=== PATIENT | female | born 1995 | race Caucasian/White ===

== ENCOUNTER 2017-04-01 18:27 | Emergency (ER) | payer MEDICAID, OTHER ==
[~2017-04-01] VITALS: Ht 157.5 cm; Wt 79.4 kg
[~2017-04-01 18:27] MED LIST: ACHYD1T PO; AMOX500C2 PO; AMOX500T2 PO; BIRTH CONTROL PILL PO; CEPH500C PO; CIPR500T4 PO; CPR500T PO; CYCL10TA9 PO; CYCL5TAB11 PO; DCS100C PO; Docusate Sodium PO; ESCT10T PO; FAMO-119 PO; FAMO20TA5 PO; FEXO180T84 PO; FRS325T PO; HYDR-707 PO; IRON PO; IRON45TA2 PO; Ibuprofen PO; METR500T PO; MPR22T TP; MTR500T PO; NITR100C3 PO; OCP PO; OMEP20CA12 PO; OMEP20TA2 PO; OMEP20TA7 PO; ONDA4TAB11 PO; ONDA8TAB9 PO; PNV1CAPS45 PO; POLY119P PO; PREN1TAB71 PO; RANI25TA PO; SMTR50T PO; SULF-222 PO; SUMA25TA3 PO; [UNRECOGNIZED DRUG - REMARK]; omeprazole
[2017-04-01 18:45] LABS: KETONES,URINE NEGATIVE (NEGATIVE); LEUKOCYTE ESTERASE ,URINE 1+ (NEGATIVE); NITRITE,URINE NEGATIVE (NEGATIVE); PH,URINE 6 (5-9); PROTEIN,URINE 1+ (NEGATIVE); UROBILINOGEN,URINE 1 MG/DL (NORMAL)
[2017-04-01 18:59] LABS: BILIRUBIN,URINE 1+ (NEGATIVE); SQUAMOUS EPITHELIAL CELL,UR TNTC /HPF; WBC,URINE RARE /HPF
[2017-04-01] MEDS ORDERED: RX-ONDANSETRON 4 MG ODT (ZOFRAN) PPK #4 SL STA (20:01)
--- NOTE | 2017-04-01 20:01 | ED General ---
General Chief Complaint: -Female Stated Complaint: NAUSEA/CRAMPS/LATE PERIOD Nursing Triage Note: AMB TO ED WITH MALE LMP WAS FEBRUARY 24 THINKS SHE MAY BE PREG HAVING PREG SYMPTOMS. Nursing Sepsis Screen: No Definite Risk Source of Information: Patient Exam Limitations: No Limitations History of Present Illness Time Seen by Provider: 18:29 Initial Comments This 22-year-old young lady presents to the emergency room with complaints of late menstrual cycle, breast tenderness, pelvic cramping, and fatigue. Symptoms have been present for about 2 weeks. She has had some constipation. She denies any vomiting associated with her nausea. No diarrhea. She has had some white discharge without odor 2 days which is now gone. She is 8 days late on her cycle. She has not taken a test. Allergies and Home Medications Allergies Coded Allergies: propranolol (Unverified Allergy, Unknown, 07/26/14) Home Medications Ciprofloxacin HCl 500 Mg Tablet, 500 MG PO BID, #6 Prescribed by: NOE ROSALES on 04/23/16 0145 Fexofenadine HCl 180 Mg Tablet, 180 MG PO DAILY, (Reported) Omeprazole 20 Mg Tablet., Unknown Dose PO DAILY PRN for heartburn, (Reported) [omeprazole] , (Reported) Constitutional: see HPI EENTM: no symptoms reported Respiratory: no symptoms reported Cardiovascular: no symptoms reported Gastrointestinal: see HPI Genitourinary: no symptoms reported : No LMP: Feb 24, 2017 Musculoskeletal: no symptoms reported Skin: no symptoms reported Psychiatric/Neurological: No Symptoms Reported Hematologic/Lymphatic: No Symptoms Reported Past Amymrht-Ewirsl-Nodozi Hx Patient Social History Alcohol Use: Denies Use Recreational Drug Use: No Smoking Status: Never a Smoker Former Smoker/When Quit: Nov 02, 2013 Recent Foreign Travel: No Contact w/Someone Who Travel: No Recent Infectious Disease Expo: No Recent Hopitalizations: No Immunizations Up To Date Tetanus Booster (TDap): Less than 5yrs Date of Influenza Vaccine: Jun 27, 2013 Seasonal Allergies Seasonal Allergies: Yes Surgeries HX Surgeries: Yes (URETHRAL DILATION, X 2) Surgeries: Appendectomy, Section, Gallbladder Respiratory Hx Respiratory Disorders: No Cardiovascular Hx Cardiac Disorders: No Neurological Hx Neurological Disorders: Yes ("hereditary migraines") Neurological Disorders: Headaches /Migraines Reproductive System Hx Reproductive Disorders: No Sexually Transmitted Disease: No Female Reproductive Disorders: Pelvic Inflammatory Dis Genitourinary Hx Genitourinary Disorders: Yes Genitourinary Disorders: UTI-Chronic Gastrointestinal Hx Gastrointestinal Disorders: Yes Gastrointestinal Disorders: Gastroesophageal Reflux, Irritable Bowel Musculoskeletal Hx Musculoskeletal Disorders: Yes Musculoskeletal Disorders: Scoliosis Endocrine Hx Endocrine Disorders: No HEENT HX ENT Disorders: No Cancer Hx Cancer: No Psychosocial Hx Psychiatric Problems: Yes Behavioral Health Disorders: Anxiety, Depression Integumentary HX Skin/Integumentary Disorder: No Blood Transfusions Hx Blood Disorders: No Family Medical History Significant Family History: No Pertinent Family Hx Family Medial History: Alcoholism 19 FATHER 19 MOTHER (PGF) Arthritis 19 MOTHER Cardiovascular disease 19 FATHER (PGM) 19 MOTHER (MGF) Completed stroke G8 BROTHER Dementia G8 BROTHER Diabetes mellitus 19 FATHER (PGM) G8 BROTHER Fibrocystic disease of breast 19 MOTHER (MGM) Headache disorder 19 FATHER Hypercholesterolemia 19 FATHER G8 BROTHER G8 BROTHER Hypertension 19 MOTHER (MGF) G8 BROTHER Kidney disease 19 MOTHER Myocardial infarction G8 BROTHER Osteoporosis 19 MOTHER Psychosocial problem No Family History of: AIDS Abdominal aortic aneurysm Yobani's disease Alzheimer's disease Aphasia Asthma Cancer of mouth Cataracts Colon cancer Congenital disease Congenital heart disease Coronary thrombosis Cystic fibrosis Deafness or hearing loss Drug abuse Dysphasia Gastroenteritis Glaucoma Infertility Neoplasm Not obtainable due to adoption Parkinson's disease Prostate cancer Respiratory disorder Seizure disorder Severe allergy Thyroid disease Tuberculosis Visual disorder Physical Exam Vital Signs Vital Sign - Last 12Hours 04/01/17 18:36 Temp 99.6 Pulse 85 Resp 18 B/P (MAP) 130/99 Pulse Ox 99 O2 Delivery Room Air Capillary Refill : Less Than 3 Seconds General Appearance: No Apparent Distress, WD/WN HEENT: Normal ENT Inspection Respiratory: Lungs Clear, Normal Breath Sounds, No Accessory Muscle Use, No Respiratory Distress Cardiovascular: Regular Rate, Rhythm, No Edema, No Murmur Gastrointestinal: Normal Bowel Sounds, Non Tender, Soft Extremity: Normal Inspection, No Pedal Edema Neurologic/Psychiatric: Alert, Oriented x3, No Motor/Sensory Deficits, Normal Mood/Affect, electro optical engineer II-XII Norm as Tested Skin: Normal Color, Warm/Dry Progress/Results/Core Measures Results/Orders Lab Results Laboratory Tests Test 04/01/17 18:29 04/01/17 19:10 Range/Units Urine Color YELLOW Urine Clarity CLEAR Urine pH 6 5-9 Urine Specific [place] 1.020 1.016-1.022 Urine Protein 1+ H NEGATIVE Urine Glucose (UA) NEGATIVE NEGATIVE Urine Ketones NEGATIVE NEGATIVE Urine Nitrite NEGATIVE NEGATIVE Urine Bilirubin 1+ H NEGATIVE Urine Urobilinogen 1 NORMAL MG/DL Urine Leukocyte Esterase 1+ H NEGATIVE Urine RBC (Auto) NEGATIVE NEGATIVE Urine RBC RARE /HPF Urine WBC RARE /HPF Urine Squamous Epithelial Cells TNTC H /HPF Urine Crystals NONE /LPF Urine Bacteria LARGE H /HPF Urine Casts NONE /LPF Urine Mucus NEGATIVE /LPF Urine Culture Indicated NO Serum Test, Qualitative NEGATIVE NEGATIVE My Orders Orders - ANNE ORTEGA MD Ua Culture If Indicated (04/01/17 18:29) Urine Bedside (04/01/17 18:29) Hcg,Qualitative Serum (04/01/17 18:54) Rx-Ondansetron Po (Rx-Zofran Po) (04/01/17 20:01) Vital Signs/I&O Vital Sign - Last 12Hours 04/01/17 04/01/17 18:36 20:07 Temp 99.6 99.6 Pulse 85 85 Resp 18 18 B/P (MAP) 130/99 Pulse Ox 99 99 O2 Delivery Room Air Room Air Blood Pressure Mean: 109 Point of Care Testing Urine -Bedside: Negative Progress Note : Progress Note Serum test was negative. The remainder of her workup was deferred to primary care and she does not appear to have an emergent condition requiring immediate workup and continuity for following these issues should be managed by the primary care provider. Departure Impression Impression: Primary Impression: Irregular menstrual cycle Additional Impressions: Pelvic cramping Fatigue Qualified Codes: R53.83 - Other fatigue Nausea Disposition: HOME, SELF-CARE Condition: Stable Departure-Patient Inst. Decision time for Depature: 20:01 Referrals: [facility][1] (PCP/Family) Primary Care Physician Patient Instructions: Absent or Irregular Periods Add. Discharge Instructions: Follow-up with your primary care provider regarding your fatigue, menstrual issues, and nausea. You may use the Zofran (ondansetron) dissolved under the tongue every 4 hours as needed for nausea. Return to care if symptoms worsen. All discharge instructions reviewed with patient and/or family. Voiced understanding. ANNE ORTEGA MD Apr 01, 2017 20:01
[2017-04-01 20:07] VITALS: BP 130/99
== END 2017-04-01 20:06 | disposition home or self-care (01) ==
LOC: EDUNIT# 18:27 → ER 18:28
DX: N92.6 Irregular menstruation, unspecified (principal); R53.83 Other fatigue; R11.0 Nausea; F41.9 Anxiety disorder, unspecified; F32.9 Major depressive disorder, single episode, unspecified; K21.9 Gastro-esophageal reflux disease without esophagitis; G43.909 Migraine, unspecified, not intractable, without status migrainosus; Z87.891 Personal history of nicotine dependence; Z32.02 Encounter for pregnancy test, result negative; Z87.440 Personal history of urinary (tract) infections; Z87.59 Personal history of other complications of pregnancy, childbirth and the puerperium; Z87.39 Personal history of other diseases of the musculoskeletal system and connective tissue
CPT/HCPCS: 36415; 81000; 84703; 99283

== ENCOUNTER 2017-06-07 11:19 | Emergency (ER) | payer MEDICAID ==
[~2017-06-07] VITALS: Ht 157.5 cm; Wt 86.2 kg
[2017-06-07] MEDS ORDERED: LEVO1TAB72 (11:58)
[2017-06-07] MEDS ORDERED: RANI150T11 (11:58)
[2017-06-07] MEDS ORDERED: LORA10CA PO (11:58)
[2017-06-07] MEDS ORDERED: DICY10CA12 (11:58)
[2017-06-07] MEDS ORDERED: IBUPROFEN TABLET 200 MG TAB PO STA (12:02)
--- NOTE | 2017-06-07 12:33 | ED Cough/URI ---
General Chief Complaint: Cough/Cold/Flu Symptoms Stated Complaint: FLU SYMPTOMS Nursing Triage Note: patient reports low grade fever, with generalized aches, fatigue, sore throat. patient reports this started yesterday and took tylenol yesterday but nothing today History of Present Illness Time seen by provider: 12:20 Initial Comments Patient reports temperature to 100.8 yesterday, resolved after taking Tylenol. Body aches and facial pain. Denies a cough or nasal discharge. Mild nausea and no vomiting, diarrhea 1 today. Denies dysuria or urinary frequency. Timing/Duration: yesterday Severity/Quality: no cough Prior Episodes/Possible Cause: no prior episodes Modifying Factors: Improves With Rest Associated Symptoms: facial pain (frontal sinuses), fever/chills, headache, muscle aches, sore throat Allergies and Home Medications Allergies Coded Allergies: propranolol (Unverified Allergy, Unknown, 07/26/14) Home Medications Dicyclomine HCl 10 Mg Capsule, (Reported) Levonorgestrel-Ethin Estradiol 1 Each Tablet, (Reported) Loratadine 10 Mg Capsule, 10 MG PO, (Reported) Ranitidine HCl 150 Mg Tablet, (Reported) [omeprazole] , (Reported) Constitutional: no symptoms reported, see HPI EENTM: see HPI, ear pain (mild congestion and pain), throat pain, No hoarseness , No mouth swelling, No nose congestion Respiratory: no symptoms reported, see HPI, No cough Cardiovascular: no symptoms reported, see HPI Gastrointestinal: see HPI, No abdominal pain, diarrhea, loss of appetite : No (takes oral contraceptives daily as prescribed) Musculoskeletal: see HPI, muscle pain (generalized) All Other Systems Reviewed Negative Unless Noted: Yes Past Abrerra-Nicasp-Kmffgb Hx Patient Social History Alcohol Use: Denies Use Recreational Drug Use: No Smoking Status: Never a Smoker Recent Foreign Travel: No Contact w/Someone Who Travel: No Recent Infectious Disease Expo: No Recent Hopitalizations: No Immunizations Up To Date Tetanus Booster (TDap): Less than 5yrs Date of Influenza Vaccine: Jun 27, 2013 Seasonal Allergies Seasonal Allergies: Yes Surgeries History of Surgeries: Yes (URETHRAL DILATION, X 2) Surgeries: Appendectomy, Section, Gallbladder Respiratory History of Respiratory Disorde: No Cardiovascular History of Cardiac Disorders: No Neurological History of Neurological Disord: Yes ("hereditary migraines") Neurological Disorders: Headaches /Migraines Reproductive System Hx Reproductive Disorders: No Sexually Transmitted Disease: No Female Reproductive Disorders: Pelvic Inflammatory Dis Genitourinary Genitourinary Disorders: UTI-Chronic Gastrointestinal History of Gastrointestinal Di: Yes Gastrointestinal Disorders: Gastroesophageal Reflux, Irritable Bowel Musculoskeletal History of Musculoskeletal Dis: Yes Musculoskeletal Disorders: Scoliosis Endocrine History of Endocrine Disorders: No Cancer History of Cancer: No Psychosocial History of Psychiatric Problem: Yes Behavioral Health Disorders: Anxiety, Depression Integumentary History of Skin or Integumenta: No Blood Transfusions History of Blood Disorders: No Reviewed Nursing Assessment Reviewed/Agree w Nursing PMH: Yes Family Medical History Significant Family History: No Pertinent Family Hx Family Medial History: Alcoholism 19 FATHER 19 MOTHER (PGF) Arthritis 19 MOTHER Cardiovascular disease 19 FATHER (PGM) 19 MOTHER (MGF) Completed stroke G8 BROTHER Dementia G8 BROTHER Diabetes mellitus 19 FATHER (PGM) G8 BROTHER Fibrocystic disease of breast 19 MOTHER (MGM) Headache disorder 19 FATHER Hypercholesterolemia 19 FATHER G8 BROTHER G8 BROTHER Hypertension 19 MOTHER (MGF) G8 BROTHER Kidney disease 19 MOTHER Myocardial infarction G8 BROTHER Osteoporosis 19 MOTHER Psychosocial problem No Family History of: AIDS Abdominal aortic aneurysm [place]'s disease Alzheimer's disease Aphasia Asthma Cancer of mouth Cataracts Colon cancer Congenital disease Congenital heart disease Coronary thrombosis Cystic fibrosis Deafness or hearing loss Drug abuse Dysphasia Gastroenteritis Glaucoma Infertility Neoplasm Not obtainable due to adoption Parkinson's disease Prostate cancer Respiratory disorder Seizure disorder Severe allergy Thyroid disease Tuberculosis Visual disorder Physical Exam Vital Signs Vital Sign - Last 12Hours 06/07/17 11:55 Temp 97.9 Pulse 107 Resp 18 B/P (MAP) 137/74 Pulse Ox 98 O2 Delivery Room Air Capillary Refill : Less Than 3 Seconds General Appearance: WD/WN, no apparent distress Eyes: Bilateral Eye Normal Inspection, Bilateral Eye PERRL, Bilateral Eye EOMI HEENT: PERRL/EOMI, normal ENT inspection, TMs normal, pharynx normal (with clear postnasal drainage) Neck: non-tender, full range of motion, supple, normal inspection, No lymphadenopathy (R), No lymphadenopathy (L) Respiratory: chest non-tender, lungs clear Cardiovascular: normal peripheral pulses, regular rate, rhythm, no murmur Gastrointestinal: normal bowel sounds, non tender, soft Neurologic/Psychiatric: no motor/sensory deficits, alert, normal mood/affect, oriented x 3 Skin: normal color, warm/dry Progress/Results/Core Measures Results/Orders Micro Results Microbiology 06/07/17 Influenza Types A,B Antigen (LATOYA) - Final, Complete My Orders Orders - ROBIN CHRISTENSEN Ibuprofen Tablet (Motrin Tablet) (06/07/17 12:02) Vital Signs/I&O Vital Sign - Last 12Hours 06/07/17 06/07/17 06/07/17 11:55 11:55 12:53 Temp 97.9 97.9 Pulse 107 107 Resp 18 18 B/P (MAP) 137/74 Pulse Ox 98 98 O2 Delivery Room Air Room Air Blood Pressure Mean: 95 Progress Note : Time: 12:20 Progress Note Influenza A and B screen negative. Initial evaluation completed, recommended ibuprofen 600 mg by mouth for generalized discomfort. Departure Impression Impression: Primary Impression: Viral upper respiratory infection Disposition: 01 HOME, SELF-CARE Condition: Stable Departure-Patient Inst. Decision time for Depature: 12:35 Referrals: [facility] (PCP/Family) Primary Care Physician Patient Instructions: Viral Upper Respiratory Infection, Adult (DC) Add. Discharge Instructions: Rest, increase fluid intake, alternate between Tylenol 650 mg and ibuprofen 600 mg every 4 hours. Follow-up with primary care provider if symptoms are not improving in 3-4 days. Return to emergency department if fever greater than 101 that persist after taking Tylenol and ibuprofen, difficulty breathing, Inability to take food or fluids, or new problems. All discharge instructions reviewed with patient and/or family. Voiced understanding. Work/School Note: Family Work Note Patient Received Medical Care In the Emergency Department On: Jun 07, 2017 Patient Will Be Able to Return to Work/School On: Jun 08, 2017 Patient Restrictions: No restrictions ROBIN CHRISTENSEN Jun 07, 2017 12:33
[2017-06-07 12:53] VITALS: BP 137/74
== END 2017-06-07 12:49 | disposition home or self-care (01) ==
LOC: EDUNIT# 11:19 → ER 11:21
DX: J06.0 Acute laryngopharyngitis (principal); F41.9 Anxiety disorder, unspecified; F32.9 Major depressive disorder, single episode, unspecified; K21.9 Gastro-esophageal reflux disease without esophagitis; K58.9 Irritable bowel syndrome, unspecified; G43.909 Migraine, unspecified, not intractable, without status migrainosus; Z87.59 Personal history of other complications of pregnancy, childbirth and the puerperium; Z90.49 Acquired absence of other specified parts of digestive tract; Z82.49 Family history of ischemic heart disease and other diseases of the circulatory system
CPT/HCPCS: 87804; 99283

== ENCOUNTER 2017-06-23 21:39 | Emergency (ER) | payer MEDICAID ==
[~2017-06-23] VITALS: Ht 157.5 cm; Wt 88.9 kg
[~2017-06-23 21:39] MED LIST changes: +DICY10CA12; +LEVO1TAB72; +LORA10CA PO; +RANI150T11
--- OUTSIDE RECORDS SUMMARY | 2017-06-23 21:44 | XMS REPORT | Continuity of Care Document ---
Author Author [employer] Organization [facility] Address Unknown Phone Unavailable Care Team Providers Care Paint Technician Name Role Phone [employer] Unavailable Unavailable Problems Medications Allergies, Adverse Reactions, Alerts Immunizations Results Vital Signs Encounters Location Location Details Encounter Type Encounter Number Reason For Visit Attending Provider ADM Date DC Date Status Source O Active [facility] Procedures Plan of Care Social History Assessment and Plan Family History Value Date Source Advance Directives Order Name Results Value Date Source
--- OUTSIDE RECORDS SUMMARY | 2017-06-23 21:45 | XMS REPORT ---
Author Author CHILO MCBRIDE [facility] [employer] Address Unknown Phone Unavailable Care Team Providers Care Business Information Manager Name Role Phone CHILO MCBRIDE CP Unavailable Allergies, Adverse Reactions, Alerts Substance Reaction Event Type Propranolol HCl vomiting Drug Allergy Problems Problem Type Condition Code Onset Dates Condition Status Problem Urinary tract infection, site not specified 599.0 Active Problem Mastodynia 611.71 Active Problem Previous delivery, unspecified as to episode of care or not applicable 654.20 Active Problem Unspecified high-risk V23.9 Active Problem Unspecified urticaria 708.9 Active Problem Abdominal pain, right lower quadrant 789.03 Active Problem Concussion with loss of consciousness of unspecified duration 850.5 Active Problem Acute sinusitis, unspecified 461.9 Active Problem Unspecified disorder of menstruation and other abnormal bleeding from female genital tract 626.9 Active Problem Screening examination for venereal disease V74.5 Active Problem General counseling for prescription of oral contraceptives V25.01 Active Problem Epistaxis 784.7 Active Problem Infectious mononucleosis 075 Active Problem Unspecified symptom associated with female genital organs 625.9 Active Problem Twin , unspecified as to episode of care 651.00 Active Problem Diarrhea 787.91 Active Problem Abdominal pain, other specified site 789.09 Active Problem Vomiting alone 787.03 Active Problem Hypersomnia, unspecified 780.54 Active Problem Other malaise and fatigue 780.79 Active Problem Nausea with vomiting 787.01 Active Problem Abdominal pain, epigastric 789.06 Active Problem Encounter for long-term (current) use of other medications V58.69 Active Problem Acute pharyngitis 462 Active Problem Abdominal pain, left lower quadrant 789.04 Active Problem Dysuria 788.1 Active Problem Rash and other nonspecific skin eruption 782.1 Active Assessment Hives of unknown origin L50.9 Active Problem Unspecified pruritic disorder 698.9 Active Problem Acute upper respiratory infections of unspecified site 465.9 Active Problem Absence of menstruation 626.0 Active Problem Abdominal pain, right upper quadrant 789.01 Active Problem Spasm of muscle 728.85 Active Problem Headache 784.0 Active Problem [place] 625.2 Active Problem Flatulence, eructation, and gas pain 787.3 Active Problem examination or test, negative result V72.41 Active Problem Screening for diabetes mellitus V77.1 Active Problem Abdominal pain, periumbilic 789.05 Active Problem Eosinophilic esophagitis 530.13 Active Problem Other general symptoms 780.99 Active Problem Other specified disease of hair and hair follicles 704.8 Active Problem Abdominal pain, generalized 789.07 Active Problem Dyspepsia and other specified disorders of function of stomach 536.8 Active Problem Scoliosis (and kyphoscoliosis), idiopathic 737.30 Active Problem Irregular menstrual cycle 626.4 Active Problem Intestinal infection due to other organism, NEC 008.8 Active Problem Irritable bowel syndrome 564.1 Active Problem Nausea alone 787.02 Active Problem Unspecified constipation 564.00 Active Medications Medication Code System Code Instructions Start Date End Date Status Dosage Imitrex [facility] [address]-26 100 mg 1 TAB orally once January 26, 2012 1 tablet by Oral route [address] [facility] [address]-38 150 MG Orally twice a day May 25, [address] [facility] [address]-23 10 mg Orally twice a day 1in AM and 1 in PM May 25, 2016 Jul 24, [address] [facility] [address]-70 100 mg February 14, 2013 1 capsule by Oral route 2 times per day PRN Omeprazole [facility] [id number] 20 mg December 01, 2013 take 1 capsule ( 20 mg) by oral route once daily before a meal Procedures Procedure Coding System Code Date Office Visit, Est Pt., Level 3 CPT-4 51957 May 25, 2016 Vital Signs Date/Time: May 25, 2016 Cardiac Monitoring Heart Rate 90 bpm Weight 202 lbs Height 61 in BMI 38.16 Index Blood Pressure Diastolic 70 mmHg Blood Pressure Systolic 100 mmHg Results No Known Results Summary Purpose [employer] Submission
--- OUTSIDE RECORDS SUMMARY | 2017-06-23 21:45 | XMS REPORT | Clinical Summary ---
Author Author [facility] Organization [facility] Address Unknown Phone Unavailable Care Team Providers Care Business Area Director Name Role Phone PCP Unavailable Source Comments Some departments are not documenting in the electronic medical record. If you do not see the information that you expected, contact Release of Information in the Health Information Management department at [phone] for further assistance in locating additional records.[facility] Allergies Active Allergy Reactions Severity Noted Date Comments Amitriptyline NAUSEA AND VOMITING 06/24/2013 Propranolol NAUSEA AND VOMITING 06/24/2013 Current Medications Prescription Sig. Disp. Refills Start End Date Status Date vitamins, w/iron Take 1 Tab by mouth Active & folate 65/1 mg tab daily. docusate (COLACE) 100 mg Take 100 mg by mouth Active capsule twice daily. simethicone (MYLICON) 80 Take 1 Tab by mouth every 30 Tab 0 08/30/19 Active mg chew tablet 6 hours as needed. 14 lanolin (YPS-W-GFQRNA) apply to sore nipples as 1 Tube 0 08/30/19 Active topical cream needed 14 docusate (COLACE) 100 mg Take 1 Cap by mouth twice 180 Cap 0 08/30/19 Active capsule daily as needed for 14 Constipation. milk of magnesia (CONC) Take 10 mL by mouth every 100 mL 0 08/30/19 Active 2,400 mg/10 mL oral 6 hours as needed. 14 suspension acetaminophen-codeine Take 1-2 Tabs by mouth 30 Tab 0 20 Active (TYLENOL #3) 300-30 mg every 4 hours as needed. 14 tablet oxyCODone-acetaminophen Take 1-2 Tabs by mouth 60 Tab 0 20 Active (PERCOCET; ENDOCET; every 4 hours as needed 14 ROXICET) 5-325 mg for Pain Max 12 tabs/day tabletIndications: pain Active Problems Problem Noted Date labor 08/24/2013 Threatened labor 06/24/2013 Immunizations Name Dates Previously Given Next Due Flu Vaccine Trivalent=>3 07/12/2013 Yo (Preservative Free) MMR Vaccine 08/30/2013 Family History Medical History Relation Name Comments Diabetes Brother Hypertension Brother Seizures Brother Stroke Brother Hypertension Father Migraines Father Cancer Maternal Grandmother Cancer Maternal Uncle Depression Mother Hypertension Mother Stroke Mother Diabetes Paternal Aunt Diabetes Paternal Grandmother Diabetes Sister Relation Name Status Comments Brother Father Maternal Grandmother Maternal Uncle Mother Paternal Aunt Paternal Grandmother Sister Social History Tobacco Use Types Packs/Day Years Used Date Never Smoker Smokeless Tobacco: Never Used Alcohol Use Drinks/Week oz/Week Comments No Sex Assigned at Date Recorded Not on file Last Filed Vital Signs Vital Sign Reading Time Taken Blood Pressure 122/71 08/30/2013 7:59 AM INTERNAL MEDICINE PHYSICIAN Pulse 94 08/30/2013 7:59 AM INTERNAL MEDICINE PHYSICIAN Temperature 36.8 C (98.2 F) 08/30/2013 7:59 AM INTERNAL MEDICINE PHYSICIAN Respiratory Rate - - Oxygen Saturation 95% 08/30/2013 7:59 AM INTERNAL MEDICINE PHYSICIAN Inhaled Oxygen - - Concentration Weight 77.1 kg (170 lb) 08/27/2013 4:00 PM INTERNAL MEDICINE PHYSICIAN Height 157.5 cm (5' 2") 07/12/2013 10:00 PM INTERNAL MEDICINE PHYSICIAN Body Mass Index 31.09 08/27/2013 4:00 PM INTERNAL MEDICINE PHYSICIAN Plan of Treatment Health Maintenance Due Date Last Done Comments PHYSICAL (COMPREHENSIVE) 2002 EXAM HPV VACCINES (1 of 3 - 2006 Female 3 Dose Series) PERTUSSIS VACCINE 2006 TETANUS VACCINE 2012 CERVICAL CANCER SCREENING 2016 INFLUENZA VACCINE 03/27/2017 07/12/2013 Results Not on filefrom Last 3 Months
--- NOTE | 2017-06-23 21:53 | ED Abdominal Pain ---
General Chief Complaint: Abdominal/GI Problems Stated Complaint: ABD PAIN, NO APPETITE,NAUSEA Source of Information: Patient Exam Limitations: No Limitations History of Present Illness Time Seen By Provider: 21:51 Initial Comments To ER with epigastric abdominal pain for the past 3 days. She has associated nausea but no vomiting. She does have alternating constipation and diarrhea but she states that she has irritable bowel syndrome and this is not unusual for her. She was started on dicyclomine one month ago for the irritable bowel syndrome but denies any significant improvement. She reports remote history of appendectomy and cholecystectomy. Timing/Duration: 1-2 Days Severity/Quality: Cramping Activities at Onset: None Associated Symptoms: Nausea/Vomiting Allergies and Home Medications Allergies Coded Allergies: propranolol (Unverified Allergy, Unknown, 07/26/14) Home Medications Dicyclomine HCl 10 Mg Capsule, (Reported) Levonorgestrel-Ethin Estradiol 1 Each Tablet, (Reported) Loratadine 10 Mg Capsule, 10 MG PO, (Reported) Ranitidine HCl 150 Mg Tablet, (Reported) Sulfamethoxazole/Trimethoprim 1 Each Tablet, 1 EACH PO BID, #5 Prescribed by: JESSIE DOWELL on 06/23/177 [omeprazole] , (Reported) Review of Systems Constitutional: see HPI EENTM: No Symptoms Reported Respiratory: No Symptoms Reported Cardiovascular: No Symptoms Reported Gastrointestinal: See HPI, Abdominal Pain, Diarrhea Genitourinary: No Symptoms Reported Musculoskeletal: no symptoms reported Skin: no symptoms reported Psychiatric/Neurological: No Symptoms Reported Endocrine: No Symptoms Reported Past Fobbgzy-Sznrxy-Bpmslo Hx Patient Social History Recent Foreign Travel: No Contact w/Someone Who Travel: No Recent Hopitalizations: No Immunizations Up To Date Tetanus Booster (TDap): Less than 5yrs Date of Influenza Vaccine: Jun 27, 2013 Seasonal Allergies Seasonal Allergies: Yes Surgeries History of Surgeries: Yes (URETHRAL DILATION, X 2) Surgeries: Appendectomy, Section, Gallbladder Respiratory History of Respiratory Disorde: No Cardiovascular History of Cardiac Disorders: No Neurological History of Neurological Disord: Yes ("hereditary migraines") Neurological Disorders: Headaches /Migraines Reproductive System Hx Reproductive Disorders: No Sexually Transmitted Disease: No Female Reproductive Disorders: Pelvic Inflammatory Dis Genitourinary Genitourinary Disorders: UTI-Chronic Gastrointestinal History of Gastrointestinal Di: Yes Gastrointestinal Disorders: Gastroesophageal Reflux, Irritable Bowel Musculoskeletal History of Musculoskeletal Dis: Yes Musculoskeletal Disorders: Scoliosis Endocrine History of Endocrine Disorders: No Cancer History of Cancer: No Psychosocial History of Psychiatric Problem: Yes Behavioral Health Disorders: Anxiety, Depression Integumentary History of Skin or Integumenta: No Blood Transfusions History of Blood Disorders: No Family Medical History Significant Family History: No Pertinent Family Hx Family Medial History: Alcoholism 19 FATHER 19 MOTHER (PGF) Arthritis 19 MOTHER Cardiovascular disease 19 FATHER (PGM) 19 MOTHER (MGF) Completed stroke G8 BROTHER Dementia G8 BROTHER Diabetes mellitus 19 FATHER (PGM) G8 BROTHER Fibrocystic disease of breast 19 MOTHER (MGM) Headache disorder 19 FATHER Hypercholesterolemia 19 FATHER G8 BROTHER G8 BROTHER Hypertension 19 MOTHER (MGF) G8 BROTHER Kidney disease 19 MOTHER Myocardial infarction G8 BROTHER Osteoporosis 19 MOTHER Psychosocial problem No Family History of: AIDS Abdominal aortic aneurysm Yobani's disease Alzheimer's disease Aphasia Asthma Cancer of mouth Cataracts Colon cancer Congenital disease Congenital heart disease Coronary thrombosis Cystic fibrosis Deafness or hearing loss Drug abuse Dysphasia Gastroenteritis Glaucoma Infertility Neoplasm Not obtainable due to adoption Parkinson's disease Prostate cancer Respiratory disorder Seizure disorder Severe allergy Thyroid disease Tuberculosis Visual disorder Physical Exam Vital Signs VS - Last 72 Hours, by Label 06/23/17 21:46 Temp 98.6 Resp 20 B/P (MAP) Capillary Refill : General Appearance: WD/WN, no apparent distress HEENT: PERRL/EOMI, normal ENT inspection Neck: non-tender, full range of motion Respiratory: no respiratory distress, no accessory muscle use Gastrointestinal: normal bowel sounds, non tender, soft Extremities: normal range of motion, non-tender Neurologic/Psychiatric: alert, normal mood/affect, oriented x 3 Skin: normal color, warm/dry Progress/Results/Core Measures Results/Orders Lab Results Laboratory Tests Test 06/23/17 21:44 06/23/17 21:48 Range/Units Urine Color YELLOW Urine Clarity SLIGHTLY CLOUDY Urine pH 6 5-9 Urine Specific [place] 1.020 1.016-1.022 Urine Protein 1+ H NEGATIVE Urine Glucose (UA) NEGATIVE NEGATIVE Urine Ketones NEGATIVE NEGATIVE Urine Nitrite NEGATIVE NEGATIVE Urine Bilirubin 1+ H NEGATIVE Urine Urobilinogen 1 NORMAL MG/DL Urine Leukocyte Esterase 1+ H NEGATIVE Urine RBC (Auto) NEGATIVE NEGATIVE Urine RBC NONE /HPF Urine WBC 5-10 H /HPF Urine Squamous Epithelial Cells 25-50 H /HPF Urine Crystals NONE /LPF Urine Bacteria LARGE H /HPF Urine Casts NONE /LPF Urine Mucus NEGATIVE /LPF Urine Culture Indicated YES White Blood Count 12.7 H 4.3-11.0 10^3/uL Red Blood Count 4.84 4.35-5.85 10^6/uL Hemoglobin 13.2 11.5-16.0 G/DL Hematocrit 40 35-52 % Mean Corpuscular Volume 83 80-99 FL Mean Corpuscular Hemoglobin 27 25-34 PG Mean Corpuscular Hemoglobin Concent 33 32-36 G/DL Red Cell Distribution Width 14.4 10.0-14.5 % Platelet Count 356 130-400 10^3/uL Mean Platelet Volume 11.1 H 7.4-10.4 FL Neutrophils (%) (Auto) 46 42-75 % Lymphocytes (%) (Auto) 43 12-44 % Monocytes (%) (Auto) 8 0-12 % Eosinophils (%) (Auto) 3 0-10 % Basophils (%) (Auto) 1 0-10 % Neutrophils # (Auto) 5.8 1.8-7.8 X 10^3 Lymphocytes # (Auto) 5.4 H 1.0-4.0 X 10^3 Monocytes # (Auto) 1.0 0.0-1.0 X 10^3 Eosinophils # (Auto) 0.4 H 0.0-0.3 10^3/uL Basophils # (Auto) 0.1 0.0-0.1 10^3/uL Sodium Level 136 135-145 MMOL/L Potassium Level 4.0 3.6-5.0 MMOL/L Chloride Level 102 98-107 MMOL/L Carbon Dioxide Level 22 21-32 MMOL/L Anion Gap 12 5-14 MMOL/L Blood Urea Nitrogen 11 7-18 MG/DL Creatinine 0.74 0.60-1.30 MG/DL Estimat Glomerular Filtration Rate > 60 BUN/Creatinine Ratio 15 Glucose Level 87 70-105 MG/DL Calcium Level 9.4 8.5-10.1 MG/DL Total Bilirubin 0.3 0.1-1.0 MG/DL Aspartate Amino Transf (AST/SGOT) 39 H 5-34 U/L Alanine Aminotransferase (ALT/SGPT) 43 0-55 U/L Alkaline Phosphatase 139 H 40-136 U/L Total Protein 8.2 6.4-8.2 GM/DL Albumin 4.1 3.2-4.5 GM/DL Lipase 30 8-78 U/L My Orders Orders - JESSIE DOWELL APRN Antacid Suspension (Mylanta Suspension (06/23/17 22:00) Lidocaine 2% Viscous 15 Ml (Xylocaine Vi (06/23/17 22:00) Ondansetron Injection (Zofran Injectio (06/23/17 22:00) Cbc With Automated Diff (06/23/17 21:50) Comprehensive Metabolic Panel (06/23/17 21:50) Lipase (06/23/17 21:50) Ua Culture If Indicated (06/23/17 21:50) Urine Bedside (06/23/17 21:50) Urine Culture (06/23/17 21:44) Sulfamethoxazole/Trimet Ds Tab (Bactrim (06/23/17 22:30) Medications Given in ED Current Medications Medications Dose Ordered Sig/Fidel Route Start Time Stop Time Status Last Admin Dose Admin Al Hydrox/Mg Hydrox/Simethicone 30 ml ONCE ONCE PO 06/23/17 22:00 06/23/17 22:02 DC 06/23/17 21:59 30 ML Lidocaine HCl 15 ml ONCE ONCE PO 06/23/17 22:00 06/23/17 22:02 DC 06/23/17 21:58 15 ML Ondansetron HCl 4 mg ONCE ONCE IVP 06/23/17 22:00 06/23/17 22:02 DC 06/23/17 21:59 4 MG Vital Signs/I&O Vital Sign - Last 12Hours 06/23/17 21:46 Temp 98.6 Resp 20 B/P (MAP) Departure Impression Impression: Primary Impression: Epigastric abdominal pain Additional Impressions: Nausea alone Urinary tract infection Disposition: 01 HOME, SELF-CARE Condition: Stable Departure-Patient Inst. Decision time for Depature: 22:26 Referrals: [facility] (PCP/Family) Primary Care Physician Patient Instructions: Urinary Tract Infection, Adult (DC) Add. Discharge Instructions: 1. Antibiotics as directed 2. Return to ER for any concerns 3. See your doctor next week for recheck or for any persistent symptoms. Return to the emergency room for any worsening symptoms such as fevers, worsening pain 4. Go home and take an extra dicyclomine tonight All discharge instructions reviewed with patient and/or family. Voiced understanding. Scripts Sulfamethoxazole/Trimethoprim (Bactrim Ds Tablet) 1 Each Tablet 1 EACH PO BID, #5 TAB Prov: JESSIE DOWELL APRN 06/23/17 JESSIE DOWELL APRN Jun 23, 2017 21:52
[2017-06-23 21:56] LABS: BASOPHILS # (AUTO) 0.1 10^3/uL (0.0-0.1); BASOPHILS % (AUTO) 1 % (0-10); EOSINOPHILS # (AUTO) 0.4 10^3/uL (0.0-0.3); EOSINOPHILS % (AUTO) 3 % (0-10); LYMPHOCYTES # (AUTO) 5.4 X 10^3 (1.0-4.0); LYMPHOCYTES % (AUTO) 43 % (12-44); MEAN CORPUSCULAR HEMOGLOBIN 27 PG (25-34); MEAN CORPUSCULAR HGB CONC 33 G/DL (32-36); MEAN CORPUSCULAR VOLUME 83 FL (80-99); MEAN PLATELET VOLUME 11.1 FL (7.4-10.4); MONOCYTES % (AUTO) 8 % (0-12); NEUTROPHILS # (AUTO) 5.8 X 10^3 (1.8-7.8); NEUTROPHILS % (AUTO) 46 % (42-75); PLATELET COUNT 356 10^3/uL (130-400); RED BLOOD COUNT 4.84 10^6/uL (4.35-5.85); RED CELL DISTRIBUTION WIDTH 14.4 % (10.0-14.5); WHITE BLOOD COUNT 12.7 10^3/uL (4.3-11.0)
[2017-06-23] MEDS ORDERED: ANTACID SUSP 30 ML UDC (MYLANTA) PO ONE (22:00)
[2017-06-23] MEDS ORDERED: LIDOCAINE 2% VISCOUS 15 ML UDC PO ONE (22:00)
[2017-06-23] MEDS ORDERED: ONDANSETRON 4 MG/2 ML (SDV) Z0FRAN IVP ONE (22:00)
[2017-06-23 22:16] LABS: KETONES,URINE NEGATIVE (NEGATIVE); LEUKOCYTE ESTERASE ,URINE 1+ (NEGATIVE); NITRITE,URINE NEGATIVE (NEGATIVE); PH,URINE 6 (5-9); PROTEIN,URINE 1+ (NEGATIVE); UROBILINOGEN,URINE 1 MG/DL (NORMAL)
[2017-06-23 22:23] LABS: ALANINE AMINOTRANSFERASE 43 U/L (0-55); ALBUMIN 4.1 GM/DL (3.2-4.5); ANION GAP 12 MMOL/L (5-14); ASPARTATE AMINO TRANSFERASE 39 U/L (5-34); BILIRUBIN,TOTAL 0.3 MG/DL (0.1-1.0); BLOOD UREA NITROGEN 11 MG/DL (7-18); BUN/CREATININE RATIO 15; CALCIUM 9.4 MG/DL (8.5-10.1); CARBON DIOXIDE 22 MMOL/L (21-32); CHLORIDE 102 MMOL/L (98-107); CREATININE SERUM 0.74 MG/DL (0.60-1.30); GFR ESTIMATED > 60; GLUCOSE 87 MG/DL (70-105); LIPASE 30 U/L (8-78); SODIUM 136 MMOL/L (135-145); TOTAL PROTEIN 8.2 GM/DL (6.4-8.2)
[2017-06-23 22:24] LABS: BILIRUBIN,URINE 1+ (NEGATIVE)
[2017-06-23 22:25] LABS: SQUAMOUS EPITHELIAL CELL,UR 25-50 /HPF
[2017-06-23] MEDS ORDERED: SULF1TAB35 PO (22:27)
[2017-06-23] MEDS ORDERED: TRIM/SULFAMETH 160/800 (SEPTRA DS) TAB PO ONE (22:30)
[2017-06-23 22:38] VITALS: BP 136/94
== END 2017-06-23 22:38 | disposition home or self-care (01) ==
LOC: EDUNIT# 21:39 → ER 21:40
DX: N39.0 Urinary tract infection, site not specified (principal); K21.9 Gastro-esophageal reflux disease without esophagitis; G43.909 Migraine, unspecified, not intractable, without status migrainosus; F32.9 Major depressive disorder, single episode, unspecified; F41.9 Anxiety disorder, unspecified; Z90.49 Acquired absence of other specified parts of digestive tract; Z87.59 Personal history of other complications of pregnancy, childbirth and the puerperium; Z87.39 Personal history of other diseases of the musculoskeletal system and connective tissue; Z82.49 Family history of ischemic heart disease and other diseases of the circulatory system
CPT/HCPCS: 36415; 80053; 81000; 83690; 84703; 85025; 87088

== ENCOUNTER → 2017-09-14 | Outpatient (CLI) | payer MEDICAID ==
[~2017-09-14] MED LIST changes: +ONDA4TAB8 SL; +SULF1TAB35 PO
--- NOTE | 2017-09-14 11:00 | Diagnostic Imaging Report ---
EXAMINATION: Bilateral breast ultrasound. INDICATION: Bilateral breast lumps. COMPARISON: There are no previous studies available for comparison. HISTORY: Reportedly, the patient has a palpable abnormality in the upper-outer aspects of each breast in each axilla. FINDINGS: On this exam, there is no discrete solid or cystic mass identified. There is no abnormal adenopathy identified either. It may be that the palpable abnormalities in question are related to fibroglandular tissue alone; however, if clinical concern regarding an underlying abnormality persists, then biopsy should still be considered. It is my understanding that the patient has family members they are positive for the breast cancer gene. Although there is no evidence for malignancy on this exam, it may prove worthwhile for the patient to be tested for the breast cancer gene. IMPRESSION: 1. There is no evidence for malignancy. 2. These results were discussed with Yu Alexander APRN. ACR BI-RADS Category 1: Negative. Dictated by: Dictated on workstation # [id number]
== END ==
LOC: RAD 09:14
PROVIDERS: ATTEND Nurse Practitioner Family
DX: N63.31 Unspecified lump in axillary tail of the right breast (principal)

== ENCOUNTER → 2017-09-14 | Outpatient (CLI) | payer MEDICAID | LOC: RAD 09:19 | PROVIDERS: ATTEND Nurse Practitioner Family | DX: Z53.8 Procedure and treatment not carried out for other reasons (principal); N63.31 Unspecified lump in axillary tail of the right breast ==

== ENCOUNTER 2018-01-22 13:36 | Emergency (ER) | payer SELFPAY ==
[~2018-01-22] VITALS: Ht 157.5 cm; Wt 90.7 kg
--- OUTSIDE RECORDS SUMMARY | 2018-01-22 13:41 | XMS REPORT | Clinical Summary ---
Author Author [facility] Organization [facility] Address Unknown Phone Unavailable Care Team Providers Care Order Administrator Name Role Phone Pat Pompa RN Unavailable Unavailable Dereck Kwon PCP Holly Pastrana RN Unavailable Unavailable Annette Fernandez RN Unavailable Unavailable Kelsey Soto RN Unavailable Unavailable Brooke Jackson RN Unavailable Unavailable Source Comments Some departments are not documenting in the electronic medical record. If you do not see the information that you expected, contact Release of Information in the Health Information Management department at [phone] for further assistance in locating additional records.[facility] Allergies Active Allergy Reactions Severity Noted Date [...] Tab by mouth every 30 Tab 0 20 Active mg chew tablet 6 hours as needed. 14 lanolin ([id number]) apply to sore nipples as 1 Tube [...] 1-2 Tabs by mouth 30 Tab 0 08/30/19 Active (TYLENOL #3) 300-30 mg every 4 hours as needed. 14 tablet oxyCODone-acetaminophen Take 1-2 Tabs by mouth 60 Tab 0 09/03/19 Active (PERCOCET; ENDOCET; every 4 hours as [...] Taken Blood Pressure 122/71 08/30/2013 7:59 AM [employer] Pulse 94 08/30/2013 7:59 AM [employer] Temperature 36.8 C (98.2 F) 08/30/2013 7:59 AM [employer] Respiratory Rate - - Oxygen Saturation 95% 08/30/2013 7:59 AM [employer] Inhaled Oxygen - - Concentration Weight 77.1 kg (170 lb) 08/27/2013 4:00 PM [employer] Height 157.5 cm (5' 2") 07/12/2013 10:00 PM [employer] Body Mass Index 31.09 08/27/2013 4:00 PM [employer] Plan of Treatment Health Maintenance Due Date Last Done Comments PHYSICAL (COMPREHENSIVE) 2002 EXAM HPV VACCINES (1 of 3 - 2006 Female 3 Dose Series) PERTUSSIS VACCINE 2006 TETANUS VACCINE 2012 CERVICAL CANCER SCREENING 2016 INFLUENZA VACCINE 05/27/2018 07/12/2013 HIV SCREENING Completed 08/24/2013 Results Not on filefrom Last 3 Months
--- OUTSIDE RECORDS SUMMARY | 2018-01-22 13:42 | XMS REPORT ---
Author Author INGRAMBRANDI GayELE Organization [facility] Address [address] [place] [address] Care Team Providers Care Natural Resource Manager Name Role Phone JOAQUÍN INGRAM Unavailable PROBLEMS Type Condition ICD9-CM Code UCG13-PC Code Onset Dates Condition Status SNOMED Code Problem Obesity (BMI 30-39.9) E66.9 Active 487097985 Problem Elevated serum alkaline phosphatase level R74.8 Active 406100510 Problem Hypertriglyceridemia E78.1 Active 525654277 ALLERGIES Substance Reaction Event Type Date Status Propranolol HCl vomiting Drug Allergy Apr, Active ENCOUNTERS Encounter Location Date Diagnosis [place] [address] [address] Jan, [place] [id number] [place] [id number] [place] [address]- 4514 Aug, [place] [address] [address] Aug, Unspecified lump in axillary tail of the right breast N63.31 and Unspecified lump in axillary tail of the left breast N63.32 [place] [address] [place] [id number] [place] [address] 29206- 6270 Jul, Epigastric abdominal pain R10.13 [place] [address] [place] [id number] [place] [address] 19739- 6509 Jun, Epigastric abdominal pain R10.13 [place] [address] [address]- [address] May, Encounter to establish care Z76.89 ; Epigastric abdominal pain R10.13 ; Dizziness R42 and Obesity (BMI 30-39.9) E66.9 [place] [address] [address]- 1267 16 May, 2017 Elevated serum alkaline phosphatase level R74.8 [facility] [id number] [place] [address] 11350- 7912 12 May, 2017 Elevated serum alkaline phosphatase level R74.8 [facility] [id number] [place] [address] 27124- 4082 10 May, 2017 [facility] [address] [place] [id number] [place] [address] 22100- 8812 May, Irritable bowel syndrome with both constipation and diarrhea K58.2 and Dizziness, nonspecific R42 [facility] [address] [place] [id number] [place] [address] 78842- 2852 25 Apr, 2017 Irritable bowel syndrome with both constipation and diarrhea K58.2 and Dizziness, nonspecific R42 [facility] [id number] [place] [address] 03035- 9732 29 Apr, 2016 Hives of unknown origin L50.9 [facility] [address] [place] [id number] [address] 404[address] Nov, [facility] [address] [place] [id number] [place] [address] 94506- 4003 Nov, [facility] [id number] [place] [address] 51989- 6756 Aug, [facility] [id number] [place] [address] 82947- 8878 Aug, [facility] [id number] [address] 9610 December, [facility] [address] [place] [id number] [place] [address] 53828- 6481 December, [facility] [address] [place] [id number] [place] [address] 71843- 5178 Nov, [facility] [id number] [address] 3965 Nov, [facility] [place] [facility] [address] [id number] [place] [address]- 4196 Nov, [facility] [place] [facility] [address] [id number] [place] [address]- 7232 Nov, [facility] [place] [facility] [address] [id number] [place] [address]- 4720 Nov, [facility] [place] [facility] [address] [id number] [place] [address]- 0196 Nov, [facility] [place] [facility] [address] [id number] [place] [address]- 6612 Oct, [facility] [place] [facility] [address] [id number] [place] [address]- 4197 Oct, [facility] [place] [facility] [address] [id number] [place] [address]- 8165 Sep, [facility] [place] [facility] [address] [id number] [place] [address]- 9691 Sep, [facility] [place] [facility] [address] [id number] [place] [address]- 2687 May, [facility] [place] [facility] [address] [id number] [place] [address]- 6703 May, [facility] [place] [facility] [address] [id number] [place] [address]- 3837 Apr, [facility] [place] [facility] [address] [id number] [place] [address]- 8097 Mar, [facility] [place] [facility] [address] [id number] [place] [address]- 0522 Mar, [facility] [place] [facility] [address] [id number] [place] [address]- 6386 Mar, [facility] [place] [facility] [address] [id number] [place] [address]- 3618 Feb, [facility] [place] [facility] [address] [id number] [place] [address]- 0731 Feb, [facility] [address] [id number] [place] [address]- 6423 Feb, [facility] [place] [facility] [address] [id number] [place] [address]- 2582 Jan, [facility] [place] [facility] [address] [id number] [place] [address]- 7674 Jan, [facility] [place] [facility] [address] [id number] [place] [address]- 0864 December, [facility] [address] [id number] [place] [address]- 8793 December, [facility] [place] [facility] [address] [id number] [place] [address]- 6436 December, [facility] [place] [facility] [address] [id number] [place] [address]- 1503 Nov, [facility] [place] [facility] [address] [id number] [place] [address]- 0961 Nov, [facility] [place] [facility] [address] [id number] [place] [address]- 8709 Nov, [facility] [place] [facility] [address] [id number] [place] [address]- 5451 Oct, [facility] [place] [facility] [address] [id number] [place] [address]- 9996 Oct, [facility] [place] [facility] [address] [id number] [place] [address] 2541 Oct, [facility] [place] [facility] [address] [id number] [place] [address]- 3263 Oct, [facility] [place] [facility] [address] [id number] [place] [address]- 9456 Oct, [facility] [place] [facility] [address] [id number] [place] [address]- 8136 Sep, [facility] [place] [facility] [address] [id number] [place] [address]- 0342 22 Sep, 2012 [facility] [address] [id number] [place] [address]- 3756 18 Sep, 2012 [facility] [address] [id number] [place] [address]- 2186 14 Sep, 2012 [facility] [address] [id number] [place] [address]- 9186 13 Sep, 2012 [facility] [address] [id number] [place] [address]- 6566 28 Aug, 2012 [facility] [address] [id number] [place] [address]- 1946 17 Aug, 2012 [facility] [address] [id number] [place] [address]- 8014 16 Aug, 2012 [facility] [address] [id number] [place] [address]- 2210 15 Aug, 2012 [facility] [address] [id number] [place] [address]- 2925 14 Aug, 2012 [facility] [address] [id number] [place] [address]- 7752 Aug, [facility] [address] [id number] [place] [address]- 8449 Aug, [facility] [address] [id number] [place] [address]- 7885 Aug, [facility] [address] [id number] [place] [address]- 2753 Aug, [facility] [place] [facility] [address] [id number] [place] [address]- 0026 Aug, [facility] [address] [id number] [place] [address]- 4826 Aug, [facility] [address] [id number] [place] [address]- 7100 28 Jul, 2012 [facility] [place] [facility] [address] [id number] [place] [address]- 6099 28 Jul, 2012 [facility] [place] [facility] [address] [id number] [place] [address]- 4887 27 Jul, 2012 [facility] [place] [facility] [address] [id number] [place] [address]- 0073 22 Jul, 2012 [facility] [place] [facility] [address] [id number] [place] [address]- 8871 18 Jul, 2012 [facility] [place] [facility] [address] [id number] [place] [address]- 6278 18 Jul, 2012 [facility] [place] [facility] [address] [id number] [place] [address]- 4384 14 Jul, 2012 [facility] [place] [facility] [address] [id number] [place] [address]- 6854 14 Jul, 2012 [facility] [place] [facility] [address] [id number] [place] [address]- 6298 17 Jun, 2012 [facility] [place] [facility] [address] [id number] [place] [address]- 2332 17 Jun, 2012 [facility] [place] [facility] [address] [id number] [place] [address]- 2085 16 Jun, 2012 [facility] [place] [facility] [address] [id number] [place] [address]- 9438 16 Jun, 2012 [facility] [place] [facility] [address] [id number] [address]- 3740 08 Jun, 2012 [facility] [place] [facility] [address] [id number] [place] [address]- 2531 08 Jun, 2012 [facility] [place] [facility] [address] [id number] [place] [address]- 1641 07 Jun, 2012 [facility] [place] [facility] [address] [id number] [place] [address]- 3951 07 Jun, 2012 [facility] [place] [facility] [address] [id number] [place] [address]- 7639 Jun, [facility] [place] [facility] [address] [id number] [place] [address]- 5931 Jun, [facility] [place] [facility] [address] [id number] [place] [address]- 3353 Mar, [facility] [place] [facility] [address] [id number] [place] [address]- 2876 Feb, [facility] [place] [facility] [address] [id number] [place] [address]- 6929 Feb, [facility] [place] [facility] [address] [id number] [place] [address]- 0612 Feb, [facility] [place] [facility] [address] [id number] [place] [address]- 3563 Feb, [facility] [place] [facility] [address] [id number] [place] [address]- 1721 Feb, [facility] [place] [facility] [address] [id number] [place] [address]- 1993 Feb, [facility] [place] [facility] [address] [id number] [place] [address]- 7237 Feb, [facility] [place] [facility] [address] [id number] [place] [address]- 9785 Jan, [facility] [place] [facility] [address] [id number] [place] [address]- 7156 Jan, [facility] [place] [facility] [address] [id number] [place] [address]- 4287 Jan, [facility] [place] [facility] [address] [id number] [place] [address]- 9438 December, [facility] [place] [facility] [address] [id number] [place] [address]- 1026 December, [facility] [place] [facility] [address] [id number] [place] [address]- 0668 December, [facility] [place] [facility] [address] [id number] [place] [address]- 1190 December, [facility] [place] [facility] [address] [id number] [place] [address]- 0887 December, [facility] [place] [facility] [address] [id number] [place] [address]- 5771 December, [facility] [place] [facility] [address] [id number] [place] [address]- 6633 December, [facility] [address] [id number] [place] [address]- 7724 Nov, [facility] [place] [facility] [address] [id number] [place] [address]- 8215 18 Nov, 2011 [facility] [place] [facility] [address] [id number] [place] [address]- 3568 16 Nov, 2011 [facility] [place] [facility] [address] [id number] [place] [address]- 6004 04 Nov, 2011 [facility] [place] [facility] [address] [id number] [place] [address]- 9370 29 Oct, 2011 [facility] [place] [facility] [address] [id number] [place] [address]- 2735 29 Oct, 2011 [facility] [place] [facility] [address] [id number] [place] [address]- 4931 28 Oct, 2011 [facility] [place] [facility] [address] [id number] [place] [address]- 1349 28 Oct, 2011 [facility] [place] [facility] [address] [id number] [place] [address]- 6821 27 Oct, 2011 [facility] [place] [facility] [address] [id number] [place] [address]- 4210 27 Oct, 2011 [facility] [place] [facility] [address] [id number] [place] [address]- 2866 26 Oct, 2011 [facility] [place] [facility] [address] [id number] [place] [address]- 8666 14 Oct, 2011 [facility] [address] [id number] [place] [address]- 7899 05 Oct, 2011 [facility] [place] [facility] [address] [id number] [place] [address]- 3836 16 Sep, 2011 [facility] [address] [id number] [place] [address]- 4546 14 Sep, 2011 [facility] [place] [facility] [address] [id number] [place] [address] 2546 13 Sep, 2011 [facility] [address] [id number] [place] [address]- 4596 07 Sep, 2011 [facility] [address] [facility] [id number] [place] [address] 2546 06 Sep, 2011 [facility] [address] [facility] [id number] [place] [address]- 5716 Sep, [facility] [address] [facility] [id number] [place] [address]- 1884 Aug, [facility] [address] [facility] [id number] [place] [address]- 7866 Aug, [facility] [address] [facility] [id number] [place] [address]- 5076 Jul, [facility] [address] [facility] [id number] [place] [address]- 2611 Jul, [facility] [place] [facility] [address] [id number] [place] [address]- 2546 Jul, [facility] [place] [facility] [address] [facility] [id number] [place] [address]- 5480 Jul, [facility] [place] [facility] [address] [facility] [id number] [place] [address]- 9341 Jun, [facility] [place] [facility] [address] [facility] [id number] [place] [address]- 0416 Jun, [facility] [place] [facility] [address] [id number] [place] [address]- 8247 28 Jun, 2011 [facility] [place] [facility] [address] [id number] [place] [address]- 0446 19 Jun, 2011 [facility] [place] [facility] [address] [id number] [place] [address]- 2546 18 Jun, 2011 [facility] [place] [facility] [address] [id number] [place] [address]- 2549 16 Jun, 2011 [facility] [place] [facility] [address] [id number] [place] [address]- 1627 Jun, [facility] [place] [facility] [address] [id number] [place] [address]- 6032 May, [facility] [place] [facility] [address] [id number] [place] [address]- 7049 May, [facility] [place] [facility] [address] [id number] [place] [address]- 9370 May, [facility] [place] [facility] [address] [id number] [place] [address]- 8767 May, [facility] [place] [facility] [address] [id number] [place] [address]- 6112 May, [facility] [place] [facility] [address] [id number] [place] [address]- 4419 Aug, [facility] [place] [facility] [address] [id number] [place] [address]- 3024 12 Aug, 2009 [facility] [place] [facility] [address] [id number] [place] [address]- 2353 14 Jul, 2009 [facility] [place] [facility] [address] [id number] [place] [address] 2546 14 Jul, 2009 [facility] [place] [facility] [address] [id number] [place] [address]- 2541 10 Jul, 2009 [facility] [place] [facility] [address] [id number] [place] [address]- 2541 Jul, [facility] [id number] [address]- 8746 Jul, [facility] [id number] [address] 2546 Jul, [facility] [id number] [address]- 5930 Jun, [facility] [id number] [address]- 6806 Jun, [facility] [id number] [address]- 8652 Jun, [facility] [id number] [address]- 1176 May, [facility] [id number] [address]- 5015 May, [facility] [id number] [address]- 4436 May, IMMUNIZATIONS No Known Immunizations SOCIAL HISTORY Never Assessed REASON FOR VISIT Diarrhea/dizziness---DBennettRN, intermittent dizziness x several months, can happen when pt is sitting, standing, or sitting , diarrhea x 3 days, reports 3 loose stools today PLAN OF CARE Activity Details Follow Up 4 Weeks Reason:est care w/ ingram VITAL SIGNS Height 61 in 2017-05-21 Weight 205 lbs 2017-05-21 Temperature 98.5 degrees Fahrenheit 2017-05-21 Heart Rate 100 bpm 2017-05-21 Respiratory Rate 20 2017-05-21 BMI 38.73 kg/m2 2017-05-21 Blood pressure systolic 138 mmHg 2017-05-21 Blood pressure diastolic 82 mmHg 2017-05-21 MEDICATIONS Medication Instructions Dosage Frequency Start Date End Date Duration Status Bentyl 10 mg Orally Four times a day prn 1 capsules Apr, May, 14 days Active Loratadine 10 MG Orally Once a day 1 tablet 24h Active Ranitidine HCl 150 MG Orally twice a day 1 capsule 12h Apr, 30 day(s) Active Levonorgestrel-Ethinyl Estrad 0.1-20 MG-MCG Active RESULTS No Results PROCEDURES No Known procedures INSTRUCTIONS MEDICATIONS ADMINISTERED No Known Medications MEDICAL (GENERAL) HISTORY Type Description Date Medical History migraines Surgical History C section 2013 Surgical History appendectomy 2012 Surgical History cholecystectomy 2014
--- OUTSIDE RECORDS SUMMARY | 2018-01-22 13:42 | XMS REPORT ---
Author Author SANCHEZBRANDI GayELE [facility] Address [address] [place] [address] Care Team Providers Care Medical Referral Coordinator Name Role Phone SANCHEZJOAQUÍN Gay Unavailable PROBLEMS Type Condition ICD9-CM Code OVX94-VD Code Onset Dates Condition Status SNOMED Code Problem Obesity (BMI 30-39.9) E66.9 Active 644172897 Problem Elevated serum alkaline phosphatase level R74.8 Active 918400346 Problem Hypertriglyceridemia E78.1 Active 354821217 ALLERGIES No Information ENCOUNTERS Encounter Location Date Diagnosis [place] [address] [address] Jan, [place] [address] [address]- [address] Aug, [facility] [address] [address] Aug, Unspecified lump in axillary tail of the right breast N63.31 and Unspecified lump in axillary tail of the left breast N63.32 [place] [address] [address] [place] [id number] [place] [address]57- 1549 Jul, Epigastric abdominal pain R10.13 [facility] [address] [place] [id number] [place] [address]56- 2820 Jun, Epigastric abdominal pain R10.13 [place] [address] [address]- [address]33 May, Encounter to establish care Z76.89 ; Epigastric abdominal pain R10.13 ; Dizziness R42 and Obesity (BMI 30-39.9) E66.9 [place] [address] [address]- 2010 16 May, 2017 Elevated serum alkaline phosphatase level R74.8 [facility] [address] [address] 30[address] 12 May, 2017 Elevated serum alkaline phosphatase level R74.8 [facility] [id number] [place] [address]93- 6050 10 May, 2017 [facility] [address] [place] [id number] [place] [address] 12456- 1661 03 May, 2017 Irritable bowel syndrome with both constipation and diarrhea K58.2 and Dizziness, nonspecific R42 [facility] [address] [place] [id number] [place] [address] 11004- 9869 25 Apr, 2017 Irritable bowel syndrome with both constipation and diarrhea K58.2 and Dizziness, nonspecific R42 [facility] [id number] [place] [address] 44336- 4467 29 Apr, 2016 Hives of unknown origin L50.9 [facility] [address] [place] [id number] [place] [address]11- 8504 14 Nov, 2014 [facility] [address] [address] 3756 Nov, [facility] [id number] [place] [address] 55836- 3965 Aug, [facility] [address] [address] 4724 Aug, [facility] [id number] [place] [address] 30405- 2348 December, [facility] [address] [address] 5842 December, [facility] [address] [place] [id number] [place] [address] 24260- 8815 Nov, [facility] [address] [address] 8032 Nov, [facility] [address] [place] [id number] [place] [address] 57065- 5399 Nov, [facility] [place] [facility] [address] [id number] [place] [address]- 6869 Nov, [facility] [place] [facility] [address] [id number] [place] [address]- 1045 Nov, [facility] [place] [facility] [address] [id number] [place] [address]- 0081 Nov, [facility] [place] [facility] [address] [id number] [place] [address]- 1353 Oct, [facility] [place] [facility] [address] [id number] [place] [address]- 2309 Oct, [facility] [place] [facility] [address] [id number] [place] [address]- 3657 Sep, [facility] [place] [facility] [address] [id number] [place] [address]- 3321 Sep, [facility] [place] [facility] [address] [id number] [place] [address]- 4146 May, [facility] [place] [facility] [address] [id number] [place] [address]- 4498 May, [facility] [place] [facility] [address] [id number] [place] [address]- 7944 Apr, [facility] [place] [facility] [address] [id number] [place] [address]- 2572 Mar, [facility] [place] [facility] [address] [id number] [place] [address]- 2397 Mar, [facility] [place] [facility] [address] [id number] [place] [address]- 3671 Mar, [facility] [place] [facility] [address] [id number] [place] [address]16 Feb, [facility] [place] [facility] [address] [id number] [place] [address]- 2840 Feb, [facility] [place] [facility] [address] [id number] [place] [address]- 2544 Feb, [facility] [address] [id number] [place] [address]- 6515 Jan, [facility] [place] [facility] [address] [id number] [place] [address]- 2546 Jan, [facility] [address] [id number] [place] [address]- 7826 December, [facility] [place] [facility] [address] [id number] [place] [address]- 0446 December, [facility] [place] [facility] [address] [id number] [place] [address]- 7906 December, [facility] [address] [id number] [place] [address]- 0343 Nov, [facility] [place] [facility] [address] [id number] [place] [address]- 8547 Nov, [facility] [address] [id number] [place] [address]- 0665 Nov, [facility] [address] [id number] [place] [address]- 6624 Oct, [facility] [place] [facility] [address] [id number] [place] [address]- 4061 Oct, [facility] [place] [facility] [address] [id number] [place] [address]- 9446 Oct, [facility] [place] [facility] [address] [id number] [place] [address]- 2549 Oct, [facility] [place] [facility] [address] [id number] [place] [address]- 2546 Oct, [facility] [place] [facility] [address] [id number] [place] [address]- 2546 Sep, [facility] [place] [facility] [address] [id number] [place] [address]- 8498 Sep, 2012 [facility] [address] [id number] [place] [address]- 8833 18 Sep, 2012 [facility] [address] [id number] [place] [address]- 7205 14 Sep, 2012 [facility] [address] [id number] [place] [address]- 2456 Sep, [facility] [place] [facility] [address] [id number] [place] [address]- 2770 28 Aug, 2012 [facility] [address] [id number] [place] [address]- 4691 17 Aug, 2012 [facility] [address] [id number] [place] [address]- 8283 16 Aug, 2012 [facility] [address] [id number] [place] [address]- 0901 15 Aug, 2012 [facility] [address] [id number] [place] [address]- 8582 14 Aug, 2012 [facility] [address] [id number] [address]- 8271 Aug, [facility] [address] [id number] [place] [address]- 6992 Aug, [facility] [address] [id number] [address]- 9833 Aug, [facility] [place] [facility] [address] [id number], [place] [address]- 4295 Aug, [facility] [place] [facility] [address] [id number], [place] [address]- 2684 Aug, [facility] [place] [facility] [address] [id number] [address]- 0614 Aug, [facility] [place] [facility] [address] [id number] [place] [address]- 9391 Jul, [facility] [place] [facility] [address] [id number] [place] [address]- 8978 28 Jul, 2012 [facility] [place] [facility] [address] [id number] [place] [address]- 0460 27 Jul, 2012 [facility] [place] [facility] [address] [id number] [place] [address]- 9566 22 Jul, 2012 [facility] [place] [facility] [address] [id number] [place] [address]- 8746 18 Jul, 2012 [facility] [place] [facility] [address] [id number] [place] [address]- 0906 18 Jul, 2012 [facility] [place] [facility] [address] [id number] [place] [address]- 9329 14 Jul, 2012 [facility] [place] [facility] [address] [id number] [place] [address]- 9611 14 Jul, 2012 [facility] [place] [facility] [address] [id number] [place] [address]- 3408 17 Jun, 2012 [facility] [address] [id number] [place] [address]- 4884 17 Jun, 2012 [facility] [place] [facility] [address] [id number] [place] [address]- 7612 16 Jun, 2012 [facility] [place] [facility] [address] [id number] [place] [address]- 3234 16 Jun, 2012 [facility] [place] [facility] [address] [id number] [place] [address]- 0625 08 Jun, 2012 [facility] [place] [facility] [address] [id number] [place] [address]- 4180 08 Jun, 2012 [facility] [place] [facility] [address] [id number] [place] [address]- 7508 07 Jun, 2012 [facility] [place] [facility] [address] [id number] [place] [address]- 4282 07 Jun, 2012 [facility] [place] [facility] [address] [id number] [place] [address]- 5593 Jun, [facility] [place] [facility] [address] [id number] [place] [address]- 0403 Jun, [facility] [place] [facility] [address] [id number] [place] [address]- 0916 Mar, [facility] [place] [facility] [address] [id number] [place] [address]- 8574 Feb, [facility] [place] [facility] [address] [id number] [place] [address]- 5412 Feb, [facility] [place] [facility] [address] [id number] [place] [address]- 2833 Feb, [facility] [place] [facility] [address] [id number] [place] [address]- 4363 Feb, [facility] [place] [facility] [address] [id number] [place] [address]- 3837 Feb, [facility] [place] [facility] [address] [id number] [place] [address]- 5342 Feb, [facility] [place] [facility] [address] [id number] [place] [address]- 9786 Feb, [facility] [place] [facility] [address] [id number] [place] [address]- 2036 Jan, [facility] [place] [facility] [address] [id number] [place] [address]- 4138 Jan, [facility] [place] [facility] [address] [id number] [place] [address]- 6265 Jan, [facility] [place] [facility] [address] [id number] [place] [address]- 6195 December, [facility] [place] [facility] [address] [id number] [place] [address]- 4006 December, [facility] [place] [facility] [address] [id number] [place] [address]- 2035 December, [facility] [place] [facility] [address] [id number] [place] [address]- 7179 14 Dec, 2011 [facility] [address] [id number] [place] [address]- 3876 December, [facility] [place] [facility] [address] [id number] [place] [address]- 9357 December, [facility] [address] [id number] [place] [address]- 3598 December, [facility] [place] [facility] [address] [id number] [place] [address]- 5136 Nov, [facility] [place] [facility] [address] [id number] [place] [address]- 7245 18 Nov, 2011 [facility] [place] [facility] [address] [id number] [place] [address]- 7908 16 Nov, 2011 [facility] [address] [id number] [place] [address]- 2369 04 Nov, 2011 [facility] [place] [facility] [address] [id number] [place] [address]- 2754 29 Oct, 2011 [facility] [place] [facility] [address] [id number] [place] [address]- 9360 29 Oct, 2011 [facility] [place] [facility] [address] [id number] [place] [address]- 6867 28 Oct, 2011 [facility] [place] [facility] [address] [id number] [place] [address]- 5090 28 Oct, 2011 [facility] [place] [facility] [address] [id number] [place] [address]- 8501 27 Oct, 2011 [facility] [place] [facility] [address] [id number] [place] [address]- 6016 27 Oct, 2011 [facility] [place] [facility] [address] [id number] [place] [address]- 8716 26 Oct, 2011 [facility] [place] [facility] [address] [id number] [place] [address]- 6458 14 Oct, 2011 [facility] [place] [facility] [address] [id number] [place] [address]- 3003 Oct, [facility] [place] [facility] [address] [id number] [place] [address]- 3696 16 Sep, 2011 [facility] [place] [facility] [address] [id number] [place] [address]- 3986 14 Sep, 2011 [facility] [place] [facility] [address] [id number] [place] [address]- 2156 13 Sep, 2011 [facility] [place] [facility] [address] [id number] [place] [address]- 4777 07 Sep, 2011 [facility] [place] [facility] [address] [id number] [place] [address]- 6566 06 Sep, 2011 [facility] [place] [facility] [address] [facility] [id number] [place] [address]- 1479 Sep, [facility] [place] [facility] [address] [id number] [place] [address]- 5644 Aug, [facility] [place] [facility] [address] [id number] [place] [address]- 9396 Aug, [facility] [place] [facility] [address] [facility] [id number] [place] [address]- 1750 Jul, [facility] [place] [facility] [address] [facility] [id number] [place] [address]- 6573 Jul, [facility] [place] [facility] [address] [id number], [place] [address]- 8276 Jul, [facility] [place] [facility] [address] [id number] [place] [address]- 4493 Jul, [facility] [place] [facility] [address] [id number] [place] [address]- 2836 Jun, [facility] [place] [facility] [address] [id number] [place] [address]- 0344 Jun, [facility] [place] [facility] [address] [id number], [place] [address]- 9172 28 Jun, 2011 [facility] [place] [facility] [address] [id number] [place] [address]- 1851 Jun, [facility] [place] [facility] [address] [id number] [place] [address]- 5078 18 Jun, 2011 [facility] [place] [facility] [address] [id number] [place] [address]- 8066 16 Jun, 2011 [facility] [place] [facility] [address] [id number] [place] [address]- 0949 Jun, [facility] [place] [facility] [address] [id number] [place] [address]- 1181 May, [facility] [place] [facility] [address] [id number] [place] [address]- 0930 May, [facility] [place] [facility] [address] [id number] [place] [address]- 1258 May, [facility] [place] [facility] [address] [id number] [place] [address]- 6601 May, [facility] [place] [facility] [address] [facility] [id number] [place] [address]- 0069 May, [facility] [place] [facility] [address] [facility] [id number] [place] [address]- 5910 Aug, [facility] [place] [facility] [address] [id number] [place] [address]- 1209 Aug, [facility] [place] [facility] [address] [id number] [place] [address]- 5581 14 Jul, 2009 [facility] [place] [facility] [address] [id number] [place] [address]- 8138 14 Jul, 2009 [facility] [place] [facility] [address] [facility] [id number] [place] [address]- 8712 10 Jul, 2009 [facility] [place] [facility] [address] [facility] [id number] [place] [address]- 6640 10 Jul, 2009 [facility] [place] [facility] [address] [id number] [address]- 2546 Jul, [facility] [address] [address]- 1846 Jul, [facility] [address] [address]- 2546 Jun, [facility] [address] [address]- 2546 Jun, [facility] [address] [address]- 2546 Jun, [facility] [address] [address]- 3616 May, [facility] [address] [address]- 2940 May, [facility] [address] [place] [address] 2546 May, IMMUNIZATIONS No Known Immunizations SOCIAL HISTORY Never Assessed REASON FOR VISIT Lab (walk-in) PLAN OF CARE VITAL SIGNS MEDICATIONS Unknown Medications RESULTS Name Result Date Reference Range GGT 2017-06-11 GGT 52 [id number] PROCEDURES Procedure Date Ordered Result Body Site LAB NOT BILLED BY [facility] Jun 11, 2017 VENSALLY, ROUTINE* Jun 11, 2017 INSTRUCTIONS MEDICATIONS ADMINISTERED No Known Medications MEDICAL (GENERAL) HISTORY Type Description Date Medical History migraines Surgical History C section 2014 Surgical History appendectomy 2012 Surgical History cholecystectomy 2014
--- OUTSIDE RECORDS SUMMARY | 2018-01-22 13:43 | XMS REPORT ---
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 Name Role Phone SANCHEZJOAQUÍN Gay Unavailable PROBLEMS Type Condition ICD9-CM Code YUY15-WH Code Onset Dates Condition Status SNOMED Code Problem Obesity (BMI 30-39.9) E66.9 Active 085880338 Problem Elevated serum alkaline phosphatase level R74.8 Active 379768904 Problem Hypertriglyceridemia E78.1 Active 577629439 ALLERGIES No Information ENCOUNTERS Encounter Location Date Diagnosis [place] [address] [address] Jan, [place] [address] [address] Aug, [facility] [address] [address] Aug, Unspecified lump in axillary tail of the right breast N63.31 and Unspecified lump in axillary tail of the left breast N63.32 [place] [address] [place] [id number] [place] [address]- [address] Jul, Epigastric abdominal pain R10.13 [facility] [address] [address] Jun, Epigastric abdominal pain R10.13 [place] [address] [address] May, Encounter to establish care Z76.89 ; Epigastric abdominal pain R10.13 ; Dizziness R42 and Obesity (BMI 30-39.9) E66.9 [place] [address] [address] 16 May, 2017 Elevated serum alkaline phosphatase level R74.8 [facility] [address] [address] 12 May, 2017 Elevated serum alkaline phosphatase level R74.8 [facility] [id number] [place] [address]268- 1610 10 May, 2017 [facility] [address] [place] [id number] [place] [address]- 6921 03 May, 2017 Irritable bowel syndrome with both constipation and diarrhea K58.2 and Dizziness, nonspecific R42 [facility] [address] [place] [id number] [place] [address]- 9238 25 Apr, 2017 Irritable bowel syndrome with both constipation and diarrhea K58.2 and Dizziness, nonspecific R42 [facility] [id number] [place] [address]36- 5412 29 Apr, 2016 Hives of unknown origin L50.9 [facility] [address] [place] [id number] [place] [address]35- 3635 14 Nov, 2014 [facility] [address] [address] Nov, [facility] [id number] [place] [address]- 5032 Aug, [facility] [address] [address] 84[address] Aug, [facility] [id number] [place] [address]347- 7826 December, [facility] [address] [address] 0[address] December, [facility] [address] [place] [id number] [place] [address] 51079- 9824 Nov, [facility] [address] [address] Nov, [facility] [address] [place] [id number] [place] [address] 64895- 2507 Nov, [facility] [place] [facility] [address] [id number] [place] [address]- 9257 Nov, [facility] [place] [facility] [address] [id number] [place] [address]- 8150 Nov, [facility] [place] [facility] [address] [id number] [place] [address]- 9484 Nov, [facility] [place] [facility] [address] [id number] [place] [address]- 5267 Oct, [facility] [place] [facility] [address] [id number] [place] [address]- 7551 Oct, [facility] [place] [facility] [address] [id number] [place] [address]- 3197 Sep, [facility] [place] [facility] [address] [id number] [place] [address]- 8419 Sep, [facility] [place] [facility] [address] [id number] [place] [address]- 5394 May, [facility] [place] [facility] [address] [id number] [place] [address]- 6226 May, [facility] [place] [facility] [address] [id number] [place] [address]- 7388 Apr, [facility] [place] [facility] [address] [id number] [place] [address]- 0092 Mar, [facility] [place] [facility] [address] [id number] [place] [address]- 2240 Mar, [facility] [place] [facility] [address] [id number] [place] [address]- 6110 Mar, [facility] [place] [facility] [address] [id number] [place] [address] Feb, [facility] [place] [facility] [address] [id number] [place] [address]- 5130 Feb, [facility] [place] [facility] [address] [id number] [place] [address]- 2541 Feb, [facility] [address] [id number] [place] [address]- 7764 Jan, [facility] [place] [facility] [address] [id number] [place] [address]- 2546 Jan, [facility] [address] [id number] [place] [address]- 0746 December, [facility] [place] [facility] [address] [id number] [place] [address]- 7826 December, [facility] [place] [facility] [address] [id number] [place] [address]- 8316 December, [facility] [address] [id number] [place] [address]- 3089 Nov, [facility] [place] [facility] [address] [id number] [place] [address]- 7394 Nov, [facility] [address] [id number] [place] [address]- 4458 Nov, [facility] [address] [id number] [place] [address]- 5072 Oct, [facility] [place] [facility] [address] [id number] [place] [address]- 3452 Oct, [facility] [place] [facility] [address] [id number] [place] [address]- 3486 Oct, [facility] [place] [facility] [address] [id number] [place] [address]- 2545 Oct, [facility] [place] [facility] [address] [id number] [place] [address]- 2546 Oct, [facility] [place] [facility] [address] [id number] [place] [address]- 2546 Sep, [facility] [place] [facility] [address] [id number] [place] [address]- 8987 Sep, 2012 [facility] [address] [id number] [place] [address]- 0611 18 Sep, 2012 [facility] [address] [id number] [place] [address]- 1706 14 Sep, 2012 [facility] [address] [id number] [place] [address]- 9616 Sep, [facility] [place] [facility] [address] [id number] [place] [address]- 6037 28 Aug, 2012 [facility] [address] [id number] [place] [address]- 8091 17 Aug, 2012 [facility] [address] [id number] [place] [address]- 5756 16 Aug, 2012 [facility] [address] [id number] [place] [address]- 1790 15 Aug, 2012 [facility] [address] [id number] [place] [address]- 3324 14 Aug, 2012 [facility] [address] [id number] [address]- 1669 Aug, [facility] [address] [id number] [place] [address]- 4372 Aug, [facility] [address] [id number] [address]- 8174 Aug, [facility] [place] [facility] [address] [id number] [address]- 9067 Aug, [facility] [place] [facility] [address] [id number] [address]- 2567 Aug, [facility] [place] [facility] [address] [id number] [address]- 8559 Aug, [facility] [place] [facility] [address] [id number] [place] [address]- 9788 Jul, [facility] [place] [facility] [address] [id number] [place] [address]- 1953 28 Jul, 2012 [facility] [place] [facility] [address] [id number] [place] [address]- 7939 27 Jul, 2012 [facility] [place] [facility] [address] [id number] [place] [address]- 3136 22 Jul, 2012 [facility] [place] [facility] [address] [id number] [place] [address]- 1776 18 Jul, 2012 [facility] [place] [facility] [address] [id number] [place] [address]- 1298 18 Jul, 2012 [facility] [place] [facility] [address] [id number] [place] [address]- 2236 14 Jul, 2012 [facility] [place] [facility] [address] [id number] [place] [address]- 6136 14 Jul, 2012 [facility] [place] [facility] [address] [id number] [place] [address]- 9755 17 Jun, 2012 [facility] [address] [id number] [place] [address]- 4211 17 Jun, 2012 [facility] [place] [facility] [address] [id number] [place] [address]- 1981 16 Jun, 2012 [facility] [place] [facility] [address] [id number] [place] [address]- 3458 16 Jun, 2012 [facility] [place] [facility] [address] [id number] [place] [address]- 1655 08 Jun, 2012 [facility] [place] [facility] [address] [id number] [place] [address]- 3631 08 Jun, 2012 [facility] [place] [facility] [address] [id number] [place] [address]- 2684 07 Jun, 2012 [facility] [place] [facility] [address] [id number] [place] [address]- 4212 07 Jun, 2012 [facility] [place] [facility] [address] [id number] [place] [address]- 9076 Jun, [facility] [place] [facility] [address] [id number] [place] [address]- 4204 Jun, [facility] [place] [facility] [address] [id number] [place] [address]- 0836 Mar, [facility] [place] [facility] [address] [id number] [place] [address]- 9834 Feb, [facility] [place] [facility] [address] [id number] [place] [address]- 2901 Feb, [facility] [place] [facility] [address] [id number] [place] [address]- 4482 Feb, [facility] [place] [facility] [address] [id number] [place] [address]- 7346 Feb, [facility] [place] [facility] [address] [id number] [place] [address]- 8179 Feb, [facility] [place] [facility] [address] [id number] [place] [address]- 0303 Feb, [facility] [place] [facility] [address] [id number] [place] [address]- 6928 Feb, [facility] [place] [facility] [address] [id number] [place] [address]- 3859 Jan, [facility] [place] [facility] [address] [id number] [place] [address]- 8262 Jan, [facility] [place] [facility] [address] [id number] [place] [address]- 5871 Jan, [facility] [place] [facility] [address] [id number] [place] [address]- 4703 December, [facility] [place] [facility] [address] [id number] [place] [address]- 5346 December, [facility] [place] [facility] [address] [id number] [place] [address]- 6472 December, [facility] [place] [facility] [address] [id number] [place] [address]- 6255 14 Dec, 2011 [facility] [address] [id number] [place] [address]- 4105 December, [facility] [place] [facility] [address] [id number] [place] [address]- 1787 December, [facility] [address] [id number] [place] [address]- 3967 December, [facility] [place] [facility] [address] [id number] [place] [address]- 0509 Nov, [facility] [place] [facility] [address] [id number] [place] [address]- 1649 18 Nov, 2011 [facility] [place] [facility] [address] [id number] [place] [address]- 2632 16 Nov, 2011 [facility] [address] [id number] [place] [address]- 2757 04 Nov, 2011 [facility] [place] [facility] [address] [id number] [place] [address]- 3209 29 Oct, 2011 [facility] [place] [facility] [address] [id number] [place] [address]- 1995 29 Oct, 2011 [facility] [place] [facility] [address] [id number] [place] [address]- 1989 28 Oct, 2011 [facility] [place] [facility] [address] [id number] [place] [address]- 7259 28 Oct, 2011 [facility] [place] [facility] [address] [id number] [place] [address]- 5960 27 Oct, 2011 [facility] [place] [facility] [address] [id number] [place] [address]- 7169 27 Oct, 2011 [facility] [place] [facility] [address] [id number] [place] [address]- 8923 26 Oct, 2011 [facility] [place] [facility] [address] [id number] [place] [address]- 0251 14 Oct, 2011 [facility] [place] [facility] [address] [id number] [place] [address]- 9490 Oct, [facility] [place] [facility] [address] [id number] [place] [address]- 4776 16 Sep, 2011 [facility] [place] [facility] [address] [id number] [place] [address]- 8486 14 Sep, 2011 [facility] [place] [facility] [address] [id number] [place] [address]- 2046 13 Sep, 2011 [facility] [place] [facility] [address] [id number] [place] [address]- 8063 07 Sep, 2011 [facility] [place] [facility] [address] [id number] [place] [address]- 0446 06 Sep, 2011 [facility] [place] [facility] [address] [facility] [id number] [place] [address]- 4850 Sep, [facility] [place] [facility] [address] [id number] [place] [address]- 3556 Aug, [facility] [place] [facility] [address] [id number] [place] [address]- 8467 Aug, [facility] [place] [facility] [address] [facility] [id number] [place] [address]- 8014 Jul, [facility] [place] [facility] [address] [facility] [id number] [place] [address]- 1577 Jul, [facility] [place] [facility] [address] [id number], [place] [address]- 2252 Jul, [facility] [place] [facility] [address] [id number] [place] [address]- 5256 Jul, [facility] [place] [facility] [address] [id number] [place] [address]- 8976 Jun, [facility] [place] [facility] [address] [id number] [place] [address]- 1052 Jun, [facility] [place] [facility] [address] [id number], [place] [address]- 3867 28 Jun, 2011 [facility] [place] [facility] [address] [id number] [place] [address]- 3475 Jun, [facility] [place] [facility] [address] [id number] [place] [address]- 5081 18 Jun, 2011 [facility] [place] [facility] [address] [id number] [place] [address]- 1796 16 Jun, 2011 [facility] [place] [facility] [address] [id number] [place] [address]- 6011 Jun, [facility] [place] [facility] [address] [id number] [place] [address]- 3145 May, [facility] [place] [facility] [address] [id number] [place] [address]- 6093 May, [facility] [place] [facility] [address] [id number] [place] [address]- 2135 May, [facility] [place] [facility] [address] [id number] [place] [address]- 5273 May, [facility] [place] [facility] [address] [facility] [id number] [place] [address]- 9112 May, [facility] [place] [facility] [address] [facility] [id number] [place] [address]- 5595 Aug, [facility] [place] [facility] [address] [id number] [place] [address]- 8199 Aug, [facility] [place] [facility] [address] [id number] [place] [address]- 4186 14 Jul, 2009 [facility] [place] [facility] [address] [id number] [place] [address]- 2978 14 Jul, 2009 [facility] [place] [facility] [address] [facility] [id number] [place] [address]- 0268 10 Jul, 2009 [facility] [place] [facility] [address] [facility] [id number] [place] [address]- 7302 10 Jul, 2009 [facility] [place] [facility] [address] [facility] [id number], [place] [address]- 3226 Jul, [facility] [address] [place] [id number] [address]- 3075 Jul, [facility] [address] [id number] [address]- 2651 Jun, [facility] [address] [address]- 4035 Jun, [facility] [address] [place] [id number] [address]- 5602 Jun, [facility] [address] [address]- 7050 May, [facility] [id number] [address]- 6684 May, [facility] [id number] [address]- 0867 May, IMMUNIZATIONS No Known Immunizations SOCIAL HISTORY Never Assessed REASON FOR VISIT Lab (walk-in) PLAN OF CARE VITAL SIGNS MEDICATIONS Unknown Medications RESULTS Name Result Date Reference Range THYROID ANALYZER 2017-05-29 TSH 1.560 0.450-4.500 A1C 2017-05-29 Hemoglobin A1c 5.4 4.8-5.6 CBC 2017-05-29 WBC 9.8 3.4-10.8 RBC 4.70 3.77-5.28 Hemoglobin 13.0 11.1-15.9 Hematocrit 39.1 34.0-46.6 MCV 83 79-97 MCH 27.7 26.6-33.0 MCHC 33.2 31.5-35.7 RDW 16.0 12.3-15.4 Platelets 360 150-379 Neutrophils 52 Not Estab. Lymphs 37 Not Estab. Monocytes 6 Not Estab. Eos 5 Not Estab. Basos 0 Not Estab. Neutrophils (Absolute) 5.1 1.4-7.0 Lymphs (Absolute) 3.6 0.7-3.1 Monocytes(Absolute) 0.6 0.1-0.9 Eos (Absolute) 0.5 0.0-0.4 Baso (Absolute) 0.0 0.0-0.2 Immature Granulocytes 0 Not Estab. Immature Grans (Abs) 0.0 0.0-0.1 LIPID PANEL 2017-05-29 Cholesterol, Total 172 100-199 Triglycerides 186 0-149 HDL Cholesterol 46 >39 VLDL Cholesterol Lucius 37 5-40 LDL Cholesterol Calc 89 0-99 CMP 2017-05-29 Glucose, Serum 98 65-99 BUN 13 6-20 Creatinine, Serum 0.70 0.57-1.00 eGFR If NonAfricn Am 123 >59 eGFR If Africn Am 142 >59 BUN/Creatinine Ratio 19 9-23 Sodium, Serum 139 134-144 Potassium, Serum 5.2 3.5-5.2 Chloride, Serum 99 96-106 Carbon Dioxide, Total 22 18-29 Calcium, Serum 9.5 8.7-10.2 Protein, Total, Serum 7.5 6.0-8.5 Albumin, Serum 4.1 3.5-5.5 Globulin, Total 3.4 1.5-4.5 A/G Ratio 1.2 1.2-2.2 Bilirubin, Total 0.2 0.0-1.2 Alkaline Phosphatase, S 133 39-117 AST (SGOT) 19 0-40 ALT (SGPT) 13 0-32 PROCEDURES Procedure Date Ordered Result Body Site LAB NOT BILLED BY [employer] May 29, 2017 Hemoglobin Test Send Out 0 dollar May 29, 2017 VENIPUNCT, ROUTINE* May 29, 2017 INSTRUCTIONS MEDICATIONS ADMINISTERED No Known Medications MEDICAL (GENERAL) HISTORY Type Description Date Medical History migraines Surgical History C section 2013 Surgical History appendectomy 2012 Surgical History cholecystectomy 2013
--- OUTSIDE RECORDS SUMMARY | 2018-01-22 13:44 | XMS REPORT ---
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 Name Role Phone SANCHEZJOAQUÍN Gay Unavailable PROBLEMS Type Condition ICD9-CM Code [id number] Code Onset Dates Condition Status SNOMED Code Problem Obesity (BMI 30-39.9) E66.9 Active 802243190 Problem Elevated serum alkaline phosphatase level R74.8 Active 291621090 Problem Hypertriglyceridemia E78.1 Active 369164010 ALLERGIES No Information ENCOUNTERS Encounter Location Date Diagnosis [place] [address] [address] Jan, [place] [id number] [address] Aug, [facility] [address] [address] Aug, Unspecified lump in axillary tail of the right breast N63.31 and Unspecified lump in axillary tail of the left breast N63.32 [place] [address] [place] [id number] [place] [address] Jul, Epigastric abdominal pain R10.13 [facility] [address] [address]- [address] Jun, Epigastric abdominal pain R10.13 [place] [address] [address] May, Encounter to establish care Z76.89 ; Epigastric abdominal pain R10.13 ; Dizziness R42 and Obesity (BMI 30-39.9) E66.9 [place] [id number] [address]- [address] 16 May, 2017 Elevated serum alkaline phosphatase level R74.8 [facility] [address], [place] [address] 12 May, 2017 Elevated serum alkaline phosphatase level R74.8 [facility] [id number] [place] [address]- 2595 10 May, 2017 [facility] [address] [place] [id number] [place] [address]28- 5469 03 May, 2017 Irritable bowel syndrome with both constipation and diarrhea K58.2 and Dizziness, nonspecific R42 [facility] [address] [place] [id number] [place] [address]- 8909 25 Apr, 2017 Irritable bowel syndrome with both constipation and diarrhea K58.2 and Dizziness, nonspecific R42 [facility] [id number] [place] [address]71- 0024 29 Apr, 2016 Hives of unknown origin L50.9 [facility] [address] [place] [id number] [place] [address]- 4762 14 Nov, 2014 [facility] [address] [address] Nov, [facility] [id number] [place] [address]32- 0992 Aug, [facility] [address] [address] 74[address] Aug, [facility] [id number] [place] [address] 04698- 2434 December, [facility] [address] [address] December, [facility] [address] [place] [id number] [place] [address]21- 2167 Nov, [facility] [address], [place] [address] 79[address] Nov, [facility] [address] [place] [id number] [place] [address]3546- 3823 Nov, [facility] [place] [facility] [address] [id number] [place] [address]- 3821 Nov, [facility] [place] [facility] [address] [id number] [place] [address]- 1051 Nov, [facility] [place] [facility] [address] [id number] [place] [address]- 3161 Nov, [facility] [place] [facility] [address] [id number] [place] [address]- 1049 Oct, [facility] [place] [facility] [address] [id number] [place] [address]- 5601 Oct, [facility] [place] [facility] [address] [id number] [place] [address]- 7782 Sep, [facility] [place] [facility] [address] [id number] [place] [address]- 0984 Sep, [facility] [place] [facility] [address] [id number] [place] [address]- 5223 May, [facility] [place] [facility] [address] [id number] [place] [address]- 4580 May, [facility] [place] [facility] [address] [id number] [place] [address]- 2698 Apr, [facility] [place] [facility] [address] [id number] [place] [address]- 2943 Mar, [facility] [place] [facility] [address] [id number] [place] [address]- 5802 Mar, [facility] [place] [facility] [address] [id number] [place] [address]- 1013 Mar, [facility] [place] [facility] [address] [id number] [place] [address] Feb, [facility] [place] [facility] [address] [id number] [place] [address]- 8197 Feb, [facility] [place] [facility] [address] [id number] [place] [address]- 254 Feb, [facility] [address] [id number] [place] [address]- 5857 Jan, [facility] [place] [facility] [address] [id number] [place] [address]- 2546 Jan, [facility] [address] [id number] [place] [address]- 2296 December, [facility] [place] [facility] [address] [id number] [place] [address]- 4966 December, [facility] [place] [facility] [address] [id number] [place] [address]- 7966 December, [facility] [address] [id number] [place] [address]- 0789 Nov, [facility] [place] [facility] [address] [id number] [place] [address]- 0304 Nov, [facility] [address] [id number] [place] [address]- 8793 Nov, [facility] [address] [id number] [place] [address]- 9471 Oct, [facility] [place] [facility] [address] [id number] [place] [address]- 7625 Oct, [facility] [place] [facility] [address] [id number] [place] [address]- 0266 Oct, [facility] [place] [facility] [address] [id number] [place] [address]- 2540 Oct, [facility] [place] [facility] [address] [id number] [place] [address]- 2546 Oct, [facility] [place] [facility] [address] [id number] [place] [address]- 2546 Sep, [facility] [place] [facility] [address] [id number] [place] [address]- 0583 Sep, 2012 [facility] [address] [id number] [place] [address]- 9068 18 Sep, 2012 [facility] [address] [id number] [place] [address]- 9473 14 Sep, 2012 [facility] [address] [id number] [place] [address]- 3156 Sep, [facility] [place] [facility] [address] [id number] [place] [address]- 1050 28 Aug, 2012 [facility] [address] [id number] [place] [address]- 1766 17 Aug, 2012 [facility] [address] [id number] [place] [address]- 3375 16 Aug, 2012 [facility] [address] [id number] [place] [address]- 2344 15 Aug, 2012 [facility] [address] [id number] [place] [address]- 4212 14 Aug, 2012 [facility] [address] [id number] [address]- 1729 Aug, [facility] [address] [id number] [place] [address]- 2218 Aug, [facility] [address] [id number], [place] [address]- 8779 Aug, [facility] [place] [facility] [address] [id number], [place] [address]- 3263 Aug, [facility] [place] [facility] [address] [id number], [place] [address]- 1429 Aug, [facility] [place] [facility] [address] [id number], [place] [address]- 7771 Aug, [facility] [place] [facility] [address] [id number] [place] [address]- 7693 Jul, [facility] [place] [facility] [address] [id number] [place] [address]- 3623 28 Jul, 2012 [facility] [place] [facility] [address] [id number] [place] [address]- 7950 27 Jul, 2012 [facility] [place] [facility] [address] [id number] [place] [address]- 8216 22 Jul, 2012 [facility] [place] [facility] [address] [id number] [place] [address]- 6526 18 Jul, 2012 [facility] [place] [facility] [address] [id number] [place] [address]- 6631 18 Jul, 2012 [facility] [place] [facility] [address] [id number] [place] [address]- 6169 14 Jul, 2012 [facility] [place] [facility] [address] [id number] [place] [address]- 6071 14 Jul, 2012 [facility] [place] [facility] [address] [id number] [place] [address]- 2352 17 Jun, 2012 [facility] [address] [id number] [place] [address]- 4459 17 Jun, 2012 [facility] [place] [facility] [address] [id number] [place] [address]- 9983 16 Jun, 2012 [facility] [place] [facility] [address] [id number] [place] [address]- 5938 16 Jun, 2012 [facility] [place] [facility] [address] [id number] [place] [address]- 2765 08 Jun, 2012 [facility] [place] [facility] [address] [id number] [place] [address]- 1396 08 Jun, 2012 [facility] [place] [facility] [address] [id number] [place] [address]- 9262 07 Jun, 2012 [facility] [place] [facility] [address] [id number] [place] [address]- 1723 07 Jun, 2012 [facility] [place] [facility] [address] [id number] [place] [address]- 5006 Jun, [facility] [place] [facility] [address] [id number] [place] [address]- 0025 Jun, [facility] [place] [facility] [address] [id number] [place] [address]- 2136 Mar, [facility] [place] [facility] [address] [id number] [place] [address]- 1577 Feb, [facility] [place] [facility] [address] [id number] [place] [address]- 8915 Feb, [facility] [place] [facility] [address] [id number] [place] [address]- 8566 Feb, [facility] [place] [facility] [address] [id number] [place] [address]- 2673 Feb, [facility] [place] [facility] [address] [id number] [place] [address]- 0220 Feb, [facility] [place] [facility] [address] [id number] [place] [address]- 2615 Feb, [facility] [place] [facility] [address] [id number] [place] [address]- 6970 Feb, [facility] [place] [facility] [address] [id number] [place] [address]- 4446 Jan, [facility] [place] [facility] [address] [id number] [place] [address]- 0024 Jan, [facility] [place] [facility] [address] [id number] [place] [address]- 1599 Jan, [facility] [place] [facility] [address] [id number] [place] [address]- 0729 December, [facility] [place] [facility] [address] [id number] [place] [address]- 6936 December, [facility] [place] [facility] [address] [id number] [place] [address]- 3446 December, [facility] [place] [facility] [address] [id number] [place] [address]- 6947 14 Dec, 2011 [facility] [address] [id number] [place] [address]- 3741 December, [facility] [place] [facility] [address] [id number] [place] [address]- 1585 December, [facility] [address] [id number] [place] [address]- 2780 December, [facility] [place] [facility] [address] [id number] [place] [address]- 2187 Nov, [facility] [place] [facility] [address] [id number] [place] [address]- 9807 18 Nov, 2011 [facility] [place] [facility] [address] [id number] [place] [address]- 2829 16 Nov, 2011 [facility] [address] [id number] [place] [address]- 2546 04 Nov, 2011 [facility] [place] [facility] [address] [id number] [place] [address]- 6517 29 Oct, 2011 [facility] [place] [facility] [address] [id number] [place] [address]- 3499 29 Oct, 2011 [facility] [place] [facility] [address] [id number] [place] [address]- 3154 28 Oct, 2011 [facility] [place] [facility] [address] [id number] [place] [address]- 3048 28 Oct, 2011 [facility] [place] [facility] [address] [id number] [place] [address]- 4176 27 Oct, 2011 [facility] [place] [facility] [address] [id number] [place] [address]- 8751 27 Oct, 2011 [facility] [place] [facility] [address] [id number] [place] [address]- 7170 26 Oct, 2011 [facility] [place] [facility] [address] [id number] [place] [address]- 9677 14 Oct, 2011 [facility] [place] [facility] [address] [id number] [place] [address]- 4961 Oct, [facility] [place] [facility] [address] [id number] [place] [address]- 5086 16 Sep, 2011 [facility] [place] [facility] [address] [id number] [place] [address]- 9246 14 Sep, 2011 [facility] [place] [facility] [address] [id number] [place] [address]- 3916 13 Sep, 2011 [facility] [place] [facility] [address] [id number] [place] [address]- 6928 07 Sep, 2011 [facility] [place] [facility] [address] [id number] [place] [address]- 0786 06 Sep, 2011 [facility] [place] [facility] [address] [facility] [id number] [place] [address]- 0147 Sep, [facility] [place] [facility] [address] [id number] [place] [address]- 8865 Aug, [facility] [place] [facility] [address] [id number] [place] [address]- 4272 Aug, [facility] [place] [facility] [address] [facility] [id number] [place] [address]- 9137 Jul, [facility] [place] [facility] [address] [facility] [id number] [place] [address]- 8336 Jul, [facility] [place] [facility] [address] [id number], [place] [address]- 5584 Jul, [facility] [place] [facility] [address] [id number] [place] [address]- 4269 Jul, [facility] [place] [facility] [address] [id number] [place] [address]- 5926 Jun, [facility] [place] [facility] [address] [id number] [place] [address]- 1717 Jun, [facility] [place] [facility] [address] [id number], [place] [address]- 1695 28 Jun, 2011 [facility] [place] [facility] [address] [id number] [place] [address]- 9983 Jun, [facility] [place] [facility] [address] [id number] [place] [address]- 4749 18 Jun, 2011 [facility] [place] [facility] [address] [id number] [place] [address]- 4056 16 Jun, 2011 [facility] [place] [facility] [address] [id number] [place] [address]- 5633 Jun, [facility] [place] [facility] [address] [id number] [place] [address]- 0890 May, [facility] [place] [facility] [address] [id number] [place] [address]- 0958 May, [facility] [place] [facility] [address] [id number] [place] [address]- 4297 May, [facility] [place] [facility] [address] [id number] [place] [address]- 5157 May, [facility] [place] [facility] [address] [facility] [id number] [place] [address]- 9802 May, [facility] [place] [facility] [address] [facility] [id number] [place] [address]- 1800 Aug, [facility] [place] [facility] [address] [id number] [place] [address]- 3667 Aug, [facility] [place] [facility] [address] [id number] [place] [address]- 0124 14 Jul, 2009 [facility] [place] [facility] [address] [id number] [place] [address]- 7298 14 Jul, 2009 [facility] [place] [facility] [address] [facility] [id number] [place] [address]- 6921 10 Jul, 2009 [facility] [place] [facility] [address] [facility] [id number] [place] [address]- 2895 10 Jul, 2009 [facility] [place] [facility] [address] [address] 2546 Jul, [facility] [address], [place] [address]- 1205 Jul, [facility] [address], [place] [address]- 3831 Jun, [facility] [address] [address]- 8943 Jun, [facility] [address], [place] [address]- 8159 Jun, [facility] [address] [address]- 0721 May, [facility] [address] [address] May, [facility] [address] [address] May, IMMUNIZATIONS No Known Immunizations SOCIAL HISTORY Never Assessed REASON FOR VISIT Lab Order PLAN OF CARE VITAL SIGNS MEDICATIONS Unknown Medications RESULTS No Results PROCEDURES No Known procedures INSTRUCTIONS MEDICATIONS ADMINISTERED No Known Medications MEDICAL (GENERAL) HISTORY Type Description Date Medical History migraines Surgical History C section 2014 Surgical History appendectomy 2012 Surgical History cholecystectomy 2014
[2018-01-22 15:32] VITALS: BP 149/94
--- NOTE | 2018-01-22 17:07 | ED General ---
General Chief Complaint: Dizziness/Syncope Stated Complaint: LIGHTHEADED X 3 DAYS Nursing Triage Note: ARRIVED VIA AMB TO ROOM 03 WITH COMPLAINTS OF BEING LIGHT HEADED X3 DAYS WITH A SHARP PAIN ON THE LEFT SIDE OF HER HEAD YESTERDAY AND THINKS HER LEFT SIDE IS MORE WEAK THEN THE OTHER. Nursing Sepsis Screen: No Definite Risk Source of Information: Patient Exam Limitations: No Limitations History of Present Illness Date Seen by Provider: January 22, 2018 Time Seen by Provider: 17:04 Initial Comments To ER with reports of being lightheaded for 3 days. She initially had a sharp pain on the top left side of her head. She feels like her left arm and leg is more weak than the right. She is concerned because her father was recently diagnosed with "cadasil" which she states is a hereditary disorder that causes strokes and this is concerning to her. She denies any headache currently. Timing/Duration: 1-2 Days Severity: Moderate Associated Systoms: Headaches; No Nausea/Vomiting Allergies and Home Medications Allergies Coded Allergies: propranolol (Unverified Allergy, Unknown, 07/26/14) Home Medications Sulfamethoxazole/Trimethoprim 1 Each Tablet, 1 EACH PO BID Prescribed by: JESSIE DOWELL on 01/22/18 4259 Patient Home Medication List Home Medication List Reviewed: Yes Review of Systems Constitutional: see HPI EENTM: see HPI Respiratory: no symptoms reported Cardiovascular: no symptoms reported Genitourinary: no symptoms reported Musculoskeletal: no symptoms reported Skin: no symptoms reported Psychiatric/Neurological: No Symptoms Reported Hematologic/Lymphatic: No Symptoms Reported Past Rgkmjyz-Jvabjd-Fwpfhd Hx Patient Social History Recent Foreign Travel: No Contact w/Someone Who Travel: No Recent Infectious Disease Expo: No Recent Hopitalizations: No Immunizations Up To Date Tetanus Booster (TDap): Less than 5yrs PED Vaccines UTD: Yes Date of Influenza Vaccine: Jun 27, 2013 Seasonal Allergies Seasonal Allergies: Yes Past Medical History Surgeries: Yes (URETHRAL DILATION, X 2) Appendectomy, Section, Gallbladder Respiratory: No Cardiac: No Neurological: Yes ("hereditary migraines") Headaches /Migraines : No Last Menstrual Period: December 31, 2017 Reproductive Disorders: No Female Reproductive Disorders: Pelvic Inflammatory Dis Sexually Transmitted Disease: No Genitourinary: No UTI-Chronic Gastrointestinal: Yes Gastroesophageal Reflux, Ulcer, Irritable Bowel Musculoskeletal: Yes Scoliosis Endocrine: No HEENT: No Cancer: No Psychosocial: Yes Anxiety, Depression Integumentary: No Blood Disorders: No Family Medical History Alcoholism 19 FATHER 19 MOTHER (PGF) Arthritis 19 MOTHER Cardiovascular disease 19 FATHER (PGM) 19 MOTHER (MGF) Completed stroke G8 BROTHER Dementia G8 BROTHER Diabetes mellitus 19 FATHER (PGM) G8 BROTHER Fibrocystic disease of breast 19 MOTHER (MGM) Headache disorder 19 FATHER Hypercholesterolemia 19 FATHER G8 BROTHER G8 BROTHER Hypertension 19 MOTHER (MGF) G8 BROTHER Kidney disease 19 MOTHER Myocardial infarction G8 BROTHER Osteoporosis 19 MOTHER Psychosocial problem No Family History of: AIDS Abdominal aortic aneurysm Bland's disease Alzheimer's disease Aphasia Asthma Cancer of mouth Cataracts Colon cancer Congenital disease Congenital heart disease Coronary thrombosis Cystic fibrosis Deafness or hearing loss Drug abuse Dysphasia Gastroenteritis Glaucoma Infertility Neoplasm Not obtainable due to adoption Parkinson's disease Prostate cancer Respiratory disorder Seizure disorder Severe allergy Thyroid disease Tuberculosis Visual disorder No Pertinent Family Hx, Heart Disease, Migraines Physical Exam Vital Signs Vital Signs - First Documented 01/22/18 15:32 Temp 98.9 Pulse 88 Resp 16 B/P (MAP) 149/94 (112) Pulse Ox 100 Capillary Refill : Less Than 3 Seconds General Appearance: No Apparent Distress, WD/WN Eyes: Bilateral Eye Normal Inspection, Bilateral Eye PERRL, Bilateral Eye EOMI HEENT: PERRL/EOMI, TMs Normal Neck: Full Range of Motion, Normal Inspection Respiratory: Normal Breath Sounds, No Accessory Muscle Use, No Respiratory Distress Cardiovascular: Regular Rate, Rhythm, Normal Peripheral Pulses Gastrointestinal: Normal Bowel Sounds, Non Tender, Soft Extremity: Normal Capillary Refill, Normal Inspection, Other (I do not appreciate any measurable left or right muscle weakness) Neurologic/Psychiatric: Alert, Oriented x3 Skin: Normal Color, Warm/Dry Progress/Results/Core Measures Suspected Sepsis Recent Fever Within 48 Hours: No Infection Criteria Present: None New/Unexplained Altered Menta: No Sepsis Screen: No Definite Risk SIRS Temperature:98.9 Pulse: 88 Respiratory Rate: 16 Laboratory Tests 01/22/18 17:20: White Blood Count 10.5 Blood Pressure 149 /94 Mean: 112 Laboratory Tests 01/22/18 17:20: Creatinine 0.69, Platelet Count 345, Total Bilirubin 0.4 Results/Orders Lab Results Laboratory Tests Test 01/22/18 17:20 01/22/18 17:22 Range/Units White Blood Count 10.5 4.3-11.0 10^3/uL Red Blood Count 4.86 4.35-5.85 10^6/uL Hemoglobin 13.3 11.5-16.0 G/DL Hematocrit 40 35-52 % Mean Corpuscular Volume 82 80-99 FL Mean Corpuscular Hemoglobin 27 25-34 PG Mean Corpuscular Hemoglobin Concent 34 32-36 G/DL Red Cell Distribution Width 14.9 H 10.0-14.5 % Platelet Count 345 130-400 10^3/uL Mean Platelet Volume 10.7 H 7.4-10.4 FL Neutrophils (%) (Auto) 55 42-75 % Lymphocytes (%) (Auto) 35 12-44 % Monocytes (%) (Auto) 7 0-12 % Eosinophils (%) (Auto) 3 0-10 % Basophils (%) (Auto) 0 0-10 % Neutrophils # (Auto) 5.8 1.8-7.8 X 10^3 Lymphocytes # (Auto) 3.7 1.0-4.0 X 10^3 Monocytes # (Auto) 0.8 0.0-1.0 X 10^3 Eosinophils # (Auto) 0.3 0.0-0.3 10^3/uL Basophils # (Auto) 0.0 0.0-0.1 10^3/uL Sodium Level 138 135-145 MMOL/L Potassium Level 4.3 3.6-5.0 MMOL/L Chloride Level 107 98-107 MMOL/L Carbon Dioxide Level 21 21-32 MMOL/L Anion Gap 10 5-14 MMOL/L Blood Urea Nitrogen 9 7-18 MG/DL Creatinine 0.69 0.60-1.30 MG/DL Estimat Glomerular Filtration Rate > 60 BUN/Creatinine Ratio 13 Glucose Level 78 70-105 MG/DL Calcium Level 9.5 8.5-10.1 MG/DL Total Bilirubin 0.4 0.1-1.0 MG/DL Aspartate Amino Transf (AST/SGOT) 38 H 5-34 U/L Alanine Aminotransferase (ALT/SGPT) 42 0-55 U/L Alkaline Phosphatase 131 40-136 U/L Total Protein 8.7 H 6.4-8.2 GM/DL Albumin 4.5 3.2-4.5 GM/DL Urine Color YELLOW Urine Clarity SLIGHTLY CLOUDY Urine pH 7 5-9 Urine Specific [place] 1.005 L 1.016-1.022 Urine Protein NEGATIVE NEGATIVE Urine Glucose (UA) NEGATIVE NEGATIVE Urine Ketones NEGATIVE NEGATIVE Urine Nitrite NEGATIVE NEGATIVE Urine Bilirubin NEGATIVE NEGATIVE Urine Urobilinogen NORMAL NORMAL MG/DL Urine Leukocyte Esterase 3+ H NEGATIVE Urine RBC (Auto) NEGATIVE NEGATIVE Urine RBC NONE /HPF Urine WBC 10-25 H /HPF Urine Squamous Epithelial Cells 10-25 H /HPF Urine Crystals NONE /LPF Urine Bacteria MODERATE H /HPF Urine Casts NONE /LPF Urine Mucus NEGATIVE /LPF Urine Culture Indicated YES My Orders Orders - JESSIE DOWELL APRN Cbc With Automated Diff (01/22/18 16:58) Comprehensive Metabolic Panel (01/22/18 16:58) Ua Culture If Indicated (01/22/18 16:58) Urine Bedside (01/22/18 16:58) Ct Head Wo (01/22/18 16:58) Iv [place]-Insert (Order) (01/22/18 17:13) Urine Culture (01/22/18 17:22) Vital Signs/I&O 01/22/18 01/22/18 15:32 15:35 Temp 98.9 98.9 Pulse 88 88 Resp 16 16 B/P (MAP) 149/94 (112) 149/94 (112) Pulse Ox 100 100 Capillary Refill : Less Than 3 Seconds Blood Pressure Mean: 112 Departure Impression Primary Impression: Lightheadedness Additional Impression: Urinary tract infection Disposition: 01 HOME, SELF-CARE Condition: Stable Departure-Patient Inst. Decision time for Depature: 17:07 Referrals: JOAQUÍN SANCHEZ APRN (PCP/Family) Primary Care Physician Patient Instructions: NO INSTRUCTIONS GIVEN Add. Discharge Instructions: Follow-up with your doctor Later this week. Antibiotic as directed All discharge instructions reviewed with patient and/or family. Voiced understanding. Scripts Sulfamethoxazole/Trimethoprim (Bactrim Ds Tablet) 1 Each Tablet 1 EACH PO BID, #10 TAB Prov: JESSIE DOWELL APRN 01/22/18 JESSIE DOWELL APRN January 22, 2018 17:07
[2018-01-22 17:28] LABS: BASOPHILS % (AUTO) 0 % (0-10); EOSINOPHILS # (AUTO) 0.3 10^3/uL (0.0-0.3); EOSINOPHILS % (AUTO) 3 % (0-10); HEMATOCRIT 40 % (35-52); HEMOGLOBIN 13.3 G/DL (11.5-16.0); LYMPHOCYTES # (AUTO) 3.7 X 10^3 (1.0-4.0); LYMPHOCYTES % (AUTO) 35 % (12-44); MEAN CORPUSCULAR HEMOGLOBIN 27 PG (25-34); MEAN CORPUSCULAR HGB CONC 34 G/DL (32-36); MEAN CORPUSCULAR VOLUME 82 FL (80-99); MEAN PLATELET VOLUME 10.7 FL (7.4-10.4); MONOCYTES # (AUTO) 0.8 X 10^3 (0.0-1.0); MONOCYTES % (AUTO) 7 % (0-12); NEUTROPHILS # (AUTO) 5.8 X 10^3 (1.8-7.8); NEUTROPHILS % (AUTO) 55 % (42-75); PLATELET COUNT 345 10^3/uL (130-400); RED BLOOD COUNT 4.86 10^6/uL (4.35-5.85); RED CELL DISTRIBUTION WIDTH 14.9 % (10.0-14.5); WHITE BLOOD COUNT 10.5 10^3/uL (4.3-11.0)
[2018-01-22 17:29] LABS: BILIRUBIN,URINE NEGATIVE (NEGATIVE); CLARITY,URINE SLIGHTLY CLOUDY; COLOR,URINE YELLOW; GLUCOSE, URINE (UA) NEGATIVE (NEGATIVE); KETONES,URINE NEGATIVE (NEGATIVE); LEUKOCYTE ESTERASE ,URINE 3+ (NEGATIVE); NITRITE,URINE NEGATIVE (NEGATIVE); PH,URINE 7 (5-9); PROTEIN,URINE NEGATIVE (NEGATIVE); UROBILINOGEN,URINE NORMAL (NORMAL)
[2018-01-22 17:38] LABS: BACTERIA,URINE MODERATE /HPF
--- NOTE | 2018-01-22 17:48 | Diagnostic Imaging Report ---
PROCEDURE: CT head without contrast. TECHNIQUE: Multiple contiguous axial images were obtained through the brain without the use of intravenous contrast. INDICATION: Lightheaded for three days. No known injury. FINDINGS: The ventricles are normal in size, shape, and position. There is no acute parenchymal hemorrhage, edema, or mass. There is no extra-axial mass or hemorrhage. There is no acute bony abnormality. There is mild paranasal sinus disease with mild mucous membrane thickening of the ethmoid and maxillary sinuses. IMPRESSION: Mild paranasal sinus disease. No other abnormality is seen. Dictated by: Dictated on workstation # [id number]
[2018-01-22 17:54] LABS: ALANINE AMINOTRANSFERASE 42 U/L (0-55); ALBUMIN 4.5 GM/DL (3.2-4.5); ALKALINE PHOSPHATASE 131 U/L (40-136); BILIRUBIN,TOTAL 0.4 MG/DL (0.1-1.0); BUN/CREATININE RATIO 13; CALCIUM 9.5 MG/DL (8.5-10.1); CARBON DIOXIDE 21 MMOL/L (21-32); CHLORIDE 107 MMOL/L (98-107); CREATININE SERUM 0.69 MG/DL (0.60-1.30); GFR ESTIMATED > 60; GLUCOSE 78 MG/DL (70-105); POTASSIUM 4.3 MMOL/L (3.6-5.0); SODIUM 138 MMOL/L (135-145); TOTAL PROTEIN 8.7 GM/DL (6.4-8.2)
[2018-01-22] MEDS ORDERED: SULF1TAB35 PO (17:59)
[2018-01-22 18:05] VITALS: BP 149/94
== END 2018-01-22 18:05 | disposition home or self-care (01) ==
LOC: EDUNIT# 13:36 → ER 13:37
DX: R42 Dizziness and giddiness (principal); N39.0 Urinary tract infection, site not specified; G43.909 Migraine, unspecified, not intractable, without status migrainosus; K21.9 Gastro-esophageal reflux disease without esophagitis; F41.9 Anxiety disorder, unspecified; F32.9 Major depressive disorder, single episode, unspecified; Z87.19 Personal history of other diseases of the digestive system; Z90.49 Acquired absence of other specified parts of digestive tract; Z87.59 Personal history of other complications of pregnancy, childbirth and the puerperium
CPT/HCPCS: 36415; 70450; 80053; 81000; 84703; 85025; 87088

== ENCOUNTER 2018-11-03 00:08 | Emergency (ER) | payer MEDICAID ==
[~2018-11-03] VITALS: Ht 157.5 cm; Wt 95.3 kg
--- OUTSIDE RECORDS SUMMARY | 2018-11-03 00:13 | XMS REPORT ---
Author Author STEPHANIE ZAPATA [facility] Address [address] [place] [address] Care Team Providers Care Tool Crib Lead Name Role Phone STEPHANIE ZAPATA Unavailable PROBLEMS Type Condition ICD9-CM Code HDM35-YY Code Onset Dates Condition Status SNOMED Code Problem Hypertriglyceridemia E78.1 Active 332115494 Problem Elevated serum alkaline phosphatase level R74.8 Active 358760586 Problem Non-seasonal allergic rhinitis, unspecified trigger J30.89 Active 88268880 Problem Slow transit constipation K59.01 Active 65845220 Problem Migraine without aura and without status migrainosus, not intractable G43.009 Active 259825163 Problem Obesity (BMI 30-39.9) E66.9 Active 045371186 Problem Other obesity due to excess calories E66.09 Active 780997839 Problem Body mass index (BMI) of 39.0-39.9 in adult Z68.39 Active 383110696 ALLERGIES Substance Reaction Event Type Date Status Propranolol HCl vomiting Drug Allergy Jul, Active ENCOUNTERS Encounter Location Date Diagnosis [facility] [id number] [address] Jul, Nausea R11.0 ; Non-seasonal allergic rhinitis, unspecified trigger J30.89 and BMI 40.0-44.9, adult Z68.41 [facility] [id number] [address] May, 2018 BMI 40.0-44.9, adult Z68.41 ; Frequent urination R35.0 and Slow transit constipation K59.01 [facility] [id number] [address] Feb, [facility] [id number] [address] Jan, Migraine without aura and without status migrainosus, not intractable G43.009 ; Pelvic pain R10.2 ; Urinary frequency R35.0 ; Other obesity due to excess calories E66.09 ; Body mass index (BMI) of 39.0-39.9 in adult Z68.39 and Hypertriglyceridemia E78.1 [address] [place] [address] Aug, [place] [address] [address] Aug, Unspecified lump in axillary tail of the right breast N63.31 and Unspecified lump in axillary tail of the left breast N63.32 [place] [address] [address] Jul, Epigastric abdominal pain R10.[address] [address] Jun, Epigastric abdominal pain R10.13 [place] [address] [address] 31 May, 2017 Encounter to establish care Z76.89 ; Epigastric abdominal pain R10.13 ; Dizziness R42 and Obesity (BMI 30-39.9) E66.9 [place] [address] [address] May, Elevated serum alkaline phosphatase level R74.8 [place] [address] [address] May, Elevated serum alkaline phosphatase level R74.8 [place] [address] [address] May, [place] [address] [address] May, Irritable bowel syndrome with both constipation and diarrhea K58.2 and Dizziness, nonspecific R42 [address] [address] 25 Apr, 2017 Irritable bowel syndrome with both constipation and diarrhea K58.2 and Dizziness, nonspecific R42 [facility] [id number] [place] [address] 29 Apr, 2016 Hives of unknown origin L50.9 [facility] [address] [address] 14 Nov, 2014 [facility] [address] [facility] [id number] [place] [address] Nov, [facility] [address] [facility] [id number] [place] [address] Aug, [facility] [id number] [place] [address] Aug, [facility] [id number] [place] [address] December, [facility] [id number] [place] [address] December, [facility] [address] [address] Nov, [facility] [id number] [place] [address] Nov, [facility] [address] [address] Nov, [facility] [address] [address] Nov, [facility] [address] [facility] [id number] [address] Nov, [facility] [id number] [place] [address] Nov, [facility] [id number] [address] Oct, [facility] [id number] [place] [address], [place] [address] Oct, [facility] [place] [facility] [address] [id number] [place] [address] Sep, [facility] [place] [facility] [address] [id number] [place] [address] 8[address] Sep, [facility] [place] [facility] [address] [id number] [place] [address] 5[address] May, [facility] [place] [facility] [address] [id number] [place] [address]- 0[address] May, [facility] [place] [facility] [address] [id number] [place] [address]- 4[address] Apr, [facility] [place] [facility] [address] [id number] [place] [address] 14[address] Mar, [facility] [place] [facility] [address] [id number] [place] [address] 38[address] Mar, [facility] [place] [facility] [address] [id number] [place] [address]- [address] Mar, [facility] [place] [facility] [address] [id number] [place] [address]- 44[address] Feb, [facility] [place] [facility] [address] [id number] [place] [address]- 305[address] Feb, [facility] [place] [facility] [address] [id number] [place] [address]- 3747 Feb, [facility] [place] [facility] [address] [id number] [place] [address]- 6[address] Jan, [facility] [place] [facility] [address] [id number] [place] [address]- 7469 Jan, [facility] [place] [facility] [address] [id number] [place] [address]- 9483 December, [facility] [place] [facility] [address] [id number] [place] [address]- 8827 December, [facility] [place] [facility] [address] [id number] [place] [address]- 9815 December, [facility] [address] [id number] [place] [address]- 2664 Nov, [facility] [address] [id number] [place] [address]- 9583 Nov, [facility] [address] [id number] [place] [address]- 6626 Nov, [facility] [address] [id number] [place] [address]- 9928 Oct, [facility] [place] [facility] [address] [id number] [place] [address]- 4269 Oct, [facility] [address] [id number] [place] [address]- 2443 Oct, [facility] [address] [id number] [place] [address]- 9221 Oct, [facility] [address] [id number] [place] [address]- 2594 Oct, [facility] [address] [id number] [place] [address]- 6[address] Sep, [facility] [address] [id number] [place] [address]- 1067 Sep, [facility] [address] [id number] [place] [address]- 6989 18 Sep, 2012 [facility] [place] [facility] [address] [id number] [place] [address]- 8[address] 14 Sep, 2012 [facility] [place] [facility] [address] [id number] [place] [address]- 5[address] Sep, [facility] [place] [facility] [address] [id number] [place] [address] 6[address] Aug, [facility] [place] [facility] [address] [id number] [place] [address]- 1499 17 Aug, 2012 [facility] [address] [id number] [place] [address]- 9305 16 Aug, 2012 [facility] [address] [id number] [place] [address]- 0352 15 Aug, 2012 [facility] [address] [id number] [place] [address]- 1591 14 Aug, 2012 [facility] [address] [id number] [place] [address]- 9335 07 Aug, 2012 [facility] [address] [id number] [place] [address]- 9901 07 Aug, 2012 [facility] [address] [id number] [place] [address]- 1526 07 Aug, 2012 [facility] [address] [id number] [place] [address]- 0219 07 Aug, 2012 [facility] [address] [id number] [place] [address]- 3665 02 Aug, 2012 [facility] [address] [id number] [place] [address]- 7185 02 Aug, 2012 [facility] [address] [id number] [place] [address]- 6578 28 Jul, 2012 [facility] [address] [id number] [place] [address]- 5099 28 Jul, 2012 [facility] [address] [id number] [place] [address]- 0994 27 Jul, 2012 [facility] [address] [id number] [place] [address]- 6081 22 Jul, 2012 [facility] [address] [id number] [place] [address]- 5694 18 Jul, 2012 [facility] [address] [id number] [place] [address]- 5754 18 Jul, 2012 [facility] [place] [facility] [address] [id number] [place] [address]- 1719 14 Jul, 2012 [facility] [place] [facility] [address] [id number] [place] [address]- 1416 14 Jul, 2012 [facility] [place] [facility] [address] [id number] [place] [address]- 2946 17 Jun, 2012 [facility] [place] [facility] [address] [id number] [place] [address]- 5536 17 Jun, 2012 [facility] [place] [facility] [address] [id number] [place] [address]- 6246 16 Jun, 2012 [facility] [place] [facility] [address] [id number] [place] [address]- 9896 16 Jun, 2012 [facility] [place] [facility] [address] [id number] [place] [address]- 2977 08 Jun, 2012 [facility] [place] [facility] [address] [id number] [place] [address]- 5612 08 Jun, 2012 [facility] [place] [facility] [address] [id number] [place] [address]- 9684 Jun, [facility] [place] [facility] [address] [id number] [place] [address]- 6697 Jun, [facility] [place] [facility] [address] [id number] [place] [address]- 7140 Jun, [facility] [place] [facility] [address] [id number] [place] [address]- 0812 Jun, [facility] [place] [facility] [address] [id number] [place] [address]- 4883 Mar, [facility] [place] [facility] [address] [id number] [place] [address]- 1816 Feb, [facility] [place] [facility] [address] [id number] [place] [address]- 1018 Feb, [facility] [place] [facility] [address] [id number] [place] [address]- 6923 Feb, [facility] [address] [id number] [place] [address]- 2983 Feb, [facility] [place] [facility] [address] [id number] [place] [address]- 5898 Feb, [facility] [place] [facility] [address] [id number] [place] [address]- 4278 Feb, [facility] [place] [facility] [address] [id number] [place] [address]- 2674 Feb, [facility] [place] [facility] [address] [id number] [place] [address]- 3335 Jan, [facility] [place] [facility] [address] [id number] [place] [address]- 1240 Jan, [facility] [place] [facility] [address] [id number] [place] [address]- 9454 Jan, [facility] [place] [facility] [address] [id number] [place] [address]- 3603 December, [facility] [place] [facility] [address] [id number] [place] [address]- 0655 December, [facility] [place] [facility] [address] [id number] [place] [address]- 2146 December, [facility] [place] [facility] [address] [id number] [place] [address]- 3331 December, [facility] [place] [facility] [address] [id number] [address]- 6989 December, [facility] [place] [facility] [address] [id number] [place] [address]- 6039 December, [facility] [place] [facility] [address] [id number] [place] [address]- 4604 December, [facility] [place] [facility] [address] [id number] [place] [address]- 1611 Nov, [facility] [place] [facility] [address] [id number] [place] [address]- 1579 18 Nov, 2011 [facility] [place] [facility] [address] [id number] [place] [address]- 9306 16 Nov, 2011 [facility] [place] [facility] [address] [id number] [place] [address]- 3466 04 Nov, 2011 [facility] [place] [facility] [address] [id number] [place] [address]- 5996 29 Oct, 2011 [facility] [place] [facility] [address] [id number] [place] [address] 2546 29 Oct, 2011 [facility] [place] [facility] [address] [id number] [place] [address]- 1962 28 Oct, 2011 [facility] [place] [facility] [address] [id number] [place] [address]- 3206 28 Oct, 2011 [facility] [place] [facility] [address] [id number] [place] [address]- 4243 27 Oct, 2011 [facility] [place] [facility] [address] [id number] [place] [address]- 7291 27 Oct, 2011 [facility] [place] [facility] [address] [id number] [place] [address]- 7918 26 Oct, 2011 [facility] [place] [facility] [address] [facility] [id number] [place] [address]- 7133 14 Oct, 2011 [facility] [place] [facility] [address] [id number] [place] [address]- 3456 05 Oct, 2011 [facility] [place] [facility] [address] [id number] [place] [address]- 0134 16 Sep, 2011 [facility] [place] [facility] [address] [id number] [place] [address]- 3148 14 Sep, 2011 [facility] [place] [facility] [address] [id number] [place] [address]- 9416 13 Sep, 2011 [facility] [place] [facility] [address] [facility] [id number] [place] [address]- 0127 07 Sep, 2011 [facility] [place] [facility] [address] [id number] [place] [address]- 3974 Sep, [facility] [place] [facility] [address] [id number] [place] [address]- 7818 Sep, [facility] [place] [facility] [address] [id number] [place] [address]- 2673 Aug, [facility] [place] [facility] [address] [id number] [place] [address]- 2482 Aug, [facility] [place] [facility] [address] [id number] [place] [address]- 3999 Jul, [facility] [place] [facility] [address] [id number] [place] [address]- 6349 Jul, [facility] [place] [facility] [address] [facility] [id number] [place] [address]- 1947 Jul, [facility] [place] [facility] [address] [id number] [place] [address]- 9113 Jul, [facility] [place] [facility] [address] [id number] [place] [address]- 9350 30 Jun, 2011 [facility] [place] [facility] [address] [id number] [place] [address]- 9463 30 Jun, 2011 [facility] [place] [facility] [address] [id number], [place] [address]- 8459 28 Jun, 2011 [facility] [place] [facility] [address] [id number], [place] [address]- 1867 Jun, [facility] [place] [facility] [address] [id number] [place] [address]- 4787 18 Jun, 2011 [facility] [place] [facility] [address] [id number] [place] [address]- 9959 16 Jun, 2011 [facility] [place] [facility] [address] [facility] [id number] [place] [address]- 6179 11 Jun, 2011 [facility] [place] [facility] [address] [id number] [place] [address]- 5591 28 May, 2011 [facility] [address] [id number] [place] [address]- 2096 27 May, 2011 [facility] [place] [facility] [address] [id number] [place] [address]- 9466 25 May, 2011 [facility] [place] [facility] [address] [id number] [place] [address]- 0576 11 May, 2011 [facility] [place] [facility] [address] [id number] [place] [address]- 2291 May, [facility] [place] [facility] [address] [id number] [place] [address]- 9040 Aug, [facility] [place] [facility] [address] [id number] [place] [address]- 2554 Aug, [facility] [place] [facility] [address] [id number] [place] [address]- 3447 14 Jul, 2009 [facility] [place] [facility] [address] [id number] [place] [address] 2545 14 Jul, 2009 [facility] [place] [facility] [address] [id number] [place] [address]- 9323 Jul, [facility] [place] [facility] [address] [facility] [id number] [place] [address]- 3366 Jul, [facility] [place] [facility] [address] [id number] [place] [address]- 5226 02 Jul, 2009 [facility] [place] [facility] [address] [id number] [place] [address] 2542 Jul, [facility] [place] [facility] [address] [id number] [place] [address]- 3667 Jun, [facility] [place] [facility] [address] [id number] [place] [address]- 3728 Jun, [facility] [place] [facility] [address] [id number] Jun, [facility] [address] [facility] [id number] [address] May, [facility] [address] [facility] [id number] [address] May, [facility] [address] [facility] [id number], [place] [address]- [address] May, IMMUNIZATIONS No Known Immunizations SOCIAL HISTORY Never Assessed REASON FOR VISIT nausea for the past week. headache for the past 3 days. also has left earache that started this am. [email or web address] PLAN OF CARE Activity Details Follow Up prn Reason: VITAL SIGNS Height 61 in 2018-08-13 Weight 218.0 lbs 2018-08-13 Temperature 98.6 degrees Fahrenheit 2018-08-13 Heart Rate 88 bpm 2018-08-13 Respiratory Rate 20 2018-08-13 BMI 41.19 kg/m2 2018-08-13 Blood pressure systolic 124 mmHg 2018-08-13 Blood pressure diastolic 68 mmHg 2018-08-13 MEDICATIONS Medication Instructions Dosage Frequency Start Date End Date Duration Status Cranberry 300 MG as directed Active Fish Oil 1000 MG Orally Once a day 1 capsule 24h 30 day(s) Active Ranitidine HCl 150 MG Orally twice a day 1 capsule 12h Apr, 30 day(s) Active Omeprazole 20 mg Orally Once a day 1 capsule 24h 31 May, 2017 90 days Active Flonase 50 mcg/act Nasally Once a day 2 spray in each nostril 24h Jul, 30 day(s) Active Loratadine 10 MG Orally Once a day 1 tablet 24h Active RESULTS Name Result Date Reference Range TEST, URINE (IN HOUSE) 2018-08-13 RESULTS negative Lot # [id number] Control + Exp date 02/24/2020 PROCEDURES Procedure Date Ordered Result Body Site URINE TEST Aug 13, 2018 INSTRUCTIONS MEDICATIONS ADMINISTERED No Known Medications MEDICAL (GENERAL) HISTORY Type Description Date Medical History migraines Surgical History C section 2014 Surgical History appendectomy 2012 Surgical History cholecystectomy 2013
--- OUTSIDE RECORDS SUMMARY | 2018-11-03 00:13 | XMS REPORT | Clinical Summary ---
Author Author [facility] Organization [facility] Address Unknown Phone Unavailable Care Team Providers Care Senior Interaction Designer Name Role Phone Pat Pompa RN Unavailable [...] in the Health Information Management department at [phone] for further assistance in locating additional records.[facility] Allergies Comments Active Allergy Reactions Severity Noted Date Amitriptyline NAUSEA AND 06/24/2013 VOMITING Propranolol NAUSEA AND 06/24/2013 VOMITING Medications End Date Status Medication Sig Dispensed Refills Start Date Active vitamins, w/iron Take 1 Tab by 0 & folate 65/1 mg tab mouth daily. Active docusate (COLACE) 100 mg Take 100 mg 0 capsule by mouth twice daily. Active simethicone (MYLICON) 80 Take 1 Tab by 30 Tab 0 mg chew tablet mouth every 6 4 hours as needed. Active lanolin ([id number]) apply to sore 1 Tube 0 topical cream nipples as 4 needed Active docusate (COLACE) 100 mg Take 1 Cap by 180 Cap 0 capsule mouth twice 4 daily as needed for Constipation. Active milk of magnesia (CONC) Take 10 mL by 100 mL 0 2,400 mg/10 mL oral mouth every 6 4 suspension hours as needed. Active acetaminophen-codeine Take 1-2 Tabs 30 Tab 0 (TYLENOL #3) 300-30 mg by mouth 4 tablet every 4 hours as needed. Active oxyCODone-acetaminophen Take 1-2 Tabs 60 Tab 0 (PERCOCET; ENDOCET; by mouth 4 ROXICET) 5-325 mg every 4 hours tabletIndications: as needed for pain Pain Max 12 tabs/day Active Problems Problem Noted Date labor 08/24/2013 [...] Paternal Aunt Paternal Grandmother Sister Social History Date Tobacco Use Types Packs/Day Years Used Never Smoker Smokeless Tobacco: Never Used Alcohol Use Drinks/Week oz/Week Comments No Sex Assigned at Date Recorded Not on file Industry Job Start Date Occupation Not on file Not on file Not on file Travel End Travel History Travel Start No recent travel history available. 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 Blood Pressure 122/71 08/30/2013 7:59 AM ATM TECHNICIAN Pulse 94 08/30/2013 7:59 AM ATM TECHNICIAN Temperature 36.8 C (98.2 F) - Respiratory Rate - 08/30/2013 7:59 AM ATM TECHNICIAN Oxygen Saturation 95% - Inhaled Oxygen - Concentration 08/27/2013 4:00 PM ATM TECHNICIAN Weight 77.1 kg (170 lb) 07/12/2013 10:00 PM ATM TECHNICIAN Height 157.5 cm (5' 2") 08/27/2013 4:00 PM ATM TECHNICIAN Body Mass Index 31.09 Plan of Treatment Health Maintenance Due Date Last Done Comments PHYSICAL (COMPREHENSIVE) 2002 EXAM HPV VACCINES (1 - Female 2006 3-dose series) DTAP/TDAP VACCINES (1 - 2013 Tdap) CERVICAL CANCER SCREENING 2016 INFLUENZA VACCINE 03/27/2018 07/12/2013 HIV SCREENING Completed 08/24/2013 Results Not on filefrom Last 3 Months Advance Directives Patient has advance care planning documents, and code status on file. For more information, please contact: [facility] [address] [place] [address] Date Inactivated Comments Code Status Date Activated 08/30/2013 7:17 PM Full Code 08/24/2013 3:43 PM Provider has discussed Code Status No, discussion not w/Patient or Family? necessary based on Dx 06/26/2013 7:38 PM Full Code 06/24/2013 2:31 PM Provider has discussed Code Status Yes w/Patient or Family?
--- OUTSIDE RECORDS SUMMARY | 2018-11-03 00:14 | XMS REPORT ---
Author Author JOAQUÍN SANCHEZ Organization [facility] Address [address] [place] [address] Care Team Providers Care Film Process Operator Name Role Phone JAOQUÍN SANCHEZ Unavailable PROBLEMS Type Condition ICD9-CM Code LDG49-GW Code Onset Dates Condition Status SNOMED Code Problem Other obesity due to excess calories E66.09 Active 682977594 Problem Migraine without aura and without status migrainosus, not intractable G43.009 Active 226226524 Problem Elevated serum alkaline phosphatase level R74.8 Active 277006023 Problem Hypertriglyceridemia E78.1 Active 603851759 Problem Body mass index (BMI) of 39.0-39.9 in adult Z68.39 Active 449894332 Problem Obesity (BMI 30-39.9) E66.9 Active 122931589 ALLERGIES No Information ENCOUNTERS Encounter Location Date Diagnosis [place] [id number] [address] Feb, [place] [id number] [place] [address]- 6209 Jan, Migraine without aura and without status migrainosus, not intractable G43.009 ; Pelvic pain R10.2 ; Urinary frequency R35.0 ; Other obesity due to excess calories E66.09 ; Body mass index (BMI) of 39.0-39.9 in adult Z68.39 and Hypertriglyceridemia E78.1 [place] [address] [id number] [address] Aug, [place] [address] [place] [id number] [place] [address] 31398- 7141 Aug, Unspecified lump in axillary tail of the right breast N63.31 and Unspecified lump in axillary tail of the left breast N63.32 [place] [address] [place] [id number] [place] [address] 19589- 4568 Jul, Epigastric abdominal pain R10.13 [place] [address] [place] [id number] [place] [address] 02927- 6909 Jun, Epigastric abdominal pain R10.13 [facility] [address] [place] [address] [id number] [place] [address] 50319- 4996 May, Encounter to establish care Z76.89 ; Epigastric abdominal pain R10.13 ; Dizziness R42 and Obesity (BMI 30-39.9) E66.9 [place] [address] [place] [id number] [place] [address] 72783- 9966 16 May, 2017 Elevated serum alkaline phosphatase level R74.8 [place] [address] [place] [id number] [place] [address] 18786- 1530 12 May, 2017 Elevated serum alkaline phosphatase level R74.8 [place] [address] [place] [id number] [place] [address] 86409- 0238 10 May, 2017 [place] [address] [place] [id number] [place] [address] 25507- 1752 May, Irritable bowel syndrome with both constipation and diarrhea K58.2 and Dizziness, nonspecific R42 [place] [address] [place] [id number] [place] [address] 17454- 0752 25 Apr, 2017 Irritable bowel syndrome with both constipation and diarrhea K58.2 and Dizziness, nonspecific R42 [place] [address] [place] [id number] [place] [address] 72473- 0811 29 Apr, 2016 Hives of unknown origin L50.9 [place] [address] [place] [id number] [place] [address] 44662- 1350 Nov, [place] [address] [place] [id number] [place] [address] 72824- 2481 Nov, [place] [address] [place] [id number] [place] [address] 75854- 7371 Aug, [place] [address] [place] [address]- 7520 Aug, [facility] [address] [id number] [place] [address]- 7352 December, [facility] [place] [facility] [address] [id number] [place] [address]- 5986 December, [facility] [place] [facility] [address] [id number] [place] [address]- 5609 Nov, [facility] [place] [facility] [address] [id number] [place] [address]- 8331 Nov, [facility] [place] [facility] [address] [id number] [place] [address]- 1895 Nov, [facility] [place] [facility] [address] [id number] [place] [address]- 9341 Nov, [facility] [place] [facility] [address] [id number] [place] [address]- 2168 Nov, [facility] [place] [facility] [address] [id number] [place] [address]- 0935 Nov, [facility] [place] [facility] [address] [id number] [place] [address]- 6841 Oct, [facility] [place] [facility] [address] [id number] [place] [address]- 7548 Oct, [facility] [place] [facility] [address] [id number] [place] [address]- 9025 Sep, [facility] [place] [facility] [address] [id number] [place] [address]- 2917 Sep, [facility] [place] [facility] [address] [id number] [place] [address]- 3299 May, [facility] [place] [facility] [address] [id number] [place] [address]- 2276 May, [facility] [place] [facility] [address] [id number] [place] [address]- 0265 Apr, [facility] [place] [facility] [address] [id number] [place] [address]- 5317 Mar, [facility] [address] [id number] [place] [address]- 0287 Mar, [facility] [address] [id number] [place] [address]- 9883 Mar, [facility] [place] [facility] [address] [id number] [place] [address]- 4025 Feb, [facility] [address] [id number] [place] [address]- 0856 Feb, [facility] [address] [id number] [place] [address]- 8722 Feb, [facility] [address] [id number] [place] [address]- 4603 Jan, [facility] [address] [id number] [place] [address]- 1989 Jan, [facility] [address] [id number] [place] [address]- 9779 December, [facility] [address] [id number] [place] [address]- 0523 December, [facility] [place] [facility] [address] [id number] [place] [address]- 0492 December, [facility] [place] [facility] [address] [id number] [place] [address]- 0622 Nov, [facility] [place] [facility] [address] [id number] [place] [address]- 6152 Nov, [facility] [place] [facility] [address] [id number] [place] [address]- 2100 Nov, [facility] [place] [facility] [address] [id number] [place] [address]- 3059 Oct, [facility] [place] [facility] [address] [id number] [place] [address]- 0653 18 Oct, 2012 [facility] [address] [id number] [place] [address]- 6250 Oct, [facility] [place] [facility] [address] [id number] [place] [address]- 2424 04 Oct, 2012 [facility] [address] [id number] [place] [address]- 7638 Oct, [facility] [place] [facility] [address] [id number] [place] [address]- 8950 27 Sep, 2012 [facility] [address] [id number] [place] [address]- 9576 22 Sep, 2012 [facility] [address] [id number] [place] [address]- 4423 18 Sep, 2012 [facility] [address] [id number] [place] [address]- 7364 14 Sep, 2012 [facility] [address] [id number] [place] [address]- 9041 13 Sep, 2012 [facility] [address] [id number] [place] [address]- 7908 28 Aug, 2012 [facility] [address] [id number] [place] [address]- 5931 17 Aug, 2012 [facility] [address] [id number] [place] [address]- 6461 16 Aug, 2012 [facility] [place] [facility] [address] [id number] [place] [address]- 3278 15 Aug, 2012 [facility] [place] [facility] [address] [id number] [place] [address]- 5849 14 Aug, 2012 [facility] [place] [facility] [address] [id number] [place] [address]- 0862 07 Aug, 2012 [facility] [place] [facility] [address] [id number] [address]- 4714 07 Aug, 2012 [facility] [place] [facility] [address] [id number] [place] [address]- 2931 07 Aug, 2012 [facility] [address] [id number] [place] [address]- 2036 Aug, [facility] [place] [facility] [address] [id number] [place] [address]- 4556 Aug, [facility] [address] [id number] [place] [address]- 0282 Aug, [facility] [address] [id number] [place] [address]- 4947 Jul, [facility] [place] [facility] [address] [id number] [place] [address]- 0465 28 Jul, 2012 [facility] [address] [id number] [place] [address]- 6787 Jul, [facility] [address] [id number] [place] [address]- 7864 Jul, [facility] [address] [id number] [place] [address]- 6616 18 Jul, 2012 [facility] [place] [facility] [address] [id number] [place] [address]- 8172 18 Jul, 2012 [facility] [place] [facility] [address] [id number] [place] [address]- 8679 14 Jul, 2012 [facility] [place] [facility] [address] [id number] [place] [address]- 3870 14 Jul, 2012 [facility] [place] [facility] [address] [id number] [place] [address]- 3073 17 Jun, 2012 [facility] [place] [facility] [address] [id number] [place] [address]- 0953 17 Jun, 2012 [facility] [place] [facility] [address] [id number] [place] [address]- 2771 16 Jun, 2012 [facility] [place] [facility] [address] [id number] [place] [address]- 6296 16 Jun, 2012 [facility] [place] [facility] [address] [id number] [place] [address]- 9019 Jun, [facility] [place] [facility] [address] [id number] [place] [address]- 7269 08 Jun, 2012 [facility] [place] [facility] [address] [id number] [place] [address]- 5653 Jun, [facility] [place] [facility] [address] [id number] [place] [address]- 1424 Jun, [facility] [place] [facility] [address] [id number] [place] [address]- 5244 Jun, [facility] [place] [facility] [address] [id number] [place] [address]- 8324 Jun, [facility] [place] [facility] [address] [id number] [place] [address]- 4403 Mar, [facility] [place] [facility] [address] [id number] [place] [address]- 7324 Feb, [facility] [place] [facility] [address] [id number] [place] [address]- 8442 Feb, [facility] [place] [facility] [address] [id number] [place] [address]- 3266 Feb, [facility] [place] [facility] [address] [id number] [place] [address]- 4892 Feb, [facility] [place] [facility] [address] [id number] [place] [address]- 5327 Feb, [facility] [place] [facility] [address] [id number] [place] [address]- 0191 Feb, [facility] [place] [facility] [address] [id number] [place] [address]- 5180 Feb, [facility] [place] [facility] [address] [id number] [place] [address]- 7654 Jan, [facility] [place] [facility] [address] [id number] [place] [address]- 5504 Jan, [facility] [address] [id number] [place] [address]- 1243 Jan, [facility] [address] [id number] [place] [address]- 0386 December, [facility] [address] [id number] [place] [address]- 1180 December, [facility] [address] [id number] [place] [address]- 7370 December, [facility] [address] [id number] [place] [address]- 7121 December, [facility] [address] [id number] [place] [address]- 2286 December, [facility] [address] [id number] [place] [address]- 0396 December, [facility] [address] [id number] [place] [address]- 5683 December, [facility] [address] [id number] [place] [address]- 7256 Nov, [facility] [address] [id number] [place] [address]- 5479 Nov, [facility] [address] [id number] [place] [address]- 3536 Nov, [facility] [address] [id number] [place] [address]- 1298 Nov, [facility] [address] [id number] [place] [address]- 8510 Oct, [facility] [address] [id number] [place] [address]- 0246 Oct, [facility] [address] [id number] [place] [address]- 7263 Oct, [facility] [place] [facility] [address] [id number] [place] [address]- 5669 28 Oct, 2011 [facility] [place] [facility] [address] [id number] [place] [address]- 7606 27 Oct, 2011 [facility] [place] [facility] [address] [id number] [place] [address]- 9604 27 Oct, 2011 [facility] [place] [facility] [address] [id number] [place] [address]- 3166 26 Oct, 2011 [facility] [place] [facility] [address] [id number] [place] [address]- 8800 14 Oct, 2011 [facility] [place] [facility] [address] [id number] [place] [address]- 9696 05 Oct, 2011 [facility] [place] [facility] [address] [id number] [place] [address]- 2749 16 Sep, 2011 [facility] [place] [facility] [address] [id number] [place] [address]- 7513 14 Sep, 2011 [facility] [place] [facility] [address] [id number] [place] [address]- 9796 13 Sep, 2011 [facility] [place] [facility] [address] [id number] [place] [address]- 8566 07 Sep, 2011 [facility] [place] [facility] [address] [id number] [place] [address]- 5986 06 Sep, 2011 [facility] [place] [facility] [address] [id number] [place] [address]- 2006 Sep, [facility] [place] [facility] [address] [id number] [place] [address]- 4356 Aug, [facility] [place] [facility] [address] [id number] [place] [address]- 4206 16 Aug, 2011 [facility] [place] [facility] [address] [id number] [place] [address]- 9556 Jul, [facility] [place] [facility] [address] [id number] [place] [address]- 8454 07 Jul, 2011 [facility] [place] [facility] [address] [id number] [place] [address]- 7439 06 Jul, 2011 [facility] [place] [facility] [address] [id number] [place] [address]- 4282 05 Jul, 2011 [facility] [place] [facility] [address] [id number] [place] [address]- 8452 30 Jun, 2011 [facility] [place] [facility] [address] [id number] [place] [address]- 3353 30 Jun, 2011 [facility] [place] [facility] [address] [id number] [place] [address]- 8029 Jun, [facility] [place] [facility] [address] [id number] [place] [address]- 7678 Jun, [facility] [place] [facility] [address] [id number] [place] [address]- 0870 Jun, [facility] [place] [facility] [address] [id number] [place] [address]- 2392 16 Jun, 2011 [facility] [place] [facility] [address] [id number] [place] [address]- 9966 Jun, [facility] [place] [facility] [address] [id number] [place] [address]- 6304 May, [facility] [place] [facility] [address] [id number] [place] [address]- 0316 May, [facility] [place] [facility] [address] [id number] [place] [address]- 5096 May, [facility] [place] [facility] [address] [id number] [place] [address]- 2682 May, [facility] [place] [facility] [address] [id number] [place] [address]- 3753 May, [facility] [place] [facility] [address] [id number] [place] [address]- 5448 Aug, [facility] [address] [facility] [id number] [address]- 5944 Aug, [facility] [address] [facility] [id number], [place] [address]- 5586 Jul, [facility] [address] [facility] [id number], [place] [address]- 5231 Jul, [facility] [address] [facility] [id number], [place] [address]- 4103 Jul, [facility] [address] [facility] [id number], [place] [address]- 6878 Jul, [facility] [address] [facility] [id number], [place] [address]- 5045 Jul, [facility] [id number] [address]- 1599 Jul, [facility] [id number] [address]- 2053 Jun, [facility] [id number] [address]- 5944 Jun, [facility] [id number] [address]- 9496 Jun, [facility] [address] [id number] [address]- 7520 May, [facility] [id number] [address]- 3036 May, [facility] [address] [id number], [place] [address]- 3523 May, IMMUNIZATIONS No Known Immunizations SOCIAL HISTORY Never Assessed REASON FOR VISIT Requests return call PLAN OF CARE VITAL SIGNS MEDICATIONS Unknown Medications RESULTS No Results PROCEDURES No Known procedures INSTRUCTIONS MEDICATIONS ADMINISTERED No Known Medications MEDICAL (GENERAL) HISTORY Type Description Date Medical History migraines Surgical History C section 2013 Surgical History appendectomy 2012 Surgical History cholecystectomy 2013
--- OUTSIDE RECORDS SUMMARY | 2018-11-03 00:14 | XMS REPORT ---
Author Author SULY GERARD Organization [facility] Address [address] [place] [address] Care Team Providers Care Coding Auditor Name Role Phone RAJANI SULY Unavailable PROBLEMS Type Condition ICD9-CM Code NJO67-NZ Code Onset Dates Condition Status SNOMED Code Problem Elevated serum alkaline phosphatase level R74.8 Active 764241475 Problem Slow transit constipation K59.01 Active 88438766 Problem Other obesity due to excess calories E66.09 Active 161989786 Problem Obesity (BMI 30-39.9) E66.9 Active 931746622 Problem Hypertriglyceridemia E78.1 Active 070708655 Problem Migraine without aura and without status migrainosus, not intractable G43.009 Active 028476410 Problem Body mass index (BMI) of 39.0-39.9 in adult Z68.39 Active 735349017 ALLERGIES Substance Reaction Event Type Date Status Propranolol HCl vomiting Drug Allergy May, Active ENCOUNTERS Encounter Location Date Diagnosis [facility] [id number] [place] [address] 28219- 2941 May, BMI 40.0-44.9, adult Z68.41 ; Frequent urination R35.0 and Slow transit constipation K59.01 [facility] [id number] [place] [address] 91937- 0265 Feb, [facility] [id number] [place] [address] 47486- 7170 Jan, Migraine without aura and without status migrainosus, not intractable G43.009 ; Pelvic pain R10.2 ; Urinary frequency R35.0 ; Other obesity due to excess calories E66.09 ; Body mass index (BMI) of 39.0-39.9 in adult Z68.39 and Hypertriglyceridemia E78.1 [facility] [id number] [place] [address] 66288- 4030 Aug, [facility] [id number] [place] [address] 49599- 1205 Aug, Unspecified lump in axillary tail of the right breast N63.31 and Unspecified lump in axillary tail of the left breast N63.32 [facility] [id number] [place] [address] 21992- 1457 Jul, Epigastric abdominal pain R10.13 [facility] [id number] [place] [address] 06882- 4415 Jun, Epigastric abdominal pain R10.13 [facility] [id number] [place] [address] 86374- 8776 May, Encounter to establish care Z76.89 ; Epigastric abdominal pain R10.13 ; Dizziness R42 and Obesity (BMI 30-39.9) E66.9 [facility] [id number] [place] [address] 11049- 5382 May, Elevated serum alkaline phosphatase level R74.8 [facility] [id number] [place] [address] 77814- 0402 May, Elevated serum alkaline phosphatase level R74.8 [facility] [id number] [place] [address] 99387- 2936 10 May, 2017 [facility] [id number] [place] [address] 76886- 4111 May, Irritable bowel syndrome with both constipation and diarrhea K58.2 and Dizziness, nonspecific R42 [facility] [id number] [place] [address] 10132- 7622 Apr, Irritable bowel syndrome with both constipation and diarrhea K58.2 and Dizziness, nonspecific R42 [facility] [id number] [place] [address] 27689- 4644 29 Apr, 2016 Hives of unknown origin L50.9 [facility] [id number] [place] [address] 41679- 1530 Nov, [facility] [place] [facility] [address] [id number] [place] [address]- 4642 Nov, [facility] [place] [facility] [address] [id number] [place] [address]- 5060 Aug, [facility] [place] [facility] [address] [id number] [place] [address]- 9231 Aug, [facility] [place] [facility] [address] [id number] [place] [address]- 5172 December, [facility] [place] [facility] [address] [id number] [place] [address]- 9823 December, [facility] [place] [facility] [address] [id number] [place] [address]- 9305 Nov, [facility] [place] [facility] [address] [id number] [place] [address]- 6521 Nov, [facility] [place] [facility] [address] [id number] [place] [address]- 0019 Nov, [facility] [place] [facility] [address] [id number] [place] [address]- 7511 Nov, [facility] [place] [facility] [address] [id number] [place] [address]- 0786 Nov, [facility] [place] [facility] [address] [id number] [place] [address]- 6867 Nov, [facility] [place] [facility] [address] [id number] [place] [address]- 9794 Oct, [facility] [place] [facility] [address] [id number] [place] [address]- 7702 Oct, [facility] [place] [facility] [address] [id number] [place] [address]- 9790 Sep, [facility] [place] [facility] [address] [id number] [place] [address]- 8756 Sep, [facility] [place] [facility] [address] [id number] [place] [address]- 2429 May, [facility] [address] [id number] [place] [address]- 0141 May, [facility] [address] [id number] [place] [address] 2546 Apr, [facility] [address] [id number] [place] [address]- 6838 Mar, [facility] [address] [id number] [place] [address]- 8939 Mar, [facility] [address] [id number] [place] [address]- 9933 Mar, [facility] [address] [id number] [place] [address]- 6101 Feb, [facility] [address] [id number] [place] [address]- 1825 Feb, [facility] [address] [id number] [place] [address]- 2364 Feb, [facility] [address] [id number] [place] [address]- 5903 Jan, [facility] [address] [id number] [place] [address]- 9527 Jan, [facility] [address] [id number] [place] [address]- 5917 December, [facility] [address] [id number] [place] [address]- 3594 December, [facility] [place] [facility] [address] [id number] [place] [address]- 8426 December, [facility] [address] [id number] [place] [address]- 2546 Nov, [facility] [address] [id number] [place] [address]- 2215 Nov, [facility] [address] [id number] [place] [address]- 9033 05 Nov, 2012 [facility] [place] [facility] [address] [id number] [place] [address]- 8726 27 Oct, 2012 [facility] [place] [facility] [address] [id number] [place] [address]- 2823 Oct, [facility] [place] [facility] [address] [id number] [place] [address]- 9841 Oct, [facility] [place] [facility] [address] [id number] [place] [address]- 1301 04 Oct, 2012 [facility] [place] [facility] [address] [id number] [place] [address]- 7556 Oct, [facility] [place] [facility] [address] [id number] [place] [address]- 1019 Sep, [facility] [place] [facility] [address] [id number] [place] [address]- 6564 Sep, [facility] [place] [facility] [address] [id number] [place] [address]- 5523 18 Sep, 2012 [facility] [place] [facility] [address] [id number] [place] [address]- 7381 14 Sep, 2012 [facility] [place] [facility] [address] [id number] [place] [address]- 9237 13 Sep, 2012 [facility] [place] [facility] [address] [id number] [address]- 4317 28 Aug, 2012 [facility] [place] [facility] [address] [id number] [place] [address]- 1258 17 Aug, 2012 [facility] [place] [facility] [address] [id number] [place] [address]- 9205 16 Aug, 2012 [facility] [place] [facility] [address] [id number] [place] [address]- 6485 15 Aug, 2012 [facility] [place] [facility] [address] [id number] [place] [address]- 2135 14 Aug, 2012 [facility] [address] [id number] [place] [address]- 6360 07 Aug, 2012 [facility] [address] [id number] [place] [address]- 1145 07 Aug, 2012 [facility] [address] [id number] [place] [address]- 5320 07 Aug, 2012 [facility] [address] [id number] [place] [address]- 1884 07 Aug, 2012 [facility] [address] [id number] [place] [address]- 7544 Aug, [facility] [address] [id number] [place] [address]- 2732 Aug, [facility] [address] [id number] [place] [address]- 8821 28 Jul, 2012 [facility] [address] [id number] [place] [address]- 4000 28 Jul, 2012 [facility] [address] [id number] [place] [address]- 3290 27 Jul, 2012 [facility] [address] [id number] [place] [address]- 6596 22 Jul, 2012 [facility] [address] [id number] [place] [address]- 8776 18 Jul, 2012 [facility] [address] [id number] [place] [address]- 9786 18 Jul, 2012 [facility] [address] [id number] [place] [address]- 8704 14 Jul, 2012 [facility] [address] [id number] [place] [address]- 9298 14 Jul, 2012 [facility] [address] [id number] [place] [address]- 3549 Jun, [facility] [place] [facility] [address] [id number] [place] [address]- 7059 17 Jun, 2012 [facility] [place] [facility] [address] [id number] [place] [address]- 4370 Jun, [facility] [place] [facility] [address] [id number] [place] [address]- 9050 16 Jun, 2012 [facility] [place] [facility] [address] [id number] [place] [address]- 2475 Jun, [facility] [place] [facility] [address] [id number] [place] [address]- 9956 Jun, [facility] [place] [facility] [address] [id number] [place] [address]- 8303 Jun, [facility] [place] [facility] [address] [id number] [place] [address]- 5861 Jun, [facility] [place] [facility] [address] [id number] [place] [address]- 1639 Jun, [facility] [place] [facility] [address] [id number] [place] [address]- 4535 Jun, [facility] [place] [facility] [address] [id number] [place] [address]- 4632 Mar, [facility] [place] [facility] [address] [id number] [place] [address]- 7634 Feb, [facility] [place] [facility] [address] [id number], [place] [address]- 9005 Feb, [facility] [place] [facility] [address] [id number] [place] [address]- 8751 Feb, [facility] [place] [facility] [address] [id number] [place] [address]- 7555 Feb, [facility] [place] [facility] [address] [id number] [place] [address]- 5482 Feb, [facility] [place] [facility] [address] [id number] [place] [address]- 1177 Feb, [facility] [address] [id number] [place] [address]- 5580 Feb, [facility] [place] [facility] [address] [id number] [place] [address]- 3582 Jan, [facility] [place] [facility] [address] [id number] [place] [address]- 3827 Jan, [facility] [place] [facility] [address] [id number] [place] [address]- 5433 Jan, [facility] [place] [facility] [address] [id number] [place] [address]- 6218 December, [facility] [place] [facility] [address] [id number] [place] [address]- 5686 December, [facility] [address] [id number] [place] [address]- 3822 December, [facility] [place] [facility] [address] [id number] [place] [address]- 2753 December, [facility] [place] [facility] [address] [id number] [place] [address]- 7391 December, [facility] [place] [facility] [address] [id number] [place] [address]- 6487 December, [facility] [place] [facility] [address] [id number] [place] [address]- 4745 December, [facility] [place] [facility] [address] [id number] [place] [address]- 1148 Nov, [facility] [place] [facility] [address] [id number] [place] [address]- 6270 18 Nov, 2011 [facility] [place] [facility] [address] [id number] [place] [address]- 6096 Nov, [facility] [place] [facility] [address] [id number] [place] [address]- 1837 Nov, [facility] [place] [facility] [address] [id number] [place] [address]- 6659 29 Oct, 2011 [facility] [place] [facility] [address] [id number] [place] [address]- 8186 29 Oct, 2011 [facility] [place] [facility] [address] [id number] [place] [address]- 4864 28 Oct, 2011 [facility] [place] [facility] [address] [id number] [place] [address]- 4054 28 Oct, 2011 [facility] [place] [facility] [address] [id number] [place] [address]- 3690 27 Oct, 2011 [facility] [place] [facility] [address] [id number] [place] [address]- 0612 27 Oct, 2011 [facility] [place] [facility] [address] [facility] [id number] [place] [address]- 7958 26 Oct, 2011 [facility] [place] [facility] [address] [id number] [place] [address]- 7704 14 Oct, 2011 [facility] [place] [facility] [address] [id number] [place] [address]- 7087 05 Oct, 2011 [facility] [place] [facility] [address] [facility] [id number] [place] [address]- 5757 16 Sep, [address] [facility] [place] [facility] [address] [facility] [id number] [place] [address]- 5268 14 Sep, 2011 [facility] [place] [facility] [address] [facility] [id number] [place] [address]- 4873 13 Sep, 2011 [facility] [place] [facility] [address] [id number] [place] [address]- 8021 07 Sep, 2011 [facility] [place] [facility] [address] [id number] [place] [address]- 8958 06 Sep, 2011 [facility] [place] [facility] [address] [id number] [place] [address]- 0257 01 Sep, 2011 [facility] [place] [facility] [address] [facility] [id number] [place] [address]- 0750 31 Aug, 2011 [facility] [place] [facility] [address] [id number] [place] [address]- 4378 16 Aug, 2011 [facility] [place] [facility] [address] [id number] [place] [address]- 5158 08 Jul, 2011 [facility] [place] [facility] [address] [id number] [place] [address]- 2059 Jul, [facility] [place] [facility] [address] [id number] [place] [address]- 0790 Jul, [facility] [place] [facility] [address] [id number] [place] [address]- 3635 Jul, [facility] [place] [facility] [address] [id number] [place] [address]- 3250 Jun, [facility] [place] [facility] [address] [id number] [place] [address]- 0898 Jun, [facility] [place] [facility] [address] [id number] [place] [address]- 6134 Jun, [facility] [place] [facility] [address] [id number] [place] [address]- 4292 Jun, [facility] [place] [facility] [address] [id number] [place] [address]- 1219 Jun, [facility] [place] [facility] [address] [id number], [place] [address]- 8320 16 Jun, 2011 [facility] [place] [facility] [address] [id number], [place] [address]- 8725 Jun, [facility] [place] [facility] [address] [id number] [place] [address]- 3525 May, [facility] [place] [facility] [address] [id number] [place] [address]- 3434 May, [facility] [place] [facility] [address] [id number] [place] [address]- 6049 May, [facility] [place] [facility] [address] [id number] [place] [address]- 2266 11 May, 2011 [facility] [address] [id number] [place] [address]- 5299 11 May, 2011 [facility] [address] [id number] [place] [address]- 9016 19 Aug, 2009 [facility] [address] [id number] [place] [address]- 1635 Aug, [facility] [address] [id number] [place] [address]- 9798 14 Jul, 2009 [facility] [address] [id number] [place] [address], [place]- 8395 14 Jul, 2009 [facility] [address] [facility] [id number] [place] [address]- 8521 Jul, [facility] [address] [facility] [id number] [place] [address]- 4654 Jul, [facility] [address] [facility] [id number] [place] [address]- 2370 Jul, [facility] [address] [facility] [id number] [place] [address]- 7175 Jul, [facility] [address] [facility] [id number] [place] [address]- 5988 Jun, [facility] [address] [facility] [id number] [place] [address]- 2547 Jun, [facility] [address] [id number], [place] [address]- 2548 Jun, [facility] [address] [facility] [id number] [place] [address]- 3714 27 May, 2009 [facility] [address] [facility] [id number] [place] [address]- 2543 13 May, 2009 [facility] [address] [facility] [id number] [place] [address]- 5018 May, IMMUNIZATIONS No Known Immunizations SOCIAL HISTORY Never Assessed REASON FOR VISIT abdominal pain, lower back pain, frequent urination - ELOISE Canas PLAN OF CARE Activity Details Follow Up prn Reason: VITAL SIGNS Height 61 in 2018-06-18 Weight 213.1 lbs 2018-06-18 Temperature 98.8 degrees Fahrenheit 2018-06-18 Heart Rate 96 bpm 2018-06-18 Respiratory Rate 18 2018-06-18 BMI 40.26 kg/m2 2018-06-18 Blood pressure systolic 120 mmHg 2018-06-18 Blood pressure diastolic 74 mmHg 2018-06-18 MEDICATIONS Medication Instructions Dosage Frequency Start Date End Date Duration Status Loratadine 10 MG Orally Once a day 1 tablet 24h Active Ranitidine HCl 150 MG Orally twice a day 1 capsule 12h Apr, 30 day(s) Active Omeprazole 20 mg Orally Once a day 1 capsule 24h 31 May, 2017 90 days Active RESULTS Name Result Date Reference Range UA LONG DIP (IN HOUSE) 2018-06-18 Lot # [id number] Exp date 11/2018 Clarity yellow Color clear Odor slight GLU neg ZAIRE 1+ KET neg SG 1.030 BLO neg pH 6.0 Protein 1+ URO 1.0 NIT neg BAYRON neg Lot # Exp date PROCEDURES Procedure Date Ordered Result Body Site URINALYSIS, AUTO, W/O SCOPE Jun 18, 2018 INSTRUCTIONS MEDICATIONS ADMINISTERED No Known Medications MEDICAL (GENERAL) HISTORY Type Description Date Medical History migraines Surgical History C section 2014 Surgical History appendectomy 2012 Surgical History cholecystectomy 2013
--- OUTSIDE RECORDS SUMMARY | 2018-11-03 00:15 | XMS REPORT ---
Author Author JOAQUÍN SANCHEZ Organization [facility] Address [address] [place] [address] Care Team Providers Care Lap Welder Name Role Phone JOAQUÍN SANCHEZ Unavailable PROBLEMS Type Condition ICD9-CM Code SER39-TY Code Onset Dates Condition Status SNOMED Code Problem Other obesity due to excess calories E66.09 Active 565243007 Problem Migraine without aura and without status migrainosus, not intractable G43.009 Active 088628421 Problem Elevated serum alkaline phosphatase level R74.8 Active 344427329 Problem Hypertriglyceridemia E78.1 Active 387625470 Problem Body mass index (BMI) of 39.0-39.9 in adult Z68.39 Active 282852990 Problem Obesity (BMI 30-39.9) E66.9 Active 637283185 ALLERGIES Substance Reaction Event Type Date Status Propranolol HCl vomiting Drug Allergy Jan, Active ENCOUNTERS Encounter Location Date Diagnosis [facility] [id number] [place] [address] 51477- 7974 Feb, [facility] [id number] [place] [address] 02146- 0859 Jan, Migraine without aura and without status migrainosus, not intractable G43.009 ; Pelvic pain R10.2 ; Urinary frequency R35.0 ; Other obesity due to excess calories E66.09 ; Body mass index (BMI) of 39.0-39.9 in adult Z68.39 and Hypertriglyceridemia E78.1 [facility] [id number] [place] [address] 69196- 9209 Aug, [facility] [address] 14114- 6871 Aug, Unspecified lump in axillary tail of the right breast N63.31 and Unspecified lump in axillary tail of the left breast N63.32 [facility] [id number] [place] [address] 33827- 9127 Jul, Epigastric abdominal pain R10.13 [facility] [id number] [place] [address] 14222- 8718 Jun, Epigastric abdominal pain R10.13 [place] [address] 64065- 6964 May, Encounter to establish care Z76.89 ; Epigastric abdominal pain R10.13 ; Dizziness R42 and Obesity (BMI 30-39.9) E66.9 [place] [address] 73599- 0269 16 May, 2017 Elevated serum alkaline phosphatase level R74.8 [place] [address] 70648- 8571 12 May, 2017 Elevated serum alkaline phosphatase level R74.8 [facility] [id number] [place] [address] 09290- 7984 10 May, 2017 [place] [address] 81914- 0066 03 May, 2017 Irritable bowel syndrome with both constipation and diarrhea K58.2 and Dizziness, nonspecific R42 [facility] [id number] [place] [address] 34672- 9043 25 Apr, 2017 Irritable bowel syndrome with both constipation and diarrhea K58.2 and Dizziness, nonspecific R42 [place] [id number] [place] [address] 03914- 2194 29 Apr, 2016 Hives of unknown origin L50.9 [place] [address] 57393- 6125 14 Nov, 2014 [facility] [id number] [place] [address] 68982- 8544 Nov, [place] [address] 91937- 1330 Aug, [facility] [address] [id number] [place] [address] 0778 Aug, [facility] [place] [facility] [address] [id number] [place] [address]- 1069 December, [facility] [place] [facility] [address] [id number] [place] [address]- 4566 December, [facility] [place] [facility] [address] [id number] [place] [address]- 9193 Nov, [facility] [place] [facility] [address] [id number] [place] [address]- 5609 Nov, [facility] [place] [facility] [address] [id number] [place] [address]- 8384 Nov, [facility] [place] [facility] [address] [id number] [place] [address]- 2767 Nov, [facility] [place] [facility] [address] [id number] [place] [address]- 6209 Nov, [facility] [place] [facility] [address] [id number] [place] [address]- 0281 Nov, [facility] [place] [facility] [address] [id number] [place] [address]- 3647 Oct, [facility] [place] [facility] [address] [id number] [place] [address]- 6091 Oct, [facility] [place] [facility] [address] [id number], [place] [address]- 2444 Sep, [facility] [place] [facility] [address] [id number] [place] [address]- 4439 Sep, [facility] [place] [facility] [address] [id number] [place] [address]- 1001 May, [facility] [place] [facility] [address] [id number] [place] [address]- 2166 May, [facility] [place] [facility] [address] [id number], [place] [address]- 4485 Apr, [facility] [address] [id number] [place] [address]- 2151 Mar, [facility] [address] [id number] [place] [address]- 6387 Mar, [facility] [address] [id number] [place] [address]- 9251 Mar, [facility] [address] [id number] [place] [address]- 4996 Feb, [facility] [address] [id number] [place] [address]- 0699 Feb, [facility] [address] [id number] [place] [address]- 3499 Feb, [facility] [address] [id number] [place] [address]- 5970 Jan, [facility] [address] [id number] [place] [address]- 0749 Jan, [facility] [address] [id number] [place] [address]- 1063 December, [facility] [address] [id number] [place] [address]- 3987 December, [facility] [address] [id number] [place] [address]- 4147 December, [facility] [address] [id number] [place] [address]- 2098 Nov, [facility] [place] [facility] [address] [id number] [place] [address]- 1621 Nov, [facility] [place] [facility] [address] [id number] [place] [address]- 5823 Nov, [facility] [address] [id number] [place] [address]- 9444 Oct, [facility] [place] [facility] [address] [id number] [place] [address]- 2010 18 Oct, 2012 [facility] [place] [facility] [address] [id number] [place] [address]- 5062 07 Oct, 2012 [facility] [place] [facility] [address] [id number] [place] [address]- 1489 04 Oct, 2012 [facility] [place] [facility] [address] [id number] [place] [address]- 2191 Oct, [facility] [place] [facility] [address] [id number] [place] [address]- 2972 27 Sep, 2012 [facility] [place] [facility] [address] [id number] [place] [address]- 3011 22 Sep, 2012 [facility] [place] [facility] [address] [id number] [place] [address]- 2779 18 Sep, 2012 [facility] [place] [facility] [address] [id number] [place] [address]- 7077 14 Sep, 2012 [facility] [place] [facility] [address] [id number] [place] [address]- 4622 Sep, [facility] [place] [facility] [address] [id number] [place] [address]- 9901 28 Aug, 2012 [facility] [place] [facility] [address] [id number] [place] [address]- 6763 17 Aug, 2012 [facility] [place] [facility] [address] [id number] [place] [address]- 2417 16 Aug, 2012 [facility] [place] [facility] [address] [id number] [place] [address]- 6293 15 Aug, 2012 [facility] [place] [facility] [address] [id number] [place] [address]- 8635 14 Aug, 2012 [facility] [place] [facility] [address] [id number] [place] [address]- 8269 07 Aug, 2012 [facility] [place] [facility] [address] [id number] [place] [address]- 2894 07 Aug, 2012 [facility] [address] [id number] [place] [address]- 8367 Aug, [facility] [place] [facility] [address] [id number] [place] [address]- 0644 Aug, [facility] [place] [facility] [address] [id number] [place] [address]- 1116 Aug, [facility] [place] [facility] [address] [id number] [place] [address]- 8175 Aug, [facility] [place] [facility] [address] [id number] [place] [address]- 9782 Jul, [facility] [place] [facility] [address] [id number] [place] [address]- 9052 28 Jul, 2012 [facility] [place] [facility] [address] [id number] [place] [address]- 4197 27 Jul, 2012 [facility] [place] [facility] [address] [id number] [place] [address]- 1163 22 Jul, 2012 [facility] [place] [facility] [address] [id number] [place] [address]- 0313 18 Jul, 2012 [facility] [place] [facility] [address] [id number] [place] [address]- 0770 18 Jul, 2012 [facility] [place] [facility] [address] [id number] [place] [address]- 8868 14 Jul, 2012 [facility] [place] [facility] [address] [id number] [place] [address]- 5962 14 Jul, 2012 [facility] [place] [facility] [address] [id number] [place] [address]- 5531 17 Jun, 2012 [facility] [place] [facility] [address] [id number] [place] [address]- 4736 17 Jun, 2012 [facility] [place] [facility] [address] [id number] [place] [address]- 5328 16 Jun, 2012 [facility] [place] [facility] [address] [id number] [place] [address]- 3345 16 Jun, 2012 [facility] [place] [facility] [address] [id number] [place] [address]- 3124 Jun, [facility] [place] [facility] [address] [id number] [place] [address]- 1006 08 Jun, 2012 [facility] [place] [facility] [address] [id number] [place] [address]- 6807 Jun, [facility] [place] [facility] [address] [id number] [place] [address]- 1427 Jun, [facility] [place] [facility] [address] [id number] [place] [address]- 4243 Jun, [facility] [place] [facility] [address] [id number] [place] [address]- 7719 Jun, [facility] [place] [facility] [address] [id number] [place] [address]- 7743 Mar, [facility] [place] [facility] [address] [id number] [place] [address]- 4436 Feb, [facility] [place] [facility] [address] [id number] [place] [address]- 4632 Feb, [facility] [place] [facility] [address] [id number] [place] [address]- 2773 Feb, [facility] [place] [facility] [address] [id number] [place] [address]- 2089 Feb, [facility] [place] [facility] [address] [id number] [place] [address]- 3531 Feb, [facility] [place] [facility] [address] [id number] [place] [address]- 0293 Feb, [facility] [place] [facility] [address] [id number] [place] [address]- 8486 Feb, [facility] [place] [facility] [address] [id number] [place] [address]- 2699 Jan, [facility] [place] [facility] [address] [id number] [place] [address]- 1144 Jan, [facility] [place] [facility] [address] [id number] [place] [address]- 2612 Jan, [facility] [place] [facility] [address] [id number] [place] [address]- 9725 December, [facility] [place] [facility] [address] [id number] [place] [address]- 0183 December, [facility] [place] [facility] [address] [id number] [place] [address]- 8356 December, [facility] [place] [facility] [address] [id number] [place] [address]- 9747 December, [facility] [place] [facility] [address] [id number] [place] [address]- 1434 December, [facility] [place] [facility] [address] [id number] [place] [address]- 1192 December, [facility] [place] [facility] [address] [id number] [place] [address]- 1519 December, [facility] [place] [facility] [address] [id number] [place] [address]- 8854 Nov, [facility] [place] [facility] [address] [id number] [place] [address]- 8814 Nov, [facility] [place] [facility] [address] [id number] [place] [address]- 4785 Nov, [facility] [place] [facility] [address] [id number] [place] [address]- 3620 Nov, [facility] [place] [facility] [address] [id number] [place] [address]- 0746 Oct, [facility] [place] [facility] [address] [id number] [place] [address]- 7454 Oct, [facility] [place] [facility] [address] [id number] [place] [address]- 9569 28 Oct, 2011 [facility] [place] [facility] [address] [id number] [place] [address]- 9932 28 Oct, 2011 [facility] [place] [facility] [address] [id number] [place] [address]- 1566 27 Oct, 2011 [facility] [place] [facility] [address] [id number] [place] [address]- 0656 27 Oct, 2011 [facility] [place] [facility] [address] [id number] [place] [address]- 5917 26 Oct, 2011 [facility] [place] [facility] [address] [id number] [place] [address]- 0131 14 Oct, 2011 [facility] [place] [facility] [address] [id number] [place] [address]- 0436 05 Oct, 2011 [facility] [place] [facility] [address] [id number] [place] [address]- 5738 16 Sep, 2011 [facility] [place] [facility] [address] [id number] [place] [address]- 2412 14 Sep, 2011 [facility] [place] [facility] [address] [id number] [place] [address]- 7252 13 Sep, 2011 [facility] [place] [facility] [address] [facility] [id number] [place] [address]- 4167 07 Sep, 2011 [facility] [place] [facility] [id number] [place] [address] 2546 06 Sep, 2011 [facility] [place] [facility] [address] [id number] [place] [address]- 2546 Sep, [facility] [place] [facility] [address] [id number] [place] [address]- 2986 Aug, [facility] [place] [facility] [address] [id number] [place] [address]- 2546 16 Aug, 2011 [facility] [place] [facility] [address] [id number] [place] [address]- 3849 Jul, [facility] [place] [facility] [address] [id number] [place] [address]- 1689 Jul, [facility] [place] [facility] [address] [id number] [place] [address]- 8286 Jul, [facility] [place] [facility] [address] [id number] [place] [address]- 4127 Jul, [facility] [place] [facility] [address] [id number] [place] [address]- 8544 Jun, [facility] [place] [facility] [address] [id number] [place] [address]- 2588 30 Jun, 2011 [facility] [place] [facility] [address] [id number] [place] [address]- 2395 Jun, [facility] [place] [facility] [address] [id number] [place] [address]- 0505 Jun, [facility] [place] [facility] [address] [id number], [place] [address]- 6249 Jun, [facility] [place] [facility] [address] [id number] [place] [address]- 7825 Jun, [facility] [place] [facility] [address] [id number], [place] [address]- 9807 Jun, [facility] [place] [facility] [address] [id number], [place] [address]- 8658 May, [facility] [place] [facility] [address] [id number], [place] [address]- 8171 May, [facility] [place] [facility] [address] [id number], [place] [address]- 3948 May, [facility] [place] [facility] [address] [id number], [place] [address]- 4416 May, [facility] [place] [facility] [address] [id number], [place] [address]- 0800 May, [facility] [place] [facility] [address] [id number], [place] [address]- 6562 Aug, [facility] [address] [address]- 9686 Aug, [facility] [address] [address]- 4056 Jul, [facility] [address] [address]- 8296 Jul, [facility] [address] [address]- 2293 Jul, [facility] [address] [address]- 6576 Jul, [facility] [address] [address]- 5766 Jul, [facility] [address] [address]- 7350 Jul, [facility] [address], [place] [address]- 6503 Jun, [facility] [address] [address]- 5981 Jun, [facility] [address] 8576 Jun, [facility] [id number] [address]- 9696 May, [facility] [id number] [address]- 5680 May, [facility] [id number] [address]257 May, IMMUNIZATIONS No Known Immunizations SOCIAL HISTORY Never Assessed REASON FOR VISIT cholesterol-pt wants to be checked for cadasil and she has been having stomach problems-ELOISE Andres, pt went to hospital about 2-3 weeks ago and they told her she had a bladder infection. She is thinking that might be what is causing the stomach pain this time as well PLAN OF CARE Activity Details Follow Up 3 Months, prn Reason:CHM VITAL SIGNS Height 61 in 2018-02-07 Weight 210.5 lbs 2018-02-07 Temperature 98.2 degrees Fahrenheit 2018-02-07 Heart Rate 80 bpm 2018-02-07 Respiratory Rate 18 2018-02-07 BMI 39.77 kg/m2 2018-02-07 Blood pressure systolic 118 mmHg 2018-02-07 Blood pressure diastolic 68 mmHg 2018-02-07 MEDICATIONS Medication Instructions Dosage Frequency Start Date End Date Duration Status Loratadine 10 MG Orally Once a day 1 tablet 24h Active Ranitidine HCl 150 MG Orally twice a day 1 capsule 12h Apr, 30 day(s) Active Omeprazole 20 mg Orally Once a day 1 capsule 24h May, 90 days Active RESULTS Name Result Date Reference Range TEST, URINE (IN HOUSE) 2018-02-07 RESULTS neg Lot # [id number] Control + Exp date 08/14 UA LONG DIP (IN HOUSE) 2018-02-07 Lot # [id number] Exp date 12/13 Clarity yellow Color clear Odor no GLU neg ZAIRE neg KET neg SG 1.020 BLO neg pH 8.5 Protein neg URO 0.2 NIT neg BAYRON neg Lot # Exp date MRI : Brain w/o Contrast 2018-02-18 Ultrasound : Pelvic, COMPLETE (REFLEX [id number]) 2018-02-18 PROCEDURES Procedure Date Ordered Result Body Site URINALYSIS, AUTO, W/O SCOPE February 07, 2018 URINE TEST February 07, 2018 INSTRUCTIONS MEDICATIONS ADMINISTERED No Known Medications MEDICAL (GENERAL) HISTORY Type Description Date Medical History migraines Surgical History C section 2013 Surgical History appendectomy 2012 Surgical History cholecystectomy 2013
--- OUTSIDE RECORDS SUMMARY | 2018-11-03 00:15 | XMS REPORT ---
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 Name Role Phone JOAQUÍN SANCHEZ Unavailable PROBLEMS Type Condition ICD9-CM Code [id number] Code Onset Dates Condition Status SNOMED Code Problem Other obesity due to excess calories E66.09 Active 236674108 Problem Migraine without aura and without status migrainosus, not intractable G43.009 Active 486847461 Problem Elevated serum alkaline phosphatase level R74.8 Active 318715753 Problem Hypertriglyceridemia E78.1 Active 583204883 Problem Body mass index (BMI) of 39.0-39.9 in adult Z68.39 Active 683194522 Problem Obesity (BMI 30-39.9) E66.9 Active 933816532 ALLERGIES Substance Reaction Event Type Date Status Propranolol HCl vomiting Drug Allergy Aug, Active ENCOUNTERS Encounter Location Date Diagnosis [facility] [id number] [place] [address]- [address] Jan, Migraine without aura and without status migrainosus, not intractable G43.009 ; Pelvic pain R10.2 ; Urinary frequency R35.0 ; Other obesity due to excess calories E66.09 ; Body mass index (BMI) of 39.0-39.9 in adult Z68.39 and Hypertriglyceridemia E78.1 [facility] [id number] [address] Aug, [facility] [id number] [place] [address] 78330- 9121 Aug, Unspecified lump in axillary tail of the right breast N63.31 and Unspecified lump in axillary tail of the left breast N63.32 [facility] [id number] [place] [address]- 7691 Jul, Epigastric abdominal pain R10.13 [facility] [id number] [place] [address]43- 4490 Jun, Epigastric abdominal pain R10.13 [place] [id number] [place] [address] 29072- 9467 May, Encounter to establish care Z76.89 ; Epigastric abdominal pain R10.13 ; Dizziness R42 and Obesity (BMI 30-39.9) E66.9 [place] [id number] [place] [address] 11316- 9101 May, Elevated serum alkaline phosphatase level R74.8 [place] [address] [address]- 0836 May, Elevated serum alkaline phosphatase level R74.8 [place] [address] 93038- 5678 May, [place] [id number] [place] [address] 76151- 4373 May, Irritable bowel syndrome with both constipation and diarrhea K58.2 and Dizziness, nonspecific R42 [place] [id number] [place] [address] 14590- 5252 Apr, Irritable bowel syndrome with both constipation and diarrhea K58.2 and Dizziness, nonspecific R42 [place] [id number] [place] [address] 14665- 5642 29 Apr, 2016 Hives of unknown origin L50.9 [place] [id number] [place] [address] 82649- 0164 Nov, [place] [address] 9[address]- 2809 Nov, [place] [id number] [place] [address] 84943- 7991 Aug, [place] [address] [address]- 0319 Aug, [facility] [address] [id number] [place] [address]- 7499 December, [facility] [place] [facility] [address] [id number] [place] [address]- 4165 December, [facility] [place] [facility] [address] [id number] [place] [address]- 2396 Nov, [facility] [place] [facility] [address] [id number] [place] [address]- 3676 Nov, [facility] [place] [facility] [address] [id number] [place] [address]- 6804 Nov, [facility] [place] [facility] [address] [id number] [place] [address]- 0908 Nov, [facility] [place] [facility] [address] [id number] [place] [address]- 2604 Nov, [facility] [place] [facility] [address] [id number] [place] [address]- 1711 Nov, [facility] [place] [facility] [address] [id number] [place] [address]- 1506 Oct, [facility] [place] [facility] [address] [id number] [place] [address]- 0114 Oct, [facility] [place] [facility] [address] [id number] [place] [address]- 3380 Sep, [facility] [place] [facility] [address] [id number], [place] [address]- 7151 Sep, [facility] [place] [facility] [address] [id number] [place] [address]- 4985 May, [facility] [place] [facility] [address] [id number] [place] [address]- 0186 May, [facility] [place] [facility] [address] [id number] [place] [address]- 254 Apr, [facility] [place] [facility] [address] [id number], [place] [address] 8907 Mar, [facility] [address] [id number] [place] [address]- 6218 Mar, [facility] [address] [id number] [place] [address]- 5707 Mar, [facility] [address] [id number] [place] [address]- 7356 Feb, [facility] [address] [id number] [place] [address]- 9477 Feb, [facility] [address] [id number] [place] [address]- 2067 Feb, [facility] [address] [id number] [place] [address]- 7351 Jan, [facility] [address] [id number] [place] [address]- 3903 Jan, [facility] [address] [id number] [place] [address]- 5317 December, [facility] [address] [id number] [place] [address]- 6806 December, [facility] [address] [id number] [place] [address]- 4354 December, [facility] [address] [id number] [place] [address]- 2315 Nov, [facility] [place] [facility] [address] [id number] [place] [address]- 2209 Nov, [facility] [place] [facility] [address] [id number] [place] [address]- 1216 Nov, [facility] [place] [facility] [address] [id number] [place] [address]- 6671 Oct, [facility] [place] [facility] [address] [id number] [place] [address]- 1522 Oct, [facility] [place] [facility] [address] [id number] [place] [address]- 4838 07 Oct, 2012 [facility] [place] [facility] [address] [id number] [place] [address]- 2354 04 Oct, 2012 [facility] [place] [facility] [address] [id number] [place] [address]- 5760 Oct, [facility] [place] [facility] [address] [id number] [place] [address]- 0631 27 Sep, 2012 [facility] [place] [facility] [address] [id number] [place] [address]- 2833 22 Sep, 2012 [facility] [place] [facility] [address] [id number] [place] [address]- 4401 18 Sep, 2012 [facility] [address] [id number] [place] [address]- 1301 14 Sep, 2012 [facility] [place] [facility] [address] [id number] [place] [address]- 8423 13 Sep, 2012 [facility] [place] [facility] [address] [id number] [place] [address]- 4015 28 Aug, 2012 [facility] [place] [facility] [address] [id number] [place] [address]- 5501 17 Aug, 2012 [facility] [place] [facility] [address] [id number] [place] [address]- 2189 16 Aug, 2012 [facility] [place] [facility] [address] [id number] [place] [address]- 3210 15 Aug, 2012 [facility] [place] [facility] [address] [id number] [place] [address]- 2557 14 Aug, 2012 [facility] [place] [facility] [address] [id number] [place] [address]- 8435 07 Aug, 2012 [facility] [place] [facility] [address] [id number] [place] [address]- 9294 07 Aug, 2012 [facility] [place] [facility] [address] [id number] [place] [address]- 6199 07 Aug, 2012 [facility] [place] [facility] [address] [id number] [place] [address]- 1445 Aug, [facility] [place] [facility] [address] [id number] [place] [address]- 4629 Aug, [facility] [place] [facility] [address] [id number] [place] [address]- 3892 Aug, [facility] [place] [facility] [address] [id number] [place] [address]- 3946 28 Jul, 2012 [facility] [place] [facility] [address] [id number] [place] [address]- 2231 28 Jul, 2012 [facility] [place] [facility] [address] [id number] [place] [address]- 0585 27 Jul, 2012 [facility] [place] [facility] [address] [id number] [place] [address]- 6230 22 Jul, 2012 [facility] [place] [facility] [address] [id number] [place] [address]- 7711 18 Jul, 2012 [facility] [place] [facility] [address] [id number] [place] [address]- 7717 18 Jul, 2012 [facility] [place] [facility] [address] [id number] [place] [address]- 9956 14 Jul, 2012 [facility] [place] [facility] [address] [id number] [place] [address]- 2927 14 Jul, 2012 [facility] [place] [facility] [address] [id number] [place] [address]- 5263 17 Jun, 2012 [facility] [place] [facility] [address] [id number] [place] [address]- 9198 17 Jun, 2012 [facility] [place] [facility] [address] [id number] [place] [address]- 5139 16 Jun, 2012 [facility] [place] [facility] [address] [id number] [place] [address]- 1279 16 Jun, 2012 [facility] [place] [facility] [address] [id number] [place] [address]- 2348 08 Jun, 2012 [facility] [place] [facility] [address] [id number] [place] [address]- 8677 08 Jun, 2012 [facility] [place] [facility] [address] [id number] [place] [address]- 9336 Jun, [facility] [place] [facility] [address] [id number] [place] [address]- 9918 Jun, [facility] [place] [facility] [address] [id number] [place] [address]- 0689 Jun, [facility] [place] [facility] [address] [id number] [place] [address]- 7224 Jun, [facility] [place] [facility] [address] [id number] [place] [address]- 7163 Mar, [facility] [place] [facility] [address] [id number] [place] [address]- 3100 Feb, [facility] [place] [facility] [address] [id number] [place] [address]- 5908 Feb, [facility] [place] [facility] [address] [id number] [place] [address]- 0415 Feb, [facility] [place] [facility] [address] [id number] [place] [address]- 5441 Feb, [facility] [place] [facility] [address] [id number] [place] [address]- 9873 Feb, [facility] [place] [facility] [address] [id number] [place] [address]- 0977 17 Feb, 2012 [facility] [place] [facility] [address] [id number] [place] [address]- 6966 Feb, [facility] [place] [facility] [address] [id number] [place] [address]- 7796 14 Jan, 2012 [facility] [place] [facility] [address] [id number] [place] [address]- 9771 Jan, [facility] [address] [id number] [place] [address]- 7450 Jan, [facility] [place] [facility] [address] [id number] [place] [address]- 2861 December, [facility] [place] [facility] [address] [id number] [place] [address]- 9279 December, [facility] [place] [facility] [address] [id number] [place] [address]- 7723 December, [facility] [place] [facility] [address] [id number] [place] [address]- 4111 December, [facility] [place] [facility] [address] [id number] [place] [address]- 3218 December, [facility] [place] [facility] [address] [id number] [place] [address]- 2671 December, [facility] [place] [facility] [address] [id number] [place] [address]- 6512 December, [facility] [place] [facility] [address] [id number] [place] [address]- 0138 Nov, [facility] [place] [facility] [address] [id number] [place] [address]- 9044 Nov, [facility] [place] [facility] [address] [id number] [place] [address]- 3644 Nov, [facility] [place] [facility] [address] [id number] [place] [address]- 5338 Nov, [facility] [place] [facility] [address] [id number] [place] [address]- 0461 Oct, [facility] [place] [facility] [address] [id number] [place] [address]- 9508 Oct, [facility] [place] [facility] [address] [id number] [place] [address]- 7196 Oct, [facility] [place] [facility] [address] [id number] [place] [address]- 1470 28 Oct, 2011 [facility] [place] [facility] [address] [id number] [place] [address]- 5364 27 Oct, 2011 [facility] [place] [facility] [address] [id number] [place] [address]- 4336 27 Oct, 2011 [facility] [place] [facility] [address] [id number] [place] [address]- 1786 26 Oct, 2011 [facility] [place] [facility] [address] [id number] [place] [address]- 6949 14 Oct, 2011 [facility] [place] [facility] [address] [id number] [place] [address]- 6024 05 Oct, 2011 [facility] [place] [facility] [address] [id number] [place] [address]- 2666 16 Sep, 2011 [facility] [place] [facility] [address] [id number] [place] [address]- 7700 14 Sep, 2011 [facility] [place] [facility] [address] [id number] [place] [address]- 4236 13 Sep, 2011 [facility] [place] [facility] [address] [id number] [place] [address]- 4121 07 Sep, 2011 [facility] [place] [facility] [address] [facility] [id number] [place] [address]- 5507 06 Sep, 2011 [facility] [place] [facility] [address] [id number] [place] [address]- 7616 Sep, [facility] [place] [facility] [address] [id number] [place] [address]- 3196 Aug, [facility] [place] [facility] [address] [id number] [place] [address]- 1736 16 Aug, 2011 [facility] [place] [facility] [address] [id number] [place] [address]- 2546 Jul, [facility] [place] [facility] [address] [id number] [place] [address]- 4780 Jul, [facility] [place] [facility] [address] [id number] [place] [address]- 5669 Jul, [facility] [place] [facility] [address] [id number] [place] [address]- 7586 Jul, [facility] [place] [facility] [address] [id number] [place] [address]- 7734 Jun, [facility] [place] [facility] [address] [id number] [place] [address]- 4603 Jun, [facility] [place] [facility] [address] [id number] [place] [address]- 1305 Jun, [facility] [place] [facility] [address] [id number] [place] [address]- 6260 Jun, [facility] [place] [facility] [address] [id number] [place] [address]- 8499 Jun, [facility] [place] [facility] [address] [id number], [place] [address]- 5215 Jun, [facility] [place] [facility] [address] [id number] [place] [address]- 4916 Jun, [facility] [place] [facility] [address] [id number], [place] [address]- 7618 May, [facility] [place] [facility] [address] [id number], [place] [address]- 2202 May, [facility] [place] [facility] [address] [id number], [place] [address]- 1510 May, [facility] [place] [facility] [address] [id number], [place] [address]- 2230 May, [facility] [place] [facility] [address] [id number], [place] [address]- 7018 May, [facility] [place] [facility] [address] [id number], [place] [address]- 1126 Aug, [facility] [place] [facility] [address] [id number], [place] [address]- 3184 Aug, [facility] [address] [address]- 9831 Jul, [facility] [address] [address]- 1422 Jul, [facility] [address], [place] [address]- 3056 Jul, [facility] [address] [address]- 1761 Jul, [facility] [id number] [place] [address] 49810- 7816 Jul, [facility] [address], [place] [address]- 8046 Jul, [facility] [address], [place] [address]- 9725 Jun, [facility] [address], [place] [address]- 0825 Jun, [facility] [address], [place] [address]- 4522 Jun, [facility] [address], [place] [address]- 6948 May, [facility] [address], [place] [address]- 4280 May, [facility] [address], [place] [address]- 0549 May, IMMUNIZATIONS No Known Immunizations SOCIAL HISTORY Never Assessed REASON FOR VISIT breast pain/ lumps under arms on bilateral sides, states they will increase and reduce in size, uncles with brca2 gene and has mets breast cancer-Lana, LMP 08/17/2017 PLAN OF CARE Activity Details Follow Up prn Reason: VITAL SIGNS Height 61 in 2017-09-06 Weight 207.2 lbs 2017-09-06 Temperature 99.4 degrees Fahrenheit 2017-09-06 Heart Rate 84 bpm 2017-09-06 Respiratory Rate 18 2017-09-06 BMI 39.15 kg/m2 2017-09-06 Blood pressure systolic 118 mmHg 2017-09-06 Blood pressure diastolic 72 mmHg 2017-09-06 MEDICATIONS Medication Instructions Dosage Frequency Start Date End Date Duration Status Ranitidine HCl 150 MG Orally twice a day 1 capsule 12h Apr, 30 day(s) Active Omeprazole 20 mg Orally Once a day 1 capsule 24h May, 90 days Active Loratadine 10 MG Orally Once a day 1 tablet 24h Active Meclizine HCl 25 MG Orally twice a day 1 tablets as needed 12h May, 30 day(s) Active Carafate 1 GM Orally Twice a day 1 tablet at bedtime on an empty stomach before meals 12h Jul, 14 days Active Levonorgestrel-Ethinyl Estrad 0.1-20 MG-MCG Active RESULTS Name Result Date Reference Range Ultrasound : Axilla, Right 2017-09-14 Ultrasound : Axilla, Left 2017-09-14 PROCEDURES No Known procedures INSTRUCTIONS MEDICATIONS ADMINISTERED No Known Medications MEDICAL (GENERAL) HISTORY Type Description Date Medical History migraines Surgical History C section 2013 Surgical History appendectomy 2012 Surgical History cholecystectomy 2013
--- OUTSIDE RECORDS SUMMARY | 2018-11-03 00:16 | XMS REPORT ---
Author Author SANCHEZBRANDI GayELE Organization [facility] Address [address] [place] [address] Care Team Providers Care Trimmer Buffing Wheel Name Role Phone JOAQUÍN SANCHEZ Unavailable PROBLEMS Type Condition ICD9-CM Code OAN54-YH Code Onset Dates Condition Status SNOMED Code Problem Obesity (BMI 30-39.9) E66.9 Active 313061369 Problem Elevated serum alkaline phosphatase level R74.8 Active 752978080 Problem Hypertriglyceridemia E78.1 Active 345767532 ALLERGIES Substance Reaction Event Type Date Status Propranolol HCl vomiting Drug Allergy May, Active ENCOUNTERS Encounter Location Date Diagnosis [place] [address] [address] Jan, [place] [address] [place] [id number] [place] [address]273- 6542 Aug, [place] [address] [address]- [address] Aug, Unspecified lump in axillary tail of the right breast N63.31 and Unspecified lump in axillary tail of the left breast N63.32 [place] [address] [place] [id number] [place] [address] 31444- 0662 Jul, Epigastric abdominal pain R10.13 [place] [address] [place] [id number] [place] [address] 55867- 5556 Jun, Epigastric abdominal pain R10.13 [place] [address] [address]- [address] May, Encounter to establish care Z76.89 ; Epigastric abdominal pain R10.13 ; Dizziness R42 and Obesity (BMI 30-39.9) E66.9 [place] [address] [address]- [address] 16 May, 2017 Elevated serum alkaline phosphatase level R74.8 [facility] [id number] [place] [address] 81062- 5190 12 May, 2017 Elevated serum alkaline phosphatase level R74.8 [facility] [id number] [place] [address] 86356- 1451 10 May, 2017 [facility] [address] [place] [id number] [place] [address] 34790- 0291 May, Irritable bowel syndrome with both constipation and diarrhea K58.2 and Dizziness, nonspecific R42 [facility] [address] [place] [id number] [place] [address] 71555- 5700 25 Apr, 2017 Irritable bowel syndrome with both constipation and diarrhea K58.2 and Dizziness, nonspecific R42 [facility] [id number] [place] [address] 92844- 3693 29 Apr, 2016 Hives of unknown origin L50.9 [facility] [address] [place] [id number] [address] 58[address] Nov, [facility] [address] [place] [id number] [place] [address] 82165- 1600 Nov, [facility] [id number] [place] [address] 90449- 2485 Aug, [facility] [id number] [place] [address] 83318- 4990 Aug, [facility] [id number] [address] 7061 December, [facility] [address] [place] [id number] [place] [address] 27521- 9951 December, [facility] [address] [place] [id number] [place] [address] 76332- 9222 Nov, [facility] [address] [address] 2645 Nov, [facility] [place] [facility] [address] [id number] [place] [address]- 0215 Nov, [facility] [place] [facility] [address] [id number] [place] [address]- 8175 Nov, [facility] [place] [facility] [address] [id number] [place] [address]- 7142 Nov, [facility] [place] [facility] [address] [id number] [place] [address]- 0212 Nov, [facility] [place] [facility] [address] [id number] [place] [address]- 4231 Oct, [facility] [place] [facility] [address] [id number] [place] [address]- 9710 Oct, [facility] [place] [facility] [address] [id number] [place] [address]- 9080 Sep, [facility] [place] [facility] [address] [id number] [place] [address]- 2420 Sep, [facility] [place] [facility] [address] [id number] [place] [address]- 2171 May, [facility] [place] [facility] [address] [id number] [place] [address]- 6940 May, [facility] [place] [facility] [address] [id number] [place] [address]- 4285 Apr, [facility] [place] [facility] [address] [id number] [place] [address]- 4796 Mar, [facility] [place] [facility] [address] [id number] [place] [address]- 3003 Mar, [facility] [place] [facility] [address] [id number] [place] [address]- 1669 Mar, [facility] [place] [facility] [address] [id number] [place] [address]- 9104 Feb, [facility] [place] [facility] [address] [id number] [place] [address]- 3726 Feb, [facility] [address] [id number] [place] [address]- 3321 Feb, [facility] [place] [facility] [address] [id number] [place] [address]- 2177 Jan, [facility] [place] [facility] [address] [id number] [place] [address]- 1422 Jan, [facility] [place] [facility] [address] [id number] [place] [address]- 1479 December, [facility] [address] [id number] [place] [address]- 3838 December, [facility] [place] [facility] [address] [id number] [place] [address]- 5826 December, [facility] [place] [facility] [address] [id number] [place] [address]- 2170 Nov, [facility] [place] [facility] [address] [id number] [place] [address]- 1723 Nov, [facility] [place] [facility] [address] [id number] [place] [address]- 3522 Nov, [facility] [place] [facility] [address] [id number] [place] [address]- 8090 Oct, [facility] [place] [facility] [address] [id number] [place] [address]- 7493 Oct, [facility] [place] [facility] [address] [id number] [place] [address] 2544 Oct, [facility] [place] [facility] [address] [id number] [place] [address]- 2555 Oct, [facility] [place] [facility] [address] [id number] [place] [address]- 3876 Oct, [facility] [place] [facility] [address] [id number] [place] [address]- 0766 Sep, [facility] [place] [facility] [address] [id number] [place] [address]- 9532 22 Sep, 2012 [facility] [address] [id number] [place] [address]- 6526 18 Sep, 2012 [facility] [address] [id number] [place] [address]- 6786 14 Sep, 2012 [facility] [address] [id number] [place] [address]- 9186 13 Sep, 2012 [facility] [address] [id number] [place] [address]- 4818 28 Aug, 2012 [facility] [address] [id number] [place] [address]- 9966 17 Aug, 2012 [facility] [address] [id number] [place] [address]- 4283 16 Aug, 2012 [facility] [address] [id number] [place] [address]- 1254 15 Aug, 2012 [facility] [address] [id number] [place] [address]- 7069 14 Aug, 2012 [facility] [address] [id number] [place] [address]- 4209 Aug, [facility] [address] [id number] [place] [address]- 2778 Aug, [facility] [address] [id number] [place] [address]- 6936 Aug, [facility] [address] [id number] [place] [address]- 6220 Aug, [facility] [place] [facility] [address] [id number] [place] [address]- 4606 Aug, [facility] [address] [id number] [place] [address]- 6696 Aug, [facility] [address] [id number] [place] [address]- 3431 28 Jul, 2012 [facility] [place] [facility] [address] [id number] [place] [address]- 1565 28 Jul, 2012 [facility] [place] [facility] [address] [id number] [place] [address]- 5902 27 Jul, 2012 [facility] [place] [facility] [address] [id number] [place] [address]- 6585 22 Jul, 2012 [facility] [place] [facility] [address] [id number] [place] [address]- 5883 18 Jul, 2012 [facility] [place] [facility] [address] [id number] [place] [address]- 9708 18 Jul, 2012 [facility] [place] [facility] [address] [id number] [place] [address]- 9722 14 Jul, 2012 [facility] [place] [facility] [address] [id number] [place] [address]- 7857 14 Jul, 2012 [facility] [place] [facility] [address] [id number] [place] [address]- 3993 17 Jun, 2012 [facility] [place] [facility] [address] [id number] [place] [address]- 6087 17 Jun, 2012 [facility] [place] [facility] [address] [id number] [place] [address]- 1906 16 Jun, 2012 [facility] [place] [facility] [address] [id number] [place] [address]- 1387 16 Jun, 2012 [facility] [place] [facility] [address] [id number] [address]- 7654 08 Jun, 2012 [facility] [place] [facility] [address] [id number] [place] [address]- 5030 08 Jun, 2012 [facility] [place] [facility] [address] [id number] [place] [address]- 6256 07 Jun, 2012 [facility] [place] [facility] [address] [id number] [place] [address]- 0128 07 Jun, 2012 [facility] [place] [facility] [address] [id number] [place] [address]- 6875 Jun, [facility] [place] [facility] [address] [id number] [place] [address]- 2925 Jun, [facility] [place] [facility] [address] [id number] [place] [address]- 8822 Mar, [facility] [place] [facility] [address] [id number] [place] [address]- 3246 Feb, [facility] [place] [facility] [address] [id number] [place] [address]- 7734 Feb, [facility] [place] [facility] [address] [id number] [place] [address]- 5747 Feb, [facility] [place] [facility] [address] [id number] [place] [address]- 8206 Feb, [facility] [place] [facility] [address] [id number] [place] [address]- 7800 Feb, [facility] [place] [facility] [address] [id number] [place] [address]- 4565 Feb, [facility] [place] [facility] [address] [id number] [place] [address]- 9197 Feb, [facility] [place] [facility] [address] [id number] [place] [address]- 4129 Jan, [facility] [place] [facility] [address] [id number] [place] [address]- 4753 Jan, [facility] [place] [facility] [address] [id number] [place] [address]- 6159 Jan, [facility] [place] [facility] [address] [id number] [place] [address]- 9028 December, [facility] [place] [facility] [address] [id number] [place] [address]- 2746 December, [facility] [place] [facility] [address] [id number] [place] [address]- 6059 December, [facility] [place] [facility] [address] [id number] [place] [address]- 8768 December, [facility] [place] [facility] [address] [id number] [place] [address]- 2846 December, [facility] [place] [facility] [address] [id number] [place] [address]- 7997 December, [facility] [place] [facility] [address] [id number] [place] [address]- 8144 December, [facility] [address] [id number] [place] [address]- 7989 Nov, [facility] [place] [facility] [address] [id number] [place] [address]- 7232 18 Nov, 2011 [facility] [place] [facility] [address] [id number] [place] [address]- 7576 16 Nov, 2011 [facility] [place] [facility] [address] [id number] [place] [address]- 2889 04 Nov, 2011 [facility] [place] [facility] [address] [id number] [place] [address]- 4613 29 Oct, 2011 [facility] [place] [facility] [address] [id number] [place] [address]- 2925 29 Oct, 2011 [facility] [place] [facility] [address] [id number] [place] [address]- 2165 28 Oct, 2011 [facility] [place] [facility] [address] [id number] [place] [address]- 6320 28 Oct, 2011 [facility] [place] [facility] [address] [id number] [place] [address]- 5308 27 Oct, 2011 [facility] [place] [facility] [address] [id number] [place] [address]- 5513 27 Oct, 2011 [facility] [place] [facility] [address] [id number] [place] [address]- 8599 26 Oct, 2011 [facility] [place] [facility] [address] [id number] [place] [address]- 3126 14 Oct, 2011 [facility] [address] [id number] [place] [address]- 1570 05 Oct, 2011 [facility] [place] [facility] [address] [id number] [place] [address]- 6856 16 Sep, 2011 [facility] [address] [id number] [place] [address]- 5696 14 Sep, 2011 [facility] [place] [facility] [address] [id number] [place] [address] 2546 13 Sep, 2011 [facility] [address] [id number] [place] [address]- 1186 07 Sep, 2011 [facility] [address] [facility] [id number] [place] [address] 2546 06 Sep, 2011 [facility] [address] [facility] [id number] [place] [address]- 0906 Sep, [facility] [address] [facility] [id number] [place] [address]- 4208 Aug, [facility] [address] [facility] [id number] [place] [address]- 0221 Aug, [facility] [address] [facility] [id number] [place] [address]- 5026 Jul, [facility] [address] [facility] [id number] [place] [address]- 6415 Jul, [facility] [place] [facility] [address] [id number] [place] [address]- 2546 Jul, [facility] [place] [facility] [address] [facility] [id number] [place] [address]- 9354 Jul, [facility] [place] [facility] [address] [facility] [id number] [place] [address]- 1087 Jun, [facility] [place] [facility] [address] [facility] [id number] [place] [address]- 9886 Jun, [facility] [place] [facility] [address] [id number] [place] [address]- 0819 28 Jun, 2011 [facility] [place] [facility] [address] [id number] [place] [address]- 1196 19 Jun, 2011 [facility] [place] [facility] [address] [id number] [place] [address]- 2546 18 Jun, 2011 [facility] [place] [facility] [address] [id number] [place] [address]- 8640 16 Jun, 2011 [facility] [place] [facility] [address] [id number] [place] [address]- 1371 Jun, [facility] [place] [facility] [address] [id number] [place] [address]- 8120 May, [facility] [place] [facility] [address] [id number] [place] [address]- 7033 May, [facility] [place] [facility] [address] [id number] [place] [address]- 9691 May, [facility] [place] [facility] [address] [id number] [place] [address]- 1689 May, [facility] [place] [facility] [address] [id number] [place] [address]- 2290 May, [facility] [place] [facility] [address] [id number] [place] [address]- 6523 Aug, [facility] [place] [facility] [address] [id number] [place] [address]- 2335 12 Aug, 2009 [facility] [place] [facility] [address] [id number] [place] [address]- 9334 14 Jul, 2009 [facility] [place] [facility] [address] [id number] [place] [address] 2546 14 Jul, 2009 [facility] [place] [facility] [address] [id number] [place] [address]- 2540 10 Jul, 2009 [facility] [place] [facility] [address] [id number] [place] [address]- 2540 Jul, [facility] [address] [facility] [id number] [address]- 2546 Jul, [facility] [address] [address]- 2546 Jul, [facility] [address] [address]- 2546 Jun, [facility] [address] [address]- 2546 Jun, [facility] [address] [address]- 2546 Jun, [facility] [address] [address]- 2546 May, [facility] [address] [address] 2546 May, [facility] [id number] [address]- 2546 May, IMMUNIZATIONS No Known Immunizations SOCIAL HISTORY Never Assessed REASON FOR VISIT Establish Care-LAYA Eng, Fu on dizziness and nausea. Epigastric pain. PLAN OF CARE Activity Details Follow Up 4 Weeks Reason:abd. f/u VITAL SIGNS Height 61 in 2017-06-26 Weight 204 lbs 2017-06-26 Temperature 98.4 degrees Fahrenheit 2017-06-26 Heart Rate 90 bpm 2017-06-26 Respiratory Rate 18 2017-06-26 BMI 38.54 kg/m2 2017-06-26 Blood pressure systolic 112 mmHg 2017-06-26 Blood pressure diastolic 70 mmHg 2017-06-26 MEDICATIONS Medication Instructions Dosage Frequency Start Date End Date Duration Status Ranitidine HCl 150 MG Orally twice a day 1 capsule 12h Apr, 30 day(s) Active Omeprazole 20 mg Orally Once a day 1 capsule 24h 31 May, 2017 90 days Active Sucralfate 1 GM/10ML Orally Twice a day 10 mls twice daily 12h 31 May, 2017 Jun, 14 days Active Bactrim DS 800-160 MG Orally Twice a day 1 tablet 12h Active Loratadine 10 MG Orally Once a day 1 tablet 24h Active Meclizine HCl 25 MG Orally twice a day 1 tablets as needed 12h 31 May, 2017 30 day(s) Active RESULTS Name Result Date Reference Range H PYLORI (IN HOUSE) 2017-06-26 H. PYLORI negative Control + Lot # [id number] Exp date 02/06/18 PROCEDURES Procedure Date Ordered Result Body Site IMMUNOASSAY,INFECTIOUS AGENT Jun 26, 2017 INSTRUCTIONS MEDICATIONS ADMINISTERED No Known Medications MEDICAL (GENERAL) HISTORY Type Description Date Medical History migraines Surgical History C section 2013 Surgical History appendectomy 2012 Surgical History cholecystectomy 2013
--- OUTSIDE RECORDS SUMMARY | 2018-11-03 00:16 | XMS REPORT ---
Author Author DANIEL JOA[facility] Address [address] [place] [address] Care Team Providers Care Brushing Operator Name Role Phone SANCHEZJOAQUÍN Gay Unavailable PROBLEMS Type Condition ICD9-CM Code SCF57-AT Code Onset Dates Condition Status SNOMED Code Problem Obesity (BMI 30-39.9) E66.9 Active 504722872 Problem Elevated serum alkaline phosphatase level R74.8 Active 098048144 Problem Hypertriglyceridemia E78.1 Active 331780596 ALLERGIES No Information ENCOUNTERS Encounter Location Date Diagnosis [place] [address] [address] Jan, [place] [address] [address] Aug, [facility] [place] [address] [address] Aug, Unspecified lump in axillary tail of the right breast N63.31 and Unspecified lump in axillary tail of the left breast N63.32 [place] [address] [address] [place] [id number] [place] [address]- [address] Jul, Epigastric abdominal pain R10.13 [facility] [place] [address] [place] [id number] [place] [address]- 9617 Jun, Epigastric abdominal pain R10.13 [place] [address] [address]- [address] May, Encounter to establish care Z76.89 ; Epigastric abdominal pain R10.13 ; Dizziness R42 and Obesity (BMI 30-39.9) E66.9 [place] [address] [address] 16 May, 2017 Elevated serum alkaline phosphatase level R74.8 [facility] [place] [address] [address] 12 May, 2017 Elevated serum alkaline phosphatase level R74.8 [facility] [place] [id number] [place] [address]- 5158 10 May, 2017 [facility] [place] [address] [place] [id number] [place] [address]- [address] 03 May, 2017 Irritable bowel syndrome with both constipation and diarrhea K58.2 and Dizziness, nonspecific R42 [facility] [place] [address] [place] [id number] [place] [address]93- 0058 25 Apr, 2017 Irritable bowel syndrome with both constipation and diarrhea K58.2 and Dizziness, nonspecific R42 [facility] [place] [id number] [place] [address] 6[address]67- 3[address] 29 Apr, 2016 Hives of unknown origin L50.9 [facility] [place] [address] [place] [id number] [place] [address] 84043- 4884 14 Nov, 2014 [facility] [place] [address] [address] Nov, [facility] [place] [id number] [place] [address] 69031- 8144 Aug, [facility] [place] [address] [address] 93[address] Aug, [facility] [place] [id number] [place] [address] 16116- 5532 December, [facility] [place] [address] [address] December, [facility] [place] [address] [place] [id number] [place] [address] 83690- 9878 Nov, [facility] [place] [address] [address]- 75[address] Nov, [facility] [place] [address] [place] [id number] [place] [address]240- 8096 Nov, [facility] [place] [facility] [address] [id number] [place] [address]- 0591 Nov, [facility] [place] [facility] [address] [id number] [place] [address]- 3256 Nov, [facility] [place] [facility] [address] [id number] [place] [address]- 7172 Nov, [facility] [place] [facility] [address] [id number] [place] [address]- 0678 Oct, [facility] [place] [facility] [address] [id number] [place] [address]- 1221 Oct, [facility] [place] [facility] [address] [id number] [place] [address]- 5071 Sep, [facility] [place] [facility] [address] [id number] [place] [address]- 8410 Sep, [facility] [place] [facility] [address] [id number] [place] [address]- 7264 May, [facility] [place] [facility] [address] [id number] [place] [address]- 1677 May, [facility] [place] [facility] [address] [id number] [place] [address]- 2228 Apr, [facility] [place] [facility] [address] [id number] [place] [address]- 7080 Mar, [facility] [place] [facility] [address] [id number] [place] [address]- 5597 Mar, [facility] [place] [facility] [address] [id number] [place] [address]- 1717 Mar, [facility] [place] [facility] [address] [id number] [place] [address] Feb, [facility] [place] [facility] [address] [id number] [place] [address]- 4198 Feb, [facility] [place] [facility] [address] [id number] [place] [address]- 2543 Feb, [facility] [address] [id number] [place] [address]- 5679 Jan, [facility] [place] [facility] [address] [id number] [place] [address]- 2546 Jan, [facility] [address] [id number] [place] [address]- 3566 December, [facility] [place] [facility] [address] [id number] [place] [address]- 8026 December, [facility] [place] [facility] [address] [id number] [place] [address]- 7706 December, [facility] [place] [facility] [address] [id number] [place] [address]- 0780 Nov, [facility] [place] [facility] [address] [id number] [place] [address]- 5079 Nov, [facility] [address] [id number] [place] [address]- 9823 Nov, [facility] [address] [id number] [place] [address]- 3008 Oct, [facility] [place] [facility] [address] [id number] [place] [address]- 3078 Oct, [facility] [place] [facility] [address] [id number] [place] [address]- 5816 Oct, [facility] [place] [facility] [address] [id number] [place] [address]- 2540 Oct, [facility] [place] [facility] [address] [id number] [place] [address]- 2546 Oct, [facility] [place] [facility] [address] [id number] [place] [address]- 2546 Sep, [facility] [place] [facility] [address] [id number] [place] [address]- 1251 Sep, 2012 [facility] [address] [id number] [place] [address]- 1654 18 Sep, 2012 [facility] [address] [id number] [place] [address]- 6592 14 Sep, 2012 [facility] [address] [id number] [place] [address]- 6836 Sep, [facility] [place] [facility] [address] [id number] [place] [address]- 8700 28 Aug, 2012 [facility] [address] [id number] [place] [address]- 6344 17 Aug, 2012 [facility] [address] [id number] [place] [address]- 8147 16 Aug, 2012 [facility] [address] [id number] [place] [address]- 0011 15 Aug, 2012 [facility] [address] [id number] [place] [address]- 0997 14 Aug, 2012 [facility] [address] [id number] [address]- 5209 Aug, [facility] [address] [id number] [place] [address]- 7316 Aug, [facility] [address] [id number] [address]- 2909 Aug, [facility] [place] [facility] [address] [id number] [address]- 3967 Aug, [facility] [place] [facility] [address] [id number] [address]- 8320 Aug, [facility] [place] [facility] [address] [id number] [address]- 7779 Aug, [facility] [place] [facility] [address] [id number] [place] [address]- 4688 Jul, [facility] [place] [facility] [address] [id number] [place] [address]- 7365 28 Jul, 2012 [facility] [place] [facility] [address] [id number] [place] [address]- 7131 27 Jul, 2012 [facility] [place] [facility] [address] [id number] [place] [address]- 3016 22 Jul, 2012 [facility] [place] [facility] [address] [id number] [place] [address]- 7776 18 Jul, 2012 [facility] [place] [facility] [address] [id number] [place] [address]- 9198 18 Jul, 2012 [facility] [place] [facility] [address] [id number] [place] [address]- 6548 14 Jul, 2012 [facility] [place] [facility] [address] [id number] [place] [address]- 7125 14 Jul, 2012 [facility] [place] [facility] [address] [id number] [place] [address]- 8934 17 Jun, 2012 [facility] [address] [id number] [place] [address]- 6876 17 Jun, 2012 [facility] [place] [facility] [address] [id number] [place] [address]- 7458 16 Jun, 2012 [facility] [place] [facility] [address] [id number] [place] [address]- 5048 16 Jun, 2012 [facility] [place] [facility] [address] [id number] [place] [address]- 5125 08 Jun, 2012 [facility] [place] [facility] [address] [id number] [place] [address]- 2181 08 Jun, 2012 [facility] [place] [facility] [address] [id number] [place] [address]- 0527 07 Jun, 2012 [facility] [place] [facility] [address] [id number] [place] [address]- 0075 07 Jun, 2012 [facility] [place] [facility] [address] [id number] [place] [address]- 7135 Jun, [facility] [place] [facility] [address] [id number] [place] [address]- 9096 Jun, [facility] [place] [facility] [address] [id number] [place] [address]- 9756 Mar, [facility] [place] [facility] [address] [id number] [place] [address]- 8526 Feb, [facility] [place] [facility] [address] [id number] [place] [address]- 9258 Feb, [facility] [place] [facility] [address] [id number] [place] [address]- 6921 Feb, [facility] [place] [facility] [address] [id number] [place] [address]- 0896 Feb, [facility] [place] [facility] [address] [id number] [place] [address]- 8117 Feb, [facility] [place] [facility] [address] [id number] [place] [address]- 9789 Feb, [facility] [place] [facility] [address] [id number] [place] [address]- 7471 Feb, [facility] [place] [facility] [address] [id number] [place] [address]- 3086 Jan, [facility] [place] [facility] [address] [id number] [place] [address]- 2824 Jan, [facility] [place] [facility] [address] [id number] [place] [address]- 2333 Jan, [facility] [place] [facility] [address] [id number] [place] [address]- 1523 December, [facility] [place] [facility] [address] [id number] [place] [address]- 3016 December, [facility] [place] [facility] [address] [id number] [place] [address]- 5936 December, [facility] [place] [facility] [address] [id number] [place] [address]- 3835 14 Dec, 2011 [facility] [address] [id number] [place] [address]- 5277 December, [facility] [place] [facility] [address] [id number] [place] [address]- 3151 December, [facility] [address] [id number] [place] [address]- 3368 December, [facility] [place] [facility] [address] [id number] [place] [address]- 8594 Nov, [facility] [place] [facility] [address] [id number] [place] [address]- 8969 18 Nov, 2011 [facility] [place] [facility] [address] [id number] [place] [address]- 5594 16 Nov, 2011 [facility] [address] [id number] [place] [address]- 6589 04 Nov, 2011 [facility] [place] [facility] [address] [id number] [place] [address]- 9687 29 Oct, 2011 [facility] [place] [facility] [address] [id number] [place] [address]- 1177 29 Oct, 2011 [facility] [place] [facility] [address] [id number] [place] [address]- 4836 28 Oct, 2011 [facility] [place] [facility] [address] [id number] [place] [address]- 0056 28 Oct, 2011 [facility] [place] [facility] [address] [id number] [place] [address]- 2167 27 Oct, 2011 [facility] [place] [facility] [address] [id number] [place] [address]- 2119 27 Oct, 2011 [facility] [place] [facility] [address] [id number] [place] [address]- 5798 26 Oct, 2011 [facility] [place] [facility] [address] [id number] [place] [address]- 6253 14 Oct, 2011 [facility] [place] [facility] [address] [id number] [place] [address]- 2836 Oct, [facility] [place] [facility] [address] [id number] [place] [address]- 3666 16 Sep, 2011 [facility] [place] [facility] [address] [id number] [place] [address]- 4346 14 Sep, 2011 [facility] [place] [facility] [address] [id number] [place] [address]- 7186 13 Sep, 2011 [facility] [place] [facility] [address] [id number] [place] [address]- 0724 07 Sep, 2011 [facility] [place] [facility] [address] [id number] [place] [address]- 8806 06 Sep, 2011 [facility] [place] [facility] [address] [facility] [id number] [place] [address]- 2208 Sep, [facility] [place] [facility] [address] [id number] [place] [address]- 9417 Aug, [facility] [place] [facility] [address] [id number] [place] [address]- 6091 Aug, [facility] [place] [facility] [address] [facility] [id number] [place] [address]- 7166 Jul, [facility] [place] [facility] [address] [facility] [id number] [place] [address]- 9509 Jul, [facility] [place] [facility] [address] [id number] [address]- 8190 Jul, [facility] [place] [facility] [address] [id number] [place] [address]- 5524 Jul, [facility] [place] [facility] [address] [id number] [place] [address]- 3746 Jun, [facility] [place] [facility] [address] [id number] [place] [address]- 3124 Jun, [facility] [place] [facility] [address] [id number], [place] [address]- 2800 28 Jun, 2011 [facility] [place] [facility] [address] [id number] [place] [address]- 3530 Jun, [facility] [place] [facility] [address] [id number] [place] [address]- 3269 18 Jun, 2011 [facility] [place] [facility] [address] [id number] [place] [address]- 8226 16 Jun, 2011 [facility] [place] [facility] [address] [id number] [place] [address]- 6996 Jun, [facility] [place] [facility] [address] [id number] [place] [address]- 3487 May, [facility] [place] [facility] [address] [id number] [place] [address]- 6635 May, [facility] [place] [facility] [address] [id number] [place] [address]- 4610 May, [facility] [place] [facility] [address] [id number] [place] [address]- 9135 May, [facility] [place] [facility] [address] [facility] [id number] [place] [address]- 1517 May, [facility] [place] [facility] [address] [facility] [id number] [place] [address]- 6419 Aug, [facility] [place] [facility] [address] [id number] [place] [address]- 4348 Aug, [facility] [place] [facility] [address] [id number] [place] [address]- 3136 14 Jul, 2009 [facility] [place] [facility] [address] [id number] [place] [address]- 1604 14 Jul, 2009 [facility] [place] [facility] [address] [facility] [id number] [place] [address]- 2218 10 Jul, 2009 [facility] [place] [facility] [address] [facility] [id number] [place] [address]- 6032 10 Jul, 2009 [facility] [place] [facility] [address] [place] [id number] [address]- 2546 Jul, [facility] [place] [address] [address]- 3776 Jul, [facility] [place] [address] [address]- 2546 Jun, [facility] [place] [address] [address]- 7586 Jun, [facility] [place] [address] [address]- 9544 Jun, [facility] [place] [address] [address]- 2942 May, [facility] [place] [address], [place] [address]- 0115 May, [facility] [place] [address] [address]- 8684 May, IMMUNIZATIONS No Known Immunizations SOCIAL HISTORY Never Assessed REASON FOR VISIT Refill request PLAN OF CARE VITAL SIGNS MEDICATIONS Medication Instructions Dosage Frequency Start Date End Date Duration Status Sucralfate 1 GM/10ML Orally Twice a day 10 mls twice daily 12h May, 14 days Active RESULTS No Results PROCEDURES No Known procedures INSTRUCTIONS MEDICATIONS ADMINISTERED No Known Medications MEDICAL (GENERAL) HISTORY Type Description Date Medical History migraines Surgical History C section 2013 Surgical History appendectomy 2012 Surgical History cholecystectomy 2013
--- OUTSIDE RECORDS SUMMARY | 2018-11-03 00:17 | XMS REPORT ---
Author Author DANIEL JOAQUÍN [facility] Address [address] [place] [address] Care Team Providers Care Service Desk Team Lead Name Role Phone SANCHEZJOAQUÍN Gay Unavailable PROBLEMS Type Condition ICD9-CM Code [id number] Code Onset Dates Condition Status SNOMED Code Problem Obesity (BMI 30-39.9) E66.9 Active 614219811 Problem Elevated serum alkaline phosphatase level R74.8 Active 637330180 Problem Hypertriglyceridemia E78.1 Active 011416714 ALLERGIES No Information ENCOUNTERS Encounter Location Date Diagnosis [place] [address] [address] Jan, [place] [address] [address] Aug, [facility] [address] [address] Aug, Unspecified lump in axillary tail of the right breast N63.31 and Unspecified lump in axillary tail of the left breast N63.32 [place] [address] [place] [id number] [place] [address]226 Jul, Epigastric abdominal pain R10.13 [facility] [address] [place] [id number] [place] [address]2110- 6892 Jun, Epigastric abdominal pain R10.13 [place] [address] [address] May, Encounter to establish care Z76.89 ; Epigastric abdominal pain R10.13 ; Dizziness R42 and Obesity (BMI 30-39.9) E66.9 [place] [address] [address]- [address] 16 May, 2017 Elevated serum alkaline phosphatase level R74.8 [facility] [address] [address] 12 May, 2017 Elevated serum alkaline phosphatase level R74.8 [facility] [id number] [place] [address]- 3250 10 May, 2017 [facility] [address] [place] [id number] [place] [address]2376- 4639 03 May, 2017 Irritable bowel syndrome with both constipation and diarrhea K58.2 and Dizziness, nonspecific R42 [facility] [address] [place] [id number] [place] [address]- 2866 25 Apr, 2017 Irritable bowel syndrome with both constipation and diarrhea K58.2 and Dizziness, nonspecific R42 [facility] [id number] [place] [address] 82853- 8189 29 Apr, 2016 Hives of unknown origin L50.9 [facility] [address] [place] [id number] [place] [address]2000- 4652 14 Nov, 2014 [facility] [address] [address] Nov, [facility] [id number] [place] [address] 60[address]- 5499 Aug, [facility] [address] [address] 47[address] Aug, [facility] [id number] [place] [address] 68957- 5908 December, [facility] [address] [address] 47[address] December, [facility] [address] [place] [id number] [place] [address] 53305- 4336 Nov, [facility] [address] [address] 3110 Nov, [facility] [address] [place] [id number] [place] [address] 73417- 9279 Nov, [facility] [place] [facility] [address] [id number] [place] [address]- 0385 Nov, [facility] [place] [facility] [address] [id number] [place] [address]- 4501 Nov, [facility] [place] [facility] [address] [id number] [place] [address]- 1123 Nov, [facility] [place] [facility] [address] [id number] [place] [address]- 6528 Oct, [facility] [place] [facility] [address] [id number] [place] [address]- 2859 Oct, [facility] [place] [facility] [address] [id number] [place] [address]- 8253 Sep, [facility] [place] [facility] [address] [id number] [place] [address]- 3568 Sep, [facility] [place] [facility] [address] [id number] [place] [address]- 5038 May, [facility] [place] [facility] [address] [id number] [place] [address]- 5955 May, [facility] [place] [facility] [address] [id number] [place] [address]- 4043 Apr, [facility] [place] [facility] [address] [id number] [place] [address]- 0363 Mar, [facility] [place] [facility] [address] [id number] [place] [address]- 7224 Mar, [facility] [place] [facility] [address] [id number] [place] [address] 1953 Mar, [facility] [place] [facility] [address] [id number] [place] [address] Feb, [facility] [place] [facility] [address] [id number] [place] [address]- 0718 Feb, [facility] [place] [facility] [address] [id number] [place] [address]- 254 Feb, [facility] [address] [id number] [place] [address]- 9476 Jan, [facility] [place] [facility] [address] [id number] [place] [address]- 2546 Jan, [facility] [address] [id number] [place] [address]- 7656 December, [facility] [place] [facility] [address] [id number] [place] [address]- 7456 December, [facility] [place] [facility] [address] [id number] [place] [address]- 7626 December, [facility] [address] [id number] [place] [address]- 7202 Nov, [facility] [place] [facility] [address] [id number] [place] [address]- 1104 Nov, [facility] [address] [id number] [place] [address]- 4629 Nov, [facility] [address] [id number] [place] [address]- 1613 Oct, [facility] [place] [facility] [address] [id number] [place] [address]- 9972 Oct, [facility] [place] [facility] [address] [id number] [place] [address]- 1816 Oct, [facility] [place] [facility] [address] [id number] [place] [address]- 2547 Oct, [facility] [place] [facility] [address] [id number] [place] [address]- 2546 Oct, [facility] [place] [facility] [address] [id number] [place] [address]- 2546 Sep, [facility] [place] [facility] [address] [id number] [place] [address]- 9104 Sep, 2012 [facility] [address] [id number] [place] [address]- 0065 18 Sep, 2012 [facility] [address] [id number] [place] [address]- 3698 14 Sep, 2012 [facility] [address] [id number] [place] [address]- 4156 Sep, [facility] [place] [facility] [address] [id number] [place] [address]- 0328 28 Aug, 2012 [facility] [address] [id number] [place] [address]- 7083 17 Aug, 2012 [facility] [address] [id number] [place] [address]- 3878 16 Aug, 2012 [facility] [address] [id number] [place] [address]- 3460 15 Aug, 2012 [facility] [address] [id number] [place] [address]- 7174 14 Aug, 2012 [facility] [address] [id number] [address]- 7613 Aug, [facility] [address] [id number] [place] [address]- 0742 Aug, [facility] [address] [id number] [address]- 7971 Aug, [facility] [place] [facility] [address] [id number] [address]- 0156 Aug, [facility] [place] [facility] [address] [id number] [address]- 1732 Aug, [facility] [place] [facility] [address] [id number] [address]- 6633 Aug, [facility] [place] [facility] [address] [id number] [place] [address]- 3194 Jul, [facility] [place] [facility] [address] [id number] [place] [address]- 5335 28 Jul, 2012 [facility] [place] [facility] [address] [id number] [place] [address]- 4146 27 Jul, 2012 [facility] [place] [facility] [address] [id number] [place] [address]- 4326 22 Jul, 2012 [facility] [place] [facility] [address] [id number] [place] [address]- 9896 18 Jul, 2012 [facility] [place] [facility] [address] [id number] [place] [address]- 2003 18 Jul, 2012 [facility] [place] [facility] [address] [id number] [place] [address]- 3967 14 Jul, 2012 [facility] [place] [facility] [address] [id number] [place] [address]- 4966 14 Jul, 2012 [facility] [place] [facility] [address] [id number] [place] [address]- 1699 17 Jun, 2012 [facility] [address] [id number] [place] [address]- 5940 17 Jun, 2012 [facility] [place] [facility] [address] [id number] [place] [address]- 1790 16 Jun, 2012 [facility] [place] [facility] [address] [id number] [place] [address]- 3554 16 Jun, 2012 [facility] [place] [facility] [address] [id number] [place] [address]- 8538 08 Jun, 2012 [facility] [place] [facility] [address] [id number] [place] [address]- 0038 08 Jun, 2012 [facility] [place] [facility] [address] [id number] [place] [address]- 7746 07 Jun, 2012 [facility] [place] [facility] [address] [id number] [place] [address]- 1476 07 Jun, 2012 [facility] [place] [facility] [address] [id number] [place] [address]- 4190 Jun, [facility] [place] [facility] [address] [id number] [place] [address]- 3685 Jun, [facility] [place] [facility] [address] [id number] [place] [address]- 8346 Mar, [facility] [place] [facility] [address] [id number] [place] [address]- 6002 Feb, [facility] [place] [facility] [address] [id number] [place] [address]- 6427 Feb, [facility] [place] [facility] [address] [id number] [place] [address]- 5082 Feb, [facility] [place] [facility] [address] [id number] [place] [address]- 8349 Feb, [facility] [place] [facility] [address] [id number] [place] [address]- 0116 Feb, [facility] [place] [facility] [address] [id number] [place] [address]- 7842 Feb, [facility] [place] [facility] [address] [id number] [place] [address]- 8795 Feb, [facility] [place] [facility] [address] [id number] [place] [address]- 2920 Jan, [facility] [place] [facility] [address] [id number] [place] [address]- 7063 Jan, [facility] [place] [facility] [address] [id number] [place] [address]- 7624 Jan, [facility] [place] [facility] [address] [id number] [place] [address]- 7551 December, [facility] [place] [facility] [address] [id number] [place] [address]- 9956 December, [facility] [place] [facility] [address] [id number] [place] [address]- 0908 December, [facility] [place] [facility] [address] [id number] [place] [address]- 4311 14 Dec, 2011 [facility] [address] [id number] [place] [address]- 4446 December, [facility] [place] [facility] [address] [id number] [place] [address]- 8298 December, [facility] [address] [id number] [place] [address]- 8525 December, [facility] [place] [facility] [address] [id number] [place] [address]- 3059 Nov, [facility] [place] [facility] [address] [id number] [place] [address]- 5155 18 Nov, 2011 [facility] [place] [facility] [address] [id number] [place] [address]- 8890 16 Nov, 2011 [facility] [address] [id number] [place] [address]- 0578 04 Nov, 2011 [facility] [place] [facility] [address] [id number] [place] [address]- 4905 29 Oct, 2011 [facility] [place] [facility] [address] [id number] [place] [address]- 6422 29 Oct, 2011 [facility] [place] [facility] [address] [id number] [place] [address]- 0119 28 Oct, 2011 [facility] [place] [facility] [address] [id number] [place] [address]- 0851 28 Oct, 2011 [facility] [place] [facility] [address] [id number] [place] [address]- 5336 27 Oct, 2011 [facility] [place] [facility] [address] [id number] [place] [address]- 1885 27 Oct, 2011 [facility] [place] [facility] [address] [id number] [place] [address]- 4479 26 Oct, 2011 [facility] [place] [facility] [address] [id number] [place] [address]- 7336 14 Oct, 2011 [facility] [place] [facility] [address] [id number] [place] [address]- 6788 Oct, [facility] [place] [facility] [address] [id number] [place] [address]- 3246 16 Sep, 2011 [facility] [place] [facility] [address] [id number] [place] [address]- 8176 14 Sep, 2011 [facility] [place] [facility] [address] [id number] [place] [address]- 5396 13 Sep, 2011 [facility] [place] [facility] [address] [id number] [place] [address]- 1898 07 Sep, 2011 [facility] [place] [facility] [address] [id number] [place] [address]- 4736 06 Sep, 2011 [facility] [place] [facility] [address] [facility] [id number] [place] [address]- 1731 Sep, [facility] [place] [facility] [address] [id number] [place] [address]- 5723 Aug, [facility] [place] [facility] [address] [id number] [place] [address]- 8441 Aug, [facility] [place] [facility] [address] [facility] [id number] [place] [address]- 3040 Jul, [facility] [place] [facility] [address] [facility] [id number] [place] [address]- 1802 Jul, [facility] [place] [facility] [address] [id number] [address]- 0623 Jul, [facility] [place] [facility] [address] [id number] [place] [address]- 8592 Jul, [facility] [place] [facility] [address] [id number] [place] [address]- 5596 Jun, [facility] [place] [facility] [address] [id number] [place] [address]- 6951 Jun, [facility] [place] [facility] [address] [id number], [place] [address]- 6184 28 Jun, 2011 [facility] [place] [facility] [address] [id number] [place] [address]- 2006 Jun, [facility] [place] [facility] [address] [id number] [place] [address]- 0819 18 Jun, 2011 [facility] [place] [facility] [address] [id number] [place] [address]- 1486 16 Jun, 2011 [facility] [place] [facility] [address] [id number] [place] [address]- 9795 Jun, [facility] [place] [facility] [address] [id number] [place] [address]- 0525 May, [facility] [place] [facility] [address] [id number] [place] [address]- 1443 May, [facility] [place] [facility] [address] [id number] [place] [address]- 2692 May, [facility] [place] [facility] [address] [id number] [place] [address]- 3328 May, [facility] [place] [facility] [address] [facility] [id number] [place] [address]- 3475 May, [facility] [place] [facility] [address] [facility] [id number] [place] [address]- 0989 Aug, [facility] [place] [facility] [address] [id number] [place] [address]- 1521 Aug, [facility] [place] [facility] [address] [id number] [place] [address]- 3062 14 Jul, 2009 [facility] [place] [facility] [address] [id number] [place] [address]- 3063 14 Jul, 2009 [facility] [place] [facility] [address] [facility] [id number] [place] [address]- 3671 10 Jul, 2009 [facility] [place] [facility] [address] [facility] [id number] [place] [address]- 9061 10 Jul, 2009 [facility] [place] [facility] [address] [place] [id number] [address]- 2546 Jul, [facility] [address] [address] 2546 Jul, [facility] [address] [address]- 2546 Jun, [facility] [address] [address]- 2546 Jun, [facility] [address] [address]- 2546 Jun, [facility] [address] [address]- 5416 May, [facility] [address] [address]- 2327 May, [facility] [address] [address]- 6386 May, IMMUNIZATIONS No Known Immunizations SOCIAL HISTORY Never Assessed REASON FOR VISIT med clarification PLAN OF CARE VITAL SIGNS MEDICATIONS Medication Instructions Dosage Frequency Start Date End Date Duration Status Carafate 1 GM Orally Twice a day 1 tablet at bedtime on an empty stomach before meals 12h Jul, 14 days Active RESULTS No Results PROCEDURES No Known procedures INSTRUCTIONS MEDICATIONS ADMINISTERED No Known Medications MEDICAL (GENERAL) HISTORY Type Description Date Medical History migraines Surgical History C section 2013 Surgical History appendectomy 2012 Surgical History cholecystectomy 2013
--- OUTSIDE RECORDS SUMMARY | 2018-11-03 00:17 | XMS REPORT ---
Author Author SANCHEZJOAQUÍN Gay [facility] Address [address] [place] [address] Care Team Providers Care [employer] Professional Name Role Phone JOAQUÍN SANCHEZ Unavailable PROBLEMS Type Condition ICD9-CM Code VJZ07-IG Code Onset Dates Condition Status SNOMED Code Problem Other obesity due to excess calories E66.09 Active 691909865 Problem Migraine without aura and without status migrainosus, not intractable G43.009 Active 578918906 Problem Elevated serum alkaline phosphatase level R74.8 Active 071781839 Problem Hypertriglyceridemia E78.1 Active 486009306 Problem Body mass index (BMI) of 39.0-39.9 in adult Z68.39 Active 300856405 Problem Obesity (BMI 30-39.9) E66.9 Active 952890526 ALLERGIES No Information ENCOUNTERS Encounter Location Date Diagnosis [facility] [id number] [place] [address]36- 8656 14 Jan, 2018 Migraine without aura and without status migrainosus, not intractable G43.009 ; Pelvic pain R10.2 ; Urinary frequency R35.0 ; Other obesity due to excess calories E66.09 ; Body mass index (BMI) of 39.0-39.9 in adult Z68.39 and Hypertriglyceridemia E78.1 [facility] [id number] [place] [address] 61513- 1368 Aug, [facility] [id number] [place] [address] 13705- 8742 Aug, Unspecified lump in axillary tail of the right breast N63.31 and Unspecified lump in axillary tail of the left breast N63.32 [facility] [id number] [place] [address] 97636- 5158 04 Jul, 2017 Epigastric abdominal pain R10.13 [facility] [id number] [place] [address] 08104- 4031 Jun, Epigastric abdominal pain R10.13 [facility] [id number] [place] [address] 05880- 3654 31 May, 2017 Encounter to establish care Z76.89 ; Epigastric abdominal pain R10.13 ; Dizziness R42 and Obesity (BMI 30-39.9) E66.9 [facility] [address] 33464- 5580 16 May, 2017 Elevated serum alkaline phosphatase level R74.8 [facility] [id number] [place] [address] 37752- 9442 May, Elevated serum alkaline phosphatase level R74.8 [facility] [id number] [place] [address] 37391- 8092 May, [facility] [id number] [place] [address] 58424- 1748 May, Irritable bowel syndrome with both constipation and diarrhea K58.2 and Dizziness, nonspecific R42 [facility] [id number] [place] [address] 42756- 3301 25 Apr, 2017 Irritable bowel syndrome with both constipation and diarrhea K58.2 and Dizziness, nonspecific R42 [facility] [id number] [place] [address] 67269- 7193 29 Apr, 2016 Hives of unknown origin L50.9 [facility] [id number] [place] [address] 39589- 5244 Nov, [facility] [id number] [place] [address] 63177- 6957 Nov, [facility] [id number] [place] [address] 76983- 7235 Aug, [facility] [id number] [place] [address] 20137- 9718 Aug, [place] [address] [place] [address]- 4727 December, [facility] [place] [facility] [address] [id number] [place] [address]- 8797 December, [facility] [place] [facility] [address] [id number] [place] [address]- 1086 Nov, [facility] [place] [facility] [address] [id number] [place] [address]- 0201 Nov, [facility] [place] [facility] [address] [id number] [place] [address]- 8445 Nov, [facility] [place] [facility] [address] [id number] [place] [address]- 9836 Nov, [facility] [place] [facility] [address] [id number] [place] [address]- 1100 Nov, [facility] [place] [facility] [address] [id number] [place] [address]- 5273 Nov, [facility] [place] [facility] [address] [id number] [place] [address]- 7186 Oct, [facility] [place] [facility] [address] [id number] [place] [address]- 3542 Oct, [facility] [place] [facility] [address] [id number] [place] [address]- 9439 Sep, [facility] [place] [facility] [address] [id number] [place] [address]- 1139 Sep, [facility] [place] [facility] [address] [id number] [place] [address]- 8423 May, [facility] [place] [facility] [address] [id number] [place] [address]- 2303 May, [facility] [place] [facility] [address] [id number] [place] [address]- 5846 Apr, [facility] [place] [facility] [address] [id number] [place] [address]- 9475 Mar, [facility] [place] [facility] [address] [id number] [place] [address]- 1982 Mar, [facility] [address] [id number] [place] [address]- 8219 Mar, [facility] [address] [id number] [place] [address]- 8896 Feb, [facility] [place] [facility] [address] [id number] [place] [address]- 2697 Feb, [facility] [address] [id number] [place] [address]- 3512 Feb, [facility] [place] [facility] [address] [id number] [place] [address]- 0247 Jan, [facility] [address] [id number] [place] [address]- 6557 Jan, [facility] [address] [id number] [place] [address]- 2512 December, [facility] [address] [id number] [place] [address]- 6318 December, [facility] [address] [id number] [place] [address]- 1369 December, [facility] [place] [facility] [address] [id number] [place] [address]- 2547 Nov, [facility] [place] [facility] [address] [id number] [place] [address]- 7588 Nov, [facility] [place] [facility] [address] [id number] [place] [address]- 3866 Nov, [facility] [place] [facility] [address] [id number] [place] [address]- 6425 Oct, [facility] [place] [facility] [address] [id number] [place] [address]- 1997 Oct, [facility] [place] [facility] [address] [id number] [place] [address]- 4293 07 Oct, 2012 [facility] [address] [id number] [place] [address]- 5607 Oct, [facility] [address] [id number] [place] [address]- 0134 Oct, [facility] [address] [id number] [place] [address]- 4706 27 Sep, 2012 [facility] [address] [id number] [place] [address]- 6203 22 Sep, 2012 [facility] [address] [id number] [place] [address]- 1716 18 Sep, 2012 [facility] [address] [id number] [place] [address]- 1374 14 Sep, 2012 [facility] [address] [id number] [place] [address]- 6768 13 Sep, 2012 [facility] [address] [id number] [place] [address]- 5744 28 Aug, 2012 [facility] [address] [id number] [place] [address]- 7051 17 Aug, 2012 [facility] [address] [id number] [place] [address]- 4656 16 Aug, 2012 [facility] [address] [id number] [place] [address]- 2686 15 Aug, 2012 [facility] [address] [id number] [place] [address]- 9785 14 Aug, 2012 [facility] [address] [id number] [place] [address]- 7030 07 Aug, 2012 [facility] [place] [facility] [address] [id number] [place] [address]- 9229 07 Aug, 2012 [facility] [address] [id number], [place] [address]- 3733 07 Aug, 2012 [facility] [address] [id number] [place] [address]- 9754 Aug, [facility] [place] [facility] [address] [id number] [place] [address]- 6081 Aug, [facility] [place] [facility] [address] [id number] [place] [address]- 8596 Aug, [facility] [place] [facility] [address] [id number] [place] [address]- 2754 28 Jul, 2012 [facility] [place] [facility] [address] [id number] [place] [address]- 7399 28 Jul, 2012 [facility] [place] [facility] [address] [id number] [place] [address]- 3934 27 Jul, 2012 [facility] [place] [facility] [address] [id number] [place] [address]- 6028 22 Jul, 2012 [facility] [place] [facility] [address] [id number] [place] [address]- 4544 18 Jul, 2012 [facility] [place] [facility] [address] [id number] [place] [address]- 8358 18 Jul, 2012 [facility] [place] [facility] [address] [id number] [place] [address]- 7853 14 Jul, 2012 [facility] [place] [facility] [address] [id number] [place] [address]- 8053 14 Jul, 2012 [facility] [place] [facility] [address] [id number] [place] [address]- 2783 17 Jun, 2012 [facility] [place] [facility] [address] [id number] [place] [address]- 5108 17 Jun, 2012 [facility] [place] [facility] [address] [id number] [place] [address]- 4965 16 Jun, 2012 [facility] [place] [facility] [address] [id number] [place] [address]- 1084 16 Jun, 2012 [facility] [place] [facility] [address] [id number] [place] [address]- 4016 Jun, [facility] [place] [facility] [address] [id number] [place] [address]- 7067 08 Jun, 2012 [facility] [place] [facility] [address] [id number] [place] [address]- 3028 Jun, [facility] [place] [facility] [address] [id number] [place] [address]- 6007 Jun, [facility] [place] [facility] [address] [id number] [place] [address]- 8499 Jun, [facility] [place] [facility] [address] [id number] [place] [address]- 4511 Jun, [facility] [place] [facility] [address] [id number] [place] [address]- 0001 Mar, [facility] [place] [facility] [address] [id number] [place] [address]- 1526 Feb, [facility] [place] [facility] [address] [id number] [place] [address]- 1010 Feb, [facility] [place] [facility] [address] [id number] [place] [address]- 2201 Feb, [facility] [place] [facility] [address] [id number] [place] [address]- 1898 Feb, [facility] [place] [facility] [address] [id number] [place] [address]- 1935 Feb, [facility] [place] [facility] [address] [id number] [place] [address]- 3239 Feb, [facility] [place] [facility] [address] [id number] [place] [address]- 9947 Feb, [facility] [place] [facility] [address] [id number] [place] [address]- 6152 Jan, [facility] [place] [facility] [address] [id number] [place] [address]- 9102 Jan, [facility] [place] [facility] [address] [id number] [place] [address]- 2031 Jan, [facility] [address] [id number] [place] [address]- 8094 December, [facility] [address] [id number] [place] [address]- 8506 December, [facility] [address] [id number] [place] [address]- 1486 December, [facility] [address] [id number] [place] [address]- 8474 December, [facility] [address] [id number] [place] [address]- 5403 December, [facility] [address] [id number] [place] [address]- 0746 December, [facility] [address] [id number] [place] [address]- 7373 December, [facility] [address] [id number] [place] [address]- 7731 Nov, [facility] [address] [id number] [place] [address]- 0807 18 Nov, 2011 [facility] [address] [id number] [place] [address]- 0486 16 Nov, 2011 [facility] [address] [id number] [place] [address]- 4986 Nov, [facility] [address] [id number] [place] [address]- 6104 Oct, [facility] [address] [id number] [place] [address]- 9124 Oct, [facility] [address] [id number] [place] [address]- 4112 Oct, [facility] [address] [id number] [place] [address]- 3084 Oct, [facility] [address] [id number] [place] [address]- 2087 27 Oct, 2011 [facility] [place] [facility] [address] [id number] [place] [address]- 6786 27 Oct, 2011 [facility] [place] [facility] [address] [id number] [place] [address]- 8496 26 Oct, 2011 [facility] [place] [facility] [address] [id number] [place] [address]- 3116 14 Oct, 2011 [facility] [place] [facility] [address] [id number] [place] [address]- 6307 05 Oct, 2011 [facility] [place] [facility] [address] [id number] [place] [address]- 7676 16 Sep, 2011 [facility] [place] [facility] [address] [id number] [place] [address]- 5654 14 Sep, 2011 [facility] [place] [facility] [address] [id number] [place] [address]- 3616 13 Sep, 2011 [facility] [place] [facility] [address] [id number] [place] [address]- 7450 07 Sep, 2011 [facility] [place] [facility] [address] [facility] [id number] [place] [address]- 3176 06 Sep, 2011 [facility] [place] [facility] [address] [id number] [place] [address]- 7926 Sep, [facility] [place] [facility] [address] [id number] [place] [address]- 4156 Aug, [facility] [place] [facility] [address] [id number] [place] [address]- 3236 Aug, [facility] [place] [facility] [address] [id number] [place] [address]- 3306 Jul, [facility] [place] [facility] [address] [id number] [place] [address]- 4516 Jul, [facility] [place] [facility] [address] [id number] [place] [address]- 3030 Jul, [facility] [place] [facility] [address] [id number] [place] [address]- 6866 Jul, [facility] [place] [facility] [address] [id number] [place] [address]- 7480 Jun, [facility] [place] [facility] [address] [id number] [place] [address]- 9845 30 Jun, 2011 [facility] [place] [facility] [address] [id number] [place] [address]- 5183 Jun, [facility] [place] [facility] [address] [id number] [place] [address]- 6146 Jun, [facility] [place] [facility] [address] [id number] [place] [address]- 5532 Jun, [facility] [place] [facility] [address] [id number] [place] [address]- 1033 16 Jun, 2011 [facility] [place] [facility] [address] [id number] [place] [address]- 8398 Jun, [facility] [place] [facility] [address] [id number] [place] [address]- 0768 May, [facility] [place] [facility] [address] [id number] [place] [address]- 6683 May, [facility] [place] [facility] [address] [id number] [place] [address]- 3092 May, [facility] [place] [facility] [address] [id number] [place] [address]- 8621 May, [facility] [place] [facility] [address] [id number] [place] [address]- 5067 May, [facility] [place] [facility] [address] [id number] [place] [address]- 9317 Aug, [facility] [place] [facility] [address] [id number] [place] [address]- 9610 Aug, [facility] [address] [facility] [id number], [place] [address]- 1622 Jul, [facility] [address] [facility] [id number][place]- 1279 Jul, [facility] [address] [facility] [id number][place] 4189 Jul, [facility] [address] [facility] [id number][place] 1788 Jul, [facility] [address] [facility] [id number][place] 2294 Jul, [facility] [address] 8600 Jul, [facility] [address], [place] [address]- 3504 Jun, [facility] [address], [place] [address]- 7811 Jun, [facility] [address], [place] [address]- 8106 Jun, [facility] [address], [place] [address]- 4827 May, [facility] [address], [place] [address]- 5480 May, [facility] [address], [place] [address]- 4536 May, IMMUNIZATIONS No Known Immunizations SOCIAL HISTORY Never Assessed REASON FOR VISIT Genetic testing referral note PLAN OF CARE VITAL SIGNS MEDICATIONS No Known Medications RESULTS No Results PROCEDURES No Known procedures INSTRUCTIONS MEDICATIONS ADMINISTERED No Known Medications MEDICAL (GENERAL) HISTORY Type Description Date Medical History migraines Surgical History C section 2014 Surgical History appendectomy 2013 Surgical History cholecystectomy 2014
--- OUTSIDE RECORDS SUMMARY | 2018-11-03 00:22 | XMS REPORT | Continuity of Care Document ---
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 599.70 Hematuria Unspecified 08/01/2011 616.10 Vaginitis And Vulvovaginitis Unspecified 08/01/2011 599.70 Hematuria Unspecified 08/01/2011 616.10 Vaginitis And Vulvovaginitis Unspecified 08/01/2011 599.70 Hematuria Unspecified 08/01/2011 616.10 Vaginitis And Vulvovaginitis Unspecified 08/01/2011 599.70 Hematuria Unspecified 08/01/2011 616.10 Vaginitis And Vulvovaginitis Unspecified 08/01/2011 APRIL SOSA APRN A 599.70 Hematuria Unspecified 08/01/2011 APRIL SOSA APRN A 616.10 Vaginitis And Vulvovaginitis Unspecified 08/01/2011 CHENTE DEWITT MD N 599.70 Hematuria Unspecified 08/01/2011 CHENTE DEWITT MD N 616.10 Vaginitis And Vulvovaginitis Unspecified 08/01/2011 CHILO MCBRIDE APRN S 599.70 Hematuria Unspecified 08/01/2011 CHILO MCBRIDE APRN S 616.10 Vaginitis And Vulvovaginitis Unspecified 08/01/2011 APRIL SOSA APRN A 599.70 Hematuria Unspecified 08/01/2011 APRIL SOSA APRN A 616.10 Vaginitis And Vulvovaginitis Unspecified 08/01/2011 CHENTE DEWITT MD N 599.70 Hematuria Unspecified 08/01/2011 CHENTE DEWITT MD N 616.10 Vaginitis And Vulvovaginitis Unspecified 08/18/2011 Ot 599.72 MICROSCOPIC HEMATURIA 08/18/2011 Ot 789.09 ABDOMINAL PAIN, OTHER SPECIFIED SITE 09/10/2011 Ot 850.5 CONCUSSION W COMA NOS 09/10/2011 Ot 959.01 HEAD INJURY , NOS 09/10/2011 Ot E000.8 OTHER EXTERNAL CAUSE STATUS 09/10/2011 Ot E816.0 LOSS CONTROL MV ACC-DRIV 09/11/2011 BRAD DONALD DO 850.5 Concussion With Loss Of Consciousness Of Unspecified Duration 09/11/2011 850.5 Concussion With Loss Of Consciousness Of Unspecified Duration 09/11/2011 ARIANNE FERGUSON MD 850.5 Concussion With Loss Of Consciousness Of Unspecified Duration 09/11/2011 ELI ANGEL APRN 850.5 Concussion With Loss Of Consciousness Of Unspecified Duration 09/11/2011 850.5 Concussion With Loss Of Consciousness Of Unspecified Duration 09/11/2011 850.5 Concussion With Loss Of Consciousness Of Unspecified Duration 09/11/2011 850.5 Concussion With Loss Of Consciousness Of Unspecified Duration 09/11/2011 BRAD DONALD DO 850.5 Concussion With Loss Of Consciousness Of Unspecified Duration 09/11/2011 CAROLYN MCCOY APRN 850.5 Concussion With Loss Of Consciousness Of Unspecified Duration 09/11/2011 850.5 Concussion With Loss Of Consciousness Of Unspecified Duration 09/11/2011 850.5 Concussion With Loss Of Consciousness Of Unspecified Duration 09/11/2011 850.5 Concussion With Loss Of Consciousness Of Unspecified Duration 09/11/2011 850.5 Concussion With Loss Of Consciousness Of Unspecified Duration 09/11/2011 850.5 Concussion With Loss Of Consciousness Of Unspecified Duration 09/11/2011 850.5 Concussion With Loss Of Consciousness Of Unspecified Duration 09/11/2011 APRIL SOSA APRN 850.5 Concussion With Loss Of Consciousness Of Unspecified Duration 09/11/2011 CHENTE DEWITT MD 850.5 Concussion With Loss Of Consciousness Of Unspecified Duration 09/11/2011 CHILO MCBRIDE APRN 850.5 Concussion With Loss Of Consciousness Of Unspecified Duration 09/11/2011 APRIL SOAS APRN 850.5 Concussion With Loss Of Consciousness Of Unspecified Duration 09/11/2011 CHENTE DEWITT MD 850.5 Concussion With Loss Of Consciousness Of Unspecified Duration 09/11/2011 Ot 784.0 HEADACHE 09/11/2011 Ot 850.5 CONCUSSION W COMA NOS 09/11/2011 Ot E812.9 MV SONIA NOS-PERS NOS 09/27/2011 BRAD DONALD DO 625.2 MITTELSCHMERZ 09/27/2011 625.2 MITTELSCHMERZ 09/27/2011 ARIANNE FERGUSON MD 625.2 MITTELSCHMERZ 09/27/2011 ELI ANGEL APRN 625.2 MITTELSCHMERZ 09/27/2011 625.2 MITTELSCHMERZ 09/27/2011 625.2 MITTELSCHMERZ 09/27/2011 625.2 MITTELSCHMERZ 09/27/2011 BRAD DONALD DO 625.2 MITTELSCHMERZ 09/27/2011 CAROLYN MCCOY APRN 625.2 MITTELSCHMERZ 09/27/2011 625.2 MITTELSCHMERZ 09/27/2011 625.2 MITTELSCHMERZ 09/27/2011 625.2 MITTELSCHMERZ 09/27/2011 625.2 MITTELSCHMERZ 09/27/2011 625.2 MITTELSCHMERZ 09/27/2011 625.2 MITTELSCHMERZ 09/27/2011 IAN ROGEL, APRIL Orozco 625.2 MITTELSCHMERZ 09/27/2011 RENATE ESPARZA, CHENTE Tidwell 625.2 MITTELSCHMERZ 09/27/2011 CHILO MCBRIDE APRN 625.2 MITTELSCHMERZ 09/27/2011 IAN ROGEL, APRIL Orozco 625.2 MITTELSCHMERZ 09/27/2011 CHENTE DEWITT MD 625.2 MITTELSCHMERZ 10/09/2011 BRAD DONALD DO 784.0 Headache 10/09/2011 BRAD DONALD DO 787.03 Vomiting Alone 10/09/2011 784.0 Headache 10/09/2011 787.03 Vomiting Alone 10/09/2011 ARIANNE FERGUSON MD 784.0 Headache 10/09/2011 ARIANNE FERGUSON MD 787.03 Vomiting Alone 10/09/2011 ELI ANGEL APRN 784.0 Headache 10/09/2011 ELI ANGEL APRN 787.03 Vomiting Alone 10/09/2011 784.0 Headache 10/09/2011 787.03 Vomiting Alone 10/09/2011 784.0 Headache 10/09/2011 787.03 Vomiting Alone 10/09/2011 784.0 Headache 10/09/2011 787.03 Vomiting Alone 10/09/2011 BRAD DONALD DO 784.0 Headache 10/09/2011 DONALD DO, BRAD K 787.03 Vomiting Alone 10/09/2011 CAROLYN MCCOY APRN M 784.0 Headache 10/09/2011 CAROLYN MCCOY APRN 787.03 Vomiting Alone 10/09/2011 784.0 Headache 10/09/2011 787.03 Vomiting Alone 10/09/2011 784.0 Headache 10/09/2011 787.03 Vomiting Alone 10/09/2011 784.0 Headache 10/09/2011 787.03 Vomiting Alone 10/09/2011 784.0 Headache 10/09/2011 787.03 Vomiting Alone 10/09/2011 784.0 Headache 10/09/2011 787.03 Vomiting Alone 10/09/2011 784.0 Headache 10/09/2011 787.03 Vomiting Alone 10/09/2011 APRIL SOSA APRN A 784.0 Headache 10/09/2011 APRIL SOSA APRN A 787.03 Vomiting Alone 10/09/2011 CHENTE DEWITT MD N 784.0 Headache 10/09/2011 CHENTE DEWITT MD N 787.03 Vomiting Alone 10/09/2011 CHILO MCBRIDE APRN S 784.0 Headache 10/09/2011 CHILO MCBRIDE APRN 787.03 Vomiting Alone 10/09/2011 APRIL SOSA APRN A 784.0 Headache 10/09/2011 APRIL SOSA APRN A 787.03 Vomiting Alone 10/09/2011 CHENTE DEWITT MD N 784.0 Headache 10/09/2011 CHENTE DEWITT MD 787.03 Vomiting Alone 10/10/2011 DONALD DO, BRAD K 075 Mononucleosis 10/10/2011 DONALD DO, BRAD K 784.7 Epistaxis 10/10/2011 075 Mononucleosis 10/10/2011 784.7 Epistaxis 10/10/2011 ARIANNE FERGUSON MD 075 Mononucleosis 10/10/2011 ARIANNE FERGUSON MD 784.7 Epistaxis 10/10/2011 ELI ANGEL APRN 075 Mononucleosis 10/10/2011 ELI ANGEL APRN 784.7 Epistaxis 10/10/2011 075 Mononucleosis 10/10/2011 784.7 Epistaxis 10/10/2011 075 Mononucleosis 10/10/2011 784.7 Epistaxis 10/10/2011 075 Mononucleosis 10/10/2011 784.7 Epistaxis 10/10/2011 BRAD DONALD DO 075 Mononucleosis 10/10/2011 SHABANA FAIRBANKSBRAD 784.7 Epistaxis 10/10/2011 NADINE ROGELCAROLYN 075 Mononucleosis 10/10/2011 NADINE ROGEL CAROLYN [place] 784.7 Epistaxis 10/10/2011 075 Mononucleosis 10/10/2011 784.7 Epistaxis 10/10/2011 075 Mononucleosis 10/10/2011 784.7 Epistaxis 10/10/2011 075 Mononucleosis 10/10/2011 784.7 Epistaxis 10/10/2011 075 Mononucleosis 10/10/2011 784.7 Epistaxis 10/10/2011 075 Mononucleosis 10/10/2011 784.7 Epistaxis 10/10/2011 075 Mononucleosis 10/10/2011 784.7 Epistaxis 10/10/2011 IAN ROGEL, APRIL A 075 Mononucleosis 10/10/2011 IAN ROGEL APRIL A 784.7 Epistaxis 10/10/2011 CHENTE DEWITT MD N 075 Mononucleosis 10/10/2011 CHENTE DEWITT MD 784.7 Epistaxis 10/10/2011 CHILO MCBRIDE APRN S 075 Mononucleosis 10/10/2011 CHILO MCBRIDE APRN S 784.7 Epistaxis 10/10/2011 APRIL SOSA APRN A 075 Mononucleosis 10/10/2011 APRIL SOSA APRN A 784.7 Epistaxis 10/10/2011 CHENTE DEWITT MD N 075 Mononucleosis 10/10/2011 CHENTE DEWITT MD N 784.7 Epistaxis 10/30/2011 BRAD DONALD DO V72.41 Test Negative Result 10/30/2011 V72.41 Test Negative Result 10/30/2011 ARIANNE FERGUSON MD V72.41 Test Negative Result 10/30/2011 ELI ANGEL APRN V72.41 Test Negative Result 10/30/2011 V72.41 Test Negative Result 10/30/2011 V72.41 Test Negative Result 10/30/2011 V72.41 Test Negative Result 10/30/2011 BRAD DONALD DO V72.41 Test Negative Result 10/30/2011 CAROLYN MCCOY APRN V72.41 Test Negative Result 10/30/2011 V72.41 Test Negative Result 10/30/2011 V72.41 Test Negative Result 10/30/2011 V72.41 Test Negative Result 10/30/2011 V72.41 Test Negative Result 10/30/2011 V72.41 Test Negative Result 10/30/2011 V72.41 Test Negative Result 10/30/2011 APRIL SOSA APRN V72.41 Test Negative Result 10/30/2011 CHENTE DEWITT MD V72.41 Test Negative Result 10/30/2011 CHILO MCBRIDE APRN V72.41 Test Negative Result 10/30/2011 APRIL SOSA APRN A V72.41 Test Negative Result 10/30/2011 CHENTE DEWITT MD V72.41 Test Negative Result 11/08/2011 BRAD DONALD DO 625.9 PELVIC PAIN 11/08/2011 BRAD DONALD DO V25.01 CONTRACEPTION - ORAL CONTRACEPTION 11/08/2011 BRAD DONALD DO V74.5 Std Screen 11/08/2011 625.9 PELVIC PAIN 11/08/2011 V25.01 CONTRACEPTION - ORAL CONTRACEPTION 11/08/2011 V74.5 Std Screen 11/08/2011 ARIANNE FERGUSON MD 625.9 PELVIC PAIN 11/08/2011 ARIANNE FERGUSON MD V25.01 CONTRACEPTION - ORAL CONTRACEPTION 11/08/2011 ARIANNE FERGUSON MD V74.5 Std Screen 11/08/2011 ELI ANGEL APRN 625.9 PELVIC PAIN 11/08/2011 ELI ANGEL APRN V25.01 CONTRACEPTION - ORAL CONTRACEPTION 11/08/2011 ELI ANGEL APRN V74.5 Std Screen 11/08/2011 625.9 PELVIC PAIN 11/08/2011 V25.01 CONTRACEPTION - ORAL CONTRACEPTION 11/08/2011 V74.5 Std Screen 11/08/2011 625.9 PELVIC PAIN 11/08/2011 V25.01 CONTRACEPTION - ORAL CONTRACEPTION 11/08/2011 V74.5 Std Screen 11/08/2011 625.9 PELVIC PAIN 11/08/2011 V25.01 CONTRACEPTION - ORAL CONTRACEPTION 11/08/2011 V74.5 Std Screen 11/08/2011 SHABANA FAIRBANKS BRAD K 625.9 PELVIC PAIN 11/08/2011 SHABANA FAIRBANKS BRAD [place] V25.01 CONTRACEPTION - ORAL CONTRACEPTION 11/08/2011 SHABANA FAIRBANKS BRAD K V74.5 Std Screen 11/08/2011 CAROLYN MCCOY APRN 625.9 PELVIC PAIN 11/08/2011 CAROLYN MCCOY APRN V25.01 CONTRACEPTION - ORAL CONTRACEPTION 11/08/2011 CAROLYN MCCOY APRN V74.5 Std Screen 11/08/2011 625.9 PELVIC PAIN 11/08/2011 V25.01 CONTRACEPTION - ORAL CONTRACEPTION 11/08/2011 V74.5 Std Screen 11/08/2011 625.9 PELVIC PAIN 11/08/2011 V25.01 CONTRACEPTION - ORAL CONTRACEPTION 11/08/2011 V74.5 Std Screen 11/08/2011 625.9 PELVIC PAIN 11/08/2011 V25.01 CONTRACEPTION - ORAL CONTRACEPTION 11/08/2011 V74.5 Std Screen 11/08/2011 625.9 PELVIC PAIN 11/08/2011 V25.01 CONTRACEPTION - ORAL CONTRACEPTION 11/08/2011 V74.5 Std Screen 11/08/2011 625.9 PELVIC PAIN 11/08/2011 V25.01 CONTRACEPTION - ORAL CONTRACEPTION 11/08/2011 V74.5 Std Screen 11/08/2011 625.9 PELVIC PAIN 11/08/2011 V25.01 CONTRACEPTION - ORAL CONTRACEPTION 11/08/2011 V74.5 Std Screen 11/08/2011 APRLI SOSA APRN A 625.9 PELVIC PAIN 11/08/2011 APRIL SOSA APRN A V25.01 CONTRACEPTION - ORAL CONTRACEPTION 11/08/2011 APRIL SOSA APRN A V74.5 Std Screen 11/08/2011 CHENTE DEWITT MD 625.9 PELVIC PAIN 11/08/2011 CHENTE DEWITT MD V25.01 CONTRACEPTION - ORAL CONTRACEPTION 11/08/2011 CHENTE DEWITT MD V74.5 Std Screen 11/08/2011 CHILO MCBRIDE APRN 625.9 PELVIC PAIN 11/08/2011 CHILO MCBRIDE APRN V25.01 CONTRACEPTION - ORAL CONTRACEPTION 11/08/2011 CHILO MCBRIDE APRN V74.5 Std Screen 11/08/2011 IANAPRIL Tidwell APRN A 625.9 PELVIC PAIN 11/08/2011 IANAPRIL Tidwell APRN A V25.01 CONTRACEPTION - ORAL CONTRACEPTION 11/08/2011 IANAPRIL Tidwell APRN A V74.5 Std Screen 11/08/2011 CHENTE DEWITT MD 625.9 PELVIC PAIN 11/08/2011 CHENTE DEWITT MD V25.01 CONTRACEPTION - ORAL CONTRACEPTION 11/08/2011 CHENTE DEWITT MD V74.5 Std Screen 11/21/2011 BRAD DONALD DO 536.8 Dyspepsia 11/21/2011 BRAD DONALD DO 788.1 Dysuria 11/21/2011 536.8 Dyspepsia 11/21/2011 788.1 Dysuria 11/21/2011 ARIANNE FERGUSON MD 536.8 Dyspepsia 11/21/2011 ARIANNE FERGUSON MD 788.1 Dysuria 11/21/2011 ELI ANGEL APRN 536.8 Dyspepsia 11/21/2011 ELI ANGEL APRN 788.1 Dysuria 11/21/2011 536.8 Dyspepsia 11/21/2011 788.1 Dysuria 11/21/2011 536.8 Dyspepsia 11/21/2011 788.1 Dysuria 11/21/2011 536.8 Dyspepsia 11/21/2011 788.1 Dysuria 11/21/2011 BRAD DONALD DO 536.8 Dyspepsia 11/21/2011 BRAD DONALD DO 788.1 Dysuria 11/21/2011 CAROLYN MCCOY APRN 536.8 Dyspepsia 11/21/2011 CAROLYN MCCOY APRN 788.1 Dysuria 11/21/2011 536.8 Dyspepsia 11/21/2011 788.1 Dysuria 11/21/2011 536.8 Dyspepsia 11/21/2011 788.1 Dysuria 11/21/2011 536.8 Dyspepsia 11/21/2011 788.1 Dysuria 11/21/2011 536.8 Dyspepsia 11/21/2011 788.1 Dysuria 11/21/2011 536.8 Dyspepsia 11/21/2011 788.1 Dysuria 11/21/2011 536.8 Dyspepsia 11/21/2011 788.1 Dysuria 11/21/2011 IANSHELBY ROGEL, APRIL A 536.8 Dyspepsia 11/21/2011 IANSHELBY ROGEL, APRIL A 788.1 Dysuria 11/21/2011 CHENTE DEWITT MD N 536.8 Dyspepsia 11/21/2011 CHENTE DEWITT MD N 788.1 Dysuria 11/21/2011 REED ROGEL CHILO S 536.8 Dyspepsia 11/21/2011 REED ROGEL CHILO S 788.1 Dysuria 11/21/2011 IAN ROGEL, APRIL A 536.8 Dyspepsia 11/21/2011 IANSHELBY ROGEL, APRIL A 788.1 Dysuria 11/21/2011 CHENTE DEWITT MD N 536.8 Dyspepsia 11/21/2011 CHENTE DEWITT MD N 788.1 Dysuria 11/29/2011 BRAD DONALD DO 780.99 loss of pleasure from usual activities (anhedonia) 11/29/2011 BRAD DONALD DO 789.07 Abdominal Pain Generalized 11/29/2011 780.99 loss of pleasure from usual activities (anhedonia) 11/29/2011 789.07 Abdominal Pain Generalized 11/29/2011 ARIANNE FERGUSON MD 780.99 loss of pleasure from usual activities (anhedonia) 11/29/2011 ARIANNE FERGUSON MD 789.07 Abdominal Pain Generalized 11/29/2011 ELI ANGEL APRN 780.99 loss of pleasure from usual activities (anhedonia) 11/29/2011 ELI ANGEL APRN 789.07 Abdominal Pain Generalized 11/29/2011 780.99 Loss Of Pleasure From Usual Activities (anhedonia) 11/29/2011 789.07 Abdominal Pain Generalized 11/29/2011 780.99 Loss Of Pleasure From Usual Activities (anhedonia) 11/29/2011 789.07 Abdominal Pain Generalized 11/29/2011 780.99 Loss Of Pleasure From Usual Activities (anhedonia) 11/29/2011 789.07 Abdominal Pain Generalized 11/29/2011 BRAD DONALD DO 780.99 Loss Of Pleasure From Usual Activities (anhedonia) 11/29/2011 SHABANA FAIRBANKSBRAD K 789.07 Abdominal Pain Generalized 11/29/2011 CAROLYN MCCOY APRN 780.99 Loss Of Pleasure From Usual Activities (anhedonia) 11/29/2011 CAROLYN MCCOY APRN 789.07 Abdominal Pain Generalized 11/29/2011 780.99 Loss Of Pleasure From Usual Activities (anhedonia) 11/29/2011 789.07 Abdominal Pain Generalized 11/29/2011 780.99 Loss Of Pleasure From Usual Activities (anhedonia) 11/29/2011 789.07 Abdominal Pain Generalized 11/29/2011 780.99 Loss Of Pleasure From Usual Activities (anhedonia) 11/29/2011 789.07 Abdominal Pain Generalized 11/29/2011 780.99 Loss Of Pleasure From Usual Activities (anhedonia) 11/29/2011 789.07 Abdominal Pain Generalized 11/29/2011 780.99 Loss Of Pleasure From Usual Activities (anhedonia) 11/29/2011 789.07 Abdominal Pain Generalized 11/29/2011 780.99 Loss Of Pleasure From Usual Activities (anhedonia) 11/29/2011 789.07 Abdominal Pain Generalized 11/29/2011 APRIL SOSA APRN 780.99 Loss Of Pleasure From Usual Activities (anhedonia) 11/29/2011 APRIL SOSA APRN 789.07 Abdominal Pain Generalized 11/29/2011 CHENTE DEWITT MD 780.99 Loss Of Pleasure From Usual Activities (anhedonia) 11/29/2011 CHENTE DEWITT MD 789.07 Abdominal Pain Generalized 11/29/2011 CHILO MCBRIDE APRN 780.99 Loss Of Pleasure From Usual Activities (anhedonia) 11/29/2011 CHILO MCBRIDE APRN 789.07 Abdominal Pain Generalized 11/29/2011 APRIL SOSA APRN 780.99 Loss Of Pleasure From Usual Activities (anhedonia) 11/29/2011 APRIL SOSA APRN A 789.07 Abdominal Pain Generalized 11/29/2011 CHENTE DEWITT MD 780.99 Loss Of Pleasure From Usual Activities (anhedonia) 11/29/2011 CHENTE DEWITT MD 789.07 Abdominal Pain Generalized 12/11/2011 BRAD DONALD DO 465.9 Upper Respiratory Infection 12/11/2011 DONALD BRAD FAIRBANKS 787.91 Diarrhea 12/11/2011 465.9 Upper Respiratory Infection 12/11/2011 787.91 Diarrhea 12/11/2011 ARIANNE FERGUSON MD 465.9 Upper Respiratory Infection 12/11/2011 ARIANNE FERGUSON MD 787.91 Diarrhea 12/11/2011 ELI ANGEL APRN 465.9 Upper Respiratory Infection 12/11/2011 ELI ANGEL APRN 787.91 Diarrhea 12/11/2011 465.9 Upper Respiratory Infection 12/11/2011 787.91 Diarrhea 12/11/2011 465.9 Upper Respiratory Infection 12/11/2011 787.91 Diarrhea 12/11/2011 465.9 Upper Respiratory Infection 12/11/2011 787.91 Diarrhea 12/11/2011 BRAD DONALD DO 465.9 Upper Respiratory Infection 12/11/2011 BRAD DONALD DO 787.91 Diarrhea 12/11/2011 CAROLYN MCCOY APRN 465.9 Upper Respiratory Infection 12/11/2011 CAROLYN MCCOY APRN 787.91 Diarrhea 12/11/2011 465.9 Upper Respiratory Infection 12/11/2011 787.91 Diarrhea 12/11/2011 465.9 Upper Respiratory Infection 12/11/2011 787.91 Diarrhea 12/11/2011 465.9 Upper Respiratory Infection 12/11/2011 787.91 Diarrhea 12/11/2011 465.9 Upper Respiratory Infection 12/11/2011 787.91 Diarrhea 12/11/2011 465.9 Upper Respiratory Infection 12/11/2011 787.91 Diarrhea 12/11/2011 465.9 Upper Respiratory Infection 12/11/2011 787.91 Diarrhea 12/11/2011 APRIL SOSA APRN 465.9 Upper Respiratory Infection 12/11/2011 APRIL SOSA APRN 787.91 Diarrhea 12/11/2011 CHENTE DEWITT MD 465.9 Upper Respiratory Infection 12/11/2011 CHENTE DEWITT MD 787.91 Diarrhea 12/11/2011 CHILO MCBRIDE APRN 465.9 Upper Respiratory Infection 12/11/2011 CHILO MCBRIDE APRN 787.91 Diarrhea 12/11/2011 APRIL SOSA APRN 465.9 Upper Respiratory Infection 12/11/2011 APRIL SOSA APRN 787.91 Diarrhea 12/11/2011 CHENTE DEWITT MD 465.9 Upper Respiratory Infection 12/11/2011 CHENTE DEWITT MD 787.91 Diarrhea 12/14/2011 BRAD DONALD DO 008.8 Gastroenteritis, Viral 12/14/2011 BRAD DONALD DO 564.1 IRRITABLE BOWEL SYNDROME 12/14/2011 008.8 Gastroenteritis, Viral 12/14/2011 564.1 IRRITABLE BOWEL SYNDROME 12/14/2011 ARIANNE FERGUSON MD 008.8 Gastroenteritis, Viral 12/14/2011 ARIANNE FERGUSON MD 564.1 IRRITABLE BOWEL SYNDROME 12/14/2011 ELI ANGEL APRN 008.8 Gastroenteritis, Viral 12/14/2011 ELI ANGEL APRN 564.1 IRRITABLE BOWEL SYNDROME 12/14/2011 008.8 Gastroenteritis, Viral 12/14/2011 564.1 IRRITABLE BOWEL SYNDROME 12/14/2011 008.8 Gastroenteritis, Viral 12/14/2011 564.1 IRRITABLE BOWEL SYNDROME 12/14/2011 008.8 Gastroenteritis, Viral 12/14/2011 564.1 IRRITABLE BOWEL SYNDROME 12/14/2011 BRAD DONALD DO 008.8 Gastroenteritis, Viral 12/14/2011 BRAD DONALD DO 564.1 IRRITABLE BOWEL SYNDROME 12/14/2011 CAROLYN MCCOY APRN 008.8 Gastroenteritis, Viral 12/14/2011 CAROLYN MCCOY APRN 564.1 IRRITABLE BOWEL SYNDROME 12/14/2011 008.8 Gastroenteritis, Viral 12/14/2011 564.1 IRRITABLE BOWEL SYNDROME 12/14/2011 008.8 Gastroenteritis, Viral 12/14/2011 564.1 IRRITABLE BOWEL SYNDROME 12/14/2011 008.8 Gastroenteritis, Viral 12/14/2011 564.1 IRRITABLE BOWEL SYNDROME 12/14/2011 008.8 Gastroenteritis, Viral 12/14/2011 564.1 IRRITABLE BOWEL SYNDROME 12/14/2011 008.8 Gastroenteritis, Viral 12/14/2011 564.1 IRRITABLE BOWEL SYNDROME 12/14/2011 008.8 Gastroenteritis, Viral 12/14/2011 564.1 IRRITABLE BOWEL SYNDROME 12/14/2011 IAN MUSEUM EXHIBIT TECHNICIAN, APRIL A 008.8 Gastroenteritis, Viral 12/14/2011 IAN APRN, APRIL A 564.1 IRRITABLE BOWEL SYNDROME 12/14/2011 CHENTE DEWITT MD N 008.8 Gastroenteritis, Viral 12/14/2011 RENATE ESPARZA, CHENTE N 564.1 IRRITABLE BOWEL SYNDROME 12/14/2011 REED ROGEL, CHILO S 008.8 Gastroenteritis, Viral 12/14/2011 REED ROGEL, CHILO S 564.1 IRRITABLE BOWEL SYNDROME 12/14/2011 IANSHELBY ROGEL, APRIL A 008.8 Gastroenteritis, Viral 12/14/2011 IAN APRN, APRIL A 564.1 IRRITABLE BOWEL SYNDROME 12/14/2011 CHENTE DEWITT MD N 008.8 Gastroenteritis, Viral 12/14/2011 CHENTE DEWITT MD N 564.1 IRRITABLE BOWEL SYNDROME 01/02/2012 BRAD DNOALD DO 780.54 HYPERSOMNIA UNSPECIFIED 01/02/2012 BRAD DONALD DO 780.79 Other Malaise And Fatigue 01/02/2012 780.54 HYPERSOMNIA UNSPECIFIED 01/02/2012 780.79 Other Malaise And Fatigue 01/02/2012 ARIANNE FERGUSON MD 780.54 HYPERSOMNIA UNSPECIFIED 01/02/2012 ARIANNE FERGUSON MD 780.79 Other Malaise And Fatigue 01/02/2012 ELI ANGEL APRN 780.54 HYPERSOMNIA UNSPECIFIED 01/02/2012 ELI ANGEL APRN 780.79 Other Malaise And Fatigue 01/02/2012 780.54 HYPERSOMNIA UNSPECIFIED 01/02/2012 780.79 Other Malaise And Fatigue 01/02/2012 780.54 HYPERSOMNIA UNSPECIFIED 01/02/2012 780.79 Other Malaise And Fatigue 01/02/2012 780.54 HYPERSOMNIA UNSPECIFIED 01/02/2012 780.79 Other Malaise And Fatigue 01/02/2012 BRAD DONALD DO 780.54 HYPERSOMNIA UNSPECIFIED 01/02/2012 BRAD DONALD DO 780.79 Other Malaise And Fatigue 01/02/2012 CAROLYN MCCOY APRN 780.54 HYPERSOMNIA UNSPECIFIED 01/02/2012 CAROLYN MCCOY APRN 780.79 Other Malaise And Fatigue 01/02/2012 780.54 HYPERSOMNIA UNSPECIFIED 01/02/2012 780.79 Other Malaise And Fatigue 01/02/2012 780.54 HYPERSOMNIA UNSPECIFIED 01/02/2012 780.79 Other Malaise And Fatigue 01/02/2012 780.54 HYPERSOMNIA UNSPECIFIED 01/02/2012 780.79 Other Malaise And Fatigue 01/02/2012 780.54 HYPERSOMNIA UNSPECIFIED 01/02/2012 780.79 Other Malaise And Fatigue 01/02/2012 780.54 HYPERSOMNIA UNSPECIFIED 01/02/2012 780.79 Other Malaise And Fatigue 01/02/2012 780.54 HYPERSOMNIA UNSPECIFIED 01/02/2012 780.79 Other Malaise And Fatigue 01/02/2012 APRIL SOSA APRN 780.54 HYPERSOMNIA UNSPECIFIED 01/02/2012 APRIL SOSA APRN 780.79 Other Malaise And Fatigue 01/02/2012 CHENTE DEWITT MD 780.54 HYPERSOMNIA UNSPECIFIED 01/02/2012 CHENTE DEWITT MD 780.79 Other Malaise And Fatigue 01/02/2012 CHILO MCBRIDE APRN S 780.54 HYPERSOMNIA UNSPECIFIED 01/02/2012 CHILO MCBRIDE APRN S 780.79 Other Malaise And Fatigue 01/02/2012 APRIL SOSA APRN 780.54 HYPERSOMNIA UNSPECIFIED 01/02/2012 APRIL SOSA APRN 780.79 Other Malaise And Fatigue 01/02/2012 CHENTE DEWITT MD 780.54 HYPERSOMNIA UNSPECIFIED 01/02/2012 CHENTE DEWITT MD 780.79 Other Malaise And Fatigue 01/08/2012 BRAD DONALD DO 461.9 Sinusitis Acute 01/08/2012 461.9 Sinusitis Acute 01/08/2012 ARIANNE FERGUSON MD 461.9 Sinusitis Acute 01/08/2012 ELI ANGEL APRN 461.9 Sinusitis Acute 01/08/2012 461.9 Sinusitis Acute 01/08/2012 461.9 Sinusitis Acute 01/08/2012 461.9 Sinusitis Acute 01/08/2012 BRAD DONALD DO 461.9 Sinusitis Acute 01/08/2012 CAROLYN MCCOY APRN 461.9 Sinusitis Acute 01/08/2012 461.9 Sinusitis Acute 01/08/2012 461.9 Sinusitis Acute 01/08/2012 461.9 Sinusitis Acute 01/08/2012 461.9 Sinusitis Acute 01/08/2012 461.9 Sinusitis Acute 01/08/2012 461.9 Sinusitis Acute 01/08/2012 APRIL SOSA APRN 461.9 Sinusitis Acute 01/08/2012 CHENTE DEWITT MD 461.9 Sinusitis Acute 01/08/2012 CHILO MCBRIDE APRN 461.9 Sinusitis Acute 01/08/2012 APRIL SOSA APRN A 461.9 Sinusitis Acute 01/08/2012 CHENTE DEWITT MD 461.9 Sinusitis Acute 01/15/2012 BRAD DONALD DO 787.02 Nausea Alone 01/15/2012 BRAD DONALD DO 787.3 Gas/bloating Pain 01/15/2012 BRAD DONALD DO 789.07 Abdominal Pain Generalized 01/15/2012 787.02 Nausea Alone 01/15/2012 787.3 Gas/bloating Pain 01/15/2012 789.07 Abdominal Pain Generalized 01/15/2012 ARIANNE FERGUSON MD 787.02 Nausea Alone 01/15/2012 ARIANNE FERGUSON MD 787.3 Gas/bloating Pain 01/15/2012 ARIANNE FERGUSON MD 789.07 Abdominal Pain Generalized 01/15/2012 ELI ANGEL APRN 787.02 Nausea Alone 01/15/2012 ELI ANGEL APRN 787.3 Gas/bloating Pain 01/15/2012 ELI ANGEL APRN 789.07 Abdominal Pain Generalized 01/15/2012 787.02 Nausea Alone 01/15/2012 787.3 Gas/bloating Pain 01/15/2012 789.07 Abdominal Pain Generalized 01/15/2012 787.02 Nausea Alone 01/15/2012 787.3 Gas/bloating Pain 01/15/2012 789.07 Abdominal Pain Generalized 01/15/2012 787.02 Nausea Alone 01/15/2012 787.3 Gas/bloating Pain 01/15/2012 789.07 Abdominal Pain Generalized 01/15/2012 BRAD DONALD DO K 787.02 Nausea Alone 01/15/2012 BRAD DONALD DO K 787.3 Gas/bloating Pain 01/15/2012 BRAD DONALD DO K 789.07 Abdominal Pain Generalized 01/15/2012 NADINE NARVAEZNCAROLYN 787.02 Nausea Alone 01/15/2012 MCCOY MUSEUM EXHIBIT TECHNICIANCAROLYN 787.3 Gas/bloating Pain 01/15/2012 MCCOY MUSEUM EXHIBIT TECHNICIANCAROLYN 789.07 Abdominal Pain Generalized 01/15/2012 787.02 Nausea Alone 01/15/2012 787.3 Gas/bloating Pain 01/15/2012 789.07 Abdominal Pain Generalized 01/15/2012 787.02 nausea 01/15/2012 787.3 Gas/bloating Pain 01/15/2012 789.07 Abdominal Pain Generalized 01/15/2012 787.02 nausea 01/15/2012 787.3 Gas/bloating Pain 01/15/2012 789.07 Abdominal Pain Generalized 01/15/2012 787.02 nausea 01/15/2012 787.3 Gas/bloating Pain 01/15/2012 789.07 Abdominal Pain Generalized 01/15/2012 787.02 nausea 01/15/2012 787.3 Gas/bloating Pain 01/15/2012 789.07 Abdominal Pain Generalized 01/15/2012 787.02 nausea 01/15/2012 787.3 Gas/bloating Pain 01/15/2012 789.07 Abdominal Pain Generalized 01/15/2012 APRIL SOSA APRN A 787.02 nausea 01/15/2012 APRIL SOSA APRN A 787.3 Gas/bloating Pain 01/15/2012 APRIL SOSA APRN A 789.07 Abdominal Pain Generalized 01/15/2012 CHENTE DEWITT MD 787.02 nausea 01/15/2012 CHENTE DEWITT MD 787.3 Gas/bloating Pain 01/15/2012 CHENTE DEWITT MD 789.07 Abdominal Pain Generalized 01/15/2012 CHILO MCBRIDE APRN 787.02 nausea 01/15/2012 CHILO MCBRIDE APRN 787.3 Gas/bloating Pain 01/15/2012 CHILO MCBRIDE APRN 789.07 Abdominal Pain Generalized 01/15/2012 IANAPRIL Tidwell APRN A 787.02 nausea 01/15/2012 IANAPRIL Tidwell APRN A 787.3 Gas/bloating Pain 01/15/2012 IANAPRIL Tidwell APRN A 789.07 Abdominal Pain Generalized 01/15/2012 CHENTE DEWITT MD N 787.02 nausea 01/15/2012 CHENTE DEWITT MD N 787.3 Gas/bloating Pain 01/15/2012 CHENTE DEWITT MD N 789.07 Abdominal Pain Generalized 01/26/2012 BRAD DONALD DO 728.85 Muscle Spasm 01/26/2012 BRAD DONALD DO 784.0 Headache 01/26/2012 728.85 Muscle Spasm 01/26/2012 784.0 Headache 01/26/2012 ARIANNE FERGUSON MD 728.85 Muscle Spasm 01/26/2012 ARIANNE FERGUSON MD 784.0 Headache 01/26/2012 ELI ANGEL APRN 728.85 Muscle Spasm 01/26/2012 ELI ANGEL APRN 784.0 Headache 01/26/2012 728.85 Muscle Spasm 01/26/2012 784.0 Headache 01/26/2012 728.85 Muscle Spasm 01/26/2012 784.0 Headache 01/26/2012 728.85 Muscle Spasm 01/26/2012 784.0 Headache 01/26/2012 BRAD DONALD DO 728.85 Muscle Spasm 01/26/2012 BRAD DONALD DO 784.0 Headache 01/26/2012 CAROLYN MCCOY APRN 728.85 Muscle Spasm 01/26/2012 CAROLYN MCCOY APRN 784.0 Headache 01/26/2012 728.85 Muscle Spasm 01/26/2012 784.0 Headache 01/26/2012 728.85 Muscle Spasm 01/26/2012 784.0 Headache 01/26/2012 728.85 Muscle Spasm 01/26/2012 784.0 Headache 01/26/2012 728.85 Muscle Spasm 01/26/2012 784.0 Headache 01/26/2012 728.85 Muscle Spasm 01/26/2012 784.0 Headache 01/26/2012 728.85 Muscle Spasm 01/26/2012 784.0 Headache 01/26/2012 APRIL SOSA APRN A 728.85 Muscle Spasm 01/26/2012 APRIL SOSA APRN A 784.0 Headache 01/26/2012 CHENTE DEWITT MD 728.85 Muscle Spasm 01/26/2012 CHENTE DEWITT MD 784.0 Headache 01/26/2012 CHILO MCBRIDE APRN S 728.85 Muscle Spasm 01/26/2012 CHILO MCBRIDE APRN S 784.0 Headache 01/26/2012 APRIL SOSA APRN 728.85 Muscle Spasm 01/26/2012 APRIL OSSA APRN A 784.0 Headache 01/26/2012 CHENTE DEWITT MD 728.85 Muscle Spasm 01/26/2012 CHENTE DEWITT MD 784.0 Headache 03/19/2012 BRAD DONALD DO 530.13 EOSINOPHILIC ESOPHAGITIS 03/19/2012 530.13 EOSINOPHILIC ESOPHAGITIS 03/19/2012 ARIANNE FERGUSON MD 530.13 EOSINOPHILIC ESOPHAGITIS 03/19/2012 ELI ANGEL APRN 530.13 EOSINOPHILIC ESOPHAGITIS 03/19/2012 530.13 EOSINOPHILIC ESOPHAGITIS 03/19/2012 530.13 EOSINOPHILIC ESOPHAGITIS 03/19/2012 530.13 EOSINOPHILIC ESOPHAGITIS 03/19/2012 BRAD DONALD DO 530.13 EOSINOPHILIC ESOPHAGITIS 03/19/2012 CAROLYN MCCOY APRN 530.13 EOSINOPHILIC ESOPHAGITIS 03/19/2012 530.13 EOSINOPHILIC ESOPHAGITIS 03/19/2012 530.13 EOSINOPHILIC ESOPHAGITIS 03/19/2012 530.13 EOSINOPHILIC ESOPHAGITIS 03/19/2012 530.13 EOSINOPHILIC ESOPHAGITIS 03/19/2012 530.13 EOSINOPHILIC ESOPHAGITIS 03/19/2012 530.13 EOSINOPHILIC ESOPHAGITIS 03/19/2012 APRIL SOSA APRN 530.13 EOSINOPHILIC ESOPHAGITIS 03/19/2012 CHENTE DEWITT MD 530.13 EOSINOPHILIC ESOPHAGITIS 03/19/2012 CHILO MCBRIDE APRN 530.13 EOSINOPHILIC ESOPHAGITIS 03/19/2012 APRIL SOSA APRN 530.13 EOSINOPHILIC ESOPHAGITIS 03/19/2012 CHENTE DEWITT MD 530.13 EOSINOPHILIC ESOPHAGITIS 03/23/2012 BRAD DONALD DO 626.9 MENSTRUATION AND OTHER ABNORMAL BLEEDING FROM FEMALE GENITAL TRACT 04/04/2012 Ot 327.51 PERIODIC LIMB MOVEMENT DISORDER 07/03/2012 BRAD DONALD DO 698.9 UNSPECIFIED PRURITIC DISORDER 07/03/2012 BRAD DONALD DO 782.1 RASH 07/03/2012 698.9 UNSPECIFIED PRURITIC DISORDER 07/03/2012 782.1 RASH 07/03/2012 ARIANNE FERGUSON MD 698.9 UNSPECIFIED PRURITIC DISORDER 07/03/2012 ARIANNE FERGUSON MD 782.1 RASH 07/03/2012 ELI ANGEL APRN 698.9 UNSPECIFIED PRURITIC DISORDER 07/03/2012 ELI ANGEL APRN 782.1 RASH 07/03/2012 698.9 Unspecified Pruritic Disorder 07/03/2012 782.1 Rash 07/03/2012 698.9 Unspecified Pruritic Disorder 07/03/2012 782.1 Rash 07/03/2012 698.9 Unspecified Pruritic Disorder 07/03/2012 782.1 Rash 07/03/2012 BRAD DONALD DO 698.9 Unspecified Pruritic Disorder 07/03/2012 BRAD DONALD DO 782.1 Rash 07/03/2012 CAROLYN MCCOY APRN 698.9 Unspecified Pruritic Disorder 07/03/2012 CAROLYN MCCOY APRN 782.1 Rash 07/03/2012 698.9 Unspecified Pruritic Disorder 07/03/2012 782.1 Rash 07/03/2012 698.9 Unspecified Pruritic Disorder 07/03/2012 782.1 Rash 07/03/2012 698.9 Unspecified Pruritic Disorder 07/03/2012 782.1 Rash 07/03/2012 698.9 Unspecified Pruritic Disorder 07/03/2012 782.1 Rash 07/03/2012 698.9 Unspecified Pruritic Disorder 07/03/2012 782.1 Rash 07/03/2012 698.9 Unspecified Pruritic Disorder 07/03/2012 782.1 Rash 07/03/2012 APRIL SOSA APRN 698.9 Unspecified Pruritic Disorder 07/03/2012 APRIL SOSA APRN 782.1 Rash 07/03/2012 RENATE ESPARZA, CHENTE N 698.9 Unspecified Pruritic Disorder 07/03/2012 CHENTE DEWITT MD N 782.1 Rash 07/03/2012 REED ROGEL, CHILO S 698.9 Unspecified Pruritic Disorder 07/03/2012 REED ROGEL, CHILO S 782.1 Rash 07/03/2012 IAN APRN, APRIL A 698.9 Unspecified Pruritic Disorder 07/03/2012 IAN APRN, APRIL A 782.1 Rash 07/03/2012 RENATE ESPARZA, CHENTE N 698.9 Unspecified Pruritic Disorder 07/03/2012 RENATE ESPARZA, CHENTE N 782.1 Rash 07/03/2012 BRAD DONALD DO K 626.9 MENSTRUATION AND OTHER ABNORMAL BLEEDING FROM FEMALE GENITAL TRACT 07/04/2012 BRAD DONALD DO 787.01 NAUSEA WITH VOMITING 07/04/2012 BRAD DONALD DO 787.91 DIARRHEA 07/04/2012 BRAD DONALD DO 789.06 ABDOMINAL PAIN EPIGASTRIC 07/04/2012 787.01 NAUSEA WITH VOMITING 07/04/2012 787.91 DIARRHEA 07/04/2012 789.06 ABDOMINAL PAIN EPIGASTRIC 07/04/2012 ARIANNE FERGUSON MD 787.01 NAUSEA WITH VOMITING 07/04/2012 ARIANNE FERGUSON MD 787.91 DIARRHEA 07/04/2012 ARIANNE FERGUSON MD 789.06 ABDOMINAL PAIN EPIGASTRIC 07/04/2012 ELI ANGEL APRN 787.01 NAUSEA WITH VOMITING 07/04/2012 ELI ANGEL APRN 787.91 DIARRHEA 07/04/2012 ELI ANGEL APRN 789.06 ABDOMINAL PAIN EPIGASTRIC 07/04/2012 787.01 Nausea With Vomiting 07/04/2012 787.91 Diarrhea 07/04/2012 789.06 Abdominal Pain Epigastric 07/04/2012 787.01 Nausea With Vomiting 07/04/2012 787.91 Diarrhea 07/04/2012 789.06 Abdominal Pain Epigastric 07/04/2012 787.01 Nausea With Vomiting 07/04/2012 787.91 Diarrhea 07/04/2012 789.06 Abdominal Pain Epigastric 07/04/2012 PHI DONALD DOA K 787.01 Nausea With Vomiting 07/04/2012 SHABANA FAIRBANKSPHIA K 787.91 Diarrhea 07/04/2012 DONALD PHI FAIRBANKSA K 789.06 Abdominal Pain Epigastric 07/04/2012 CAROLYN MCCOY APRN 787.01 Nausea With Vomiting 07/04/2012 CAROLYN MCCOY APRN 787.91 Diarrhea 07/04/2012 CAROLYN MCCOY APRN 789.06 Abdominal Pain Epigastric 07/04/2012 787.01 Nausea With Vomiting 07/04/2012 787.91 Diarrhea 07/04/2012 789.06 Abdominal Pain Epigastric 07/04/2012 787.01 Nausea With Vomiting 07/04/2012 787.91 Diarrhea 07/04/2012 789.06 Abdominal Pain Epigastric 07/04/2012 787.01 Nausea With Vomiting 07/04/2012 787.91 Diarrhea 07/04/2012 789.06 Abdominal Pain Epigastric 07/04/2012 787.01 Nausea With Vomiting 07/04/2012 787.91 Diarrhea 07/04/2012 789.06 Abdominal Pain Epigastric 07/04/2012 787.01 Nausea With Vomiting 07/04/2012 787.91 Diarrhea 07/04/2012 789.06 Abdominal Pain Epigastric 07/04/2012 787.01 Nausea With Vomiting 07/04/2012 787.91 Diarrhea 07/04/2012 789.06 Abdominal Pain Epigastric 07/04/2012 APRIL SOSA APRN A 787.01 Nausea With Vomiting 07/04/2012 APRIL SOSA APRN A 787.91 Diarrhea 07/04/2012 APRIL SOSA APRN A 789.06 Abdominal Pain Epigastric 07/04/2012 CHENTE DEWITT MD 787.01 Nausea With Vomiting 07/04/2012 CHENTE DEWITT MD 787.91 Diarrhea 07/04/2012 CHENTE DEWITT MD 789.06 Abdominal Pain Epigastric 07/04/2012 CHILO MCBRIDE APRN 787.01 Nausea With Vomiting 07/04/2012 CHILO MCBRIDE APRN S 787.91 Diarrhea 07/04/2012 CHILO MCBRIDE APRN S 789.06 Abdominal Pain Epigastric 07/04/2012 APRIL SOSA APRN A 787.01 Nausea With Vomiting 07/04/2012 APRIL SOSA APRN A 787.91 Diarrhea 07/04/2012 APRIL SOSA APRN A 789.06 Abdominal Pain Epigastric 07/04/2012 CHENTE DEWITT MD 787.01 Nausea With Vomiting 07/04/2012 CHENTE DEWITT MD 787.91 Diarrhea 07/04/2012 CHENTE DEWITT MD 789.06 Abdominal Pain Epigastric 07/04/2012 BRAD DONALD DO 626.9 MENSTRUATION AND OTHER ABNORMAL BLEEDING FROM FEMALE GENITAL TRACT 07/10/2012 Ot 599.0 URIN TRACT INFECTION NOS 07/10/2012 Ot 789.09 ABDOMINAL PAIN, OTHER SPECIFIED SITE 07/12/2012 BRAD DONALD DO 789.03 ABDOMINAL PAIN RIGHT LOWER QUADRANT 07/12/2012 789.03 ABDOMINAL PAIN RIGHT LOWER QUADRANT 07/12/2012 ARIANNE FERGUSON MD 789.03 ABDOMINAL PAIN RIGHT LOWER QUADRANT 07/12/2012 ELI ANGEL APRN 789.03 ABDOMINAL PAIN RIGHT LOWER QUADRANT 07/12/2012 789.03 Abdominal Pain Right Lower Quadrant 07/12/2012 789.03 Abdominal Pain Right Lower Quadrant 07/12/2012 789.03 Abdominal Pain Right Lower Quadrant 07/12/2012 BRAD DONALD DO 789.03 Abdominal Pain Right Lower Quadrant 07/12/2012 CAROLYN MCCOY APRN 789.03 Abdominal Pain Right Lower Quadrant 07/12/2012 789.03 Abdominal Pain Right Lower Quadrant 07/12/2012 789.03 Abdominal Pain Right Lower Quadrant 07/12/2012 789.03 Abdominal Pain Right Lower Quadrant 07/12/2012 789.03 Abdominal Pain Right Lower Quadrant 07/12/2012 789.03 Abdominal Pain Right Lower Quadrant 07/12/2012 789.03 Abdominal Pain Right Lower Quadrant 07/12/2012 APRIL SOSA APRN 789.03 Abdominal Pain Right Lower Quadrant 07/12/2012 CHENTE DEWITT MD 789.03 Abdominal Pain Right Lower Quadrant 07/12/2012 CHILO MCBRIDE APRN 789.03 Abdominal Pain Right Lower Quadrant 07/12/2012 APRIL SOSA APRN 789.03 Abdominal Pain Right Lower Quadrant 07/12/2012 CHENTE DEWITT MD 789.03 Abdominal Pain Right Lower Quadrant 07/12/2012 BRAD DONALD DO 626.9 MENSTRUATION AND OTHER ABNORMAL BLEEDING FROM FEMALE GENITAL TRACT 07/13/2012 BRAD DONALD DO 626.9 MENSTRUATION AND OTHER ABNORMAL BLEEDING FROM FEMALE GENITAL TRACT 08/09/2012 789.09 ABDOMINAL PAIN OTHER SPECIFIED SITE 08/09/2012 ARIANNE FERGUSON MD 789.09 abdominal pain above the pubic area (suprapubic) 08/09/2012 ELI ANGEL APRN 789.09 abdominal pain above the pubic area (suprapubic) 08/09/2012 789.09 Abdominal Pain Above The Pubic Area (suprapubic) 08/09/2012 789.09 Abdominal Pain Above The Pubic Area (suprapubic) 08/09/2012 789.09 Abdominal Pain Above The Pubic Area (suprapubic) 08/09/2012 BRAD DONALD DO 789.09 Abdominal Pain Above The Pubic Area (suprapubic) 08/09/2012 CAROLYN MCCOY APRN 789.09 Abdominal Pain Above The Pubic Area (suprapubic) 08/09/2012 789.09 Abdominal Pain Above The Pubic Area (suprapubic) 08/09/2012 789.09 Abdominal Pain Above The Pubic Area (suprapubic) 08/09/2012 789.09 Abdominal Pain Above The Pubic Area (suprapubic) 08/09/2012 789.09 Abdominal Pain Above The Pubic Area (suprapubic) 08/09/2012 789.09 Abdominal Pain Above The Pubic Area (suprapubic) 08/09/2012 789.09 Abdominal Pain Above The Pubic Area (suprapubic) 08/09/2012 APRIL SOSA APRN 789.09 Abdominal Pain Above The Pubic Area (suprapubic) 08/09/2012 CHENTE DEWITT MD 789.09 Abdominal Pain Above The Pubic Area (suprapubic) 08/09/2012 CHILO MCBRIDE APRN 789.09 Abdominal Pain Above The Pubic Area (suprapubic) 08/09/2012 APRIL SOSA APRN 789.09 Abdominal Pain Above The Pubic Area (suprapubic) 08/09/2012 CHENTE DEWITT MD 789.09 Abdominal Pain Above The Pubic Area (suprapubic) 08/09/2012 626.9 MENSTRUATION AND OTHER ABNORMAL BLEEDING FROM FEMALE GENITAL TRACT 08/13/2012 ARIANNE FERGUSON MD 599.0 URINARY TRACT INFECTION 08/13/2012 ARIANNE FERGUSON MD 611.71 breast pain 08/13/2012 ARIANNE FERGUSON MD 626.4 irregular length of menstrual periods 08/13/2012 ELI ANGEL APRN 599.0 URINARY TRACT INFECTION 08/13/2012 ELI ANGEL APRN 611.71 breast pain 08/13/2012 ELI ANGEL APRN 626.4 irregular length of menstrual periods 08/13/2012 599.0 Urinary Tract Infection 08/13/2012 611.71 Breast Pain 08/13/2012 626.4 Irregular Length Of Menstrual Periods 08/13/2012 599.0 Urinary Tract Infection 08/13/2012 611.71 Breast Pain 08/13/2012 626.4 Irregular Length Of Menstrual Periods 08/13/2012 599.0 Urinary Tract Infection 08/13/2012 611.71 Breast Pain 08/13/2012 626.4 Irregular Length Of Menstrual Periods 08/13/2012 BRAD DONALD DO 599.0 Urinary Tract Infection 08/13/2012 BRAD DONALD DO K 611.71 Breast Pain 08/13/2012 BRAD DONALD DO K 626.4 Irregular Length Of Menstrual Periods 08/13/2012 CAROLYN MCCOY APRN 599.0 Urinary Tract Infection 08/13/2012 CAROLYN MCCOY APRN 611.71 Breast Pain 08/13/2012 CAROLYN MCCOY APRN 626.4 Irregular Length Of Menstrual Periods 08/13/2012 599.0 Urinary Tract Infection 08/13/2012 611.71 Breast Pain 08/13/2012 626.4 Irregular Length Of Menstrual Periods 08/13/2012 599.0 Urinary Tract Infection 08/13/2012 611.71 Breast Pain 08/13/2012 626.4 Irregular Length Of Menstrual Periods 08/13/2012 599.0 Urinary Tract Infection 08/13/2012 611.71 Breast Pain 08/13/2012 626.4 Irregular Length Of Menstrual Periods 08/13/2012 599.0 Urinary Tract Infection 08/13/2012 611.71 Breast Pain 08/13/2012 626.4 Irregular Length Of Menstrual Periods 08/13/2012 599.0 Urinary Tract Infection 08/13/2012 611.71 Breast Pain 08/13/2012 626.4 Irregular Length Of Menstrual Periods 08/13/2012 599.0 Urinary Tract Infection 08/13/2012 611.71 Breast Pain 08/13/2012 626.4 Irregular Length Of Menstrual Periods 08/13/2012 APRIL SOSA APRN A 599.0 Urinary Tract Infection 08/13/2012 APRIL SOSA APRN A 611.71 Breast Pain 08/13/2012 APRIL SOSA APRN A 626.4 Irregular Length Of Menstrual Periods 08/13/2012 CHENTE DEWITT MD N 599.0 Urinary Tract Infection 08/13/2012 CHENTE DEWITT MD N 611.71 Breast Pain 08/13/2012 CHENTE DEWITT MD N 626.4 Irregular Length Of Menstrual Periods 08/13/2012 CHILO MCBRIDE APRN S 599.0 Urinary Tract Infection 08/13/2012 CHILO MCBRIDE APRN S 611.71 Breast Pain 08/13/2012 CHILO MCBRIDE APRN S 626.4 Irregular Length Of Menstrual Periods 08/13/2012 APRIL SOSA APRN A 599.0 Urinary Tract Infection 08/13/2012 APRIL SOSA APRN A 611.71 Breast Pain 08/13/2012 APRIL SOSA APRN A 626.4 Irregular Length Of Menstrual Periods 08/13/2012 CHENTE DEWITT MD N 599.0 Urinary Tract Infection 08/13/2012 CHENTE DEWITT MD N 611.71 Breast Pain 08/13/2012 CHENTE DEWITT MD N 626.4 Irregular Length Of Menstrual Periods 08/14/2012 ARIANNE FERGUSON MD 626.9 MENSTRUATION AND OTHER ABNORMAL BLEEDING FROM FEMALE GENITAL TRACT 08/14/2012 Ot 789.01 ABDOMINAL PAIN, RIGHT UPPER QUADRANT 09/09/2012 ELI ANGEL APRN 780.79 fatigue 09/09/2012 780.79 Fatigue 09/09/2012 780.79 Fatigue 09/09/2012 780.79 Fatigue 09/09/2012 BRAD DONALD DO 780.79 Fatigue 09/09/2012 CAROLYN MCCOY APRN 780.79 Fatigue 09/09/2012 780.79 Fatigue 09/09/2012 780.79 Fatigue 09/09/2012 780.79 Fatigue 09/09/2012 780.79 Fatigue 09/09/2012 780.79 Fatigue 09/09/2012 780.79 Fatigue 09/09/2012 APRIL SOSA APRN 780.79 Fatigue 09/09/2012 CHENTE DEWITT MD 780.79 Fatigue 09/09/2012 CHILO MCBRIDE APRN 780.79 Fatigue 09/09/2012 APRIL SOSA APRN 780.79 Fatigue 09/09/2012 CHENTE DEWITT MD 780.79 Fatigue 09/09/2012 626.9 MENSTRUATION AND OTHER ABNORMAL BLEEDING FROM FEMALE GENITAL TRACT 09/10/2012 ELI ANGEL APRN 626.9 MENSTRUATION AND OTHER ABNORMAL BLEEDING FROM FEMALE GENITAL TRACT 09/10/2012 ELI ANGEL APRN 626.9 MENSTRUATION AND OTHER ABNORMAL BLEEDING FROM FEMALE GENITAL TRACT 09/10/2012 ELI ANGEL APRN 626.9 MENSTRUATION AND OTHER ABNORMAL BLEEDING FROM FEMALE GENITAL TRACT 09/23/2012 V58.69 LONG-TERM ( CURRENT) USE OF OTHER MEDICATIONS 09/23/2012 V58.69 LONG-TERM ( CURRENT) USE OF OTHER MEDICATIONS 09/23/2012 V58.69 LONG-TERM ( CURRENT) USE OF OTHER MEDICATIONS 09/23/2012 BRAD DONALD DO V58.69 LONG-TERM (CURRENT) USE OF OTHER MEDICATIONS 09/23/2012 CAROLYN MCCOY APRN V58.69 LONG-TERM (CURRENT) USE OF OTHER MEDICATIONS 09/23/2012 V58.69 LONG-TERM ( CURRENT) USE OF OTHER MEDICATIONS 09/23/2012 V58.69 LONG-TERM ( CURRENT) USE OF OTHER MEDICATIONS 09/23/2012 V58.69 LONG-TERM ( CURRENT) USE OF OTHER MEDICATIONS 09/23/2012 V58.69 LONG-TERM ( CURRENT) USE OF OTHER MEDICATIONS 09/23/2012 V58.69 LONG-TERM ( CURRENT) USE OF OTHER MEDICATIONS 09/23/2012 V58.69 LONG-TERM ( CURRENT) USE OF OTHER MEDICATIONS 09/23/2012 APRIL SOSA APRN V58.69 LONG-TERM (CURRENT) USE OF OTHER MEDICATIONS 09/23/2012 CHENTE DEWITT MD V58.69 LONG-TERM (CURRENT) USE OF OTHER MEDICATIONS 09/23/2012 CHILO MCBRIDE APRN V58.69 LONG-TERM (CURRENT) USE OF OTHER MEDICATIONS 09/23/2012 APRIL SOSA APRN V58.69 LONG-TERM (CURRENT) USE OF OTHER MEDICATIONS 09/23/2012 CHENTE DEWITT MD V58.69 LONG-TERM (CURRENT) USE OF OTHER MEDICATIONS 09/24/2012 626.9 MENSTRUATION AND OTHER ABNORMAL BLEEDING FROM FEMALE GENITAL TRACT 10/14/2012 737.30 SCOLIOSIS ( AND KYPHOSCOLIOSIS) IDIOPATHIC 10/14/2012 BRAD DONALD DO 737.30 SCOLIOSIS (AND KYPHOSCOLIOSIS) IDIOPATHIC 10/14/2012 CAROLYN MCCOY APRN 737.30 SCOLIOSIS (AND KYPHOSCOLIOSIS) IDIOPATHIC 10/14/2012 737.30 SCOLIOSIS ( AND KYPHOSCOLIOSIS) IDIOPATHIC 10/14/2012 737.30 SCOLIOSIS ( AND KYPHOSCOLIOSIS) IDIOPATHIC 10/14/2012 737.30 SCOLIOSIS ( AND KYPHOSCOLIOSIS) IDIOPATHIC 10/14/2012 737.30 SCOLIOSIS ( AND KYPHOSCOLIOSIS) IDIOPATHIC 10/14/2012 737.30 SCOLIOSIS ( AND KYPHOSCOLIOSIS) IDIOPATHIC 10/14/2012 737.30 SCOLIOSIS ( AND KYPHOSCOLIOSIS) IDIOPATHIC 10/14/2012 APRIL SOSA APRN 737.30 SCOLIOSIS (AND KYPHOSCOLIOSIS) IDIOPATHIC 10/14/2012 CHENTE DEWITT MD 737.30 SCOLIOSIS (AND KYPHOSCOLIOSIS) IDIOPATHIC 10/14/2012 CHILO MCBRIDE APRN 737.30 SCOLIOSIS (AND KYPHOSCOLIOSIS) IDIOPATHIC 10/14/2012 APRIL SOSA APRN 737.30 SCOLIOSIS (AND KYPHOSCOLIOSIS) IDIOPATHIC 10/14/2012 CHENTE DEWITT MD 737.30 SCOLIOSIS (AND KYPHOSCOLIOSIS) IDIOPATHIC 10/15/2012 626.9 MENSTRUATION AND OTHER ABNORMAL BLEEDING FROM FEMALE GENITAL TRACT 10/23/2012 DONALD DO, BRAD K 704.8 FOLLICULITIS 10/23/2012 CAROLYN MCCOY APRN 704.8 FOLLICULITIS 10/23/2012 704.8 FOLLICULITIS 10/23/2012 704.8 FOLLICULITIS 10/23/2012 704.8 FOLLICULITIS 10/23/2012 704.8 FOLLICULITIS 10/23/2012 704.8 FOLLICULITIS 10/23/2012 704.8 FOLLICULITIS 10/23/2012 APRIL SOSA APRN A 704.8 FOLLICULITIS 10/23/2012 CHENTE DEWITT MD N 704.8 FOLLICULITIS 10/23/2012 CHILO MCBRIDE APRN S 704.8 FOLLICULITIS 10/23/2012 APRIL SOSA APRN A 704.8 FOLLICULITIS 10/23/2012 CHENTE DEWITT MD N 704.8 FOLLICULITIS 10/23/2012 DONALD DO, BRAD K 626.9 MENSTRUATION AND OTHER ABNORMAL BLEEDING FROM FEMALE GENITAL TRACT 10/24/2012 DONALD DO BRAD K 626.9 MENSTRUATION AND OTHER ABNORMAL BLEEDING FROM FEMALE GENITAL TRACT 10/25/2012 DONALD DO, BRAD K 626.9 MENSTRUATION AND OTHER ABNORMAL BLEEDING FROM FEMALE GENITAL TRACT 11/20/2012 CAROLYN MCCOY APRN 789.04 ABDOMINAL PAIN LEFT LOWER QUADRANT 11/20/2012 789.04 ABDOMINAL PAIN LEFT LOWER QUADRANT 11/20/2012 789.04 ABDOMINAL PAIN LEFT LOWER QUADRANT 11/20/2012 789.04 ABDOMINAL PAIN LEFT LOWER QUADRANT 11/20/2012 789.04 ABDOMINAL PAIN LEFT LOWER QUADRANT 11/20/2012 789.04 ABDOMINAL PAIN LEFT LOWER QUADRANT 11/20/2012 789.04 ABDOMINAL PAIN LEFT LOWER QUADRANT 11/20/2012 APRIL SOSA APRN A 789.04 ABDOMINAL PAIN LEFT LOWER QUADRANT 11/20/2012 CHENTE DEWITT MD 789.04 ABDOMINAL PAIN LEFT LOWER QUADRANT 11/20/2012 CHILO MCBRIDE APRN S 789.04 ABDOMINAL PAIN LEFT LOWER QUADRANT 11/20/2012 APRIL SOSA APRN A 789.04 ABDOMINAL PAIN LEFT LOWER QUADRANT 11/20/2012 CHENTE DEWITT MD 789.04 ABDOMINAL PAIN LEFT LOWER QUADRANT 11/21/2012 CAROLYN MCCOY APRN 626.9 MENSTRUATION AND OTHER ABNORMAL BLEEDING FROM FEMALE GENITAL TRACT 11/22/2012 CAROLYN MCCOY APRN 626.9 MENSTRUATION AND OTHER ABNORMAL BLEEDING FROM FEMALE GENITAL TRACT 12/01/2012 Ot 789.01 ABDOMINAL PAIN, RIGHT UPPER QUADRANT 12/03/2012 Ot 614.2 SALPINGO- OOPHORITIS NOS 12/11/2012 708.9 URTICARIA 12/11/2012 708.9 URTICARIA 12/11/2012 708.9 URTICARIA 12/11/2012 708.9 URTICARIA 12/11/2012 708.9 URTICARIA 12/11/2012 708.9 URTICARIA 12/11/2012 APRIL SOSA APRN A 708.9 URTICARIA 12/11/2012 CHENTE DEWITT MD 708.9 URTICARIA 12/11/2012 CHILO MCBRIDE APRN 708.9 URTICARIA 12/11/2012 APRIL SOSA APRN A 708.9 URTICARIA 12/11/2012 CHENTE DEWITT MD 708.9 URTICARIA 12/16/2012 626.9 MENSTRUATION AND OTHER ABNORMAL BLEEDING FROM FEMALE GENITAL TRACT 12/30/2012 626.0 AMENORRHEA 12/30/2012 789.05 abdominal pain around the belly button (periumbilical) 12/30/2012 626.0 AMENORRHEA 12/30/2012 789.05 abdominal pain around the belly button (periumbilical) 12/30/2012 626.0 AMENORRHEA 12/30/2012 789.05 abdominal pain around the belly button (periumbilical) 12/30/2012 626.0 AMENORRHEA 12/30/2012 789.05 abdominal pain around the belly button (periumbilical) 12/30/2012 626.0 AMENORRHEA 12/30/2012 789.05 abdominal pain around the belly button (periumbilical) 12/30/2012 APRIL SOSA APRN A 626.0 AMENORRHEA 12/30/2012 APRIL SOSA APRN A 789.05 abdominal pain around the belly button (periumbilical) 12/30/2012 CHENTE DEWITT MD 626.0 AMENORRHEA 12/30/2012 CHENTE DEWITT MD 789.05 abdominal pain around the belly button (periumbilical) 12/30/2012 CHILO MCBRIDE APRN S 626.0 AMENORRHEA 12/30/2012 CHILO MCBRIDE APRN S 789.05 abdominal pain around the belly button (periumbilical) 12/30/2012 APRIL SOSA APRN A 626.0 AMENORRHEA 12/30/2012 APRIL SOSA APRN A 789.05 abdominal pain around the belly button (periumbilical) 12/30/2012 CHENTE DEWITT MD 626.0 AMENORRHEA 12/30/2012 CHENTE DEWITT MD 789.05 abdominal pain around the belly button (periumbilical) 12/30/2012 626.9 MENSTRUATION AND OTHER ABNORMAL BLEEDING FROM FEMALE GENITAL TRACT 01/01/2013 626.9 MENSTRUATION AND OTHER ABNORMAL BLEEDING FROM FEMALE GENITAL TRACT 01/16/2013 V77.1 SCREENING FOR DIABETES MELLITUS 01/16/2013 V77.1 SCREENING FOR DIABETES MELLITUS 01/16/2013 V77.1 SCREENING FOR DIABETES MELLITUS 01/16/2013 V77.1 SCREENING FOR DIABETES MELLITUS 01/16/2013 APRIL SOSA APRN A V77.1 SCREENING FOR DIABETES MELLITUS 01/16/2013 CHENTE DEWITT MD V77.1 SCREENING FOR DIABETES MELLITUS 01/16/2013 CHILO MCBRIDE APRN V77.1 SCREENING FOR DIABETES MELLITUS 01/16/2013 APRIL SOSA APRN A V77.1 SCREENING FOR DIABETES MELLITUS 01/16/2013 CHENTE DEWITT MD V77.1 SCREENING FOR DIABETES MELLITUS 01/16/2013 626.9 MENSTRUATION AND OTHER ABNORMAL BLEEDING FROM FEMALE GENITAL TRACT 01/28/2013 626.9 MENSTRUATION AND OTHER ABNORMAL BLEEDING FROM FEMALE GENITAL TRACT 02/14/2013 564.00 CONSTIPATION 02/14/2013 564.00 CONSTIPATION 02/14/2013 APRIL SOSA APRN A 564.00 CONSTIPATION 02/14/2013 CHENTE DEWITT MD 564.00 CONSTIPATION 02/14/2013 CHILO MCBRIDE APRN 564.00 CONSTIPATION 02/14/2013 APRIL SOSA APRN A 564.00 CONSTIPATION 02/14/2013 RENATE ESPARZA, CHENTE N 564.00 CONSTIPATION 02/17/2013 JENNIFER ESPARZA, IZABELLA Orozco Ot 682.3 CELLULITIS OF ARM 02/17/2013 JENNIFER ESPARZA, IZABELLA Orozco Ot 709.9 SKIN DISORDER NOS 02/24/2013 626.9 MENSTRUATION AND OTHER ABNORMAL BLEEDING FROM FEMALE GENITAL TRACT 04/08/2013 651.00 , HIGH RISK W/ MULTIPLE GESTATIONS 04/08/2013 APRIL SOSA APRN A 651.00 , HIGH RISK W/ MULTIPLE GESTATIONS 04/08/2013 RENATE ESPARZA, CHENTE N 651.00 , HIGH RISK W/ MULTIPLE GESTATIONS 04/08/2013 CHILO MCBRIDE APRN 651.00 , HIGH RISK W/ MULTIPLE GESTATIONS 04/08/2013 APRIL SOSA APRN A 651.00 , HIGH RISK W/ MULTIPLE GESTATIONS 04/08/2013 RENATE ESPARZA, CHENTE N 651.00 , HIGH RISK W/ MULTIPLE GESTATIONS 04/08/2013 626.9 MENSTRUATION AND OTHER ABNORMAL BLEEDING FROM FEMALE GENITAL TRACT 04/10/2013 626.9 MENSTRUATION AND OTHER ABNORMAL BLEEDING FROM FEMALE GENITAL TRACT 04/10/2013 APRIL SOSA APRN A 626.9 MENSTRUATION AND OTHER ABNORMAL BLEEDING FROM FEMALE GENITAL TRACT 05/01/2013 MARA PEDRO DO Ot 599.0 URIN TRACT INFECTION NOS 05/01/2013 MARA PEDRO DO Ot 646.63 INFECTION-ANTEPARTUM 05/01/2013 MARA PEDRO DO Ot 787.01 NAUSEA WITH VOMITING 06/21/2013 JESSIE DOWELL APRN Ot 574.20 CHOLELITHIASIS NOS 06/21/2013 JESSIE DOWELL APRN Ot 646.83 PREG COMPL NEC-ANTEPART 06/21/2013 JESSIE DOWELL APRN Ot 652.63 MULT GES MALPRES-ANTEPAR 06/21/2013 JESSIE DOWELL APRN Ot 789.00 ABDOMINAL PAIN, UNSPECIFIED SITE 07/19/2013 EMELYN ESPARZA, ALEXX Ot 651.03 TWIN -ANTEPART 07/19/2013 EMELYN MD, ALEXX Ot 678.03 HEMATOLOGIC CONDITIONS, ANTEPARTUM 07/19/2013 EMELYN ESPARZA, ALEXX Ot V91.02 TWIN GEST, MONOCHORIONIC/DIAMNIOTIC-1 PL 07/26/2013 JESSIE DOWELL APRN Ot 462 ACUTE PHARYNGITIS 07/26/2013 JESSIE DOWELL APRN Ot 473.9 CHRONIC SINUSITIS NOS 08/17/2013 FENECH DO, TAYLA S Ot 285.9 ANEMIA NOS 08/17/2013 FENECH DO, TAYLA S Ot 558.9 NONINF GASTROENTERIT NEC 08/17/2013 FENECH DO, TAYLA S Ot 644.03 THRT BHARATI LABOR-ANTEPART 08/17/2013 FENECH DO, TAYLA S Ot 648.23 ANEMIA-ANTEPARTUM 08/17/2013 FENECH DO, TAYLA S Ot 651.03 TWIN -ANTEPART 08/17/2013 FENECH DO, TAYLA S Ot V91.00 TWIN GEST, UNSPEC # PLACENTA, UNSP # AMN 08/24/2013 FENECH DO, TAYLA S Ot 644.03 THRT BHARATI LABOR-ANTEPART 08/24/2013 FENECH DO, TAYLA S Ot 651.03 TWIN -ANTEPART 11/20/2013 CHENTE DEWITT MD N 462 PHARYNGITIS ACUTE 11/20/2013 CHILO MCBRIDE APRN 462 PHARYNGITIS ACUTE 11/20/2013 APRIL SOSA APRN A 462 PHARYNGITIS ACUTE 11/20/2013 CHENTE DEWITT MD N 462 PHARYNGITIS ACUTE 11/20/2013 CHENTE DEWITT MD N 626.9 MENSTRUATION AND OTHER ABNORMAL BLEEDING FROM FEMALE GENITAL TRACT 12/01/2013 CHILO MCBRIDE APRN 789.01 ABDOMINAL PAIN RIGHT UPPER QUADRANT 12/01/2013 APRIL SOSA APRN A 789.01 ABDOMINAL PAIN RIGHT UPPER QUADRANT 12/01/2013 CHENTE DEWITT MD N 789.01 ABDOMINAL PAIN RIGHT UPPER QUADRANT 12/01/2013 CHILO MCBRIDE APRN 626.9 MENSTRUATION AND OTHER ABNORMAL BLEEDING FROM FEMALE GENITAL TRACT 12/11/2013 APRIL SOSA APRN A 654.20 PREVIOUS 12/11/2013 IAN MUSEUM EXHIBIT TECHNICIAN, APRIL A V23.9 , HIGH-RISK (UNSPEC) 12/11/2013 RENATE ESPARZA, CHENTE N 654.20 PREVIOUS 12/11/2013 CHENTE DEWITT MD V23.9 , HIGH-RISK (UNSPEC) 12/11/2013 APRIL SOSA APRN A 626.9 MENSTRUATION AND OTHER ABNORMAL BLEEDING FROM FEMALE GENITAL TRACT 07/07/2014 TAYLA BAGLEY DO Ot 285.1 AC POSTHEMORRHAG ANEMIA 07/07/2014 TAYLA BAGLEY DO Ot 285.9 ANEMIA NOS 07/07/2014 TAYLA BAGLEY DO Ot 648.21 ANEMIA-DELIVERED 07/07/2014 TAYLA BAGLEY DO Ot 648.22 ANEMIA-DELIVERED W P/P 07/07/2014 TAYLA BAGLEY DO Ot 654.21 PREV DELIVRY W/ OR W/O MENT ANT 07/07/2014 TAYLA BAGLEY DO Ot 663.31 CORD ENTANGLE NEC-DELIV 07/07/2014 TAYLA BAGLEY DO Ot V06.1 [id number], COMBINED [ 07/07/2014 TAYLA BAGLEY DO Ot V13.21 PERSONAL HISTORY PRE-TERM LABOR 07/07/2014 TAYLA BAGLEY DO Ot V27.0 DELIVER-SINGLE LIVEBORN 07/26/2014 GUERDA ESPARZA, DENIA Segovia Ot 574.00 CHOLELITH W AC CHOLECYST 07/30/2014 Ot 789.00 07/30/2014 Ot 959.7 07/30/2014 Ot E000.8 07/30/2014 Ot E004.0 07/30/2014 Ot E885.9 07/30/2014 Ot 599.70 07/30/2014 Ot 724.2 07/30/2014 Ot 737.30 07/30/2014 Ot V58.69 07/30/2014 Ot 625.2 07/30/2014 Ot 724.5 07/30/2014 Ot 789.00 07/30/2014 Ot V72.84 07/30/2014 Ot 354.0 07/30/2014 Ot 530.81 07/30/2014 Ot 787.91 07/30/2014 Ot 782.0 07/30/2014 Ot 784.0 07/30/2014 Ot 789.04 07/30/2014 Ot 789.00 07/30/2014 ANDREW MORAES [employer]BLER Ot 564.00 07/30/2014 ANDREW MORAES [employer] Ot 625.9 07/30/2014 ANDREW MORAES [employer] Ot 787.02 07/30/2014 ANDREW MORAES [employer] Ot 787.3 07/30/2014 ANDREW MORAES [employer] Ot 789.04 07/30/2014 YANETH ESPARZA, PHI Paiz Ot 789.00 07/30/2014 IAN APRIL A MUSEUM EXHIBIT TECHNICIAN Ot 651.03 07/30/2014 APRIL SOSA MUSEUM EXHIBIT TECHNICIAN Ot V91.00 07/30/2014 CHILO MCBRIDE [employer] Ot 789.01 07/30/2014 CHILO MCBRIDE [employer] Ot 789.01 07/30/2014 APRIL SOSA MUSEUM EXHIBIT TECHNICIAN Ot 654.23 07/30/2014 APRIL SOSA MUSEUM EXHIBIT TECHNICIAN Ot V23.9 07/30/2014 APRIL SOSA MUSEUM EXHIBIT TECHNICIAN Ot V28.81 08/05/2014 Ot 625.2 08/05/2014 Ot 724.5 08/05/2014 Ot 789.00 09/02/2014 RENATE ESPARZA, CHENTE N 465.9 UPPER RESPIRATORY INFECTION 09/02/2014 RENATE ESPARZA, CHENTE N 626.9 MENSTRUATION AND OTHER ABNORMAL BLEEDING FROM FEMALE GENITAL TRACT 10/17/2014 Ot 625.2 10/17/2014 Ot 724.5 10/17/2014 Ot 789.00 10/17/2014 Ot 625.2 10/17/2014 Ot 724.5 10/17/2014 Ot 789.00 10/21/2014 Ot 625.2 10/21/2014 Ot 724.5 10/21/2014 Ot 789.00 10/22/2014 Ot 625.2 10/22/2014 Ot 724.5 10/22/2014 Ot 789.00 10/23/2014 Ot 625.2 10/23/2014 Ot 724.5 10/23/2014 Ot 789.00 05/06/2015 Ot 959.7 05/06/2015 Ot E000.8 05/06/2015 Ot E004.0 05/06/2015 Ot E885.9 05/06/2015 Ot 599.70 05/06/2015 Ot 724.2 05/06/2015 Ot 737.30 05/06/2015 Ot V58.69 05/06/2015 Ot 625.2 05/06/2015 Ot 724.5 05/06/2015 Ot 789.00 05/06/2015 Ot V72.84 05/06/2015 Ot 354.0 05/06/2015 Ot 530.81 05/06/2015 Ot 787.91 05/06/2015 Ot 782.0 05/06/2015 Ot 784.0 05/06/2015 Ot 789.04 05/06/2015 Ot 789.00 05/06/2015 ANDREW MORAES [employer]BLER Ot 564.00 05/06/2015 ANDREW MORAES [employer] Ot 625.9 05/06/2015 ANDREW MORAES [employer] Ot 787.02 05/06/2015 ANDREW MORAES [employer] Ot 787.3 05/06/2015 ANDREW MORAES [employer] Ot 789.04 05/06/2015 YANETH ESPARZA, PHI Paiz Ot 789.00 05/06/2015 APRIL SOSA MUSEUM EXHIBIT TECHNICIAN Ot 651.03 05/06/2015 APRIL SOSA MUSEUM EXHIBIT TECHNICIAN Ot V91.00 05/06/2015 CHILO MCBRIDE [employer] Ot 789.01 05/06/2015 CHILO MCBRIDE [employer] Ot 789.01 05/06/2015 APRIL SOSA MUSEUM EXHIBIT TECHNICIAN Ot 654.23 05/06/2015 APRIL SOSA MUSEUM EXHIBIT TECHNICIAN Ot V23.9 05/06/2015 APRIL SOSA MUSEUM EXHIBIT TECHNICIAN Ot V28.81 05/06/2015 MARA PEDRO DO Ot 840.9 SPRAIN SHOULDER/ARM NOS 05/06/2015 MARA PEDRO DO Ot 959.2 SHLDR/UPPER ARM INJ NOS 05/06/2015 MARA PEDRO DO Ot E000.8 OTHER EXTERNAL CAUSE STATUS 05/06/2015 MARA PEDRO DO Ot E849.0 ACCIDENT IN HOME 05/06/2015 MAYELA DO, MARA K Ot E927.0 OVEREXERTION FROM SUDDEN STRENUOUS MOVEM 05/28/2015 KATIE JOHNSON Ot K29.70 GASTRITIS, UNSPECIFIED, WITHOUT BLEEDING 05/28/2015 KATIE JOHNSON Ot R10.12 LEFT UPPER QUADRANT PAIN 08/23/2015 Ot 625.2 08/23/2015 Ot 724.5 08/23/2015 Ot 789.00 04/22/2016 Ot 599.70 HEMATURIA, UNSPECIFIED 04/22/2016 Ot 724.2 LUMBAGO 04/22/2016 Ot 737.30 IDIOPATHIC SCOLIOSIS 04/22/2016 Ot V58.69 OTH MED,LT, CURRENT USE 04/22/2016 Ot 625.2 MITTELSCHMERZ 04/22/2016 Ot 724.5 BACKACHE NOS 04/22/2016 Ot 789.00 ABDOMINAL PAIN, UNSPECIFIED SITE 04/22/2016 Ot V72.84 EXAM PRE- OPERATIVE NOS 04/22/2016 Ot 354.0 CARPAL TUNNEL SYNDROME 04/22/2016 Ot 530.81 ESOPHAGEAL REFLUX 04/22/2016 Ot 787.91 DIARRHEA 04/22/2016 Ot 782.0 SKIN SENSATION DISTURB 04/22/2016 Ot 784.0 HEADACHE 04/22/2016 Ot 789.04 ABDOMINAL PAIN, LEFT LOWER QUADRANT 04/22/2016 Ot 789.00 ABDOMINAL PAIN, UNSPECIFIED SITE 04/22/2016 ANDREW MORAES [employer] Ot 564.00 UNSPEC CONSTIPATION 04/22/2016 WATSON MORAESYL A [employer]ING AS[employer]BLER Ot 625.9 FEM GENITAL SYMPTOMS NOS 04/22/2016 WATSON MORAESYL A [employer]BLER Ot 787.02 NAUSEA ALONE 04/22/2016 WATSON MORAESYL A [employer]BLER Ot 787.3 FLATUL/ERUCTAT/GAS PAIN 04/22/2016 WATSON MORAESYL A [employer]ING AS[employer]BLER Ot 789.04 ABDOMINAL PAIN, LEFT LOWER QUADRANT 04/22/2016 YANETH ESPARZA, PHI Paiz Ot 789.00 ABDOMINAL PAIN, UNSPECIFIED SITE 04/22/2016 APRIL SOSA MUSEUM EXHIBIT TECHNICIAN Ot 651.03 TWIN -ANTEPART 04/22/2016 APRIL SOSA MUSEUM EXHIBIT TECHNICIAN Ot V91.00 TWIN GEST, UNSPEC # PLACENTA, UNSP # AMN 04/22/2016 CHILO MCBRIDE [employer] Ot 789.01 ABDOMINAL PAIN, RIGHT UPPER QUADRANT 04/22/2016 CHILO MCBRIDE [employer] Ot 789.01 ABDOMINAL PAIN, RIGHT UPPER QUADRANT 04/22/2016 IANAPRIL Tidwell APRN Ot 654.23 PREV DELIVERY, ANTEPARTUM COND 04/22/2016 IAN, APRIL A MUSEUM EXHIBIT TECHNICIAN Ot V23.9 SUPRV HIGH-RISK PREG NOS 04/22/2016 IANAPRIL RYAN APRN Ot V28.81 ENCOUNTER FOR ANATOMIC SURVEY 04/23/2016 BOBBY ESPARZA, NOE Mejias Ot B37.3 CANDIDIASIS OF VULVA AND VAGINA 04/24/2016 BOBBY ESPARZA, NOE Mejias Ot B37.3 CANDIDIASIS OF VULVA AND VAGINA 05/12/2016 Ot 599.70 HEMATURIA, UNSPECIFIED 05/12/2016 Ot 724.2 LUMBAGO 05/12/2016 Ot 737.30 IDIOPATHIC SCOLIOSIS 05/12/2016 Ot V58.69 OTH MED,LT, CURRENT USE 05/12/2016 Ot 625.2 MITTELSCHMERZ 05/12/2016 Ot 724.5 BACKACHE NOS 05/12/2016 Ot 789.00 ABDOMINAL PAIN, UNSPECIFIED SITE 05/12/2016 Ot V72.84 EXAM PRE- OPERATIVE NOS 05/12/2016 Ot 354.0 CARPAL TUNNEL SYNDROME 05/12/2016 Ot 530.81 ESOPHAGEAL REFLUX 05/12/2016 Ot 787.91 DIARRHEA 05/12/2016 Ot 782.0 SKIN SENSATION DISTURB 05/12/2016 Ot 784.0 HEADACHE 05/12/2016 Ot 789.04 ABDOMINAL PAIN, LEFT LOWER QUADRANT 05/12/2016 Ot 789.00 ABDOMINAL PAIN, UNSPECIFIED SITE 05/12/2016 ANDREW MORAES [employer] Ot 564.00 UNSPEC CONSTIPATION 05/12/2016 ANDREW MORAES [employer] Ot 625.9 FEM GENITAL SYMPTOMS NOS 05/12/2016 ANDREW MORAES [employer] Ot 787.02 NAUSEA ALONE 05/12/2016 ANDREW MORAES [employer] Ot 787.3 FLATUL/ERUCTAT/GAS PAIN 05/12/2016 ANDREW MORAES [employer] Ot 789.04 ABDOMINAL PAIN, LEFT LOWER QUADRANT 05/12/2016 YANETH ESPARZA, PHI Paiz Ot 789.00 ABDOMINAL PAIN, UNSPECIFIED SITE 05/12/2016 APRIL SOSA MUSEUM EXHIBIT TECHNICIAN Ot 651.03 TWIN -ANTEPART 05/12/2016 APRIL SOSA MUSEUM EXHIBIT TECHNICIAN Ot V91.00 TWIN GEST, UNSPEC # PLACENTA, UNSP # AMN 05/12/2016 REEDCHILO CLEMENT [employer]BLER Ot 789.01 ABDOMINAL PAIN, RIGHT UPPER QUADRANT 05/12/2016 CHILO MCBRIDE [employer] Ot 789.01 ABDOMINAL PAIN, RIGHT UPPER QUADRANT 05/12/2016 APRIL SOSA MUSEUM EXHIBIT TECHNICIAN Ot 654.23 PREV DELIVERY, ANTEPARTUM COND 05/12/2016 APRIL SOSA MUSEUM EXHIBIT TECHNICIAN Ot V23.9 SUPRV HIGH-RISK PREG NOS 05/12/2016 APRIL SOSA JUAN F Ot V28.81 ENCOUNTER FOR ANATOMIC SURVEY 05/15/2016 Ot 599.70 HEMATURIA, UNSPECIFIED 05/15/2016 Ot 724.2 LUMBAGO 05/15/2016 Ot 737.30 IDIOPATHIC SCOLIOSIS 05/15/2016 Ot V58.69 OTH MED,LT, CURRENT USE 05/15/2016 Ot 625.2 MITTELSCHMERZ 05/15/2016 Ot 724.5 BACKACHE NOS 05/15/2016 Ot 789.00 ABDOMINAL PAIN, UNSPECIFIED SITE 05/15/2016 Ot V72.84 EXAM PRE- OPERATIVE NOS 05/15/2016 Ot 354.0 CARPAL TUNNEL SYNDROME 05/15/2016 Ot 530.81 ESOPHAGEAL REFLUX 05/15/2016 Ot 787.91 DIARRHEA 05/15/2016 Ot 782.0 SKIN SENSATION DISTURB 05/15/2016 Ot 784.0 HEADACHE 05/15/2016 Ot 789.04 ABDOMINAL PAIN, LEFT LOWER QUADRANT 05/15/2016 Ot 789.00 ABDOMINAL PAIN, UNSPECIFIED SITE 05/15/2016 ANDREW MORAES A [employer]BLER Ot 564.00 UNSPEC CONSTIPATION 05/15/2016 ANDREW MORAES A [employer]BLER Ot 625.9 FEM GENITAL SYMPTOMS NOS 05/15/2016 WATSON MORAESYL A [employer] AS[employer]BLER Ot 787.02 NAUSEA ALONE 05/15/2016 WATSON MORAESYL A [employer] ASSEMBLER Ot 787.3 FLATUL/ERUCTAT/GAS PAIN 05/15/2016 ANDREW MORAES A [employer]ING ASSEMBLER Ot 789.04 ABDOMINAL PAIN, LEFT LOWER QUADRANT 05/15/2016 YANETH ESPARZA, PHI Chencho Ot 789.00 ABDOMINAL PAIN, UNSPECIFIED SITE 05/15/2016 APRIL SOSA MUSEUM EXHIBIT TECHNICIAN Ot 651.03 TWIN -ANTEPART 05/15/2016 APRIL SOSA MUSEUM EXHIBIT TECHNICIAN Ot V91.00 TWIN GEST, UNSPEC # PLACENTA, UNSP # AMN 05/15/2016 CHILO MCBRIDE [employer] Ot 789.01 ABDOMINAL PAIN, RIGHT UPPER QUADRANT 05/15/2016 CHILO MCBRIDE [facility] Ot 789.01 ABDOMINAL PAIN, RIGHT UPPER QUADRANT 05/15/2016 APRIL SOSA MUSEUM EXHIBIT TECHNICIAN Ot 654.23 PREV DELIVERY, ANTEPARTUM COND 05/15/2016 APRIL SOSA MUSEUM EXHIBIT TECHNICIAN Ot V23.9 SUPRV HIGH-RISK PREG NOS 05/15/2016 APRIL SOSA MUSEUM EXHIBIT TECHNICIAN Ot V28.81 ENCOUNTER FOR ANATOMIC SURVEY 05/17/2016 TRINIDAD ESPARZA, YUMIKO Paiz Ot L50.0 ALLERGIC URTICARIA 05/17/2016 TRINIDAD ESPARZA, YUMIKO S Ot R21 RASH AND OTHER NONSPECIFIC SKIN ERUPTION 05/20/2016 TRINIDAD ESPARZA, YUMIKO Paiz Ot 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.0 ALLERGIC URTICARIA 05/20/2016 TRINIDAD ESPARZA, YUMIKO Paiz Ot R21 RASH AND OTHER NONSPECIFIC SKIN ERUPTION 07/10/2016 TRINIDAD ESPARZA, YUMIKO Paiz Ot 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04 ABDOMINAL PAIN, LEFT LOWER QUADRANT 04/01/2017 Ot 789.00 ABDOMINAL PAIN, UNSPECIFIED SITE 04/01/2017 ANDREW MORAES [employer] Ot 564.00 UNSPEC CONSTIPATION 04/01/2017 ANDREW MORAES [employer] Ot 625.9 FEM GENITAL SYMPTOMS NOS 04/01/2017 ANDREW MORAES [employer] Ot 787.02 NAUSEA ALONE 04/01/2017 ANDREW MORAES [employer] Ot 787.3 FLATUL/ERUCTAT/GAS PAIN 04/01/2017 ANDREW MORAES [employer] Ot 789.04 ABDOMINAL PAIN, LEFT LOWER QUADRANT 04/01/2017 YANETH ESPARZA, PHI Paiz Ot 789.00 ABDOMINAL PAIN, UNSPECIFIED SITE 04/01/2017 IAN, APRIL A MUSEUM EXHIBIT TECHNICIAN Ot 651.03 TWIN -ANTEPART 04/01/2017 APRIL SOSA MUSEUM EXHIBIT TECHNICIAN Ot V91.00 TWIN GEST, UNSPEC # PLACENTA, UNSP # AMN 04/01/2017 CHILO MCBRIDE [employer] Ot 789.01 ABDOMINAL PAIN, RIGHT UPPER QUADRANT 04/01/2017 CHILO MCBRIDE [employer] Ot 789.01 ABDOMINAL PAIN, RIGHT UPPER QUADRANT 04/01/2017 IAN APRIL A MUSEUM EXHIBIT TECHNICIAN Ot 654.23 PREV DELIVERY, ANTEPARTUM COND 04/01/2017 IAN APRIL A MUSEUM EXHIBIT TECHNICIAN Ot V23.9 SUPRV HIGH-RISK PREG NOS 04/01/2017 IAN APRIL A MUSEUM EXHIBIT TECHNICIAN Ot V28.81 ENCOUNTER FOR ANATOMIC SURVEY 04/01/2017 TRINIDAD ESPARZA, YUMIKO Paiz Ot 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.0 ALLERGIC URTICARIA 04/01/2017 TRINIDAD ESPARZA, YUMIKO Paiz Ot R21 RASH AND OTHER NONSPECIFIC SKIN ERUPTION 04/01/2017 JORDAN ESPARZA, ANNE Sanz Ot F32.9 MAJOR DEPRESSIVE DISORDER, SINGLE EPISOD 04/01/2017 JORDAN ESPARZA, ANNE Sanz Ot F41.9 ANXIETY DISORDER, UNSPECIFIED 04/01/2017 JORDAN ESPARZA, ANNE Sanz Ot G43.909 MIGRAINE, UNSP, NOT INTRACTABLE, WITHOUT 04/01/2017 ANNE ORTEGA MD Ot K21.9 GASTRO-ESOPHAGEAL REFLUX DISEASE WITHOUT 04/01/2017 JORDAN ESPARZA, ANNE Sanz Ot N92.6 IRREGULAR MENSTRUATION, UNSPECIFIED 04/01/2017 JORDAN ESPARZA, ANNE Sanz Ot R11.0 NAUSEA 04/01/2017 JORDAN ESPARZA, ANNE Sanz Ot R53.83 OTHER FATIGUE 04/01/2017 JORDAN ESPARZA, ANNE Sanz Ot Z32.02 ENCOUNTER FOR TEST, RESULT NEG 04/01/2017 ANNE ORTEGA MD Ot Z87.39 PERSONAL HISTORY OF DISEASES OF THE MS S 04/01/2017 JORDAN ESPARZA, ANNE Sanz Ot Z87.440 PERSONAL HISTORY OF URINARY (TRACT) INFE 04/01/2017 ANNE ORTEGA MD Ot Z87.59 PERSONAL HISTORY OF COMP OF PREG, CHLDBR 04/01/2017 JORDAN ESPARZA, ANNE Sanz Ot Z87.891 PERSONAL HISTORY OF NICOTINE DEPENDENCE 06/07/2017 FERMIN, ROBIN [employer]BLER Ot F32.9 MAJOR DEPRESSIVE DISORDER, SINGLE EPISOD 06/07/2017 FERMIN, ROBIN [employer]BLER Ot F41.9 ANXIETY DISORDER, UNSPECIFIED 06/07/2017 FERMIN, ROBIN [employer]BLER Ot G43.909 MIGRAINE, UNSP, NOT INTRACTABLE, WITHOUT 06/07/2017 FERMIN, ROBIN [employer]BLER Ot J06.0 ACUTE LARYNGOPHARYNGITIS 06/07/2017 FERMIN, ROBIN [employer]BLER Ot K21.9 GASTRO-ESOPHAGEAL REFLUX DISEASE WITHOUT 06/07/2017 FERMIN, ROBIN [employer]BLER Ot K58.9 IRRITABLE BOWEL SYNDROME WITHOUT DIARRHE 06/07/2017 FERMIN ROBIN [employer]BLER Ot R50.9 FEVER, UNSPECIFIED 06/07/2017 FERMIN ROBIN [employer] Ot Z82.49 FAMILY HX OF ISCHEM HEART DIS AND OTH DI 06/07/2017 FERMIN ROBIN [employer]BLER Ot Z87.59 PERSONAL HISTORY OF COMP OF PREG, CHLDBR 06/07/2017 FERMIN, ROBIN [employer]BLER Ot Z90.49 ACQUIRED ABSENCE OF OTHER SPECIFIED PART 06/12/2017 FERMIN, ROBIN [employer]BLER Ot F32.9 MAJOR DEPRESSIVE DISORDER, SINGLE EPISOD 06/12/2017 FERMIN, ROBIN [employer]BLER Ot F41.9 ANXIETY DISORDER, UNSPECIFIED 06/12/2017 FERMIN, ROBIN [employer]BLER Ot G43.909 MIGRAINE, UNSP, NOT INTRACTABLE, WITHOUT 06/12/2017 FERMIN, ROBIN [employer]BLER Ot J06.0 ACUTE LARYNGOPHARYNGITIS 06/12/2017 ROBIN CHRISTENSEN [employer] ASSEMBLER Ot K21.9 GASTRO-ESOPHAGEAL REFLUX DISEASE WITHOUT 06/12/2017 FERMINROBIN Sawyer [employer]BLER Ot K58.9 IRRITABLE BOWEL SYNDROME WITHOUT DIARRHE 06/12/2017 FERMIN ROBIN [employer]BLER Ot R50.9 FEVER, UNSPECIFIED 06/12/2017 ROBIN CHRISTENSEN [employer]BLER Ot Z82.49 FAMILY HX OF ISCHEM HEART DIS AND OTH DI 06/12/2017 FERMIN ROBIN [employer]BLER Ot Z87.59 PERSONAL HISTORY OF COMP OF PREG, CHLDBR 06/12/2017 FERMIN ROBIN DUMONTP Ot Z90.49 ACQUIRED ABSENCE OF OTHER SPECIFIED PART 06/23/2017 JESSIE DOWELL APRN Ot F32.9 MAJOR DEPRESSIVE DISORDER, SINGLE EPISOD 06/23/2017 JESSIE DOWELL APRN Ot F41.9 ANXIETY DISORDER, UNSPECIFIED 06/23/2017 JESSIE DOWELL APRN Ot G43.909 MIGRAINE, UNSP, NOT INTRACTABLE, WITHOUT 06/23/2017 JESSIE DOWELL APRN Ot K21.9 GASTRO-ESOPHAGEAL REFLUX DISEASE WITHOUT 06/23/2017 JESSIE DOWELL APRN Ot N39.0 URINARY TRACT INFECTION, SITE NOT SPECIF 06/23/2017 JESSIE DOWELL APRN Ot R10.13 EPIGASTRIC PAIN 06/23/2017 JESSIE DOWELL APRN Ot Z82.49 FAMILY HX OF ISCHEM HEART DIS AND OTH DI 06/23/2017 JESSIE DOWELL APRN Ot Z87.39 PERSONAL HISTORY OF DISEASES OF THE MS S 06/23/2017 JESSIE DOWELL APRN Ot Z87.59 PERSONAL HISTORY OF COMP OF PREG, CHLDBR 06/23/2017 JESSIE DOWELL APRN Ot Z90.49 ACQUIRED ABSENCE OF OTHER SPECIFIED PART 07/04/2017 JORDAN ESPARZA, ANNE Sanz Ot F32.9 MAJOR DEPRESSIVE DISORDER, SINGLE EPISOD 07/04/2017 ANNE ORTEGA MD Ot F41.9 ANXIETY DISORDER, UNSPECIFIED 07/04/2017 ANNE ORTEGA MD Ot G43.909 MIGRAINE, UNSP, NOT INTRACTABLE, WITHOUT 07/04/2017 ANNE ORTEGA MD Ot K21.9 GASTRO-ESOPHAGEAL REFLUX DISEASE WITHOUT 07/04/2017 ANNE ORTEGA MD Ot R07.2 PRECORDIAL PAIN 07/04/2017 ANNE ORTEGA MD Ot R07.89 OTHER CHEST PAIN 07/04/2017 ANNE ORTEGA MD Ot R11.0 NAUSEA 07/04/2017 ANNE ORTEGA MD Ot Z87.42 PERSONAL HISTORY OF OTH DISEASES OF THE 07/04/2017 ANNE ORTEGA MD Ot Z87.440 PERSONAL HISTORY OF URINARY (TRACT) INFE 07/04/2017 ANNE ORTEGA MD, Ot Z87.59 PERSONAL HISTORY OF COMP OF PREG, CHLDBR 07/04/2017 ANNE ORTEGA MD Ot Z90.49 ACQUIRED ABSENCE OF OTHER SPECIFIED PART 09/17/2017 DANIEL, JOAQUÍN R MUSEUM EXHIBIT TECHNICIAN Ot N63.31 UNSPECIFIED LUMP IN AXILLARY TAIL OF THE 09/17/2017 SANCHEZ, JOAQUÍN R MUSEUM EXHIBIT TECHNICIAN Ot N63.31 UNSPECIFIED LUMP IN AXILLARY TAIL OF THE 09/28/2017 SANCHEZ, JOAQUÍN R MUSEUM EXHIBIT TECHNICIAN Ot N63.31 UNSPECIFIED LUMP IN AXILLARY TAIL OF THE 10/10/2017 ALEENA TATUM [employer]BLER Ot Z80.3 FAMILY HISTORY OF MALIGNANT NEOPLASM OF 12/16/2017 ANNE ORTEGA MD Ot F32.9 MAJOR DEPRESSIVE DISORDER, SINGLE EPISOD 12/16/2017 ANNE ORTEGA MD Ot F41.9 ANXIETY DISORDER, UNSPECIFIED 12/16/2017 ANNE ORTEGA MD Ot G43.809 OTHER MIGRAINE, NOT INTRACTABLE, WITHOUT 12/16/2017 ANNE ORTEGA MD Ot K21.9 GASTRO-ESOPHAGEAL REFLUX DISEASE WITHOUT 12/16/2017 ANNE ORTEGA MD Ot R10.9 UNSPECIFIED ABDOMINAL PAIN 12/16/2017 ANNE ORTEGA MD Ot Z82.49 FAMILY HX OF ISCHEM HEART DIS AND OTH DI 12/16/2017 ANNE ORTEGA MD Ot Z87.19 PERSONAL HISTORY OF OTHER DISEASES OF TH 12/16/2017 ANNE ORTEGA MD Ot Z87.39 PERSONAL HISTORY OF DISEASES OF THE MS S 12/16/2017 ANNE ORTEGA MD Ot Z87.440 PERSONAL HISTORY OF URINARY (TRACT) INFE 12/16/2017 ANNE ROTEGA MD Ot Z87.59 PERSONAL HISTORY OF COMP OF PREG, CHLDBR 12/16/2017 ANNE ORTEGA MD Ot Z88.8 ALLERGY STATUS TO OTH DRUG/MEDS/BIOL SUB 12/16/2017 ANNE ORTEGA MD Ot Z90.49 ACQUIRED ABSENCE OF OTHER SPECIFIED PART 12/18/2017 ANNE ORTEGA MD Ot F32.9 MAJOR DEPRESSIVE DISORDER, SINGLE EPISOD 12/18/2017 ANNE ORTEGA MD Ot F41.9 ANXIETY DISORDER, UNSPECIFIED 12/18/2017 ANNE ORTEGA MD Ot G43.809 OTHER MIGRAINE, NOT INTRACTABLE, WITHOUT 12/18/2017 ANNE ORTEGA MD Ot K21.9 GASTRO-ESOPHAGEAL REFLUX DISEASE WITHOUT 12/18/2017 ANNE ORTEGA MD Ot R10.9 UNSPECIFIED ABDOMINAL PAIN 12/18/2017 ANNE ORTEGA MD Ot Z82.49 FAMILY HX OF ISCHEM HEART DIS AND OTH DI 12/18/2017 ANNE ORTEGA MD Ot Z87.19 PERSONAL HISTORY OF OTHER DISEASES OF TH 12/18/2017 ANNE ORTEGA MD Ot Z87.39 PERSONAL HISTORY OF DISEASES OF THE MS S 12/18/2017 ANNE ORTEGA MD Ot Z87.440 PERSONAL HISTORY OF URINARY (TRACT) INFE 12/18/2017 ANNE ORTEGA MD Ot Z87.59 PERSONAL HISTORY OF COMP OF PREG, CHLDBR 12/18/2017 ANNE ORTEGA MD Ot Z88.8 ALLERGY STATUS TO OTH DRUG/MEDS/BIOL SUB 12/18/2017 ANNE ORTEGA MD Ot Z90.49 ACQUIRED ABSENCE OF OTHER SPECIFIED PART 12/25/2017 ALEENA TATUM [employer]ING ASSEMBLER Ot Z80.3 FAMILY HISTORY OF MALIGNANT NEOPLASM OF 12/26/2017 ALEENA TATUM [employer] ASSEMBLER Ot Z80.3 FAMILY HISTORY OF MALIGNANT NEOPLASM OF 01/01/2018 ALEENA TATUM [employer] ASSEMBLER Ot Z80.3 FAMILY HISTORY OF MALIGNANT NEOPLASM OF 01/22/2018 ALEENA T[employer]UM [employer] ASSEMBLER Ot Z80.3 FAMILY HISTORY OF MALIGNANT NEOPLASM OF 01/22/2018 JESSIE DOWELL APRN Ot F32.9 MAJOR DEPRESSIVE DISORDER, SINGLE EPISOD 01/22/2018 JESSIE DOWELL APRN Ot F41.9 ANXIETY DISORDER, UNSPECIFIED 01/22/2018 JESSIE DOWELL APRN Ot G43.909 MIGRAINE, UNSP, NOT INTRACTABLE, WITHOUT 01/22/2018 JESSIE DOWELL APRN Ot K21.9 GASTRO-ESOPHAGEAL REFLUX DISEASE WITHOUT 01/22/2018 JESSIE DOWELL APRN Ot N39.0 URINARY TRACT INFECTION, SITE NOT SPECIF 01/22/2018 JESSIE DOWELL APRN Ot R42 DIZZINESS AND GIDDINESS 01/22/2018 JESSIE DOWELL APRN Ot Z87.19 PERSONAL HISTORY OF OTHER DISEASES OF 01/22/2018 JESSIE DOWELL APRN Ot Z87.59 PERSONAL HISTORY OF COMP OF PREG, CHLDBR 01/22/2018 JESSIE DOWELL APRN Ot Z90.49 ACQUIRED ABSENCE OF OTHER SPECIFIED PART 01/24/2018 JESSIE DOWELL APRN Ot F32.9 MAJOR DEPRESSIVE DISORDER, SINGLE EPISOD 01/24/2018 JESSIE DOWELL APRN Ot F41.9 ANXIETY DISORDER, UNSPECIFIED 01/24/2018 JESSIE DOWELL APRN Ot G43.909 MIGRAINE, UNSP, NOT INTRACTABLE, WITHOUT 01/24/2018 JESSIE DOWELL APRN Ot K21.9 GASTRO-ESOPHAGEAL REFLUX DISEASE WITHOUT 01/24/2018 JESSIE DOWELL APRN Ot N39.0 URINARY TRACT INFECTION, SITE NOT SPECIF 01/24/2018 JESSIE DOWELL APRN Ot R42 DIZZINESS AND GIDDINESS 01/24/2018 JESSIE DOWELL APRN Ot Z87.19 PERSONAL HISTORY OF OTHER DISEASES OF 01/24/2018 JESSIE DOWELL APRN Ot Z87.59 PERSONAL HISTORY OF COMP OF PREG, CHLDBR 01/24/2018 JESSIE DOWELL APRN Ot Z90.49 ACQUIRED ABSENCE OF OTHER SPECIFIED PART 02/19/2018 JOAQUÍN SANCHEZ APRN Ot G43.009 MIGRAINE W/O AURA, NOT INTRACTABLE, W/O 02/19/2018 SANCHEZ JOAQUÍN R MUSEUM EXHIBIT TECHNICIAN Ot N92.6 IRREGULAR MENSTRUATION, UNSPECIFIED 05/23/2018 CHERYL TATUMTYSHAWN Paiz STEVE Ot Z80.3 FAMILY HISTORY OF MALIGNANT NEOPLASM OF 05/23/2018 DANIELJOAQUÍN MUSEUM EXHIBIT TECHNICIAN Ot G43.009 MIGRAINE W/O AURA, NOT INTRACTABLE, W/O 05/23/2018 JOAQUÍN SANCHEZ R MUSEUM EXHIBIT TECHNICIAN Ot N92.6 IRREGULAR MENSTRUATION, UNSPECIFIED 05/23/2018 SANCHEZJOAQUÍN MUSEUM EXHIBIT TECHNICIAN Ot G43.009 MIGRAINE W/O AURA, NOT INTRACTABLE, W/O 05/23/2018 JOAQUÍN SANCHEZ MUSEUM EXHIBIT TECHNICIAN Ot N92.6 IRREGULAR MENSTRUATION, UNSPECIFIED 05/24/2018 JOAQUÍN SANCHEZ MUSEUM EXHIBIT TECHNICIAN Ot G43.009 MIGRAINE W/O AURA, NOT INTRACTABLE, W/O 05/24/2018 SANCHEZJOAQUÍN Gay MUSEUM EXHIBIT TECHNICIAN Ot N92.6 IRREGULAR MENSTRUATION, UNSPECIFIED 06/21/2018 JOAQUÍN SANCHEZ MUSEUM EXHIBIT TECHNICIAN Ot G43.009 MIGRAINE W/O AURA, NOT INTRACTABLE, W/O 06/21/2018 SANCHEZ JOAQUÍN Ashley MUSEUM EXHIBIT TECHNICIAN Ot N92.6 IRREGULAR MENSTRUATION, UNSPECIFIED Procedures Code Description [place] [address] URINE TEST (IN- HOUSE) 07/03/2012 02661 UA W/ CULTURE IF INDICATED 08/09/2012 29598 UA LONG DIP 08/13/2012 43978 URINE TEST (IN- HOUSE) 08/13/2012 96656 TRICHOMONAS (IN-HOUSE) 08/13/2012 23635 URINE ORGANIC ACIDS 08/14/2012 95110 GC/CHLAM PROBE ([facility]) 08/14/2012 77219 CULTURE UROGENITAL 08/17/2012 30932 GLUCOSE FINGER STICK 09/09/2012 96898 A1C (IN-HOUSE) 09/09/2012 67140 ROUTINE VENIPUNCTURE 09/10/2012 39000 UA LONG DIP 09/10/2012 80922 URINE TEST (IN- HOUSE) 09/10/2012 66267 MONO TEST (IN-HOUSE) 09/10/2012 27739 CMP 09/10/2012 97905 INSULIN LEVEL 09/10/2012 95672 TSH 09/10/2012 44190 CBC 09/10/2012 79296 XRAY SCOLIOSIS SERIES 10/15/2012 60496 UA W/ CULTURE IF INDICATED 11/20/2012 10123 URINE TEST (IN- HOUSE) 11/20/2012 27958 US ABDOMINAL ULTRASOUND, COMPLETE 11/21/2012 82010 HIDA SCAN 11/22/2012 53510 UA W/ CULTURE IF INDICATED 12/30/2012 61649 URINE TEST (IN- HOUSE) 02/14/2013 44557 UA W/ CULTURE IF INDICATED 02/14/2013 10528 US ABDOMEN ULTRASOUND, LIMITED (SPECIFY ORGAN) 02/24/2013 76988 US PELVIC (TRANSVAGINAL ONLY ) 02/24/2013 61306 US OB - EARLY <14 WEEKS 03/21/2013 13198 URINE TEST (IN- HOUSE) 04/08/2013 28672 URINE DRUG SCREEN (IN-HOUSE ) 04/08/2013 93441 CULTURE URINE 04/09/2013 86994 US OB - FOLLOW UP 04/10/2013 82020 STREP A (IN-HOUSE) 11/20/2013 89602 US ABDOMEN ULTRASOUND, LIMITED (SPECIFY ORGAN) 12/01/2013 23975 HIDA SCAN 12/01/2013 39949 US OB - EARLY <14 WEEKS 12/11/2013 74.1 LOW CERVICAL 07/05/2014 99.77 APPL/ADMIN OF AN ADHESION BARRIER SUBSTA 07/05/2014 Results Test Result Range Complete urinalysis with reflex to culture - 04/23/16 00:50 Urine color determination YELLOW NRG Urine clarity determination SLIGHTLY CLOUDY NRG Urine pH measurement by test strip 7 5-9 Specific gravity of urine by test strip 1.010 1.016- 1.022 Urine protein assay by test strip, semi-quantitative NEGATIVE NEGATIVE Urine glucose detection by automated test strip NEGATIVE NEGATIVE Erythrocytes detection in urine sediment by light microscopy NEGATIVE NEGATIVE Urine ketones detection by automated test strip NEGATIVE NEGATIVE Urine nitrite detection by test strip NEGATIVE NEGATIVE Urine total bilirubin detection by test strip NEGATIVE NEGATIVE Urine urobilinogen measurement by automated test strip (mass/volume) 4 mg/dL NORMAL Urine leukocyte esterase detection by dipstick 2+ NEGATIVE Automated urine sediment erythrocyte count by microscopy (number/high power field) NONE NRG Automated urine sediment leukocyte count by microscopy (number/high power field ) RARE NRG Bacteria detection in urine sediment by light microscopy FEW NRG Squamous epithelial cells detection in urine sediment by light microscopy >50 NRG Crystals detection in urine sediment by light microscopy PRESENT NRG Casts detection in urine sediment by light microscopy NONE NRG Mucus detection in urine sediment by light microscopy NEGATIVE NRG Complete urinalysis with reflex to culture NO NRG Amorphous sediment detection in urine sediment by light microscopy LARGE GRAHAM URATES NRG Complete urinalysis with reflex to culture - 04/01/17 18:29 Urine color determination YELLOW NRG Urine clarity determination CLEAR NRG Urine pH measurement by test strip 6 5-9 Specific gravity of urine by test strip 1.020 1.016- 1.022 Urine protein assay by test strip, semi-quantitative 1+ NEGATIVE Urine glucose detection by automated test strip NEGATIVE NEGATIVE Erythrocytes detection in urine sediment by light microscopy NEGATIVE NEGATIVE Urine ketones detection by automated test strip NEGATIVE NEGATIVE Urine nitrite detection by test strip NEGATIVE NEGATIVE Urine total bilirubin detection by test strip 1+ NEGATIVE Urine urobilinogen measurement by automated test strip (mass/volume) 1 mg/dL NORMAL Urine leukocyte esterase detection by dipstick 1+ NEGATIVE Automated urine sediment erythrocyte count by microscopy (number/high power field) RARE NRG Automated urine sediment leukocyte count by microscopy (number/high power field ) RARE NRG Bacteria detection in urine sediment by light microscopy LARGE NRG Squamous epithelial cells detection in urine sediment by light microscopy TNTC NRG Crystals detection in urine sediment by light microscopy NONE NRG Casts detection in urine sediment by light microscopy NONE NRG Mucus detection in urine sediment by light microscopy NEGATIVE NRG Complete urinalysis with reflex to culture NO NRG Serum or plasma choriogonadotropin ( test) detection - 04/01/17 19:10 Serum or plasma choriogonadotropin ( test) detection NEGATIVE NEGATIVE CMP - 05/29/17 10:37 Glucose, Serum 98 mg/dL 65-99 BUN 13 mg/dL 6-20 Creatinine, Serum 0.70 mg/dL 0.57-1.00 eGFR If NonAfricn Am 123 mL/min/1.73 >59 eGFR If Africn Am 142 mL/min/1.73 >59 BUN/Creatinine Ratio 19 9-23 Sodium, Serum 139 mmol/L 134-144 Potassium, Serum 5.2 mmol/L 3.5-5.2 Chloride, Serum 99 mmol/L 96-106 Carbon Dioxide, Total 22 mmol/L 18-29 Calcium, Serum 9.5 mg/dL 8.7-10.2 Protein, Total, Serum 7.5 g/dL 6.0-8.5 Albumin, Serum 4.1 g/dL 3.5-5.5 Globulin, Total 3.4 g/dL 1.5-4.5 A/G Ratio 1.2 1.2-2.2 Bilirubin, Total 0.2 mg/dL 0.0-1.2 Alkaline Phosphatase, S 133 IU/L 39-117 AST (SGOT) 19 IU/L 0-40 ALT (SGPT) 13 IU/L 0-32 CBC With Differential/Platelet - 05/29/17 10:37 WBC 9.8 x10E3/uL 3.4-10.8 RBC 4.70 x10E6/uL 3.77-5.28 Hemoglobin 13.0 g/dL 11.1-15.9 Hematocrit 39.1 % 34.0-46.6 MCV 83 fL 79-97 MCH 27.7 pg 26.6-33.0 MCHC 33.2 g/dL 31.5-35.7 RDW 16.0 % 12.3-15.4 Platelets 360 x10E3/uL 150-379 Neutrophils 52 % Not Estab. Lymphs 37 % Not Estab. Monocytes 6 % Not Estab. Eos 5 % Not Estab. Basos 0 % Not Estab. Neutrophils (Absolute) 5.1 x10E3/uL 1.4-7.0 Lymphs (Absolute) 3.6 x10E3/uL 0.7-3.1 Monocytes(Absolute) 0.6 x10E3/uL 0.1-0.9 Eos (Absolute) 0.5 x10E3/uL 0.0-0.4 Baso (Absolute) 0.0 x10E3/uL 0.0-0.2 Immature Granulocytes 0 % Not Estab. Immature Grans (Abs) 0.0 x10E3/uL 0.0-0.1 Comp. Metabolic Panel (14) - 05/29/17 10:37 Glucose, Serum 98 mg/dL 65-99 BUN 13 mg/dL 6-20 Creatinine, Serum 0.70 mg/dL 0.57-1.00 eGFR If NonAfricn Am 123 mL/min/1.73 >59 eGFR If Africn Am 142 mL/min/1.73 >59 BUN/Creatinine Ratio 19 9-23 Sodium, Serum 139 mmol/L 134-144 Potassium, Serum 5.2 mmol/L 3.5-5.2 Chloride, Serum 99 mmol/L 96-106 Carbon Dioxide, Total 22 mmol/L 18-29 Calcium, Serum 9.5 mg/dL 8.7-10.2 Protein, Total, Serum 7.5 g/dL 6.0-8.5 Albumin, Serum 4.1 g/dL 3.5-5.5 Globulin, Total 3.4 g/dL 1.5-4.5 A/G Ratio 1.2 1.2-2.2 Bilirubin, Total 0.2 mg/dL 0.0-1.2 Alkaline Phosphatase, S 133 IU/L 39-117 AST (SGOT) 19 IU/L 0-40 ALT (SGPT) 13 IU/L 0-32 Lipid Panel - 05/29/17 10:37 Cholesterol, Total 172 mg/dL 100-199 Triglycerides 186 mg/dL 0-149 HDL Cholesterol 46 mg/dL >39 VLDL Cholesterol Lucius 37 mg/dL 5-40 LDL Cholesterol Calc 89 mg/dL 0-99 Hemoglobin A1c - 05/29/17 10:37 Hemoglobin A1c 5.4 % 4.8-5.6 Thyroid Champion Profile - 05/29/17 10:37 TSH 1.560 uIU/mL 0.450-4.500 Influenza virus A and B antigen detection - 06/07/17 12:00 FLU RESULT NEGATIVE FOR INFLUENZA A AND B ANTIGENS BY IA [facility] GGT - 06/11/17 11:26 GGT 52 IU/L 0-60 GGT - 06/11/17 11:26 GGT 52 IU/L 0-60 Complete urinalysis with reflex to culture - 06/23/17 21:44 Urine color determination YELLOW NRG Urine clarity determination SLIGHTLY CLOUDY [facility] Urine pH measurement by test strip 6 5-9 Specific gravity of urine by test strip 1.020 1.016- 1.022 Urine protein assay by test strip, semi-quantitative 1+ NEGATIVE Urine glucose detection by automated test strip NEGATIVE NEGATIVE Erythrocytes detection in urine sediment by light microscopy NEGATIVE NEGATIVE Urine ketones detection by automated test strip NEGATIVE NEGATIVE Urine nitrite detection by test strip NEGATIVE NEGATIVE Urine total bilirubin detection by test strip 1+ NEGATIVE Urine urobilinogen measurement by automated test strip (mass/volume) 1 mg/dL NORMAL Urine leukocyte esterase detection by dipstick 1+ NEGATIVE Automated urine sediment erythrocyte count by microscopy (number/high power field) NONE NRG Automated urine sediment leukocyte count by microscopy (number/high power field ) [HPF] NRG Bacteria detection in urine sediment by light microscopy LARGE NRG Squamous epithelial cells detection in urine sediment by light microscopy 25-50 NRG Crystals detection in urine sediment by light microscopy NONE NRG Casts detection in urine sediment by light microscopy NONE NRG Mucus detection in urine sediment by light microscopy NEGATIVE NRG Complete urinalysis with reflex to culture YES NRG Bacterial urine culture - 06/23/17 21:44 URINE CULTURE RESULTS <10,000/ML NRG Complete blood count (CBC) with automated white blood cell (WBC) differential - 06/23/17 21:48 Blood leukocytes automated count (number/volume) 12.7 10*3/uL 4.3-11.0 Blood erythrocytes automated count (number/volume) 4.84 10*6/uL 4.35-5.85 Venous blood hemoglobin measurement (mass/volume) 13.2 g/dL 11.5-16.0 Blood hematocrit (volume fraction) 40 % 35-52 Automated erythrocyte mean corpuscular volume 83 [foz_us] 80-99 Automated erythrocyte mean corpuscular hemoglobin (mass per erythrocyte) 27 pg 25-34 Automated erythrocyte mean corpuscular hemoglobin concentration measurement ( mass/volume) 33 g/dL 32-36 Automated erythrocyte distribution width ratio 14.4 % 10.0-14.5 Automated blood platelet count (count/volume) 356 10*3/uL 130-400 Automated blood platelet mean volume measurement 11.1 [foz_us] 7.4-10.4 Automated blood neutrophils/100 leukocytes 46 % 42-75 Automated blood lymphocytes/100 leukocytes 43 % 12-44 Blood monocytes/100 leukocytes 8 % 0-12 Automated blood eosinophils/100 leukocytes 3 % 0-10 Automated blood basophils/100 leukocytes 1 % 0-10 Blood neutrophils automated count (number/volume) 5.8 10*3 1.8-7.8 Blood lymphocytes automated count (number/volume) 5.4 10*3 1.0-4.0 Blood monocytes automated count (number/volume) 1.0 10*3 0.0-1.0 Automated eosinophil count 0.4 10*3/uL 0.0-0.3 Automated blood basophil count (count/volume) 0.1 10*3/uL 0.0-0.1 Comprehensive metabolic panel - 06/23/17 21:48 Serum or plasma sodium measurement (moles/volume) 136 mmol/L 135-145 Serum or plasma potassium measurement (moles/volume) 4.0 mmol/L 3.6-5.0 Serum or plasma chloride measurement (moles/volume) 102 mmol/L 98-107 Carbon dioxide 22 mmol/L 21-32 Serum or plasma anion gap determination (moles/volume) 12 mmol/L 5-14 Serum or plasma urea nitrogen measurement (mass/volume) 11 mg/dL 7-18 Serum or plasma creatinine measurement (mass/volume) 0.74 mg/dL 0.60-1.30 Serum or plasma urea nitrogen/creatinine mass ratio 15 NRG Serum or plasma creatinine measurement with calculation of estimated glomerular filtration rate > NRG Serum or plasma glucose measurement (mass/volume) 87 mg/dL 70-105 Serum or plasma calcium measurement (mass/volume) 9.4 mg/dL 8.5-10.1 Serum or plasma total bilirubin measurement (mass/volume) 0.3 mg/dL 0.1-1.0 Serum or plasma alkaline phosphatase measurement (enzymatic activity/volume) 139 U/L 40-136 Serum or plasma aspartate aminotransferase measurement (enzymatic activity/ volume) 39 U/L 5-34 Serum or plasma alanine aminotransferase measurement (enzymatic activity/volume ) 43 U/L 0-55 Serum or plasma protein measurement (mass/volume) 8.2 g/dL 6.4-8.2 Serum or plasma albumin measurement (mass/volume) 4.1 g/dL 3.2-4.5 Lipase - 06/23/17 21:48 Lipase 30 U/L 8-78 Complete urinalysis with reflex to culture - 12/16/17 02:15 Urine color determination YELLOW NRG Urine clarity determination CLEAR NRG Urine pH measurement by test strip 6.5 5-9 Specific gravity of urine by test strip 1.015 1.016- 1.022 Urine protein assay by test strip, semi-quantitative NEGATIVE NEGATIVE Urine glucose detection by automated test strip NEGATIVE NEGATIVE Erythrocytes detection in urine sediment by light microscopy NEGATIVE NEGATIVE Urine ketones detection by automated test strip NEGATIVE NEGATIVE Urine nitrite detection by test strip NEGATIVE NEGATIVE Urine total bilirubin detection by test strip NEGATIVE NEGATIVE Urine urobilinogen measurement by automated test strip (mass/volume) NORMAL NORMAL Urine leukocyte esterase detection by dipstick NEGATIVE NEGATIVE Automated urine sediment erythrocyte count by microscopy (number/high power field) NONE NRG Automated urine sediment leukocyte count by microscopy (number/high power field ) NONE NRG Bacteria detection in urine sediment by light microscopy FEW NRG Squamous epithelial cells detection in urine sediment by light microscopy 5-10 NRG Crystals detection in urine sediment by light microscopy NONE NRG Casts detection in urine sediment by light microscopy NONE NRG Mucus detection in urine sediment by light microscopy NEGATIVE NRG Complete urinalysis with reflex to culture NO NRG Complete blood count (CBC) with automated white blood cell (WBC) differential - 12/16/17 03:20 Blood leukocytes automated count (number/volume) 10.8 10*3/uL 4.3-11.0 Blood erythrocytes automated count (number/volume) 4.40 10*6/uL 4.35-5.85 Venous blood hemoglobin measurement (mass/volume) 12.0 g/dL 11.5-16.0 Blood hematocrit (volume fraction) 36 % 35-52 Automated erythrocyte mean corpuscular volume 83 [foz_us] 80-99 Automated erythrocyte mean corpuscular hemoglobin (mass per erythrocyte) 27 pg 25-34 Automated erythrocyte mean corpuscular hemoglobin concentration measurement ( mass/volume) 33 g/dL 32-36 Automated erythrocyte distribution width ratio 14.3 % 10.0-14.5 Automated blood platelet count (count/volume) 356 10*3/uL 130-400 Automated blood platelet mean volume measurement 10.4 [foz_us] 7.4-10.4 Automated blood neutrophils/100 leukocytes 43 % 42-75 Automated blood lymphocytes/100 leukocytes 45 % 12-44 Blood monocytes/100 leukocytes 7 % 0-12 Automated blood eosinophils/100 leukocytes 5 % 0-10 Automated blood basophils/100 leukocytes 0 % 0-10 Blood neutrophils automated count (number/volume) 4.6 10*3 1.8-7.8 Blood lymphocytes automated count (number/volume) 4.8 10*3 1.0-4.0 Blood monocytes automated count (number/volume) 0.8 10*3 0.0-1.0 Automated eosinophil count 0.5 10*3/uL 0.0-0.3 Automated blood basophil count (count/volume) 0.0 10*3/uL 0.0-0.1 Serum or plasma choriogonadotropin ( test) detection - 12/16/17 03:20 Serum or plasma choriogonadotropin ( test) detection NEGATIVE NEGATIVE Comprehensive metabolic panel - 12/16/17 03:20 Serum or plasma sodium measurement (moles/volume) 140 mmol/L 135-145 Serum or plasma potassium measurement (moles/volume) 3.5 mmol/L 3.6-5.0 Serum or plasma chloride measurement (moles/volume) 108 mmol/L 98-107 Carbon dioxide 21 mmol/L 21-32 Serum or plasma anion gap determination (moles/volume) 11 mmol/L 5-14 Serum or plasma urea nitrogen measurement (mass/volume) 6 mg/dL 7-18 Serum or plasma creatinine measurement (mass/volume) 0.73 mg/dL 0.60-1.30 Serum or plasma urea nitrogen/creatinine mass ratio 8 NRG Serum or plasma creatinine measurement with calculation of estimated glomerular filtration rate > NRG Serum or plasma glucose measurement (mass/volume) 110 mg/dL 70-105 Serum or plasma calcium measurement (mass/volume) 9.5 mg/dL 8.5-10.1 Serum or plasma total bilirubin measurement (mass/volume) 0.2 mg/dL 0.1-1.0 Serum or plasma alkaline phosphatase measurement (enzymatic activity/volume) 137 U/L 40-136 Serum or plasma aspartate aminotransferase measurement (enzymatic activity/ volume) 39 U/L 5-34 Serum or plasma alanine aminotransferase measurement (enzymatic activity/volume ) 45 U/L 0-55 Serum or plasma protein measurement (mass/volume) 8.0 g/dL 6.4-8.2 Serum or plasma albumin measurement (mass/volume) 4.3 g/dL 3.2-4.5 Lipase - 12/16/17 03:20 Lipase 24 U/L 8-78 Complete blood count (CBC) with automated white blood cell (WBC) differential - 01/22/18 17:20 Blood leukocytes automated count (number/volume) 10.5 10*3/uL 4.3-11.0 Blood erythrocytes automated count (number/volume) 4.86 10*6/uL 4.35-5.85 Venous blood hemoglobin measurement (mass/volume) 13.3 g/dL 11.5-16.0 Blood hematocrit (volume fraction) 40 % 35-52 Automated erythrocyte mean corpuscular volume 82 [foz_us] 80-99 Automated erythrocyte mean corpuscular hemoglobin (mass per erythrocyte) 27 pg 25-34 Automated erythrocyte mean corpuscular hemoglobin concentration measurement ( mass/volume) 34 g/dL 32-36 Automated erythrocyte distribution width ratio 14.9 % 10.0-14.5 Automated blood platelet count (count/volume) 345 10*3/uL 130-400 Automated blood platelet mean volume measurement 10.7 [foz_us] 7.4-10.4 Automated blood neutrophils/100 leukocytes 55 % 42-75 Automated blood lymphocytes/100 leukocytes 35 % 12-44 Blood monocytes/100 leukocytes 7 % 0-12 Automated blood eosinophils/100 leukocytes 3 % 0-10 Automated blood basophils/100 leukocytes 0 % 0-10 Blood neutrophils automated count (number/volume) 5.8 10*3 1.8-7.8 Blood lymphocytes automated count (number/volume) 3.7 10*3 1.0-4.0 Blood monocytes automated count (number/volume) 0.8 10*3 0.0-1.0 Automated eosinophil count 0.3 10*3/uL 0.0-0.3 Automated blood basophil count (count/volume) 0.0 10*3/uL 0.0-0.1 Comprehensive metabolic panel - 01/22/18 17:20 Serum or plasma sodium measurement (moles/volume) 138 mmol/L 135-145 Serum or plasma potassium measurement (moles/volume) 4.3 mmol/L 3.6-5.0 Serum or plasma chloride measurement (moles/volume) 107 mmol/L 98-107 Carbon dioxide 21 mmol/L 21-32 Serum or plasma anion gap determination (moles/volume) 10 mmol/L 5-14 Serum or plasma urea nitrogen measurement (mass/volume) 9 mg/dL 7-18 Serum or plasma creatinine measurement (mass/volume) 0.69 mg/dL 0.60-1.30 Serum or plasma urea nitrogen/creatinine mass ratio 13 NRG Serum or plasma creatinine measurement with calculation of estimated glomerular filtration rate > NRG Serum or plasma glucose measurement (mass/volume) 78 mg/dL 70-105 Serum or plasma calcium measurement (mass/volume) 9.5 mg/dL 8.5-10.1 Serum or plasma total bilirubin measurement (mass/volume) 0.4 mg/dL 0.1-1.0 Serum or plasma alkaline phosphatase measurement (enzymatic activity/volume) 131 U/L 40-136 Serum or plasma aspartate aminotransferase measurement (enzymatic activity/ volume) 38 U/L 5-34 Serum or plasma alanine aminotransferase measurement (enzymatic activity/volume ) 42 U/L 0-55 Serum or plasma protein measurement (mass/volume) 8.7 g/dL 6.4-8.2 Serum or plasma albumin measurement (mass/volume) 4.5 g/dL 3.2-4.5 Complete urinalysis with reflex to culture - 01/22/18 17:22 Urine color determination YELLOW NRG Urine clarity determination SLIGHTLY CLOUDY NRG Urine pH measurement by test strip 7 5-9 Specific gravity of urine by test strip 1.005 1.016- 1.022 Urine protein assay by test strip, semi-quantitative NEGATIVE NEGATIVE Urine glucose detection by automated test strip NEGATIVE NEGATIVE Erythrocytes detection in urine sediment by light microscopy NEGATIVE NEGATIVE Urine ketones detection by automated test strip NEGATIVE NEGATIVE Urine nitrite detection by test strip NEGATIVE NEGATIVE Urine total bilirubin detection by test strip NEGATIVE NEGATIVE Urine urobilinogen measurement by automated test strip (mass/volume) NORMAL NORMAL Urine leukocyte esterase detection by dipstick 3+ NEGATIVE Automated urine sediment erythrocyte count by microscopy (number/high power field) NONE NRG Automated urine sediment leukocyte count by microscopy (number/high power field ) [HPF] NRG Bacteria detection in urine sediment by light microscopy MODERATE NRG Squamous epithelial cells detection in urine sediment by light microscopy 10-25 NRG Crystals detection in urine sediment by light microscopy NONE NRG Casts detection in urine sediment by light microscopy NONE NRG Mucus detection in urine sediment by light microscopy NEGATIVE NRG Complete urinalysis with reflex to culture YES NRG Bacterial urine culture - 01/22/18 17:22 Bacterial urine culture SEE COMMEN NRG COLONY COUNT . NRG Encounters ACCT No. Visit Date/Time Discharge Status Pt. Type Provider Facility Loc./Unit Complaint [id number] 09/02/2014 11:43:00 09/02/2014 23:59:59 CLS Outpatient CHENTE DEWITT MD [id number] 12/11/2013 13:52:00 12/11/2013 23:59:59 CLS Outpatient APRIL SOSA APRN [id number] 12/01/2013 11:55:00 12/01/2013 23:59:59 CLS Outpatient CHILO MCBRIDE APRN [id number] 11/20/2013 15:44:00 11/20/2013 23:59:59 CLS Outpatient CHENTE DEWITT MD [id number] 04/08/2013 13:21:00 04/08/2013 23:59:59 CLS Outpatient APRIL SOSA APRN [id number] 11/20/2012 14:26:00 11/20/2012 23:59:59 CLS Outpatient CAROLYN MCCOY APRN [id number] 10/23/2012 13:16:00 10/23/2012 23:59:59 CLS Outpatient BRAD DONALD DO [id number] 10/14/2012 17:40:00 10/14/2012 23:59:59 CLS Outpatient [id number] 09/23/2012 17:20:00 09/23/2012 23:59:59 CLS Outpatient [id number] 09/10/2012 09:20:00 09/10/2012 23:59:59 CLS Outpatient ELI ANGEL APRN [id number] 09/09/2012 14:58:00 09/09/2012 23:59:59 CLS Outpatient [id number] 08/13/2012 14:30:00 08/13/2012 23:59:59 CLS Outpatient ARIANNE FERGUSON MD [id number] 08/09/2012 13:32:00 08/09/2012 23:59:59 CLS Outpatient [id number] 03/19/2012 15:21:00 03/19/2012 23:59:59 CLS Outpatient BRAD DONALD DO [id number] 04/08/2013 13:21:00 Document Registration [id number] 02/14/2013 10:50:00 Document Registration [id number] 01/28/2013 14:42:00 Document Registration [id number] 01/16/2013 13:29:00 Document Registration [id number] 12/30/2012 15:29:00 Document Registration [id number] 12/11/2012 15:13:00 Document Registration [id number] 06/12/2017 10:10:00 Document Registration [id number] 05/29/2015 07:41:23 ACT Document Registration [id number] 02/18/2018 09:52:00 02/18/2018 23:59:59 CLS Outpatient JOAQUÍN SANCHEZ APRN [facility] RAD MIGRAINE W/O AURA AND STATUS MIGRAINOSUS [id number] 01/22/2018 13:37:00 01/22/2018 18:05:00 DIS Emergency JESSIE DOWELL [employer] TECHNICIAN [facility] ER LIGHTHEADED X 3 DAYS [id number] 12/26/2017 00:10:00 12/26/2017 23:59:59 CLS Preadmit ALEENA TATUM [employer] ASSEMBLER [facility] ONC [id number] 10/03/2017 10:46:00 12/25/2017 00:01:00 DIS Outpatient ALEENA TATUM [employer]SEM[employer]ER [facility] ONC [id number] 12/16/2017 00:45:00 12/16/2017 05:38:00 DIS Emergency JORDAN ESPARZA, ANNE Sanz [facility] ER AB AND BACK PAIN NAUSEA [id number] 09/14/2017 09:19:00 09/14/2017 23:59:59 CLS Outpatient JOAQUÍN SANCHEZ [employer]USE[employer] EXH[employer]IT TECHNICIAN [facility] RAD N63.31 LUM IN AXILLARY OF RIGHT BREAST [id number] 09/14/2017 09:14:00 09/14/2017 23:59:59 CLS Outpatient JOAQUÍN SANCHEZ [employer]USE[employer] EXHIBIT TECHNICIAN [facility] RAD N63.31 LUMP IN AXILLARY TAIL OF RIGHT BREAST [id number] 07/04/2017 17:12:00 07/04/2017 19:40:00 DIS Emergency JORDAN ESPARZA, ANNE Sanz [facility] ER CHEST PAIN [id number] 06/23/2017 21:40:00 06/23/2017 22:38:00 DIS Emergency JESSIE DOWELL [employer]USE[employer] EXH[employer]IT TECHNICIAN [facility] ER ABD PAIN, NO APPETITE, NAUSEA [id number] 06/07/2017 11:21:00 06/07/2017 12:49:00 DIS Emergency ROBIN CHRISTENSEN [facility] ER FLU SYMPTOMS [id number] 04/01/2017 18:28:00 04/01/2017 20:06:00 DIS Emergency JORADN ESPARZA, ANNE Sanz [facility] ER NAUSEA/CRAMPS/LATE PERIOD [id number] 05/12/2016 08:02:00 05/12/2016 23:59:59 CLS Emergency YUMIKO ABDI MD [facility] ER SWOLLEN LIP/RASH [id number] 04/22/2016 23:58:00 04/23/2016 01:50:00 DIS Emergency NOE ROSALES MD [facility] ER POSS YEAST INFECTION [id number] 05/28/2015 18:36:00 05/28/2015 21:32:00 DIS Emergency KATIE JOHNSON [facility] ER L SIDE PAIN [id number] 05/06/2015 00:52:00 05/06/2015 01:46:00 DIS Emergency MAYELA MARA FAIRBANKS K [facility] ER RT SHOULDER PAIN [id number] 07/26/2014 10:00:00 07/26/2014 18:48:00 DIS Outpatient DENIA CROFT MD [facility] SDC LAP CARINA [id number] 07/05/2014 17:00:00 07/07/2014 14:20:00 DIS Inpatient TAYLA BAGLEY DO [facility] LDRP [id number] 12/25/2013 09:57:00 12/25/2013 23:59:59 CLS Outpatient IANAPRIL Tidwell APRN [facility] RAD DATING [id number] 12/11/2013 11:49:00 12/11/2013 23:59:59 CLS Outpatient CHILO MCBRIDE [facility] RAD RUQ PAIN [id number] 12/08/2013 08:52:00 12/08/2013 23:59:59 CLS Outpatient CHILO MCBRIDE [employer] [facility] RAD ABD PAIN RUQ [id number] 08/24/2013 00:23:00 08/24/2013 12:25:00 DIS Inpatient TAYLA BAGLEY DO [facility] WS CONTRACTIONS [id number] 08/17/2013 07:04:00 08/17/2013 14:07:00 DIS Outpatient TAYLA BAGLEY DO [facility] WSo VOMITING;DIARRHEA [id number] 07/26/2013 17:37:00 07/26/2013 17:57:00 DIS Emergency JESSIE DOWELL APRN [facility] ER SORE THROAT [id number] 07/19/2013 14:44:00 07/19/2013 14:55:00 DIS Outpatient ALEXX DUNAWAY MD [facility] WSo HIGH RISK [id number] 06/21/2013 11:35:00 06/21/2013 16:03:00 DIS Emergency JESSIE DOWELL APRN [facility] ER 19 WKS; ABD PAIN [id number] 05/01/2013 11:56:00 05/01/2013 23:59:59 CLS Outpatient [id number] 05/01/2013 20:13:00 05/01/2013 22:00:00 DIS Emergency MARA PEDRO DO [facility] ER 12 WKS; BACK PAIN [id number] 04/14/2013 10:49:00 04/14/2013 23:59:59 CLS Outpatient APRIL SOSA APRN [facility] RAD FOLLOW-UP SONO THAT SHOWED T[place] GESTATION [id number] 03/21/2013 13:13:00 03/21/2013 23:59:59 CLS Outpatient PHI WOLFE MD [facility] RAD ABD PAIN,HX OF SALPINGITIS [id number] 03/05/2013 10:25:00 03/05/2013 23:59:59 CLS Outpatient ANDREW MORAES [facility] RAD ABD PAIN,PEL PAIN [id number] 02/17/2013 20:06:00 02/17/2013 20:32:00 DIS Emergency IZABELLA RODRIGUEZ MD [facility] ER POSS ABSCESS [id number] 07/05/2014 17:00:00 ACT Inpatient [id number] 12/12/2012 10:09:00 Document Registration [id number] 12/01/2012 20:58:00 Document Registration [id number] 12/01/2012 14:24:00 Document Registration [id number] 11/25/2012 09:10:00 Document Registration [id number] 10/18/2012 13:56:00 Document Registration [id number] 08/14/2012 20:34:00 Document Registration [id number] 07/10/2012 16:09:00 Document Registration [id number] 04/03/2012 21:32:00 Document Registration [id number] 02/13/2012 13:10:00 Document Registration [id number] 02/12/2012 10:01:00 Document Registration [id number] 02/05/2012 10:29:00 Document Registration [id number] 10/04/2011 11:27:00 Document Registration [id number] 09/11/2011 17:42:00 Document Registration [id number] 09/10/2011 05:34:00 Document Registration [id number] 08/18/2011 06:56:00 Document Registration [id number] 08/04/2011 07:44:00 Document Registration [id number] 03/07/2011 15:38:00 Document Registration [id number] 11/22/2010 12:25:00 Document Registration [id number] 12/28/2009 12:06:00 Document Registration [id number] 09/14/2009 18:17:00 Document Registration [id number] 09/28/2018 12:30:00 09/28/2018 23:59:59 [facility] [id number] 06/11/2017 11:00:00 Document Registration [id number] 05/29/2017 10:40:00 Document Registration [id number] 05/30/2017 13:06:00 Document Registration
[2018-11-03] MEDS ORDERED: ACETAMINOPHEN 500 MG TAB (TYLENOL) PO STA (01:20)
[2018-11-03] MEDS ORDERED: IBUPROFEN 800 MG (MOTRIN) TAB PO STA (01:20)
--- NOTE | 2018-11-03 01:20 | ED Cough/URI ---
General Chief Complaint: Cough/Cold/Flu Symptoms Stated Complaint: COUGH,CONGESTION,FEVER Nursing Triage Note: PT AMB TO ROOM #5 W/O DIFFICULTY. A&OX4. C/O COUGH, CONGESTION, NAUSEA AND INTERMITTENT FEVER. REPORTS ONSET OF SYMPTOMS TO BE APPROX X2 DAYS. REPORTS TAKING IBUPROFEN @ 2029. PT STATES, "MY BODY ACHES ALL OVER." REPORTS TO BE COUGHING UP SCANT GREEN PHLEGM. Sepsis Screen: Possible Sepsis Risk Source: patient Exam Limitations: no limitations History of Present Illness Date Seen by Provider: Nov 03, 2018 Time Seen by Provider: 01:06 Initial Comments Here with 2 days of cough and congestion for the last 2 days and now with fever. Feels like she has some aches all over and has some nausea. Denies vomiting or diarrhea. Denies rash. Timing/Duration: getting worse, other (2 days) Severity/Quality: mild, dry cough Prior Episodes/Possible Cause: occasional episodes Modifying Factors: Improves With Rest Associated Symptoms: cough, fever/chills, muscle aches, sore throat Allergies and Home Medications Allergies Coded Allergies: propranolol (Unverified Allergy, Unknown, 07/26/14) Home Medications Sulfamethoxazole/Trimethoprim 1 Each Tablet, 1 EACH PO BID Prescribed by: JESSIE DOWELL on 01/22/18 2530 Patient Home Medication List Home Medication List Reviewed: Yes Review of Systems Review of Systems Constitutional: see HPI, chills, fever EENTM: nose congestion; No throat pain Respiratory: cough; No short of breath Cardiovascular: no symptoms reported Gastrointestinal: see HPI Musculoskeletal: see HPI Skin: no symptoms reported Past Zmtqmqp-Rcolpx-Adodof Hx Past Med/Social Hx: Reviewed Nursing Past Med/Soc Hx Patient Social History Alcohol Use: Denies Use Recreational Drug Use: No Smoking Status: Former Smoker Former Smoker, Quit: Aug 27, 2012 2nd Hand Smoke Exposure: No Recent Foreign Travel: No Contact w/Someone Who Travel: No Recent Infectious Disease Expo: No Recent Hopitalizations: No Immunizations Up To Date Tetanus Booster (TDap): Less than 5yrs PED Vaccines UTD: Yes Date of Influenza Vaccine: Jun 27, 2013 Seasonal Allergies Seasonal Allergies: Yes Past Medical History Surgeries: Yes (URETHRAL DILATION, X 2) Appendectomy, Section, Gallbladder Respiratory: No Cardiac: No Neurological: Yes ("hereditary migraines") Headaches /Migraines Reproductive Disorders: No Female Reproductive Disorders: Pelvic Inflammatory Dis Sexually Transmitted Disease: No Genitourinary: No UTI-Chronic Gastrointestinal: Yes Gastroesophageal Reflux, Ulcer, Irritable Bowel Musculoskeletal: Yes Scoliosis Endocrine: No HEENT: No Cancer: No Psychosocial: Yes Anxiety, Depression Integumentary: No Blood Disorders: No Family Medical History Reviewed Nursing Family Hx Alcoholism 19 FATHER 19 MOTHER (PGF) Arthritis 19 MOTHER Cardiovascular disease 19 FATHER (PGM) 19 MOTHER (MGF) Completed stroke G8 BROTHER Dementia G8 BROTHER Diabetes mellitus 19 FATHER (PGM) G8 BROTHER Fibrocystic disease of breast 19 MOTHER (MGM) Headache disorder 19 FATHER Hypercholesterolemia 19 FATHER G8 BROTHER G8 BROTHER Hypertension 19 MOTHER (MGF) G8 BROTHER Kidney disease 19 MOTHER Myocardial infarction G8 BROTHER Osteoporosis 19 MOTHER Psychosocial problem No Family History of: AIDS Abdominal aortic aneurysm [place]'s disease Alzheimer's disease Aphasia Asthma Cancer of mouth Cataracts Colon cancer Congenital disease Congenital heart disease Coronary thrombosis Cystic fibrosis Deafness or hearing loss Drug abuse Dysphasia Gastroenteritis Glaucoma Infertility Neoplasm Not obtainable due to adoption Parkinson's disease Prostate cancer Respiratory disorder Seizure disorder Severe allergy Thyroid disease Tuberculosis Visual disorder No Pertinent Family Hx, Heart Disease, Migraines Physical Exam Vital Signs - First Documented 11/03/18 00:12 Temp 100.5 Pulse 139 Resp 18 B/P (MAP) 133/85 (101) Pulse Ox 96 O2 Delivery Room Air Capillary Refill : Less Than 3 Seconds Height: 5'2.00" Weight: 210lbs. 0oz. 95.878483kg; 30.18 BMI Method:Stated General Appearance: WD/WN, no apparent distress HEENT: PERRL/EOMI, pharyngeal erythema (mild), other (mild bilateral nasal congestion with clear rhinorrhea and moderate erythema) Neck: full range of motion, supple Respiratory: lungs clear, normal breath sounds Cardiovascular: regular rate, rhythm, no murmur Gastrointestinal: non tender, soft Neurologic/Psychiatric: alert, oriented x 3 Skin: normal color, warm/dry Progress/Results/Core Measures Suspected Sepsis Recent Fever Within 48 Hours: Yes Infection Criteria Present: Suspected New Infection New/Unexplained Altered Menta: No Sepsis Screen: Possible Sepsis Risk SIRS Temperature:100.5 Pulse: 139 Respiratory Rate: 18 Blood Pressure 133 /85 Mean: 101 Results/Orders Micro Results Microbiology 11/03/18 Influenza Types A,B Antigen (LATOYA) - Final, Complete My Orders Orders - BOBBY,NOE D MD Influenza A And B Antigens (11/03/18 00:13) Acetaminophen Tablet (Tylenol Tablet) (11/03/18 01:20) Ibuprofen Tablet (Motrin Tablet) (11/03/18 01:20) Vital Signs/I&O 11/03/18 00:12 Temp 100.5 Pulse 139 Resp 18 B/P (MAP) 133/85 (101) Pulse Ox 96 O2 Delivery Room Air Capillary Refill : Less Than 3 Seconds Blood Pressure Mean: 101 Progress Note : Progress Note Seen and evaluated. Influenza screen ordered and was negative. Ibuprofen 800 mg by mouth. Acetaminophen 1000 mg by mouth. Discharged home with return precautions. Patient verbalize understanding instructions and agreement with plan. Departure Impression Primary Impression: Upper respiratory infection Qualified Codes: J06.9 - Acute upper respiratory infection, unspecified Disposition: HOME, SELF-CARE Condition: Stable Departure-Patient Inst. Decision time for Depature: 01:26 [address]errals: [facility] [place] (PCP/Family) Primary Care Physician Patient Instructions: Viral Upper Respiratory Infection, Adult (DC) Add. Discharge Instructions: All discharge instructions reviewed with patient and/or family. Voiced understanding. Drink plenty of fluids and get plenty of rest. You may take ibuprofen 800 mg every 8 hours as needed for fever or pain. You may also take Tylenol/ acetaminophen 1000 mg every 8 hours as needed for fever or pain. Follow-up with your DrYifan in a few days for recheck. Return for worse pain, fever, vomiting, weakness, breathing problems or other concerns as needed. You may use Afrin nasal spray or the generic, 12 hour relief, 2 sprays to each nostril twice daily for 3 days only and then stop. Do not take more than 3 days. NOE ROSALES MD Nov 03, 2018 01:20
[2018-11-03] MEDS ORDERED: RX-ONDANSETRON 4 MG ODT (ZOFRAN) PPK #4 PO STA (01:32)
[2018-11-03 01:55] VITALS: BP 124/92
== END 2018-11-03 01:55 | disposition home or self-care (01) ==
LOC: EDUNIT# 00:08 → ER 00:09
DX: J06.9 Acute upper respiratory infection, unspecified (principal); G43.909 Migraine, unspecified, not intractable, without status migrainosus; K21.9 Gastro-esophageal reflux disease without esophagitis; K58.9 Irritable bowel syndrome, unspecified; M41.9 Scoliosis, unspecified; F41.9 Anxiety disorder, unspecified; F32.9 Major depressive disorder, single episode, unspecified; Z82.49 Family history of ischemic heart disease and other diseases of the circulatory system; Z87.19 Personal history of other diseases of the digestive system; Z87.440 Personal history of urinary (tract) infections; Z87.448 Personal history of other diseases of urinary system; Z88.8 Allergy status to other drugs, medicaments and biological substances; Z87.891 Personal history of nicotine dependence; Z98.890 Other specified postprocedural states; Z90.49 Acquired absence of other specified parts of digestive tract
CPT/HCPCS: 87804